=== PATIENT | female | born 1945 | race Caucasian/White ===

== ENCOUNTER → 2018-01-17 | Day surgery (SDC) | payer MEDICARE ==
[2018-01-13 16:20] LABS: BASOPHILS # (AUTO) 0.1 (0.0-0.1); EOSINOPHILS # (AUTO) 0.3 (0.0-0.4); EOSINOPHILS % 2.5 % (0.0-6.0); HEMATOCRIT 32.7 % (34.2-44.1); HEMOGLOBIN 10.7 g/dL (12.0-16.0); LYMPHOCYTES # (AUTO) 3.4 (1.0-3.2); LYMPHOCYTES % 29.4 % (18.0-39.1); MEAN CORPUSCULAR HEMOGLOBIN 31.5 pg (28-32); MEAN CORPUSCULAR HGB CONC 32.7 g/dL (31-35); MEAN CORPUSCULAR VOLUME 96.2 fL (81-99); MONOCYTES # (AUTO) 1.1 (0.2-0.8); MONOCYTES % 9.3 % (4.4-11.3); NEUTROPHILS # (AUTO) 6.6 (2.1-6.9); NEUTROPHILS % 57.5 % (38.7-80.0); PLATELET COUNT 327 x10e3/uL (140-360); RED CELL DISTRIBUTION WIDTH 16.7 % (11.7-14.4)
[~2018-01-17] MED LIST: ABATACEPT; AMITIZA24 MCG PO; AMLODIPINE BESYL5 MG PO; AZITHROMYCIN250 MG PO; COMBIVENT14.7 GM; CYANOCOBALAM1000 MCG IM; CYCLOBENZAPRINE10 MG PO; DALIRESP500 MCG; DILTIAZEM ER60 MG PO; FENTANYL CITRATE/PF 100MCG/2 ML INJ ONE; FLEXERIL10 MG PO; FOLIC ACID PO; FUROSEMIDE40 MG PO; GABAPENTIN300 MG PO; GLIPIZIDE ER2.5 M1 PO; GLUCOTROL XL2.5 MG PO; GLYCOPYRROLATE INJ 1MG/ 5 ML SYR ONE; HYOSCYAMINE SULFATE 0.5 MG/ML AMP ONE; LEVALBUTER0.63 MG/3 NEB; LIDOCAINE HCL 2% LOCAL INJ 5 ML SDV VIAL INJ ONE; LISINOPRIL10 MG PO; LORAZEPAM1 MG PO; MELOXICAM7.5 MG PO; METHOTREXATE; METHOTREXATE2.5 MG PO; MIDAZOLAM HCL 2 MG/2 ML VIAL ONE; NEURONTIN100 MG PO; NEXIUM40 MG PO; NORCO 10MG-325MG1 EA PO; ONDANSETRON HCL INJ 2 MG/ML VIAL ONE; PHENYLEPHRINE HCL 1% 10 MG/ML VIAL ONE; PREDNISONE20 MG PO; PROPOFOL IV EMULSION 10 MG/ML 20 ML VIAL ONE; RANITIDINE HCL300 MG PO; SERTRALINE HCL100 MG PO; SUCRALFATE PO; SUCRALFATE1 GM PO; VIT D2 PO; VITAMIN D PO; Z.0.AMITIZA8 MCG PO; Z.0.FOLIC ACID1 MG PO; Z.0.FOSAMAX70 MG; Z.0.NEXIUM40 MG PO; Z.0.PROBIOTIC1 EACH; Z.0.RAMIPRIL2.5 MG PO; Z.0.SERTRALINE HCL10 PO; Z.0.VITAMIN D50000 U PO; ZOLPIDEM PO; ZOLPIDEM TARTRA10 MG PO; ZYRTEC PO
--- NOTE | 2018-01-17 12:56 | Operative Report ---
DATE OF PROCEDURE: January 17, 2018 REFERRING PHYSICIAN: Dr. Nydia Harry. PROCEDURES PERFORMED: 1. Esophagogastroduodenoscopy with esophageal dilatation and biopsies. 2. Colonoscopy. INDICATIONS FOR ESOPHAGOGASTRODUODENOSCOPY: Dysphagia to solids, nausea. INDICATIONS FOR COLONOSCOPY: Colorectal cancer screening, personal history of colon polyps. MEDICATION: Patient was done under MAC. Please see anesthesiologist's note. PROCEDURE: With the patient in the left lateral decubitus position, the flexible fiberoptic Olympus gastroscope was introduced into the esophagus under direct visualization without any difficulty. There was some patchy erythema noted in the distal esophagus. There was a mild stricture noted at the GE junction, and that was dilated to size 52-[place] Olivas. The scope was then advanced with ease into the stomach, and a gastrojejunostomy anastomosis was noted that was patent and it was traversed with ease. Another anastomosis was entered, and the scope was then advanced into the bypassed stomach, and the mucosa overlying the body and the antrum revealed some patchy intense erythema and moderate edema and biopsies were obtained and sent to stain for H. pylori. Pylorus was intubated with ease, and the scope was advanced into the duodenal bulb as well as the proximal 2nd portion of the duodenum. It was then withdrawn slowly, and mucosa overlying the proximal 2nd portion and the duodenal bulb appeared to be within normal limits. The scope was then withdrawn back into the gastric stump and retroflexed, and mucosa overlying the fundus and the cardia appeared to be within normal limits. The scope was then straightened out. It was subsequently withdrawn. Patient tolerated the procedure well. IMPRESSION: 1. Distal esophagitis, mild. 2. Esophageal stricture at gastroesophageal junction dilated to size 52-[place] Oliavs. 3. Status post gastrojejunostomy. Anastomosis intact. 4. Gastritis biopsied. Biopsies sent to stain for H. pylori. PLAN: Follow up histology. Continue current therapy. Patient was then turned around and after adequate lubrication of the anal canal, a flexible fiberoptic Olympus colonoscope was inserted into the rectum with ease and advanced all the way to the cecum. The scope was then withdrawn slowly. Mucosa overlying the cecum, ascending colon, transverse, descending, sigmoid and rectum appeared to be within normal limits. The scope was then retroflexed into the distal rectum and small internal hemorrhoids were noted, none of which was actively bleeding. The scope was then straightened out. It was subsequently withdrawn. Patient tolerated the procedure well. IMPRESSION: Internal hemorrhoids, none actively bleeding. PLAN: Initiate high-fiber low-fat diet. Initiate high-fiber supplement. Patient might benefit from a followup colonoscopy in 5 years. Job#: [id number] EV cc:NYDIA HARRY MD
== END | disposition home or self-care (01) ==
LOC: OR 09:36
PROVIDERS: ATTEND Internal Medicine Gastroenterology
DX: Z12.11 Encounter for screening for malignant neoplasm of colon (principal); K29.50 Unspecified chronic gastritis without bleeding; K22.2 Esophageal obstruction; K20.9 Esophagitis, unspecified; Z98.0 Intestinal bypass and anastomosis status; K58.9 Irritable bowel syndrome, unspecified; K21.9 Gastro-esophageal reflux disease without esophagitis; K59.00 Constipation, unspecified; K64.8 Other hemorrhoids; E11.9 Type 2 diabetes mellitus without complications; I10 Essential (primary) hypertension; M06.9 Rheumatoid arthritis, unspecified; J44.9 Chronic obstructive pulmonary disease, unspecified; Z68.28 Body mass index [BMI] 28.0-28.9, adult; Z88.6 Allergy status to analgesic agent; Z88.0 Allergy status to penicillin; Z88.8 Allergy status to other drugs, medicaments and biological substances; Z79.84 Long term (current) use of oral hypoglycemic drugs
CPT/HCPCS: 43239; 43450; G0105; 36415; 45378; 82948; 85025; 88305; 88312; 93005; J1980; J2001; J2250; J2370; J2405

== ENCOUNTER 2018-06-13 18:56 | Inpatient (IN) | payer MEDICARE ==
[~2018-06-13] VITALS: Ht 162.6 cm; Wt 72.6 kg
[~2018-06-13 18:56] MED LIST changes: -FENTANYL CITRATE/PF 100MCG/2 ML INJ ONE; -GLYCOPYRROLATE INJ 1MG/ 5 ML SYR ONE; -HYOSCYAMINE SULFATE 0.5 MG/ML AMP ONE; -LIDOCAINE HCL 2% LOCAL INJ 5 ML SDV VIAL INJ ONE; -MIDAZOLAM HCL 2 MG/2 ML VIAL ONE; -ONDANSETRON HCL INJ 2 MG/ML VIAL ONE; -PHENYLEPHRINE HCL 1% 10 MG/ML VIAL ONE; -PROPOFOL IV EMULSION 10 MG/ML 20 ML VIAL ONE
--- OUTSIDE RECORDS SUMMARY | 2018-06-13 19:00 | XMS REPORT | Clinical Summary ---
Author Author [facility] [employer] Address Unknown Phone Unavailable Care Team Providers Care Social Services Coordinator Name Role Phone Jessi Nicholas MD PCP Allergies Comments Active Allergy Reactions Severity Noted Date Makes her heart beat too fast Albuterol Other (See 03/15/2018 Comments) Penicillins 03/14/2018 Medications End Date Status Medication Sig Dispensed Refills Start Date Active VITAMIN D2 50,000 unit TAKE 1 0 capsule CAPSULE BY 8 MOUTH EVERY 6 DAYS Active esomeprazole (NexIUM) 40 Take 40 mg by 2 MG capsule mouth 2 (two) 8 times a day. Active fluticasone (FLONASE) 50 SPRAY 2 PUFFS 4 mcg/actuation nasal spray IN EACH 8 NOSTRIL EVERY MORNING AND SPRAY 1 PUFF IN EACH NOSTRIL EVERY EVENING PRN Active folic acid (FOLVITE) 1 MG Take 2 mg by 2 tablet mouth 8 nightly. Active furosemide (LASIX) 40 mg Take 40 mg by 5 tablet mouth every 8 morning. Active HYDROcodone-acetaminophen TK ONE TABLET 0 (NORCO) 10-325 mg per PO QID PRN 8 tablet Active levalbuterol (XOPENEX INHALE TWO 6 HFA) 45 mcg/actuation PUFFS BY 8 inhaler MOUTH EVERY 4 TO 6 HOURS NEEDED Active CARAFATE 1 gram tablet Take 1 g by 0 mouth 4 8 (four) times a day before meals and nightly. Active glipiZIDE (GLUCOTROL) 2.5 Take 2.5 mg 0 MG 24 hr tablet by mouth 8 every morning. Active aspirin (ECOTRIN) 81 MG Take 81 mg by 0 enteric coated tablet mouth every morning. Active sertraline (ZOLOFT) 100 Take 100 mg 0 MG tablet by mouth nightly. Active lubiprostone (AMITIZA) 24 Take 24 mcg 0 MCG capsule by mouth 2 8 (two) times a day. Active lisinopril Take 10 mg by 0 (PRINIVIL,ZESTRIL) 10 mg mouth 2 (two) 3 tablet times a day. Active methotrexate 2.5 MG Take 12.5 mg 0 tablet by mouth 8 every 7 days. Active folic acid (FOLVITE) 1 MG Take 1 mg by 0 tablet mouth every 2 morning. Active cyanocobalamin 1,000 Inject 1,000 0 mcg/mL injection mcg under the 8 skin every 14 (fourteen) days. Active gabapentin (NEURONTIN) Take 300 mg 0 300 mg capsule by mouth 8 every morning. Active meloxicam (MOBIC) 15 mg Take 15 mg by 0 tablet mouth every 8 morning. Active diltiazem CD (CardIZEM Take 120 mg 0 CD) 120 MG 24 hr capsule by mouth 8 nightly. Active ranitidine (ZANTAC) 300 Take 300 mg 5 MG tablet by mouth 8 nightly. Active gabapentin (NEURONTIN) Take 600 mg 0 300 mg capsule by mouth nightly. Active levalbuterol (XOPENEX) Take 3 mL by 0 0.63 mg/3 mL nebulizer nebulization 7 solution every 6 (six) hours as needed. 03/20/2018 Discontinued amLODIPine (NORVASC) 5 mg Take 5 mg by 5 tablet mouth daily. 8 03/20/2018 Discontinued azithromycin (ZITHROMAX) TAKE 2 0 250 MG tablet TABLETS BY 8 MOUTH ON DAY 1, THEN 1 TABLET DAILY ON DAYS 2 TO 5. 03/20/2018 Discontinued gabapentin (NEURONTIN) TAKE 1 5 300 mg capsule CAPSULE BY 8 MOUTH in the morning FOR NERVE PAIN 03/20/2018 Discontinued glipiZIDE (GLUCOTROL) 2.5 Take 2.5 mg 2 MG 24 hr tablet by mouth 8 daily. 03/20/2018 Discontinued ergocalciferol (VITAMIN Take 50,000 0 D2) 50,000 unit capsule Units by 2 mouth take as directed. Pt takes the medication every 6 days 03/20/2018 Discontinued folic acid (FOLVITE) 1 MG Take 2 mg by 0 tablet mouth 7 nightly. Active Problems Problem Noted Date Fall from standing 03/14/2018 Encounters Care Team Description Date Type Specialty Vance Araujo MD Closed intertrochanteric fracture of left hip, with routine healing, subsequent encounter (Primary Dx) 05/03/2018 Office Visit Orthopedic Surgery Cheyenne Fofana MA Pain in femur (Primary Dx) 05/02/2018 Orders Only Orthopedic Surgery Vance Araujo MD Pain of left hip joint (Primary Dx); Closed intertrochanteric fracture of left hip, with routine healing, subsequent encounter 04/05/2018 Office Visit Orthopedic Surgery Cheyenne Fofana MA 04/04/2018 Telephone Orthopedic Surgery Cheyenne Fofana MA 04/04/2018 Telephone Orthopedic Surgery Jonh Boggs 03/16/2018 Anesthesia General Surgery Event Vance Araujo MD ORIF, HIP 03/16/2018 Surgery General Surgery Derick Montez MD Kohlnhofer, Matthew, MD Fall from standing, initial encounter (Primary Dx); Acute hip pain, left; Dehydration; Closed fracture of left hip, initial encounter; Closed displaced intertrochanteric fracture of left femur, initial encounter 03/14/2018 Hospital General Surgery - Encounter 03/21/2018 Vance Araujo MD Knox, Marcus, CIARA Pain of right hip joint 11/15/2017 Office Visit Physical Therapy Vance Araujo MD Pain of right hip joint (Primary Dx); Trochanteric bursitis, right hip 11/11/2017 Office Visit Orthopedic Surgery Cheyenne Fofana MA Pain of right hip joint (Primary Dx) 11/10/2017 Orders Only Orthopedic Surgery after 06/12/2017 Immunizations Name Dates Previously Given Next Due FLUCELVAX QUAD PF (0.5mL 03/18/2018 syringe) Social History Date Tobacco Use Types Packs/Day Years Used Never Smoker Smokeless Tobacco: Never Used Alcohol Use Drinks/Week oz/Week Comments No Sex Assigned at Date Recorded Not on file Industry Job Start Date Occupation Not on file Not on file Not on file Travel End Travel History Travel Start No recent travel history available. Last Filed Vital Signs Time Taken Vital Sign Reading 03/21/2018 4:02 PM CDT Blood Pressure 109/66 03/21/2018 4:02 PM CDT Pulse 87 03/21/2018 4:02 PM CDT Temperature 37.2 C (99 F) 03/21/2018 4:02 PM CDT Respiratory Rate 17 03/21/2018 4:02 PM CDT Oxygen Saturation 97% - Inhaled Oxygen - Concentration 03/15/2018 1:35 AM CDT Weight 77.1 kg (170 lb) 03/15/2018 1:35 AM CDT Height 163.8 cm (5' 4.5") 03/15/2018 1:35 AM CDT Body Mass Index 28.73 Plan of Treatment Care Team Description Date Type Specialty Vance Araujo MD [address] [facility] [address] [place] [address] [phone] 07/07/2018 Office Visit Orthopedic Surgery Health Maintenance Due Date Last Done Comments BREAST CANCER SCREENING 1997 COLON CANCER SCREENING 1997 SHINGRIX VACCINE (1 of 2) 1997 ZOSTER VACCINE 2007 PNEUMOCOCCAL-13 2012 PNEUMOCOCCAL Completed 05/09/2012 POLYSACCHARIDE VACCINE AGE 65 AND OVER INFLUENZA VACCINE Completed 03/18/2018, 04/07/2017 Implants Device Identifier Shelf Expiration Date Model / Serial / Lot Implanted Type Area Manufactur er [id number] / / Kit Scr Intrlkng 100mm Lag 95mm Hip Joint Left: Hip LARA AND Comp Intertan - [id number] Implants NEPHEW Implanted: Qty: 1 on 03/16/2018 by Vance Knight MD TRAUMA 08/31/2027 [id number] / / [id number] Intertan 1.5 [id number] 125d Lt - IPM Left: Hip LARA & [id number] IMPLANT NEPHEW Implanted: Qty: 1 on 03/16/2018 by DEVICES Vance Saini MD [id number] / / Trigen Low Profile Screw 5.0mm X IPM Left: Hip LARA & 50mm - [id number] IMPLANT NEPHEW Implanted: Qty: 1 on 03/16/2018 by DEVICES ORTHOPAEDI Van, Vance Han MD CS Lens Lens Procedures Comments Procedure Name Priority Date/Time Associated Diagnosis XR FEMUR 2 VW LEFT Routine 05/03/2018 Pain in femur 1:33 PM CDT XR FEMUR 2 VW LEFT Routine 04/05/2018 Pain of left hip joint 1:58 PM CDT XR PELVIS 1 OR 2 VW Routine 04/05/2018 Pain of left hip joint 1:57 PM CDT HEMOGLOBIN & HEMATOCRIT Routine 03/20/2018 12:21 PM CDT ESTIMATED GFR Routine 03/19/2018 4:35 PM CDT COMPREHENSIVE METABOLIC Routine 03/19/2018 PANEL 4:35 PM CDT PREPARE RBC Timed 03/19/2018 12:10 PM CDT TYPE AND SCREEN Timed 03/19/2018 12:10 PM CDT HC COMPLETE BLD COUNT STAT 03/19/2018 W/AUTO DIFF 12:10 PM CDT ESTIMATED GFR Routine 03/18/2018 5:55 AM CDT BASIC METABOLIC PANEL Routine 03/18/2018 5:55 AM CDT HC COMPLETE BLD COUNT Routine 03/18/2018 W/AUTO DIFF 5:55 AM CDT POC GLUCOSE Routine 03/17/2018 4:53 PM CDT POC GLUCOSE Routine 03/17/2018 11:18 AM CDT POC GLUCOSE Routine 03/17/2018 5:52 AM CDT ESTIMATED GFR Routine 03/17/2018 5:03 AM CDT BASIC METABOLIC PANEL Routine 03/17/2018 5:03 AM CDT HC COMPLETE BLD COUNT Routine 03/17/2018 W/AUTO DIFF 5:03 AM CDT POC GLUCOSE Routine 03/16/2018 8:13 PM CDT POC GLUCOSE Routine 03/16/2018 5:29 PM CDT XR FEMUR 2 VW LEFT Routine 03/16/2018 4:19 PM CDT POC GLUCOSE Routine 03/16/2018 3:55 PM CDT OR FL > 1 HOUR Routine 03/16/2018 3:00 PM CDT ANESTHESIA INTUBATION Routine 03/16/2018 1:27 PM CDT Procedure Note - Júnior Enriquez MD - 03/16/2018 1:27 PM CDT Airway Performed by: JÚNIOR ENRIQUEZ Authorized by: JÚNIOR ENRIQUEZ Location: OR Difficult Airway: No Anesthesio logist: JÚNIOR ENRIQUEZ Performed by: anesthesio logist Preoxygena leyda with 100% O2: Yes C-spine Precaution s Maintained Throughout : Yes Mask Ventilatio n: Easy mask Final Airway Type: Endotrache al airway Final Endotrache al Airway: ETT Technique Used: Video laryngosco py Devices/Me thods Used in Placement: Intubatin g stylet Insertion Site: Oral Blade Type: Melton Laryngosco pe Blade/Vide olaryngosc ope Blade Size: 2 ETT Size (mm): 7.0 Measured from: Gums ETT to Gums (cm): 21 Placement Verified by: CO2 detection, direct visualizat ion and equal breath sounds Laryngosco pic view: Grade I - full view of glottis Rapid Sequence Induction (RSI): No Modified RSI: No Number of Attempts at Approach: 1 ORIF, HIP 03/16/2018 Left hip 11:30 AM CDT intertrochanteric fracture Special Needs Lara and Nephedy Intratan Nail.Jeremiah ) with Marco and Nephedy notified of case start at 1500.....H J03/15/18 Jeremiah notified of time change to 1130...hj POC GLUCOSE Routine 03/16/2018 5:42 AM CDT POC GLUCOSE Routine 03/15/2018 8:55 PM CDT XR KNEE 1 OR 2 VW LEFT Routine 03/15/2018 5:48 PM CDT POC GLUCOSE Routine 03/15/2018 4:50 PM CDT POC GLUCOSE Routine 03/15/2018 12:30 PM CDT ECHOCARDIOGRAM 2D Routine 03/15/2018 COMPLETE W MMODE SPECTRAL 12:00 PM CDT COLOR DOPPLER (20795) ECG PRE/POST OP Routine 03/15/2018 10:08 AM CDT POC GLUCOSE Routine 03/15/2018 6:04 AM CDT ESTIMATED GFR Routine 03/15/2018 5:11 AM CDT COMPREHENSIVE METABOLIC Routine 03/15/2018 PANEL 5:11 AM CDT HC COMPLETE BLD COUNT Routine 03/15/2018 W/AUTO DIFF 5:11 AM CDT URINALYSIS SCREEN AND Routine 03/15/2018 MICROSCOPY, WITH REFLEX 1:08 AM CDT TO CULTURE URINE CULTURE Routine 03/15/2018 1:08 AM CDT TYPE AND SCREEN Routine 03/15/2018 1:07 AM CDT XR HIP 2-3 VIEWS LEFT STAT 03/15/2018 12:55 AM CDT XR CHEST 1 VW PORTABLE STAT 03/15/2018 12:[address] HEAD WO CONTRAST STAT 03/14/2018 11:[address] CERVICAL SPINE WO STAT 03/14/2018 CONTRAST 11:[address] PELVIS WO CONTRAST STAT 03/14/2018 11:[address] LOWER EXTREMITY WO STAT 03/14/2018 CONTRAST LEFT 11:07 PM CDT ESTIMATED GFR STAT 03/14/2018 9:36 PM CDT B NATRIURETIC PEPTIDE STAT 03/14/2018 9:36 PM CDT CREATINE KINASE, TOTAL STAT 03/14/2018 (CPK) 9:36 PM CDT TROPONIN STAT 03/14/2018 9:36 PM CDT COMPREHENSIVE METABOLIC STAT 03/14/2018 PANEL 9:36 PM CDT PARTIAL THROMBOPLASTIN STAT 03/14/2018 TIME (PTT) 9:36 PM CDT PROTHROMBIN TIME WITH INR STAT 03/14/2018 9:36 PM CDT HC COMPLETE BLD COUNT STAT 03/14/2018 W/AUTO DIFF 9:36 PM CDT ECG 12-LEAD STAT 03/14/2018 9:34 PM CDT ECG ED PRELIMINARY Routine 03/14/2018 INTERPRETATION 9:27 PM CDT XR HIP 2-3 VIEWS RIGHT Routine 11/11/2017 Pain of right hip joint 2:40 PM CDT after 06/12/2017 Results * XR Femur 2 Vw Left (05/03/2018 1:33 PM CDT) Only the most recent of 3 results within the time period is included. Narrative Performed At [facility] X-rays left femur AP and lateral to include the hip and knee 05/03/2018: X-ray shows intramedullary marcos fixation of an intertrochanteric fracture left hip there is an avulsion of the greater trochanter but otherwise the fracture is well reduced with signs of early healing.Of note the right extends to to the distal femur where there is a left total knee arthroplasty in place which appears satisfactory. Performing Organization Address City/State/Zipcode Phone Number [facility] [address] [place] [address] * XR Pelvis 1 Or 2 Vw (04/05/2018 1:57 PM CDT) Narrative Performed At [facility] X-rays AP pelvis 04/05/2018: X-ray shows bilateral internal fixation from previous trochanteric fracture most recent of the left side. Performing Organization Address City/[facility] Phone Number [facility] [address] [place] [address] * Hemoglobin & hematocrit (03/20/2018 12:21 PM CDT) HGB 8.2 (L) 12.0 - 16.0 g/dL [facility]OMIC MEDIC[facility] HCT 26.1 (L) 37.0 - 47.0 % [facility]IC[facility] Specimen Blood Performing Organization Address [facility] Cent[facility]ode Phone Number [facility] [address] [place] [address] [place] [address] PATHOLOGY AND [facility] * Estimated GFR (03/19/2018 4:35 PM CDT) Only the most recent of 5 results within the time period is included. Estimated GFR 87 mL/min/1.73 m2 [facility] Comment: PATHOLOGY AND [employer] GENOMIC MEDICINE rpretation G1 >=90 Normal or high G2 60-89Mildly decreased [id number] Mildly to moderately decreased [id number] Moderately to severely decreased G4 15-29Severely decreased G5 <15Kidney failure The eGFR was calculated using the Chronic Kidney Disease Epidemiology Collaboration (CKD-EPI) equation. Interpretation is based on recommendations of the National Kidney Foundation-Kidney Disease Outcomes Quality Initiative (NKF-KDOQI) published in 2014. Specimen Plasma specimen Performing Organization Address [facility] Phone Number [facility] [id number] [place] [address] [place] [address] PATHOLOGY AND [facility] MEDICINE * Comprehensive metabolic panel (03/19/2018 4:35 PM CDT) Only the most recent of 3 results within the time period is included. Sodium 144 135 - 148 mEq/L [facility]IC[facility] Potassium 3.2 (L) 3.5 - 5.0 mEq/L [facility] MEDIC[facility] Chloride 97 (L) 98 - 112 mEq/L [facility]IC[facility] CO2 38 (H) 24 - 31 mEq/L [facility] MEDIC[facility] Anion gap 9@ANIO 7 - 15 mEq/L [facility] MEDIC[facility] BUN 15 8 - 23 mg/dL [facility]IC[facility] Creatinine 0.70 0.50 - 0.90 mg/dL [facility]IC[facility] Glucose 144 (H) 65 - 99 mg/dL [facility]IC[facility] Calcium 8.6 (L) 8.8 - 10.2 mg/dL [facility] MEDIC[facility] Protein 5.5 (L) 6.3 - 8.3 g/dL [facility] Comment: PATHOLOGY AND [employer] GENOMIC MEDICINE 4.6-7.0 g/dL 1 week 4.4-7.6 g/dL 7 months-1year 5.1-7.3 g/dL 1-2 years5.6-7 .5 g/dL >3 years6.0-8 .0 g/dL 18-150 6.3-8.3 g/dL Albumin 2.6 (L) 3.5 - 5.0 g/dL [facility]IC[facility] A/G ratio 0.9 0.7 - 3.8 [facility]IC[facility] Alkaline phosphatase 55 35 - 104 U/L [facility] MEDIC[facility] AST 10 10 - 35 U/L [facility] MEDIC[facility] ALT 11 5 - 50 U/L [facility]IC MEDIC[facility] Total bilirubin 0.4 0.0 - 1.2 mg/dL [facility]OMIC MEDICINE Specimen Plasma specimen Performing Organization Address City/State/Zipcode [place] [address] [address] [place] [phone] PATHOLOGY AND GENOMIC MEDICINE * CBC with platelet and differential (03/19/2018 12:10 PM CDT) Only the most recent of 5 results within the time period is included. WBC 12.67 (H) 4.50 - 11.00 k/uL [facility] GENOMIC MEDIC[facility] RBC 2.62 (L) 4.20 - 5.50 m/uL [facility]OMIC MEDIC[facility] HGB 7.9 (L) 12.0 - 16.0 g/dL [facility] GENOMIC MEDIC[facility] HCT 25.5 (L) 37.0 - 47.0 % [facility] MEDIC[facility] MCV 97.3 82.0 - 100.0 fL [facility]IC[facility] MCH 30.2 27.0 - 34.0 pg [facility] GEN[facility]IC MEDIC[facility] MCHC 31.0 31.0 - 37.0 g/dL [facility]Y [facility] GENOMIC MEDICINE RDW - SD 56.9 (H) 37.0 - 55.0 fL [facility] OF PATHOLOGY AND GENOMIC MEDICINE MPV 9.9 8.8 - 13.2 fL [facility] OF PATHOLOGY AND GENOMIC MEDICINE Platelet count 279 150 - 400 k/uL [facility]IC MEDIC[facility] Nucleated RBC 0.00 /100 WBC [facility]Y AND GENOMIC MEDICINE Neutrophils 50.8 39.0 - 69.0 % [facility] GENOMIC MEDICINE Lymphocytes 31.6 25.0 - 45.0 % [facility]Y [facility] GENOMIC MEDICINE Monocytes 11.1 (H) 0.0 - 10.0 % [facility]Y [facility] GENOMIC MEDICINE Eosinophils 5.3 (H) 0.0 - 5.0 % [facility] OF PATHOLOGY AND GENOMIC MEDICINE Basophils 0.6 0.0 - 1.0 % [facility] PATHOLOGY AND GENOMIC MEDICINE Specimen Blood Performing Organization Address City/[facility]ode Phone Number [address] [place] [phone] PATHOLOGY AND GENOMIC MEDICINE * Type and screen (03/19/2018 12:10 PM CDT) Only the most recent of 2 results within the time period is included. ABO grouping A [facility] OF PATHOLOGY AND GENOMIC MEDICINE Rh type POS [facility] PATHOLOGY AND GENOMIC MEDICINE Antibody screen NEG [facility] OF PATHOLOGY AND GENOMIC MEDICINE Specimen Blood Performing Organization Address City/[facility]ercode Phone Number [address] [place] [address] PATHOLOGY [facility] * Basic metabolic panel (03/18/2018 5:55 AM CDT) Only the most recent of 2 results within the time period is included. Sodium 144 135 - 148 mEq/L [facility] GENOMIC MEDICINE Potassium 3.3 (L) 3.5 - 5.0 mEq/L [facility] OF PATHOLOGY AND GENOMIC MEDICINE Chloride 103 98 - 112 mEq/L [facility]Y [facility] GENOMIC MEDICINE CO2 34 (H) 24 - 31 mEq/L [facility] MEDIC[facility] Anion gap 7@ANIO 7 - 15 mEq/L [facility]OMIC MEDIC[facility] BUN 15 8 - 23 mg/dL [facility] GENOMIC MEDICINE Creatinine 0.70 0.50 - 0.90 mg/dL [facility] GENOMIC MEDICINE Glucose 125 (H) 65 - 99 mg/dL [facility] GENOMIC MEDICINE Calcium 8.4 (L) 8.8 - 10.2 mg/dL [facility]Y [facility] GENOMIC MEDICINE Specimen Plasma specimen Performing Organization Address [facility]ode Phone Number [address] [place] [phone] PATHOLOGY AND GENOMIC MEDICINE * POC glucose (03/17/2018 4:53 PM CDT) Only the most recent of 11 results within the time period is included. POC glucose 118 (H) 65 - 99 mg/dL [facility] Comment: PATHOLOGY AND Meter ID: [id number] GENOMIC MEDICINE [employer] Repairer: Nasir Bertrand Performing Organization Address City/[facility]ode Phone Number [address] [place] [phone] PATHOLOGY AND [employer] MEDICINE * OR [place] > I Hour (03/16/2018 3:00 PM CDT) Narrative Performed At EXAMINATION:[place] 1 HOUR [facility] C-arm fluoroscopy was requested in OR. Fluoro time 5:54 4 images IMPRESSION: Separate operative report will be issued by the physician performing the procedure. [id number] Procedure Note Interface, Radiology Results Incoming - 03/16/2018 3:42 PM CDT EXAMINATION: OR [place] 1 HOUR C-arm fluoroscopy was requested in OR. Fluoro time 5:54 4 images IMPRESSION: Separate operative report will be issued by the physician performing the procedure. [id number] Performing Organization Address City/[facility]/Zipcode Phone Number [facility] [address] [place] [address] * XR Knee 1 Or 2 Vw Left (03/15/2018 5:48 PM CDT) Narrative Performed At EXAMINATION:XR KNEE 1 OR 2 VW LEFT [facility] CLINICAL HISTORY:Knee replacedpainquadriceps or patellar tendinopathy suspected COMPARISON:None. IMPRESSION: There is a left total knee prosthesis in place.There is no evidence of fracture or malalignment.There is soft tissue swelling strongly suggesting a distention of the bursal or joint effusion. [facility]-[id number] Procedure Note Hm Interface, Radiology Results Incoming - 03/15/2018 6:05 PM CDT EXAMINATION: XR KNEE 1 OR 2 VW LEFT CLINICAL HISTORY: Knee replaced pain quadriceps or patellar tendinopathy suspected COMPARISON: None. IMPRESSION: There is a left total knee prosthesis in place. There is no evidence of fracture or malalignment. There is soft tissue swelling strongly suggesting a distention of the bursal or joint effusion. [facility]-[id number] Performing Organization Address City/State/Zipcode Phone Number [facility] [address] [place] [address] * Echocardiogram complete w contrast and 3D if needed (03/15/2018 12:00 PM CDT) Velocity Ratio (V1/V2) 1.07 m/s [facility] IVS,d 1.06 cm [facility] EF 60.15 % [facility] LVPWD,d 1.03 cm [facility] AoV Mean PG 2.57 mmHg [facility] AV LVOT peak gradient 5.02 mmHg [facility] E/A ratio 0.65 [facility] E wave decelartion time 254.35 msec [facility] LVOT Diam,S 2.26 cm [facility] LVOT area 4.01 cm2 [facility] LVOT Vmax 1.12 m/s [facility] LVOT VTI 0.26 m [facility] AoV Peak PG 4.39 mmHg [facility] MV Peak E Elmer 0.73 m/s [facility] MV Peak A Elmer 1.12 m/s [facility] LV Vol,s A2C 15.23 mL [facility] LV Vol,d A2C 54.00 mL [facility] AoV Area, Vmax 4.30 cm2 [facility] AoV Area, VTI 5.41 cm2 [facility] AoV Vmax 1.05 m/s [facility] LV,d 4.08 cm [facility] LV,s 2.79 cm [facility] LV Vol,d A4C 46.81 ml [facility] LV Vol,s A4C 18.32 ml [facility] RVSP (TR) 53.51 mmHg [facility] TR Vpeak 3.48 mm/s [facility] MV E A ratio 0.65 mmHg [facility] RA pressure 5.00 mmHg [facility] TR pk grad 48.51 mmHg [facility] RVSP 53.51 mmHg [facility] LV SYS VOL 29.21 ml [facility] LV RAND VOL 73.30 ml [facility] LA diam s 3.40 cm [facility] LA area s A4C 16.92 cm2 [facility] LA Vol MOD A4C 41.84 ml [facility] LV SV Teich 2D 44.09 ml [facility] LVOT SI 56.21 ml/m2 [facility] AoV Cusp sep 1.74 [facility] Aortic Root 3.10 cm [facility] AoV Vmn 0.77 [facility] IVS s 2D 1.48 [facility] LA Ao Ratio Mmode 1.08 [facility] D E excurs 0.60 [facility] E f slope 0.03 [facility] E prime lat 0.12 [facility] E sanjuanita sept 0.10 [facility] PV acc T slope 13.90 [facility] IVC diam 22.14 cm [facility] PV AT 68.51 msec [facility] AoV VTI 0.19 m [facility] LV EF,A2C 71.80 % [facility] LV EF,A4C 60.86 % [facility] LV EF,BP 66.97 % [facility] Ryan Langley,d A2C 6.98 cm [facility] Ryan Langley,d A4C 6.38 cm [facility] Ryan Langley,s A2C 5.68 cm [facility] Ryan Langley,s A4C 5.26 cm [facility] LV SV,A2C 38.77 % [facility] LV SV,A4C 28.49 % [facility] LV Vol,d BP 52.30 ml [facility] LV Vol,s BP 17.27 nl [facility] LVOT Vmn 0.83 [facility] Pt Size 162.56 [facility] Pt Wt 77.11 [facility] LVOT mean grad 2.92 mmHg [facility] LVPW s PLAX 1.41 cm [facility] MV Decel slope 2.86 m/s2 [facility] Narrative Performed At [facility] The left ventricle chamber size is normal. Left Ventricular ejection fraction is 60 - 65%. No pericardial effusion The mitral valve appears thickened. There is mild sclerosis of the aortic valve leaflets. Spectral Doppler shows impaired relaxation pattern of left ventricular diastolic filling. Moderate pulmonary hypertension present. Moderately elevated pulmonary artery systolic pressure. RA pressure is normal. Moderate pulmonary hypertension present. RVSP is 53 mmHg. Performing Organization Address [facility] Phone Number [facility] [address] [place] [address] * ECG Pre/Post Op (03/15/2018 10:08 AM CDT) Ventricular rate 70 [facility]USE Atrial rate 70 [facility] FL interval 168 [facility] QRSD interval 136 [facility] QT interval 472 [facility] QTC interval 509 [facility] P axis 1 77 [facility] QRS axis 1 43 [facility] T wave axis 31 [facility] EKG impression Normal sinus [facility] MUSE rhythm-Nonspecific intraventricular block-Abnormal ECG-No previous ECGs available- Performing Organization Address [facility] Phone Number [facility] MUSE [address] [place] [address] * Urinalysis screen and microscopy, with reflex to culture (03/15/2018 1:08 AM CDT) Specimen site Clean catch [facility] PATHOLOGY [facility] GENOMIC MEDICINE Color, UA Yellow [facility]IC[facility] Appearance, UA Clear [facility]Y [facility] GENOMIC MEDICINE Specific gravity, UA 1.024 1.001 - 1.035 [facility] PATHOLOGY AND GENOMIC MEDICINE pH, UA 5.0 5.0 - 8.5 [facility]OLOGY AND GENOMIC MEDICINE Protein, UA 1+ (A) Negative [facility]OLOGY AND GENOMIC MEDICINE Glucose, UA Negative Negative [facility] PATHOLOGY AND GENOMIC MEDICINE Ketones, UA Trace (A) Negative [facility] PATHOLOGY AND GENOMIC MEDICINE Bilirubin, UA Negative Negative [facility] PATHOLOGY AND GENOMIC MEDICINE Blood, UA Negative Negative [facility] PATHOLOGY AND GENOMIC MEDICINE Nitrite, UA Negative Negative [facility]OLOGY AND GENOMIC MEDICINE Urobilinogen, UA 2.0 (A) <2.0 [facility]OLOGY AND GENOMIC MEDICINE Leukocyte esterase, UA Negative Negative [facility] PATHOLOGY AND GENOMIC MEDICINE WBC, UA 0-5 0 - 4 /HPF [facility] GENOMIC MEDIC[facility] RBC, UA 0-5 0 - 5 /HPF [facility]OLOGY AND GENOMIC MEDICINE Bacteria, UA None seen None seen [facility]OLOGY AND GENOMIC MEDICINE Yeast, UA None seen [facility] PATHOLOGY AND GENOMIC MEDICINE Yeast with pseudohyphae, None seen [facility] UA PATHOLOGY AND GENOMIC MEDICINE Calcium oxalate crystals, Few [facility] UA PATHOLOGY AND GENOMIC MEDICINE Specimen Urine Performing Organization Address City/[facility]ode Phone Number [address] [place] [phone] PATHOLOGY AND GENOMIC MEDICINE * Urine culture (03/15/2018 1:08 AM CDT) Urine culture SEE COMMENTComment: [facility] DE[facility] OF Bacteriuria screen negative. PATHOLOGY AND GENOMIC MEDICINE Specimen Urine Performing Organization Address [facility] Phone Number [address] [place] [address] PATHOLOGY AND GENOMIC MEDICINE * XR Hip 2-3 View Left (03/15/2018 12:55 AM CDT) Narrative Performed At EXAMINATION:XR HIP 2-3 VIEWS LEFT [facility] CLINICAL HISTORY:fall from standing COMPARISON:Pelvic CT 03/14/2018. IMPRESSION: Acute left intertrochanteric fracture with coxa vera deformity. Surrounding soft tissue edema. Chronic right pubic fracture deformity. Fixation hardware in the visible portion of the right femur. [facility]-[id number] Procedure Note Interface, Radiology Results Incoming - 03/15/2018 1:01 AM CDT EXAMINATION: XR HIP 2-3 VIEWS LEFT CLINICAL HISTORY: fall from standing COMPARISON: Pelvic CT 03/14/2018. IMPRESSION: Acute left intertrochanteric fracture with coxa vera deformity. Surrounding soft tissue edema. Chronic right pubic fracture deformity. Fixation hardware in the visible portion of the right femur. [facility]-[id number] Performing Organization Address City/[facility]/Zipcode Phone Number [facility] [address] [place] [address] * XR Chest 1 Vw Portable (03/15/2018 12:02 AM CDT) Narrative Performed At EXAMINATION: XR CHEST 1 VW PORTABLE [facility] CLINICAL HISTORY: fall from standing COMPARISON:None. IMPRESSION: The lungs are clear. No pleural effusion or pneumothorax. Cardiac silhouette is enlarged. Aortic arch atherosclerosis. No acute osseous abnormalities. Surgical clips in the left upper quadrant. [facility]-[id number] Procedure Note Interface, Radiology Results Incoming - 03/15/2018 12:27 AM CDT EXAMINATION: XR CHEST 1 VW PORTABLE CLINICAL HISTORY: fall from standing COMPARISON: None. IMPRESSION: The lungs are clear. No pleural effusion or pneumothorax. Cardiac silhouette is enlarged. Aortic arch atherosclerosis. No acute osseous abnormalities. Surgical clips in the left upper quadrant. [facility]-[id number] Performing Organization Address City/State/Zipcode Phone Number [facility] [address] [place] [address] * CT Head Wo Contrast (03/14/2018 11:08 PM CDT) Narrative Performed At EXAMINATION:CT HEAD WO CONTRAST [facility] CLINICAL HISTORY:fall from standing COMPARISON:None. TECHNIQUE: Noncontrast head CT performed using radiation dose reduction techniques.Technical factors are evaluated and adjusted to ensure appropriate moderation of exposure.Automated dose management technology is applied to adjust radiation exposure while achieving a diagnostic quality image. FINDINGS: No evidence of acute intracranial hemorrhage, mass, mass effect, midline shift, or acute infarct. Scattered subcortical and periventricular white matter hypoattenuation likely reflecting mild to moderate chronic microvascular ischemic changes. Ventricles and sulci are normal in appearance for age.Arteriosclerosis of the cavernous and paraclinoid internal carotid arteries and V4 segment of the right vertebral artery. Basal cisterns are clear. Calvarium is intact. Status post bilateral lens extractions. No significant sinus inflammatory changes.Mastoid air cells are clear. IMPRESSION: 1. No CT evidence of acute intracranial abnormality. [id number] Procedure Note Interface, Radiology Results Incoming - 03/14/2018 11:13 PM CDT EXAMINATION: CT HEAD WO CONTRAST CLINICAL HISTORY: fall from standing COMPARISON: None. TECHNIQUE: Noncontrast head CT performed using radiation dose reduction techniques. Technical factors are evaluated and adjusted to ensure appropriate moderation of exposure. Automated dose management technology is applied to adjust radiation exposure while achieving a diagnostic quality image. FINDINGS: No evidence of acute intracranial hemorrhage, mass, mass effect, midline shift, or acute infarct. Scattered subcortical and periventricular white matter hypoattenuation likely reflecting mild to moderate chronic microvascular ischemic changes. Ventricles and sulci are normal in appearance for age. Arteriosclerosis of the cavernous and paraclinoid internal carotid arteries and V4 segment of the right vertebral artery. Basal cisterns are clear. Calvarium is intact. Status post bilateral lens extractions. No significant sinus inflammatory changes. Mastoid air cells are clear. IMPRESSION: 1. No CT evidence of acute intracranial abnormality. [id number] Performing Organization Address City/State/Zipcode Phone Number [facility] [address] [place] [address] * CT Cervical Spine Wo Contrast (03/14/2018 11:07 PM CDT) Narrative Performed At EXAMINATION: CT CERVICAL SPINE WO CONTRAST [facility] CLINICAL HISTORY: fall from standing COMPARISON:None TECHNIQUE: Axial noncontrast enhanced images of the cervical spine were obtained with coronal and sagittal reconstructed algorithms. CT imaging was performed with iterative reconstruction technique and/or automated exposure control to reduce radiation dose. FINDINGS: No fracture identified. Vertebral body heights appear maintained. Straightening of the normal cervical lordosis. Minimal anterolisthesis of C3 on C4. Minimal retrolisthesis of C4 on C5 and C5 on C6. Marked intervertebral disc space narrowing at C4-C5 and C5-C6 with mild anterior and posterior endplate spurring. No suspicious osseous lesion identified. Degenerative changes of the atlantodental joint. No prevertebral collection identified. Axial images through the disc spaces demonstrate the following: C1-C2: No significant spinal canal stenosis. C2-C3: Minimal posterior disc bulge without significant spinal canal stenosis. Patent bilateral neural foramina. C3-C4: Small central disc extrusion with minimal superior migration likely contributing to mild to moderate spinal canal stenosis measuring 7 mm in AP dimension. Mild bilateral facet hypertrophy with possible mild bilateral neural foraminal narrowing. C4-C5: Minimal posterior disc bulge and osteophytes likely result in mild spinal canal stenosis measuring 8 mm in AP dimension. Bilateral uncovertebral hypertrophy resulting in moderate to marked bilateral neural foraminal stenosis. C5-C6: Posterior osteophytes and minimal disc bulge, eccentric to the right resulting in mild spinal canal narrowing measuring 8 mm in mild to moderate lateral recess narrowing. Bilateral uncovertebral hypertrophy results in moderate to marked bilateral neural foraminal stenosis. C6-C7: No significant posterior disc disease, spinal canal or neural foraminal stenosis. C7-T1: No significant posterior disc disease, spinal canal or neural foraminal stenosis. IMPRESSION: 1. No CT evidence of acute traumatic injury to the cervical spine. 2. Multilevel degenerative changes with suspected small central disc extrusion at C3-C4 resulting in mild to moderate spinal canal stenosis. 3. Multilevel facet and uncovertebral hypertrophy resulting in moderate to marked bilateral neural foraminal stenosis at C4-C5 and C5-C6. Additional degenerative changes are detailed above. [id number] Procedure Note Hm Interface, Radiology Results Incoming - 03/14/2018 11:40 PM CDT EXAMINATION: CT CERVICAL SPINE WO CONTRAST CLINICAL HISTORY: fall from standing COMPARISON: None TECHNIQUE: Axial noncontrast enhanced images of the cervical spine were obtained with coronal and sagittal reconstructed algorithms. CT imaging was performed with iterative reconstruction technique and/or automated exposure control to reduce radiation dose. FINDINGS: No fracture identified. Vertebral body heights appear maintained. Straightening of the normal cervical lordosis. Minimal anterolisthesis of C3 on C4. Minimal retrolisthesis of C4 on C5 and C5 on C6. Marked intervertebral disc space narrowing at C4-C5 and C5-C6 with mild anterior and posterior endplate spurring. No suspicious osseous lesion identified. Degenerative changes of the atlantodental joint. No prevertebral collection identified. Axial images through the disc spaces demonstrate the following: C1-C2: No significant spinal canal stenosis. C2-C3: Minimal posterior disc bulge without significant spinal canal stenosis. Patent bilateral neural foramina. C3-C4: Small central disc extrusion with minimal superior migration likely contributing to mild to moderate spinal canal stenosis measuring 7 mm in AP dimension. Mild bilateral facet hypertrophy with possible mild bilateral neural foraminal narrowing. C4-C5: Minimal posterior disc bulge and osteophytes likely result in mild spinal canal stenosis measuring 8 mm in AP dimension. Bilateral uncovertebral hypertrophy resulting in moderate to marked bilateral neural foraminal stenosis. C5-C6: Posterior osteophytes and minimal disc bulge, eccentric to the right resulting in mild spinal canal narrowing measuring 8 mm in mild to moderate lateral recess narrowing. Bilateral uncovertebral hypertrophy results in moderate to marked bilateral neural foraminal stenosis. C6-C7: No significant posterior disc disease, spinal canal or neural foraminal stenosis. C7-T1: No significant posterior disc disease, spinal canal or neural foraminal stenosis. IMPRESSION: 1. No CT evidence of acute traumatic injury to the cervical spine. 2. Multilevel degenerative changes with suspected small central disc extrusion at C3-C4 resulting in mild to moderate spinal canal stenosis. 3. Multilevel facet and uncovertebral hypertrophy resulting in moderate to marked bilateral neural foraminal stenosis at C4-C5 and C5-C6. Additional degenerative changes are detailed above. [id number] Performing Organization Address City/State/Zipcode Phone Number [facility] [address] [place] [address] * CT Pelvis Wo Contrast (03/14/2018 11:07 PM CDT) Narrative Performed At CT PELVIS WO CONTRAST, CT LOWER EXTREMITY WO CONTRAST LEFT [facility] CLINICAL HISTORY:fall from standingL hip pain TECHNIQUE: Multidetector CT examination of the pelvis was performed following without contrast with multiplanar reconstructions. CT imaging was performed with iterative reconstruction technique and/or automated exposure control to reduce radiation dose. COMPARISON:Radiographs performed on 11/11/2017. FINDINGS: There is an acute, comminuted, and displaced intertrochanteric fracture of the proximal left femur with resultant coxa vera deformity. No other acute fracture is identified and there is no hip dislocation. There are old, healed right superior and inferior pubic ramus fractures. There are chronic, healed sacral insufficiency fractures. There is hardware within the proximal right femur without periarticular lucency or hardware fracture. The bones are demineralized. There are degenerative changes of the lower lumbar spine, both sacroiliac joints, and both hips. There is a soft tissue hematoma located adjacent to the greater trochanter of the left femur, measuring 5.2 x 3.8 cm in size. No other soft tissue fluid collection or soft tissue hematoma is identified. The partially visualized intra-abdominal and intrapelvic contents are without acute abnormality. IMPRESSION: 1. Acute, comminuted, and displaced intertrochanteric fracture of the proximal left femur with coxa vera deformity. 2. Soft tissue hematoma adjacent to the left greater trochanter. [id number] Procedure Note Interface, Radiology Results Incoming - 03/14/2018 11:[address] PELVIS WO CONTRAST, CT LOWER EXTREMITY WO CONTRAST LEFT CLINICAL HISTORY: fall from standing L hip pain TECHNIQUE: Multidetector CT examination of the pelvis was performed following without contrast with multiplanar reconstructions. CT imaging was performed with iterative reconstruction technique and/or automated exposure control to reduce radiation dose. COMPARISON: Radiographs performed on 11/11/2017. FINDINGS: There is an acute, comminuted, and displaced intertrochanteric fracture of the proximal left femur with resultant coxa vera deformity. No other acute fracture is identified and there is no hip dislocation. There are old, healed right superior and inferior pubic ramus fractures. There are chronic, healed sacral insufficiency fractures. There is hardware within the proximal right femur without periarticular lucency or hardware fracture. The bones are demineralized. There are degenerative changes of the lower lumbar spine, both sacroiliac joints, and both hips. There is a soft tissue hematoma located adjacent to the greater trochanter of the left femur, measuring 5.2 x 3.8 cm in size. No other soft tissue fluid collection or soft tissue hematoma is identified. The partially visualized intra-abdominal and intrapelvic contents are without acute abnormality. IMPRESSION: 1. Acute, comminuted, and displaced intertrochanteric fracture of the proximal left femur with coxa vera deformity. 2. Soft tissue hematoma adjacent to the left greater trochanter. [id number] Performing Organization Address City/State/Zipcode Phone Number [facility] [address] [place] [address] * CT Lower Extremity Wo Contrast Left (03/14/2018 11:07 PM CDT) Narrative Performed At CT PELVIS WO CONTRAST, CT LOWER EXTREMITY WO CONTRAST LEFT [facility] CLINICAL HISTORY:fall from standingL hip pain TECHNIQUE: Multidetector CT examination of the pelvis was performed following without contrast with multiplanar reconstructions. CT imaging was performed with iterative reconstruction technique and/or automated exposure control to reduce radiation dose. COMPARISON:Radiographs performed on 11/11/2017. FINDINGS: There is an acute, comminuted, and displaced intertrochanteric fracture of the proximal left femur with resultant coxa vera deformity. No other acute fracture is identified and there is no hip dislocation. There are old, healed right superior and inferior pubic ramus fractures. There are chronic, healed sacral insufficiency fractures. There is hardware within the proximal right femur without periarticular lucency or hardware fracture. The bones are demineralized. There are degenerative changes of the lower lumbar spine, both sacroiliac joints, and both hips. There is a soft tissue hematoma located adjacent to the greater trochanter of the left femur, measuring 5.2 x 3.8 cm in size. No other soft tissue fluid collection or soft tissue hematoma is identified. The partially visualized intra-abdominal and intrapelvic contents are without acute abnormality. IMPRESSION: 1. Acute, comminuted, and displaced intertrochanteric fracture of the proximal left femur with coxa vera deformity. 2. Soft tissue hematoma adjacent to the left greater trochanter. [facility]-[id number] Procedure Note Interface, Radiology Results - 03/14/2018 11:[address] PELVIS WO CONTRAST, CT LOWER EXTREMITY WO CONTRAST LEFT CLINICAL HISTORY: fall from standing L hip pain TECHNIQUE: Multidetector CT examination of the pelvis was performed following without contrast with multiplanar reconstructions. CT imaging was performed with iterative reconstruction technique and/or automated exposure control to reduce radiation dose. COMPARISON: Radiographs performed on 11/11/2017. FINDINGS: There is an acute, comminuted, and displaced intertrochanteric fracture of the proximal left femur with resultant coxa vera deformity. No other acute fracture is identified and there is no hip dislocation. There are old, healed right superior and inferior pubic ramus fractures. There are chronic, healed sacral insufficiency fractures. There is hardware within the proximal right femur without periarticular lucency or hardware fracture. The bones are demineralized. There are degenerative changes of the lower lumbar spine, both sacroiliac joints, and both hips. There is a soft tissue hematoma located adjacent to the greater trochanter of the left femur, measuring 5.2 x 3.8 cm in size. No other soft tissue fluid collection or soft tissue hematoma is identified. The partially visualized intra-abdominal and intrapelvic contents are without acute abnormality. IMPRESSION: 1. Acute, comminuted, and displaced intertrochanteric fracture of the proximal left femur with coxa vera deformity. 2. Soft tissue hematoma adjacent to the left greater trochanter. [facility]-[id number] Performing Organization Address City/[facility]ode Phone Number [facility] [address] [place] [address] * Troponin (03/14/2018 9:36 PM CDT) Troponin <0.300 0.000 - 0.300 ng/mL [facility] DEPARTMENT OF Comment: PATHOLOGY AND 0.30 - 1.49 [facility] ng/mlMay indicate increased risk of acute coronary syndrome. >=1.5 ng/ml Consistent with acute myocardial infarction. The diagnostic value of a single normal or non-diagnostic result is questionable.Serial samples at 2-6 hour intervals are required to rule out acute myocardial injury. Specimen Plasma specimen Performing Organization Address City/[facility] Number [address] [place] [address] PATHOLOGY AND GENOMIC MEDICINE * Partial thromboplastin time, activated (03/14/2018 9:36 PM CDT) PTT 30.3 23.0 - 36.0 sec [facility] Comment: PATHOLOGY AND PTT therapeutic range for [facility] unfractionated heparin is 61.0-112.0 seconds which corresponds to Anti-Xa 0.3-0.7 U/ml. Specimen Blood Performing Organization Address [facility] Number [address] [place] [address] PATHOLOGY AND GENOMIC MEDICINE * Prothrombin time with INR (03/14/2018 9:36 PM CDT) Prothrombin time 13.3 12.0 - 15.0 sec [facility] DEPARTMENT OF PATHOLOGY AND GENOMIC MEDICINE INR 1.0 [facility]PART[facility] OF Comment: PATHOLOGY AND The International Normalized [facility] Ratio (INR) is a therapeutic monitoring tool for patients who are stable on oral anticoagulant therapy. An INR of 2.0-3.0 is suggested for deep vein thrombosis/pulmonary embolism. Specimen Blood Performing Organization Address [facility] Number [address] [place] [address] PATHOLOGY AND [facility] * B natriuretic peptide (03/14/2018 9:36 PM CDT) BNP 95 0 - 100 pg/mL [facility] DEPARTMENT OF PATHOLOGY AND GENOMIC MEDICINE Specimen Blood Performing Organization [facility] Number [address] [place] [address] PATHOLOGY AND GENOMIC MEDICINE * Creatine kinase, total (CPK) (03/14/2018 9:36 PM CDT) Creatine kinase 61 26 - 192 U/L [facility] DEPARTMENT OF PATHOLOGY AND GENOMIC MEDICINE Specimen Plasma specimen Performing Organization [facility] Number [address] [place] [address] PATHOLOGY AND GENOMIC MEDICINE * ECG 12 lead (03/14/2018 9:34 PM CDT) Ventricular rate 77 [facility] Atrial rate 77 [facility] FL interval 170 [facility] QRSD interval 106 [facility] QT interval 420 [facility] QTC interval 475 [facility] M[facility] P axis 1 77 [facility]USE QRS axis 1 53 [facility] MUSE T wave axis 36 [facility] MUSE EKG impression Normal sinus rhythm with sinus [facility] MUSE arrhythmia-Marked ST abnormality, possible anterior subendocardial injury-Abnormal ECG-No previous ECGs available- Performing Organization Address City/[facility]ode Phone Number [facility] [address] [place] [address] * ECG ED Preliminary Interpretation - NOT AN ORDER (03/14/2018 9:27 PM CDT) Narrative Performed At Derick Montez MD 03/15/2018 12:02 AM ECG ED Preliminary Interpretation - Not an Order Performed by: DERICK MONTEZ Authorized by: DERICK MONTEZ ECG reviewed by ED Physician in the absence of a medical imaging director: yes Interpretation: Interpretation: normal Quality: Tracing quality:Limited by artifact Rate: ECG rate:77 ECG rate assessment: normal Rhythm: Rhythm: sinus rhythm Ectopy: Ectopy: none QRS: QRS axis:Normal QRS intervals:Wide Conduction: Conduction: normal ST segments: ST segments:Non-specific T waves: T waves: flattening Flattening:III * XR Hip 2-3 View Right (11/11/2017 2:40 PM CDT) Narrative Performed At [facility] X-rays right hip femur 2 views AP pelvis AP right femur lateral right and right hip 11/11/2017: X-ray shows an intramedullary marcos and compression screw is a long intramedullary marcos down the femur without interlocking screws distally above a right total knee arthroplasty.There is some deformity of the greater trochanter proximal femur but only mild degenerative changes in the hip joint. Performing Organization Address City/[facility] Cent[facility]ode Phone Number [facility] [address] [place] [address] after 06/12/2017 Insurance Payer Benefit Subscriber ID Type Phone Address Plan / Group HU[employer]NA MEDICARE HUMANA xxxxxxxxx PPO MEDICARE PPO/PFFS/E [facility] Advance Directives Patient has advance care planning documents, and code status on file. For more i nformation, please contact: Donavon Schafer [address] [place] [address] Date Inactivated Comments Code Status Date Activated 03/21/2018 10:10 PM Full Code 03/16/2018 5:14 PM Code Status decision reached by: Patient
--- OUTSIDE RECORDS SUMMARY | 2018-06-13 19:02 | XMS REPORT ---
Author Author Ever VICK, NORY Organization Unknown Address [address] [place] [address] [facility] Un[facility] Care Team Providers Care Supervisor [employer] Name Role Phone Dr. AVINASH SHOOK Unavailable Unavailable Allergies Type Substance Reaction Status drug allergy Cymbalta Active drug allergy Lyrica Active drug allergy Penicillin Active Problems Problem Effective Dates Problem Status J44.1 CHRONIC OBSTRUCTIVE PULMONARY DISEASE WITH (ACUTE) EXACERBATION 04/20/2016 Active E11.9 TYPE 2 DIABETES MELLITUS WITHOUT COMPLICATIONS 04/20/2016 Active I10 ESSENTIAL (PRIMARY) HYPERTENSION 04/20/2016 Active K21.9 GASTRO-ESOPHAGEAL REFLUX DISEASE WITHOUT ESOPHAGITIS 04/20/2016 Active F33.9 MAJOR DEPRESSIVE DISORDER, RECURRENT, UNSPECIFIED 04/20/2016 Active Medications Medication Dose Form Route Sig Text Dates Status GlipiZIDE Tablet 2.5 mg Tablet Oral Give 2.5 mg by mouth two times a day related to DIAB W/O COMP TYPE II/UNS NOT STATED UNCNTRL (250.00) 01/01/2017 9:00:00 Folic Acid Tablet 1 MG 1 tablet Tablet Oral Give 1 tablet by mouth three times a day related to UNSPECIFIED ANEMIA (285.9) 01/01/2017 9:00:00 Lisinopril Tablet 10 MG 1 tablet Tablet Oral Give 1 tablet by mouth one time a day related to UNSPECIFIED ESSENTIAL HYPERTENSION (401.9) Hold for SBP <110 DBP <55 HR <60 01/01/2017 21:00:00 LORazepam Tablet 1 MG 1 tablet Tablet Oral Give 1 tablet by mouth every 6 hours as needed for Anxiety 01/01/2017 3:43:00 [place] Tablet 7.5-325 MG 1 tablet Tablet Oral Give 1 tablet by mouth every 6 hours as needed for Pain Do not exceed 4000mg of APAP in 24 hours 01/01/2017 3:43:00 01/03/2017 18:57:00 Aborted AmLODIPine Besylate Tablet 5 MG 1 tablet Tablet Oral Give 1 tablet by mouth one time a day related to UNSPECIFIED ESSENTIAL HYPERTENSION (401.9) Hold for SBP <110 DBP <55 HR <60 01/01/2017 9:00:00 Sertraline HCl Tablet 100 MG 100 mg Tablet Oral Give 100 mg by mouth one time a day related to DEPRESSIVE DISORDER NOT ELSEWHERE CLASSIFIED (311) 01/01/2017 9:30:00 Gabapentin Capsule 100 MG Capsule Oral Give 100 mg by mouth one time a day for Neuropathy AND Give 200 mg by mouth at bedtime for Neuropathy 01/01/2017 7:00:00 01/01/2017 4:23:00 Aborted Carafate Suspension 1 GM/10ML 1 gram Suspension Oral Give 1 gram by mouth before meals and at bedtime related to ESOPHAGEAL REFLUX (530.81) 01/01/2017 8:00:00 01/01/2017 11:01:00 Aborted Acetaminophen Tablet 325 MG 650 mg Tablet Oral Give 650 mg by mouth every 4 hours as needed for Fever/Pain (Mild) 01/01/2017 3:47:00 Combivent Aerosol 18-103 MCG/ACT 2 puff Aerosol Inhalation 2 puff inhale orally every 6 hours as needed for SOB 01/01/2017 3:48:00 01/01/2017 11:07:00 Aborted Cyanocobalamin Tablet 1000 MCG 1 tablet Tablet Oral Give 1 tablet by mouth one time a day for Supplement 01/01/2017 9:30:00 NexIUM Capsule Delayed Release 40 MG 1 capsule Capsule Delayed Release Oral Give 1 capsule by mouth one time a day for Acid Reflux 01/01/2017 9:30:00 01/01/2017 11:04:00 Aborted Fluticasone Propionate Suspension 50 MCG/ACT 2 spray Suspension Nasal 2 spray in each nostril one time a day for Allergy 01/01/2017 9:30:00 Ergocalciferol Capsule 26550 UNIT 1 capsule Capsule Oral Give 1 capsule by mouth one time a day every 7 day(s) for Supplement Give 1 cap PO Q 7 days 01/01/2017 9:30:00 Acetaminophen Tablet 500 MG 1 tablet Tablet Oral Give 1 tablet by mouth every 6 hours as needed for Pain and Fever 01/01/2017 4:15:00 01/02/2017 20:54:00 Aborted Diphenhist Tablet 25 MG 1 tablet Tablet Oral Give 1 tablet by mouth every 8 hours as needed for Allergy 01/01/2017 4:15:00 LevoFLOXacin Tablet 500 MG 1 tablet Tablet Oral Give 1 tablet by mouth one time a day for Infection 01/01/2017 9:30:00 Gabapentin Capsule 300 MG 1 capsule Capsule Oral Give 1 capsule by mouth three times a day for Neuropathy 01/01/2017 9:30:00 Ipratropium-Albuterol Aerosol 18-103 MCG/ACT 1 puff Aerosol Inhalation 1 puff inhale orally every 6 hours as needed for SOB 01/01/2017 4:30:00 01/01/2017 20:20:00 Aborted Ipratropium-Albuterol Solution 0.5-2.5 (3) MG/3ML 3 ml Solution Inhalation 3 ml inhale orally every 6 hours as needed for SOB or Wheezing via nebulizer 01/01/2017 20:21:00 01/03/2017 20:29:00 Aborted Carafate Tablet 1 GM 1 tablet Tablet Oral Give 1 tablet by mouth before meals and at bedtime related to ESOPHAGEAL REFLUX (530.81) 01/02/2017 5:00:00 Protonix Tablet Delayed Release 40 MG 1 tablet Tablet Delayed Release Oral Give 1 tablet by mouth one time a day related to GASTRO-ESOPHAGEAL REFLUX DISEASE WITHOUT ESOPHAGITIS (K21.9) 01/02/2017 9:30:00 Acetaminophen-Codeine Tablet 300-30 MG 1 tablet Tablet Oral Give 1 tablet by mouth every 6 hours as needed for Mild / Moderate Pain 01/01/2017 23:20:00 01/03/2017 18:56:00 Aborted Ambien Tablet 10 MG 1 tablet Tablet Oral Give 1 tablet by mouth at bedtime related to INSOMNIA UNSPECIFIED (780.52) 01/01/2017 21:00:00 Multivitamin Adult Tablet 1 tablet Tablet Oral Give 1 tablet by mouth one time a day related to TYPE 2 DIABETES MELLITUS WITHOUT COMPLICATIONS (E11.9);ESSENTIAL (PRIMARY) HYPERTENSION (I10);GASTRO-ESOPHAGEAL REFLUX DISEASE WITHOUT ESOPHAGITIS (K21.9) 01/04/2017 9:30:00 Oscal 500/200 D-3 Tablet 500-200 MG-UNIT 1 tablet Tablet Oral Give 1 tablet by mouth two times a day related to TYPE 2 DIABETES MELLITUS WITHOUT COMPLICATIONS (E11.9);ESSENTIAL (PRIMARY) HYPERTENSION (I10);GASTRO-ESOPHAGEAL REFLUX DISEASE WITHOUT ESOPHAGITIS (K21.9) 01/04/2017 9:30:00 Heparin Sodium (Porcine) Solution 5000 UNIT/ML 5000 unit Solution Injection Inject 5000 unit subcutaneously every 12 hours for for DVT prophylaxis related to CHRONIC OBSTRUCTIVE PULMONARY DISEASE WITH (ACUTE) EXACERBATION (J44.1);TYPE 2 DIABETES MELLITUS WITHOUT COMPLICATIONS (E11.9);ESSENTIAL (PRIMARY) HYPERTENSION (I10) 01/04/2017 9:30:00 Ipratropium-Albuterol Solution 0.5-2.5 (3) MG/3ML Solution Inhalation 3 ml inhale orally every 6 hours as needed for SOB or Wheezing via nebulizer AND 3 ml inhale orally every 6 hours for Sob wheezing 01/04/2017 1:00:00 Percocet Tablet 5-325 MG 1 tablet Tablet Oral Give 1 tablet by mouth every 6 hours as needed for pain 01/03/2017 18:15:00 Results Date Test Result Interpretation Reference Range Status Notes 10/07/2016 13:13:38 Blood sugar 01/01/2017 7:24:00 RESULTS 71.0 mmol/L 01/02/2017 7:05:00 RESULTS 79.0 mmol/L 01/03/2017 8:10:15 RESULTS 224.0 mmol/L 01/04/2017 7:43:00 RESULTS 123.0 mmol/L Vital signs Description Observation Date BODY TEMPERATURE 98.1 [degF] 01/01/2017 INTRAVASCULAR SYSTOLIC 132.0 mm[Hg] 01/01/2017 4:00:00 INTRAVASCULAR DIASTOLIC 68.0 mm[Hg] 01/01/2017 4:00:00 HEART BEAT 68.0 {beats}/min 01/01/2017 4:03:00 RESPIRATION RATE 20.0 /min 01/01/2017 4:03:00 INTRAVASCULAR SYSTOLIC 126.0 mm[Hg] 01/01/2017 12:53:04 INTRAVASCULAR DIASTOLIC 74.0 mm[Hg] 01/01/2017 12:53:04 HEART BEAT 84.0 {beats}/min 01/01/2017 12:53:04 PAIN LEVEL 5.0 {score} 01/01/2017 12:55:00 OXYGEN SATURATION 97.0 % 01/01/2017 16:26:20 HEART BEAT 80.0 {beats}/min 01/01/2017 17:10:00 RESPIRATION RATE 18.0 /min 01/01/2017 17:10:00 BODY TEMPERATURE 97.6 [degF] 01/01/2017 17:10:00 INTRAVASCULAR SYSTOLIC 126.0 mm[Hg] 01/01/2017 17:10:00 INTRAVASCULAR DIASTOLIC 76.0 mm[Hg] 01/01/2017 17:10:00 INTRAVASCULAR SYSTOLIC 106.0 mm[Hg] 01/01/2017 21:06:25 INTRAVASCULAR DIASTOLIC 62.0 mm[Hg] 01/01/2017 21:06:25 HEART BEAT 84.0 {beats}/min 01/01/2017 21:06:25 OXYGEN SATURATION 96.0 % 01/02/2017 0:05:09 HEART BEAT 93.0 {beats}/min 01/02/2017 2:01:00 RESPIRATION RATE 20.0 /min 01/02/2017 2:01:00 INTRAVASCULAR SYSTOLIC 111.0 mm[Hg] 01/02/2017 2:01:00 INTRAVASCULAR DIASTOLIC 67.0 mm[Hg] 01/02/2017 2:01:00 INTRAVASCULAR SYSTOLIC 123.0 mm[Hg] 01/02/2017 8:05:11 INTRAVASCULAR DIASTOLIC 78.0 mm[Hg] 01/02/2017 8:05:11 HEART BEAT 78.0 {beats}/min 01/02/2017 8:05:11 HEART BEAT 92.0 {beats}/min 01/02/2017 11:02:00 RESPIRATION RATE 20.0 /min 01/02/2017 11:02:00 INTRAVASCULAR SYSTOLIC 118.0 mm[Hg] 01/02/2017 11:02:00 INTRAVASCULAR DIASTOLIC 71.0 mm[Hg] 01/02/2017 11:02:00 OXYGEN SATURATION 94.0 % 01/02/2017 14:48:00 HEART BEAT 95.0 {beats}/min 01/02/2017 15:02:00 RESPIRATION RATE 18.0 /min 01/02/2017 15:02:00 BODY TEMPERATURE 99.9 [degF] 01/02/2017 15:02:00 INTRAVASCULAR SYSTOLIC 111.0 mm[Hg] 01/02/2017 15:02:00 INTRAVASCULAR DIASTOLIC 56.0 mm[Hg] 01/02/2017 15:02:00 OXYGEN SATURATION 95.0 % 01/02/2017 19:47:27 INTRAVASCULAR SYSTOLIC 133.0 mm[Hg] 01/02/2017 20:32:09 INTRAVASCULAR DIASTOLIC 78.0 mm[Hg] 01/02/2017 20:32:09 HEART BEAT 70.0 {beats}/min 01/02/2017 20:32:09 HEART BEAT 105.0 {beats}/min 01/03/2017 1:10:00 RESPIRATION RATE 18.0 /min 01/03/2017 1:10:00 INTRAVASCULAR SYSTOLIC 132.0 mm[Hg] 01/03/2017 1:10:00 INTRAVASCULAR DIASTOLIC 80.0 mm[Hg] 01/03/2017 1:10:00 OXYGEN SATURATION 96.0 % 01/03/2017 6:47:01 OXYGEN SATURATION 96.0 % 01/03/2017 8:10:44 INTRAVASCULAR SYSTOLIC 140.0 mm[Hg] 01/03/2017 8:29:23 INTRAVASCULAR DIASTOLIC 72.0 mm[Hg] 01/03/2017 8:29:23 HEART BEAT 94.0 {beats}/min 01/03/2017 8:29:23 OXYGEN SATURATION 96.0 % 01/03/2017 13:45:50 HEART BEAT 97.0 {beats}/min 01/03/2017 16:34:00 RESPIRATION RATE 18.0 /min 01/03/2017 16:34:00 BODY TEMPERATURE 98.0 [degF] 01/03/2017 16:34:00 INTRAVASCULAR SYSTOLIC 111.0 mm[Hg] 01/03/2017 16:34:00 INTRAVASCULAR DIASTOLIC 64.0 mm[Hg] 01/03/2017 16:34:00 INTRAVASCULAR SYSTOLIC 118.0 mm[Hg] 01/03/2017 21:01:47 INTRAVASCULAR DIASTOLIC 64.0 mm[Hg] 01/03/2017 21:01:47 HEART BEAT 98.0 {beats}/min 01/03/2017 21:01:47 OXYGEN SATURATION 96.0 % 01/03/2017 22:07:28 INTRAVASCULAR SYSTOLIC 126.0 mm[Hg] 01/04/2017 10:22:22 INTRAVASCULAR DIASTOLIC 72.0 mm[Hg] 01/04/2017 10:22:22 HEART BEAT 84.0 {beats}/min 01/04/2017 10:22:22 OXYGEN SATURATION 96.0 % 01/04/2017 13:44:11 OXYGEN SATURATION 96.0 % 01/04/2017 13:44:55 HEART BEAT 57.0 {beats}/min 01/04/2017 15:07:00 RESPIRATION RATE 1.0 /min 01/04/2017 15:07:00 BODY TEMPERATURE 98.7 [degF] 01/04/2017 15:07:00 INTRAVASCULAR SYSTOLIC 110.0 mm[Hg] 01/04/2017 15:07:00 INTRAVASCULAR DIASTOLIC 64.0 mm[Hg] 01/04/2017 15:07:00 INTRAVASCULAR SYSTOLIC 139.0 mm[Hg] 01/04/2017 20:56:49 INTRAVASCULAR DIASTOLIC 69.0 mm[Hg] 01/04/2017 20:56:49 HEART BEAT 84.0 {beats}/min 01/04/2017 20:56:49 OXYGEN SATURATION 96.0 % 01/04/2017 23:44:58 PAIN LEVEL 6.0 {score} 01/05/2017 0:31:33 Immunizations Vaccine Date Status Reason Influenza 08/14/2014 Refused Resident Refused Pneumovax Dose 1 08/14/2014 Refused Resident Refused Social History Smoking Status Start Date End Date Unknown if ever smoked 01/05/2017 13:13:38
--- OUTSIDE RECORDS SUMMARY | 2018-06-13 19:02 | XMS REPORT | Continuity of Care Document ---
Author Author [facility] Interface Address Unknown Phone Unavailable Problems Problem Status Onset Date Classification Date Reported Comments Source E86.0 DEHYDRATION 03/21/2018 Diagnosis 04/26/2018 SNF: [facility] B19.9 UNSPECIFIED VIRAL HEPATITIS WITHOUT HEPATIC COMA 03/21/2018 Diagnosis 04/26/2018 SNF: [facility] I50.9 HEART FAILURE, UNSPECIFIED 03/21/2018 Diagnosis 04/26/2018 SNF: [facility] M62.50 MUSCLE WASTING AND ATROPHY, NOT ELSEWHERE CLASSIFIED, UNSPECIFIED SITE 03/21/2018 Diagnosis 04/26/2018 SNF: [facility] W19.XXXD UNSPECIFIED FALL, SUBSEQUENT ENCOUNTER 03/21/2018 Diagnosis 04/26/2018 SNF: [facility] Z47.89 ENCOUNTER FOR OTHER ORTHOPEDIC AFTERCARE 03/21/2018 Diagnosis 04/26/2018 SNF: [facility] S72.142D DISPLACED INTERTROCHANTERIC FRACTURE OF LEFT FEMUR, SUBSEQUENT ENCOUNTER FOR CLOSED FRACTURE WITH ROUTINE HEALING 03/21/2018 Diagnosis 04/26/2018 SNF: [facility] F41.9 ANXIETY DISORDER, UNSPECIFIED 03/21/2018 Diagnosis 04/26/2018 SNF: [facility] J44.9 CHRONIC OBSTRUCTIVE PULMONARY DISEASE, UNSPECIFIED 03/21/2018 Diagnosis 04/26/2018 SNF: [facility] 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 01/12/2017 Diagnosis 04/26/2018 SNF: [facility] E66.9 OBESITY, UNSPECIFIED 01/12/2017 Diagnosis 04/26/2018 SNF: [facility] R26.81 UNSTEADINESS ON FEET 01/01/2017 Diagnosis 04/26/2018 SNF: [facility] M62.59 MUSCLE WASTING AND ATROPHY, NOT ELSEWHERE CLASSIFIED, MULTIPLE SITES 01/01/2017 Diagnosis 04/26/2018 SNF: [facility] Z91.81 HISTORY OF FALLING 01/01/2017 Diagnosis 04/26/2018 SNF: [facility] R27.8 OTHER LACK OF COORDINATION 01/01/2017 Diagnosis 04/26/2018 SNF: [facility] M25.551 PAIN IN RIGHT HIP 01/01/2017 Diagnosis 04/26/2018 SNF: [facility] Walking disability 01/01/2017 Diagnosis 04/26/2018 SNF: [facility] J44.1 CHRONIC OBSTRUCTIVE PULMONARY DISEASE WITH EXACERBATION 04/20/2016 Diagnosis 04/26/2018 SNF: [facility] E11.9 TYPE 2 DIABETES MELLITUS WITHOUT COMPLICATIONS 04/20/2016 Diagnosis 04/26/2018 SNF: [facility] I10 ESSENTIAL HYPERTENSION 04/20/2016 Diagnosis 04/26/2018 SNF: [facility] K21.9 GASTRO-ESOPHAGEAL REFLUX DISEASE WITHOUT ESOPHAGITIS 04/20/2016 Diagnosis 04/26/2018 SNF: [facility] F33.9 MAJOR DEPRESSIVE DISORDER, RECURRENT, UNSPECIFIED 04/20/2016 Diagnosis 04/26/2018 SNF: [facility] M06.9 RHEUMATOID ARTHRITIS, UNSPECIFIED 11/23/2013 Diagnosis 04/26/2018 SNF: [facility] Compression fracture of L1 lumbar vertebra, with delayed healing, subsequent encounter Active Problem 09/29/2017 Paul Childers Lumbar compression fracture, with routine healing, subsequent encounter Active Problem 09/29/2017 Paul Childers Thoracic radiculopathy Active Diagnosis 11/02/2016 Paul Childers Lumbar radiculopathy Active Diagnosis 05/12/2017 Paul Childers Rheumatoid arthritis, involving unspecified site, unspecified rheumatoid factor presence Active Problem 09/29/2017 Paul Childers Lumbar spinal stenosis Active Diagnosis 12/28/2016 Paul Childers Medications Medication Details Route Status Patient Instructions Ordering Provider Order Date Source Heparin Sodium (Porcine) Solution 5000 UNIT/ML Inject 1 ml subcutaneously every 12 hours for DVT prophylaxis Injection Active 04/19/2018 SNF: [facility] Ativan Tablet 0.5 MG Give 0.5 tablet by mouth every 12 hours as needed for anxiety Oral Active 04/17/2018 SNF: [facility] Vancomycin HCl Solution 50 MG/ML Give 250 mg by mouth every 6 hours for diarrhea for 10 Days Oral Active 04/13/2018 SNF: [facility] Vancomycin HCl Capsule 250 MG Give 1 capsule by mouth every 6 hours for diarrhea Oral Inactive 04/13/2018 SNF: [facility] Imodium A-D Tablet 2 MG Give 2 mg by mouth every 06 hours as needed for diarrhea Oral Active 04/13/2018 SNF: [facility] Zofran Tablet 4 MG Give 1 tablet by mouth every 6 hours as needed for nausea Oral Active 04/09/2018 SNF: [facility] Questran Packet 4 GM Give 1 packet by mouth every 12 hours as needed for diarrhea Oral Active 04/09/2018 SNF: [facility] Imodium A-D Tablet 2 MG Give 2 mg by mouth every 06 hours as needed for diarrhea Oral Active 04/08/2018 SNF: [facility] Methotrexate Tablet Give 12.5 mg by mouth one time a day every 7 day(s) for cancer Oral Active 03/31/2018 SNF: [facility] Claritin Tablet 10 MG Give 1 tablet by mouth one time a day for Congestion for 3 Days Oral Active 03/30/2018 SNF: [facility] Cholestyramine Light Packet 4 GM Give 1 packet by mouth one time a day for diarrhea Mix in 8oz Liquid Oral Active 03/29/2018 SNF: [facility] Aspirin EC Tablet Delayed Release 81 MG Give 1 tablet by mouth one time a day for supplement Oral Active 03/25/2018 SNF: [facility] Ativan Tablet 0.5 MG Give 1 tablet by mouth every 8 hours as needed for anxiety Oral Active 03/25/2018 SNF: [facility] DilTIAZem HCl Tablet 120 MG Give 1 tablet by mouth at bedtime for HTN *Hold if SBP <110 or HR <60* Oral Active 03/25/2018 SNF: [facility] Lisinopril Tablet 10 MG Give 1 tablet by mouth two times a day for htn *Hold if SBP <110 or DBP <60* Oral Active 03/24/2018 SNF: [facility] Gabapentin Capsule 300 MG Give 1 capsule by mouth in the afternoon for muscle spasm Oral Active 03/23/2018 SNF: [facility] Colace Capsule 100 MG Give 1 capsule by mouth one time a day for IBS Oral Active 03/23/2018 SNF: [facility] MiraLax Powder Give 17 gram by mouth one time a day for IBS MIX IN 8 OUNCES OF WATER OR JUICE Oral Active 03/23/2018 SNF: [facility] FerrouSul Tablet 325 (65 Fe) MG Give 1 tablet by mouth two times a day for supplement Oral Active 03/23/2018 SNF: [facility] Senno Tablet Give 1 tablet by mouth one time a day for IBS Oral Active 03/23/2018 SNF: [facility] Vitamin C Tablet Give 500 mg by mouth one time a day for supplement Oral Active 03/23/2018 SNF: [facility] Levalbuterol HCl Nebulization Solution 0.63 MG/3ML 3 ml inhale orally via nebulizer every 12 hours related to CHRONIC OBSTRUCTIVE PULMONARY DISEASE WITH (ACUTE) EXACERBATION (J44.1) Inhalation Active 03/23/2018 SNF: [facility] Oscal 500/200 D-3 Tablet 500-200 MG-UNIT Give 1 tablet by mouth two times a day for supplement Oral Active 03/23/2018 SNF: [facility] Lasix Tablet 40 MG Give 1 tablet by mouth one time a day for edema Oral Inactive 03/23/2018 SNF: [facility] Ativan Tablet 0.5 MG Give 1 tablet by mouth every 8 hours as needed for anxiety Oral Active 03/23/2018 SNF: [facility] Folic Acid Tablet 1 MG Give 2 tablet by mouth at bedtime for anemia *total dose=2mg* Oral Active 03/23/2018 SNF: [facility] Gabapentin Tablet 600 MG Give 1 tablet by mouth at bedtime for neuropathy Oral Active 03/23/2018 SNF: [facility] DilTIAZem HCl Tablet 120 MG Give 1 tablet by mouth at bedtime for HTN *Hold if SBP <110 or HR <60* Oral Active 03/23/2018 SNF: [facility] Zoloft Tablet 100 MG Give 1 tablet by mouth at bedtime for depression Oral Active 03/23/2018 SNF: [facility] Zantac Tablet 300 MG Give 1 tablet by mouth at bedtime for GERD Oral Active 03/23/2018 SNF: [facility] Lactulose Solution 20 GM/30ML Give 30 ml by mouth every 24 hours as needed for IBS Oral Active 03/22/2018 SNF: [facility] Ventolin HFA Aerosol Solution 108 (90 Base) MCG/ACT 2 puff inhale orally every 6 hours as needed for shortness of breath Inhalation Active 03/22/2018 SNF: [facility] Tuberculin PPD Solution 5 UNIT/0.1ML Inject 0.1 ml intradermally one time only for TB Screen for 1 Day Document in immunization tab after administration Intradermal Active 03/22/2018 SNF: [facility] [place] Tablet 10-325 MG Give 1 tablet by mouth every 4 hours as needed for pain Oral Active 03/22/2018 SNF: [facility] Meloxicam Tablet 15 MG Give 1 tablet by mouth one time a day for inflammation Oral Active 03/22/2018 SNF: [facility] Heparin Sodium (Porcine) Solution 5000 UNIT/ML Inject 1 ml subcutaneously every 12 hours for DVT prophylaxis Injection Active 03/22/2018 SNF: [facility] NexIUM Capsule Delayed Release 40 MG Give 1 capsule by mouth two times a day for GERD Oral Active 03/22/2018 SNF: [facility] Lasix Tablet 40 MG Give 1 tablet by mouth one time a day for EDEMA Oral Active 03/22/2018 SNF: [facility] Folic Acid Tablet 1 MG Give 1 tablet by mouth one time a day for anemia Oral Active 03/22/2018 SNF: [facility] GlipiZIDE Tablet Give 2.5 mg by mouth one time a day for Type 2 DM Oral Active 03/22/2018 SNF: [facility] Carafate Tablet 1 GM Give 1 tablet by mouth four times a day for Ulcers Oral Active 03/22/2018 SNF: [facility] Lisinopril Tablet 10 MG Give 1 tablet by mouth two times a day for htn *Hold if SBP <110 or DBP <60* Oral Active 03/22/2018 SNF: [facility] Cyanocobalamin Kit 1000 MCG/ML Inject 1 ml subcutaneously one time a day every 14 day(s) for vitamin b-12 deficiency Injection Active 03/22/2018 SNF: [facility] Gabapentin Capsule 300 MG Give 1 capsule by mouth one time a day for neuropathy Oral Active 03/22/2018 SNF: [facility] Methotrexate Tablet Give 12.5 mg by mouth one time a day every 7 day(s) for cancer Oral Active 03/22/2018 SNF: [facility] Aspirin Tablet 81 MG Give 1 tablet by mouth one time a day for DVT prophylaxis Oral Active 03/22/2018 SNF: [facility] Vitamin D3 Tablet 24103 UNIT Give 1 tablet by mouth one time a day every 7 day(s) for bone health Oral Active 03/22/2018 SNF: [facility] Lubiprostone Capsule 24 MCG Give 1 capsule by mouth two times a day for IBS Oral Inactive 03/22/2018 SNF: [facility] Xopenex Nebulization Solution 0.63 MG/3ML 1 application inhale orally via nebulizer every 6 hours as needed for SOB Inhalation Active 03/22/2018 SNF: [facility] Flonase Suspension 50 MCG/ACT 2 puff in both nostrils every 24 hours as needed for allergies Nasal Active 03/22/2018 SNF: [facility] [place] Tablet 10-325 MG Give 1 tablet by mouth every 6 hours as needed for pain Oral Active 03/22/2018 SNF: [facility] Xopenex HFA Aerosol 45 MCG/ACT 2 puff inhale orally every 6 hours as needed for SOB Inhalation Active 03/22/2018 SNF: [facility] Tuberculin PPD Solution 5 UNIT/0.1ML Inject 0.1 ml intradermally one time only for TB Screen until 03/21/2018 21:00 Document in immunization tab after administration Intradermal Inactive 03/21/2018 SNF: [facility] Doxycycline Hyclate Tablet 100 MG Give 1 tablet by mouth two times a day for URI for 10 Days Oral Active 02/02/2017 SNF: [facility] Nystatin Cream 545213 UNIT/GM Apply to lower abd folds topically two times a day for rash for 2 Weeks External Active 02/02/2017 SNF: [facility] Ipratropium [place] Solution 0.02 % 1 application inhale orally via nebulizer every 6 hours for sob Inhalation Active 02/02/2017 SNF: [facility] Xopenex Nebulization Solution 0.63 MG/3ML 3 ml inhale orally via nebulizer every 6 hours for sob while awake Inhalation Active 02/02/2017 SNF: [facility] MiraLax Packet Give 17 gram by mouth one time a day for Constipation Oral Active 01/25/2017 SNF: [facility] Colace Capsule 100 MG Give 1 capsule by mouth every 12 hours for Constipation Oral Active 01/25/2017 SNF: [facility] Lactulose Solution 20 GM/30ML Give 30 ml by mouth as needed for Constipation BID PRN Oral Active 01/20/2017 SNF: [facility] PredniSONE Tablet Give 10 mg by mouth one time a day for copd for 11 Days Oral Active 01/17/2017 SNF: [facility] Ipratropium [place] Solution 0.02 % 1 vial inhale orally every 8 hours for COPD for 1 Week Inhalation Active 01/17/2017 SNF: [facility] Xopenex Nebulization Solution 0.63 MG/3ML 1 vial inhale orally every 8 hours for COPD for 1 Week Inhalation Active 01/17/2017 SNF: [facility] Anoro Ellipta Aerosol Powder Breath Activated 62.5-25 MCG/INH 1 puff inhale orally at bedtime related to CHRONIC OBSTRUCTIVE PULMONARY DISEASE WITH (ACUTE) EXACERBATION (J44.1) Inhalation Active 01/17/2017 SNF: [facility] PredniSONE Tablet 20 MG Give 1 tablet by mouth one time only for SOB/Wheezing for 1 Day Oral Active 01/16/2017 SNF: [facility] Fluticasone Propionate Suspension 2 spray in both nostrils as needed for Allergies TID PRN Nasal Active 01/16/2017 SNF: [facility] Omeprazole Capsule Delayed Release 40 MG Give 1 capsule by mouth two times a day for GERD Oral Inactive 01/16/2017 SNF: [facility] Protonix Tablet Delayed Release 40 MG Give 1 tablet by mouth two times a day for GERD Oral Active 01/16/2017 SNF: [facility] Tylenol Tablet Give 500 mg by mouth every 6 hours as needed for Pain Oral Active 01/16/2017 SNF: [facility] Ferrous Sulfate Tablet 325 (65 Fe) MG Give 1 tablet by mouth one time a day for supplement Oral Active 01/14/2017 SNF: [facility] Vitamin B12 Tablet Extended Release 1000 MCG Give 1 tablet by mouth one time a day for supplement Oral Active 01/14/2017 SNF: [facility] Multivital-M Tablet Give 1 tablet by mouth one time a day for supplement Oral Active 01/14/2017 SNF: [facility] Ergocalciferol Capsule 64481 UNIT Give 1 capsule by mouth one time a day every Fri related to MUSCLE WASTING AND ATROPHY, NOT ELSEWHERE CLASSIFIED, MULTIPLE SITES (M62.59) Oral Active 01/14/2017 SNF: [facility] Vitamin C Tablet Give 500 mg by mouth two times a day for supplement Oral Active 01/14/2017 SNF: [facility] DilTIAZem HCl Tablet 30 MG Give 1 tablet by mouth every 8 hours related to ESSENTIAL (PRIMARY) HYPERTENSION (I10) Oral Active 01/14/2017 SNF: [facility] Bactrim DS Tablet 800-160 MG Give 1 tablet by mouth every 12 hours for Resp infection for 16 Days Oral Active 01/14/2017 SNF: [facility] Tylenol with Codeine #4 Tablet 300-60 MG Give 1 tablet by mouth every 4 hours as needed for pain Oral Active 01/13/2017 SNF: [facility] Sertraline HCl Tablet 100 MG Give 1 tablet by mouth one time a day for depression Oral Active 01/13/2017 SNF: [facility] Esomeprazole Magnesium Packet 40 MG Give 40 mg by mouth two times a day for reflux Oral Active 01/13/2017 SNF: [facility] Gabapentin Capsule Give 300 mg by mouth three times a day for nerve pain Oral Active 01/13/2017 SNF: [facility] Lasix Tablet 40 MG Give 40 mg by mouth one time a day for diuretic Oral Active 01/13/2017 SNF: [facility] Folic Acid Tablet Give 1 tablet by mouth three times a day for supplement Oral Active 01/13/2017 SNF: [facility] Nystatin Suspension 240156 UNIT/ML Give 5 ml by mouth four times a day for mouth pain for 3 Days swish and swallow Oral Active 01/13/2017 SNF: [facility] PrednisoLONE Tablet Give 40 mg by mouth one time a day for copd for 3 Days Take with BF Oral Active 01/13/2017 SNF: [facility] Carafate Tablet 1 GM Give 1 tablet by mouth before meals and at bedtime for stomach pain Oral Active 01/13/2017 SNF: [facility] Tylenol Tablet Give 500 mg by mouth every 6 hours for PRN Oral Active 01/13/2017 SNF: [facility] Ambien Tablet 5 MG Give 1 tablet by mouth every 24 hours as needed for insomnia Oral Active 01/13/2017 SNF: [facility] Benadryl Tablet Give 25 mg by mouth every 6 hours as needed for allergy Oral Active 01/13/2017 SNF: [facility] Ipratropium [place] Solution 0.02 % 1 application inhale orally via nebulizer every 6 hours as needed for SOB Inhalation Active 01/13/2017 SNF: [facility] HYDROmorphone HCl Tablet 2 MG Give 1 tablet by mouth every 4 hours as needed for Pain Oral Active 01/13/2017 SNF: [facility] Hydrocodone-Acetaminophen Tablet 10-325 MG Give 1 tablet by mouth every 4 hours as needed for Pain Oral Active 01/13/2017 SNF: [facility] Xopenex Nebulization Solution 0.63 MG/3ML 1 application inhale orally via nebulizer every 6 hours as needed for brochospasm Inhalation Active 01/13/2017 SNF: [facility] Acetaminophen Tablet Give 500 mg by mouth every 6 hours as needed for pain Oral Active 01/13/2017 SNF: [facility] Tylenol Tablet Give 500 mg by mouth every 6 hours as needed for pain Oral Active 01/13/2017 SNF: [facility] LORazepam Tablet 0.5 MG Give 1 tablet by mouth every 8 hours as needed for Anxiety Oral Active 01/13/2017 SNF: [facility] Multivitamin Adult Tablet Give 1 tablet by mouth one time a day related to TYPE 2 DIABETES MELLITUS WITHOUT COMPLICATIONS (E11.9);ESSENTIAL (PRIMARY) HYPERTENSION (I10);GASTRO-ESOPHAGEAL REFLUX DISEASE WITHOUT ESOPHAGITIS (K21.9) Oral Active 01/04/2017 SNF: [facility] Oscal 500/200 D-3 Tablet 500-200 MG-UNIT Give 1 tablet by mouth two times a day related to TYPE 2 DIABETES MELLITUS WITHOUT COMPLICATIONS (E11.9);ESSENTIAL (PRIMARY) HYPERTENSION (I10);GASTRO-ESOPHAGEAL REFLUX DISEASE WITHOUT ESOPHAGITIS (K21.9) Oral Active 01/04/2017 SNF: [facility] Heparin Sodium (Porcine) Solution 5000 UNIT/ML Inject 5000 unit subcutaneously every 12 hours for for DVT prophylaxis related to CHRONIC OBSTRUCTIVE PULMONARY DISEASE WITH (ACUTE) EXACERBATION (J44.1);TYPE 2 DIABETES MELLITUS WITHOUT COMPLICATIONS (E11.9);ESSENTIAL (PRIMARY) HYPERTENSION (I10) Injection Active 01/04/2017 SNF: [facility] Ipratropium-Albuterol Solution 0.5-2.5 (3) MG/3ML 3 ml inhale orally every 6 hours as needed for SOB or Wheezing via nebulizer AND 3 ml inhale orally every 6 hours for Sob wheezing Inhalation Active 01/04/2017 SNF: [facility] Percocet Tablet 5-325 MG Give 1 tablet by mouth every 6 hours as needed for pain Oral Active 01/03/2017 SNF: [facility] Protonix Tablet Delayed Release 40 MG Give 1 tablet by mouth one time a day related to GASTRO-ESOPHAGEAL REFLUX DISEASE WITHOUT ESOPHAGITIS (K21.9) Oral Active 01/02/2017 SNF: [facility] Carafate Tablet 1 GM Give 1 tablet by mouth before meals and at bedtime related to ESOPHAGEAL REFLUX (530.81) Oral Active 01/02/2017 SNF: [facility] Acetaminophen-Codeine Tablet 300-30 MG Give 1 tablet by mouth every 6 hours as needed for Mild / Moderate Pain Oral Active 01/02/2017 SNF: [facility] Lisinopril Tablet 10 MG Give 1 tablet by mouth one time a day related to UNSPECIFIED ESSENTIAL HYPERTENSION (401.9) Hold for SBP <110 DBP <55 HR <60 Oral Active 01/02/2017 SNF: [facility] Ambien Tablet 10 MG Give 1 tablet by mouth at bedtime related to INSOMNIA UNSPECIFIED (780.52) Oral Active 01/02/2017 SNF: [facility] Ipratropium-Albuterol Solution 0.5-2.5 (3) MG/3ML 3 ml inhale orally every 6 hours as needed for SOB or Wheezing via nebulizer Inhalation Active 01/02/2017 SNF: [facility] Sertraline HCl Tablet 100 MG Give 100 mg by mouth one time a day related to DEPRESSIVE DISORDER NOT ELSEWHERE CLASSIFIED (311) Oral Active 01/01/2017 SNF: [facility] Cyanocobalamin Tablet 1000 MCG Give 1 tablet by mouth one time a day for Supplement Oral Active 01/01/2017 SNF: [facility] NexIUM Capsule Delayed Release 40 MG Give 1 capsule by mouth one time a day for Acid Reflux Oral Inactive 01/01/2017 SNF: [facility] Fluticasone Propionate Suspension 50 MCG/ACT 2 spray in each nostril one time a day for Allergy Nasal Active 01/01/2017 SNF: [facility] Ergocalciferol Capsule 07679 UNIT Give 1 capsule by mouth one time a day every 7 day(s) for Supplement Give 1 cap PO Q 7 days Oral Active 01/01/2017 SNF: [facility] LevoFLOXacin Tablet 500 MG Give 1 tablet by mouth one time a day for Infection Oral Active 01/01/2017 SNF: [facility] Gabapentin Capsule 300 MG Give 1 capsule by mouth three times a day for Neuropathy Oral Active 01/01/2017 SNF: [facility] GlipiZIDE Tablet Give 2.5 mg by mouth two times a day related to DIAB W/O COMP TYPE II/UNS NOT STATED UNCNTRL (250.00) Oral Active 01/01/2017 SNF: [facility] Folic Acid Tablet 1 MG Give 1 tablet by mouth three times a day related to UNSPECIFIED ANEMIA (285.9) Oral Active 01/01/2017 SNF: [facility] AmLODIPine Besylate Tablet 5 MG Give 1 tablet by mouth one time a day related to UNSPECIFIED ESSENTIAL HYPERTENSION (401.9) Hold for SBP <110 DBP <55 HR <60 Oral Active 01/01/2017 SNF: [facility] Carafate Suspension 1 GM/10ML Give 1 gram by mouth before meals and at bedtime related to ESOPHAGEAL REFLUX (530.81) Oral Inactive 01/01/2017 SNF: [facility] Gabapentin Capsule 100 MG Give 100 mg by mouth one time a day for Neuropathy AND Give 200 mg by mouth at bedtime for Neuropathy Oral Inactive 01/01/2017 SNF: [facility] Ipratropium-Albuterol Aerosol 18-103 MCG/ACT 1 puff inhale orally every 6 hours as needed for SOB Inhalation Inactive 01/01/2017 SNF: [facility] Acetaminophen Tablet 500 MG Give 1 tablet by mouth every 6 hours as needed for Pain and Fever Oral Active 01/01/2017 SNF: [facility] Diphenhist Tablet 25 MG Give 1 tablet by mouth every 8 hours as needed for Allergy Oral Active 01/01/2017 SNF: [facility] Combivent Aerosol 18-103 MCG/ACT 2 puff inhale orally every 6 hours as needed for SOB Inhalation Inactive 01/01/2017 SNF: [facility] Acetaminophen Tablet 325 MG Give 650 mg by mouth every 4 hours as needed for Fever/Pain (Mild) Oral Active 01/01/2017 SNF: [facility] LORazepam Tablet 1 MG Give 1 tablet by mouth every 6 hours as needed for Anxiety Oral Active 01/01/2017 SNF: [facility] [place] Tablet 7.5-325 MG Give 1 tablet by mouth every 6 hours as needed for Pain Do not exceed 4000mg of APAP in 24 hours Oral Active 01/01/2017 SNF: [facility] Dilaudid 1 tablet as needed Orally Active 4 MG Orally every 4 hrs [facility] 12/27/2016 [facility] Percocet 1 tablet as needed Orally Active 10-325 MG Orally every 6 hrs [facility] 12/27/2016 [facility] Gabapentin 1 tablet Orally Active 600 MG Orally Two times a day [facility] 12/15/2016 Paul Childers Meloxicam 1 tablet Orally Active 15 MG Orally Once a day [facility] 12/15/2016 Paul Childers Zolpidem Tartrate 1 tablet at bedtime as needed Orally Active 10 MG Orally Once a day [facility] Paul Childers PredniSONE 1 tablet Orally Active 10 MG Orally TID [facility] Paul Childers Gabapentin as directed Orally Active 100 MG Orally [facility] Paul Childers Robaxin-750 1 tablet Orally Active 750 MG Orally PRN [facility] Paul Childers Dilaudid 1 tablet as needed Orally Active 4 MG Orally every 4 hrs [facility] Paul Childers Esomeprazole Magnesium 1 capsule Orally Active 40 MG Orally Once a day [facility] Paul Childers Sertraline HCl 1 tablet Orally Active 100 MG Orally Once a day [facility] Paul Childers Amlodipine Besylate 1 tablet Orally Active 5 MG Orally Once a day [facility] Paul Childers [place] 1 tablet as needed Orally Active 10-325 MG Orally every 6 hrs [facility] Paul Childers Lorazepam 1 tablet at bedtime as needed Orally Active 1 MG Orally Once a day [facility] Paul Childers Lisinopril 1 tablet Orally Active 10 MG Orally Once a day [facility] Paul Childers Methotrexate 5 tablet Orally Active 2.5mg Orally Once a week Blaine Child[facility] Macrobid 1 capsule with food Orally Active 100 MG Orally every 12 hrs Blaine Childers Folic Acid 1 tablet Orally Active 1 MG Orally Once a day Blaine Childers Ranitidine HCl 1 tablet at bedtime Orally Active 300 MG Orally Once a day Blaine Childers movantik one tab oral Active 25mg oral daily Blaine Childers Combivent not defined NA Active Blaine Childers Allergies, Adverse Reactions, Alerts Substance Category Reaction Severity Reaction type Status Date Reported Comments Source Cymbalta 11/23/2013 SNF: [facility] Penicillin 11/23/2013 SNF: [facility] Lyrica Adverse Reaction edema Adverse Reaction Active 12/15/2016 [facility] penicillin Adverse Reaction hypotension Adverse Reaction Active 12/15/2016 Paul Child[facility] Immunizations Immunization Date Given Site Status Last Updated Comments Source tuberculin skin test; purified protein derivative solution, intradermal 03/23/2018 completed SNF: [facility] Influenza 08/14/2014 Not Given SNF: [facility] Pneumovax Dose 1 08/14/2014 Not Given SNF: [facility] Results Order Name Results Value Reference Range Date Interpretation Comments Source Blood sugar Blood sugar 103 mmol/L 04/25/2018 SNF: [facility] Blood sugar Blood sugar 112 mmol/L 04/25/2018 SNF: [facility] Blood sugar Blood sugar 134 mmol/L 04/24/2018 SNF: [facility] Blood sugar Blood sugar 124 mmol/L 04/23/2018 SNF: [facility] Blood sugar Blood sugar 90 mmol/L 04/23/2018 SNF: [facility] Blood sugar Blood sugar 101 mmol/L 04/23/2018 SNF: [facility] Blood sugar Blood sugar 94 mmol/L 04/22/2018 SNF: [facility] Blood sugar Blood sugar 108 mmol/L 04/21/2018 SNF: [facility] Blood sugar Blood sugar 98 mmol/L 04/21/2018 SNF: [facility] Blood sugar Blood sugar 93 mmol/L 04/20/2018 SNF: [facility] Blood sugar Blood sugar 100 mmol/L 04/20/2018 SNF: [facility] Blood sugar Blood sugar 91 mmol/L 04/19/2018 SNF: [facility] Blood sugar Blood sugar 108 mmol/L 04/19/2018 SNF: [facility] Blood sugar Blood sugar 89 mmol/L 04/19/2018 SNF: [facility] Blood sugar Blood sugar 118 mmol/L 04/18/2018 SNF: [facility] Blood sugar Blood sugar 109 mmol/L 04/17/2018 SNF: [facility] Blood sugar Blood sugar 122 mmol/L 04/17/2018 SNF: [facility] Blood sugar Blood sugar 122 mmol/L 04/16/2018 SNF: [facility] Blood sugar Blood sugar 101 mmol/L 04/16/2018 SNF: [facility] RESULTS RESULTS 94 mmol/L 02/11/2017 SNF: [facility] RESULTS RESULTS 114 mmol/L 02/11/2017 SNF: [facility] RESULTS RESULTS 89 mmol/L 02/10/2017 SNF: [facility] RESULTS RESULTS 134 mmol/L 02/10/2017 SNF: [facility] RESULTS RESULTS 92 mmol/L 02/09/2017 SNF: [facility] RESULTS RESULTS 157 mmol/L 02/09/2017 SNF: [facility] RESULTS RESULTS 128 mmol/L 02/08/2017 SNF: [facility] RESULTS RESULTS 125 mmol/L 02/08/2017 SNF: [facility] RESULTS RESULTS 97 mmol/L 02/07/2017 SNF: [facility] RESULTS RESULTS 129 mmol/L 02/07/2017 SNF: [facility] RESULTS RESULTS 104 mmol/L 02/06/2017 SNF: [facility] RESULTS RESULTS 145 mmol/L 02/06/2017 SNF: [facility] RESULTS RESULTS 92 mmol/L 02/05/2017 SNF: [facility] RESULTS RESULTS 124 mmol/L 02/05/2017 SNF: [facility] RESULTS RESULTS 99 mmol/L 02/04/2017 SNF: [facility] RESULTS RESULTS 121 mmol/L 02/04/2017 SNF: [facility] RESULTS RESULTS 90 mmol/L 02/03/2017 SNF: [facility] RESULTS RESULTS 131 mmol/L 02/03/2017 SNF: [facility] RESULTS RESULTS 89 mmol/L 02/02/2017 SNF: [facility] RESULTS RESULTS 114 mmol/L 02/02/2017 SNF: [facility] RESULTS RESULTS 100 mmol/L 02/01/2017 SNF: [facility] RESULTS RESULTS 152 mmol/L 02/01/2017 SNF: [facility] RESULTS RESULTS 92 mmol/L 01/31/2017 SNF: [facility] RESULTS RESULTS 134 mmol/L 01/31/2017 SNF: [facility] RESULTS RESULTS 84 mmol/L 01/30/2017 SNF: [facility] RESULTS RESULTS 101 mmol/L 01/30/2017 SNF: [facility] RESULTS RESULTS 87 mmol/L 01/29/2017 SNF: [facility] RESULTS RESULTS 96 mmol/L 01/29/2017 SNF: [facility] RESULTS RESULTS 94 mmol/L 01/28/2017 SNF: [facility] RESULTS RESULTS 124 mmol/L 01/28/2017 SNF: [facility] RESULTS RESULTS 90 mmol/L 01/27/2017 SNF: [facility] RESULTS RESULTS 158 mmol/L 01/27/2017 SNF: [facility] RESULTS RESULTS 80 mmol/L 01/26/2017 SNF: [facility] RESULTS RESULTS 111 mmol/L 01/26/2017 SNF: [facility] RESULTS RESULTS 107 mmol/L 01/25/2017 SNF: [facility] RESULTS RESULTS 103 mmol/L 01/25/2017 SNF: [facility] RESULTS RESULTS 93 mmol/L 01/24/2017 SNF: [facility] RESULTS RESULTS 99 mmol/L 01/24/2017 SNF: [facility] RESULTS RESULTS 82 mmol/L 01/23/2017 SNF: [facility] RESULTS RESULTS 140 mmol/L 01/23/2017 SNF: [facility] RESULTS RESULTS 123 mmol/L 01/22/2017 SNF: [facility] RESULTS RESULTS 131 mmol/L 01/22/2017 SNF: [facility] RESULTS RESULTS 92 mmol/L 01/21/2017 [facility]: [facility] [place] [facility] RESULTS RESULTS 108 mmol/L 01/21/2017 SNF: [facility] RESULTS RESULTS 92 mmol/L 01/20/2017 SNF: [facility] RESULTS RESULTS 96 mmol/L 01/20/2017 SNF: [facility] RESULTS RESULTS 120 mmol/L 01/19/2017 SNF: [facility] RESULTS RESULTS 123 mmol/L 01/19/2017 SNF: [facility] RESULTS RESULTS 99 mmol/L 01/18/2017 SNF: [facility] RESULTS RESULTS 137 mmol/L 01/18/2017 SNF: [facility] RESULTS RESULTS 150 mmol/L 01/17/2017 SNF: [facility] RESULTS RESULTS 144 mmol/L 01/17/2017 SNF: [facility] RESULTS RESULTS 80 mmol/L 01/16/2017 SNF: [facility] RESULTS RESULTS 103 mmol/L 01/16/2017 SNF: [facility] RESULTS RESULTS 109 mmol/L 01/15/2017 SNF: [facility] RESULTS RESULTS 127 mmol/L 01/15/2017 SNF: [facility] RESULTS RESULTS 109 mmol/L 01/14/2017 SNF: [facility] RESULTS RESULTS 123 mmol/L 01/04/2017 SNF: [facility] RESULTS RESULTS 224 mmol/L 01/03/2017 SNF: [facility] RESULTS RESULTS 79 mmol/L 01/02/2017 SNF: [facility] RESULTS RESULTS 71 mmol/L 01/01/2017 SNF: [facility] Vital Signs Vital Sign Value Date Comments Source Temperature Oral (F) 97.9 F 04/25/2018 SNF: [facility] Respitory Rate 18 04/25/2018 SNF: [facility] Systolic (mm Hg) 139 04/25/2018 SNF: [facility] Diastolic (mm Hg) 81 04/25/2018 SNF: [facility] Heart Rate 84 {beats}/min 04/25/2018 SNF: [facility] Heart Rate 80 {beats}/min 04/25/2018 SNF: [facility] Respitory Rate 18 04/25/2018 SNF: [facility] Temperature Oral (F) 97.9 F 04/25/2018 [facility]: [facility] [place] [facility] Systolic (mm Hg) 150 04/25/2018 SNF: [facility] [place] [facility] Diastolic (mm Hg) 86 04/25/2018 SNF: [facility] [place] [facility] Systolic (mm Hg) 150 04/24/2018 SNF: [facility] [place] [facility] Diastolic (mm Hg) 86 04/24/2018 SNF: [facility] [place] [facility] Heart Rate 80 {beats}/min 04/24/2018 SNF: [facility] [place] [facility] Systolic (mm Hg) 155 04/24/2018 SNF: [facility] [place] [facility] Diastolic (mm Hg) 89 04/24/2018 SNF: [facility] [place] [facility] Heart Rate 82 {beats}/min 04/24/2018 SNF: [facility] [place] [facility] Respitory Rate 18 04/24/2018 SNF: [facility] [place] [facility] Systolic (mm Hg) 148 04/24/2018 [facility]F: [facility] [place] [facility] Diastolic (mm Hg) 81 04/24/2018 [facility]F: [facility] [place] [facility] Temperature Oral (F) 97.9 F 04/24/2018 SNF: [facility] [place] [facility] Heart Rate 79 {beats}/min 04/24/2018 SNF: [facility] [place] [facility] Systolic (mm Hg) 136 04/23/2018 SNF: [facility] [place] [facility] Diastolic (mm Hg) 76 04/23/2018 [facility]F: [facility] [place] [facility] Heart Rate 86 {beats}/min 04/23/2018 SNF: [facility] [place] [facility] Systolic (mm Hg) 143 04/23/2018 [facility]F: [facility] [place] [facility] Diastolic (mm Hg) 82 04/23/2018 [facility]: [facility] [place] [facility] Temperature Oral (F) 97.6 F 04/23/2018 SNF: [facility] [place] [facility] Heart Rate 69 {beats}/min 04/23/2018 [facility]: [facility] [place] [facility] Temperature Oral (F) 97.7 F 04/23/2018 SNF: [facility] [place] [facility] Systolic (mm Hg) 124 04/23/2018 [facility]: [facility] [place] [facility] Diastolic (mm Hg) 74 04/23/2018 SNF: [facility] [place] [facility] Heart Rate 80 {beats}/min 04/23/2018 SNF: [facility] [place] [facility] Systolic (mm Hg) 150 04/22/2018 SN[facility]: [facility] [place] [facility] Diastolic (mm Hg) 91 04/22/2018 [facility]F: [facility] [place] [facility] Heart Rate 88 {beats}/min 04/22/2018 SNF: [facility] [place] [facility] Systolic (mm Hg) 140 04/22/2018 SNF: [facility] [place] [facility] Diastolic (mm Hg) 89 04/22/2018 [facility]: [facility] [place] [facility] Temperature Oral (F) 97.6 F 04/22/2018 SNF: [facility] [place] [facility] Heart Rate 85 {beats}/min 04/22/2018 SNF: [facility] [place] [facility] Respitory Rate 18 04/22/2018 SNF: [facility] [place] [facility] Systolic (mm Hg) 151 04/22/2018 [facility]: [facility] [place] [facility] Diastolic (mm Hg) 85 04/22/2018 [facility]: [facility] [place] [facility] Temperature Oral (F) 100.3 F 04/22/2018 SNF: [facility] [place] [facility] Heart Rate 85 {beats}/min 04/22/2018 [facility]: [facility] [place] [facility] Systolic (mm Hg) 140 04/22/2018 [facility]: [facility] [place] [facility] Diastolic (mm Hg) 70 04/22/2018 [facility]: [facility] [place] [facility] Heart Rate 81 {beats}/min 04/22/2018 [facility]F: [facility] [place] [facility] Heart Rate 65 {beats}/min 04/21/2018 [facility]: [facility] [place] [facility] Respitory Rate 16 04/21/2018 [facility]: [facility] [place] [facility] Temperature Oral (F) 97.9 F 04/21/2018 [facility]: [facility] [place] [facility] Systolic (mm Hg) 130 04/21/2018 [facility]: [facility] [place] [facility] Diastolic (mm Hg) 71 04/21/2018 [facility]: [facility] [place] [facility] Systolic (mm Hg) 118 04/21/2018 [facility]: [facility] [place] [facility] Diastolic (mm Hg) 76 04/21/2018 [facility]: [facility] [place] [facility] Heart Rate 67 {beats}/min 04/21/2018 SNF: [facility] [place] [facility] Heart Rate 70 {beats}/min 04/21/2018 [facility]F: [facility] [place] [facility] Respitory Rate 16 04/21/2018 [facility]: [facility] [place] [facility] Systolic (mm Hg) 159 04/21/2018 [facility]: [facility] [place] [facility] Diastolic (mm Hg) 86 04/21/2018 [facility]: [facility] [place] [facility] Respitory Rate 18 04/21/2018 [facility]F: [facility] [place] [facility] Systolic (mm Hg) 148 04/21/2018 [facility]: [facility] [place] [facility] Diastolic (mm Hg) 86 04/21/2018 [facility]: [facility] [place] [facility] Temperature Oral (F) 97.8 F 04/21/2018 [facility]F: [facility] [place] [facility] Heart Rate 70 {beats}/min 04/21/2018 SNF: [facility] [place] [facility] Systolic (mm Hg) 139 04/21/2018 [facility]: [facility] [place] [facility] Diastolic (mm Hg) 81 04/21/2018 [facility]F: [facility] [place] [facility] Heart Rate 74 {beats}/min 04/21/2018 SNF: [facility] [place] [facility] Respitory Rate 19 04/20/2018 SNF: [facility] [place] [facility] Systolic (mm Hg) 138 04/20/2018 [facility]: [facility] [place] [facility] Diastolic (mm Hg) 56 04/20/2018 [facility]: [facility] [place] [facility] Temperature Oral (F) 97.6 F 04/20/2018 SNF: [facility] [place] [facility] Heart Rate 79 {beats}/min 04/20/2018 [facility]: [facility] [place] [facility] Systolic (mm Hg) 138 04/20/2018 [facility]: [facility] [place] [facility] Diastolic (mm Hg) 73 04/20/2018 [facility]F: [facility] [place] [facility] Heart Rate 74 {beats}/min 04/20/2018 SNF: [facility] [place] [facility] Heart Rate 74 {beats}/min 04/20/2018 [facility]: [facility] [place] [facility] Temperature Oral (F) 99 F 04/20/2018 SNF: [facility] [place] [facility] Systolic (mm Hg) 192 04/20/2018 [facility]: [facility] [place] [facility] Diastolic (mm Hg) 95 04/20/2018 [facility]: [facility] [place] [facility] Systolic (mm Hg) 152 04/20/2018 SN[facility]: [facility] [place] [facility] Diastolic (mm Hg) 85 04/20/2018 [facility]F: [facility] [place] [facility] Heart Rate 85 {beats}/min 04/20/2018 SNF: [facility] [place] [facility] Respitory Rate 17 04/19/2018 SNF: [facility] [place] [facility] Systolic (mm Hg) 124 04/19/2018 [facility]: [facility] [place] [facility] Diastolic (mm Hg) 79 04/19/2018 [facility]: [facility] [place] [facility] Temperature Oral (F) 97.8 F 04/19/2018 SNF: [facility] [place] [facility] Heart Rate 71 {beats}/min 04/19/2018 SNF: [facility] [place] [facility] Systolic (mm Hg) 132 04/19/2018 [facility]: [facility] [place] [facility] Diastolic (mm Hg) 79 04/19/2018 [facility]: [facility] [place] [facility] Heart Rate 82 {beats}/min 04/19/2018 [facility]: [facility] [place] [facility] Weight 177.8 04/19/2018 SNF: [facility] [place] [facility] Systolic (mm Hg) 157 04/19/2018 [facility]: [facility] [place] [facility] Diastolic (mm Hg) 83 04/19/2018 [facility]F: [facility] [place] [facility] Heart Rate 74 {beats}/min 04/19/2018 SNF: [facility] [place] [facility] Respitory Rate 18 04/19/2018 SNF: [facility] [place] [facility] Systolic (mm Hg) 135 04/19/2018 [facility]: [facility] [place] [facility] Diastolic (mm Hg) 80 04/19/2018 [facility]: [facility] [place] [facility] Temperature Oral (F) 98.6 F 04/19/2018 [facility]F: [facility] [place] [facility] Heart Rate 73 {beats}/min 04/19/2018 SNF: [facility] [place] [facility] Systolic (mm Hg) 140 04/19/2018 [facility]: [facility] [place] [facility] Diastolic (mm Hg) 80 04/19/2018 SNF: [facility] [place] [facility] Heart Rate 77 {beats}/min 04/19/2018 SNF: [facility] [place] [facility] Systolic (mm Hg) 152 04/18/2018 [facility]: [facility] [place] [facility] Diastolic (mm Hg) 85 04/18/2018 [facility]: [facility] [place] [facility] Heart Rate 76 {beats}/min 04/18/2018 SNF: [facility] [place] [facility] Heart Rate 78 {beats}/min 04/18/2018 SNF: [facility] [place] [facility] Respitory Rate 18 04/18/2018 [facility]: [facility] [place] [facility] Temperature Oral (F) 99.1 F 04/18/2018 SNF: [facility] [place] [facility] Systolic (mm Hg) 148 04/18/2018 SN[facility]: [facility] [place] [facility] Diastolic (mm Hg) 88 04/18/2018 [facility]: [facility] [place] [facility] Temperature Oral (F) 97.9 F 04/18/2018 SNF: [facility] [place] [facility] Systolic (mm Hg) 148 04/18/2018 [facility]: [facility] [place] [facility] Diastolic (mm Hg) 80 04/18/2018 SNF: [facility] [place] [facility] Heart Rate 79 {beats}/min 04/18/2018 SNF: [facility] [place] [facility] Respitory Rate 18 04/18/2018 SNF: [facility] [place] [facility] Systolic (mm Hg) 151 04/18/2018 [facility]: [facility] [place] [facility] Diastolic (mm Hg) 76 04/18/2018 [facility]: [facility] [place] [facility] Temperature Oral (F) 98.1 F 04/18/2018 SNF: [facility] [place] [facility] Heart Rate 73 {beats}/min 04/18/2018 SNF: [facility] [place] [facility] Systolic (mm Hg) 145 04/18/2018 SNF: [facility] [place] [facility] Diastolic (mm Hg) 83 04/18/2018 [facility]F: [facility] [place] [facility] Heart Rate 71 {beats}/min 04/18/2018 SNF: [facility] [place] [facility] Heart Rate 71 {beats}/min 04/17/2018 SN[facility]: [facility] [place] [facility] Respitory Rate 18 04/17/2018 [facility]: [facility] [place] [facility] Temperature Oral (F) 98.3 F 04/17/2018 SNF: [facility] [place] [facility] Systolic (mm Hg) 135 04/17/2018 [facility]: [facility] [place] [facility] Diastolic (mm Hg) 67 04/17/2018 [facility]: [facility] [place] [facility] Systolic (mm Hg) 129 04/17/2018 [facility]: [facility] [place] [facility] Diastolic (mm Hg) 78 04/17/2018 [facility]: [facility] [place] [facility] Heart Rate 66 {beats}/min 04/17/2018 SNF: [facility] [place] [facility] Respitory Rate 18 04/17/2018 SNF: [facility] [place] [facility] Systolic (mm Hg) 117 04/17/2018 [facility]: [facility] [place] [facility] Diastolic (mm Hg) 72 04/17/2018 [facility]: [facility] [place] [facility] Temperature Oral (F) 97.6 F 04/17/2018 SNF: [facility] [place] [facility] Heart Rate 73 {beats}/min 04/17/2018 SNF: [facility] [place] [facility] Systolic (mm Hg) 138 04/17/2018 SN[facility]: [facility] [place] [facility] Diastolic (mm Hg) 80 04/17/2018 SNF: [facility] [place] [facility] Heart Rate 81 {beats}/min 04/17/2018 SNF: [facility] [place] [facility] Systolic (mm Hg) 154 04/16/2018 SNF: [facility] [place] [facility] Diastolic (mm Hg) 81 04/16/2018 SN[facility]: [facility] [place] [facility] Heart Rate 79 {beats}/min 04/16/2018 SNF: [facility] [place] [facility] Heart Rate 62 {beats}/min 04/16/2018 SN[facility]: [facility] [place] [facility] Respitory Rate 20 04/16/2018 [facility]: [facility] [place] [facility] Temperature Oral (F) 98.1 F 04/16/2018 SNF: [facility] [place] [facility] Systolic (mm Hg) 111 04/16/2018 [facility]: [facility] [place] [facility] Diastolic (mm Hg) 60 04/16/2018 SN[facility]: [facility] [place] [facility] Respitory Rate 18 04/16/2018 SN[facility]: [facility] [place] [facility] Systolic (mm Hg) 111 04/16/2018 [facility]: [facility] [place] [facility] Diastolic (mm Hg) 60 04/16/2018 [facility]: [facility] [place] [facility] Temperature Oral (F) 98 F 04/16/2018 SNF: [facility] [place] [facility] Heart Rate 62 {beats}/min 04/16/2018 SN[facility]: [facility] [place] [facility] Systolic (mm Hg) 134 04/16/2018 [facility]: [facility] [place] [facility] Diastolic (mm Hg) 84 04/16/2018 [facility]: [facility] [place] [facility] Heart Rate 83 {beats}/min 04/16/2018 [facility]: [facility] [place] [facility] Respitory Rate 18 04/15/2018 SNF: [facility] Systolic (mm Hg) 148 04/15/2018 SNF: [facility] Diastolic (mm Hg) 77 04/15/2018 SNF: [facility] Temperature Oral (F) 98.8 F 04/15/2018 SNF: [facility] Heart Rate 77 {beats}/min 04/15/2018 SNF: [facility] Systolic (mm Hg) 145 04/15/2018 SNF: [facility] Diastolic (mm Hg) 83 04/15/2018 SNF: [facility] Heart Rate 99 {beats}/min 04/15/2018 SNF: [facility] Systolic (mm Hg) 148 04/15/2018 SNF: [facility] Diastolic (mm Hg) 77 04/15/2018 SNF: [facility] Heart Rate 77 {beats}/min 04/15/2018 SNF: [facility] Systolic (mm Hg) 156 04/15/2018 SNF: [facility] Diastolic (mm Hg) 79 04/15/2018 SNF: [facility] Heart Rate 79 {beats}/min 04/15/2018 SNF: [facility] Systolic (mm Hg) 132 04/14/2018 SNF: [facility] Diastolic (mm Hg) 73 04/14/2018 SNF: [facility] Heart Rate 75 {beats}/min 04/14/2018 SNF: [facility] Respitory Rate 18 04/14/2018 SNF: [facility] Systolic (mm Hg) 127 04/14/2018 SNF: [facility] Diastolic (mm Hg) 67 04/14/2018 SNF: [facility] Temperature Oral (F) 101 F 04/14/2018 SNF: [facility] Heart Rate 91 {beats}/min 04/14/2018 SNF: [facility] Systolic (mm Hg) 136 04/14/2018 SNF: [facility] Diastolic (mm Hg) 76 04/14/2018 SNF: [facility] Heart Rate 80 {beats}/min 04/14/2018 SNF: [facility] Heart Rate 79 {beats}/min 04/14/2018 SNF: [facility] Respitory Rate 22 04/14/2018 SNF: [facility] Temperature Oral (F) 95 F 04/14/2018 SNF: [facility] Systolic (mm Hg) 124 04/14/2018 SNF: [facility] Diastolic (mm Hg) 62 04/14/2018 SNF: [facility] Systolic (mm Hg) 128 04/13/2018 SNF: [facility] Diastolic (mm Hg) 79 04/13/2018 SNF: [facility] Heart Rate 63 {beats}/min 04/13/2018 SNF: [facility] Systolic (mm Hg) 125 04/13/2018 SNF: [facility] Diastolic (mm Hg) 71 04/13/2018 SNF: [facility] Heart Rate 71 {beats}/min 04/13/2018 SNF: [facility] Heart Rate 69 {beats}/min 04/13/2018 SNF: [facility] Respitory Rate 17 04/13/2018 SNF: [facility] Systolic (mm Hg) 140 04/13/2018 SNF: [facility] Diastolic (mm Hg) 75 04/13/2018 SNF: [facility] Respitory Rate 18 04/13/2018 SNF: [facility] Systolic (mm Hg) 140 04/13/2018 SNF: [facility] Diastolic (mm Hg) 75 04/13/2018 SN[facility]: [facility] Temperature Oral (F) 97.9 F 04/13/2018 SNF: [facility] Heart Rate 69 {beats}/min 04/13/2018 SNF: [facility] Respitory Rate 17 04/13/2018 SNF: [facility] Systolic (mm Hg) 115 04/13/2018 SNF: [facility] Diastolic (mm Hg) 72 04/13/2018 SNF: [facility] Temperature Oral (F) 98.6 F 04/13/2018 SNF: [facility] Heart Rate 69 {beats}/min 04/13/2018 SNF: [facility] Systolic (mm Hg) 133 04/13/2018 SNF: [facility] Diastolic (mm Hg) 65 04/13/2018 SNF: [facility] Heart Rate 79 {beats}/min 04/13/2018 SNF: [facility] Heart Rate 75 {beats}/min 04/12/2018 SNF: [facility] Respitory Rate 13 04/12/2018 SNF: [facility] Temperature Oral (F) 98.2 F 04/12/2018 SNF: [facility] Systolic (mm Hg) 148 04/12/2018 SNF: [facility] Diastolic (mm Hg) 81 04/12/2018 SNF: [facility] Systolic (mm Hg) 129 04/12/2018 SNF: [facility] Diastolic (mm Hg) 77 04/12/2018 SNF: [facility] Heart Rate 73 {beats}/min 04/12/2018 SNF: [facility] Systolic (mm Hg) 145 04/12/2018 SNF: [facility] Diastolic (mm Hg) 74 04/12/2018 SNF: [facility] Heart Rate 71 {beats}/min 04/12/2018 SNF: [facility] Respitory Rate 18 04/12/2018 SNF: [facility] Systolic (mm Hg) 123 04/12/2018 SNF: [facility] Diastolic (mm Hg) 78 04/12/2018 SNF: [facility] Temperature Oral (F) 97.8 F 04/12/2018 SNF: [facility] Heart Rate 71 {beats}/min 04/12/2018 SNF: [facility] Systolic (mm Hg) 144 04/12/2018 SNF: [facility] Diastolic (mm Hg) 69 04/12/2018 SNF: [facility] Heart Rate 74 {beats}/min 04/12/2018 SNF: [facility] Systolic (mm Hg) 149 04/11/2018 SNF: [facility] Diastolic (mm Hg) 85 04/11/2018 SNF: [facility] Heart Rate 75 {beats}/min 04/11/2018 SNF: [facility] Systolic (mm Hg) 136 04/11/2018 SNF: [facility] Diastolic (mm Hg) 77 04/11/2018 SNF: [facility] Heart Rate 80 {beats}/min 04/11/2018 SNF: [facility] Systolic (mm Hg) 138 04/11/2018 SNF: [facility] Diastolic (mm Hg) 75 04/11/2018 SNF: [facility] Heart Rate 77 {beats}/min 04/11/2018 SNF: [facility] Respitory Rate 19 04/10/2018 SNF: [facility] Systolic (mm Hg) 129 04/10/2018 SNF: [facility] Diastolic (mm Hg) 80 04/10/2018 SNF: [facility] Temperature Oral (F) 97.4 F 04/10/2018 SNF: [facility] Heart Rate 72 {beats}/min 04/10/2018 SNF: [facility] Systolic (mm Hg) 131 04/10/2018 SNF: [facility] Diastolic (mm Hg) 73 04/10/2018 SNF: [facility] Heart Rate 79 {beats}/min 04/10/2018 SNF: [facility] Weight 177.4 04/10/2018 SNF: [facility] Systolic (mm Hg) 150 04/10/2018 SNF: [facility] Diastolic (mm Hg) 85 04/10/2018 SNF: [facility] Heart Rate 80 {beats}/min 04/10/2018 SNF: [facility] Respitory Rate 18 04/10/2018 SNF: [facility] Systolic (mm Hg) 161 04/10/2018 SNF: [facility] Diastolic (mm Hg) 73 04/10/2018 SNF: [facility] Temperature Oral (F) 97.7 F 04/10/2018 SNF: [facility] Heart Rate 76 {beats}/min 04/10/2018 SNF: [facility] Systolic (mm Hg) 150 04/09/2018 SNF: [facility] Diastolic (mm Hg) 72 04/09/2018 SNF: [facility] Heart Rate 73 {beats}/min 04/09/2018 SNF: [facility] Systolic (mm Hg) 132 04/09/2018 SNF: [facility] Diastolic (mm Hg) 77 04/09/2018 SNF: [facility] Heart Rate 81 {beats}/min 04/09/2018 SNF: [facility] Temperature Oral (F) 97.8 F 04/09/2018 SNF: [facility] Respitory Rate 18 04/09/2018 SNF: [facility] Systolic (mm Hg) 106 04/09/2018 SNF: [facility] Diastolic (mm Hg) 68 04/09/2018 SNF: [facility] Temperature Oral (F) 97.7 F 04/09/2018 SNF: [facility] Heart Rate 64 {beats}/min 04/09/2018 SNF: [facility] Systolic (mm Hg) 145 04/09/2018 SNF: [facility] Diastolic (mm Hg) 69 04/09/2018 SNF: [facility] Heart Rate 82 {beats}/min 04/09/2018 SNF: [facility] Systolic (mm Hg) 146 04/08/2018 SNF: [facility] Diastolic (mm Hg) 72 04/08/2018 SNF: [facility] Heart Rate 80 {beats}/min 04/08/2018 SNF: [facility] Heart Rate 75 {beats}/min 04/08/2018 SNF: [facility] Respitory Rate 16 04/08/2018 SNF: [facility] Systolic (mm Hg) 118 04/08/2018 SNF: [facility] Diastolic (mm Hg) 70 04/08/2018 SNF: [facility] Respitory Rate 17 04/08/2018 SNF: [facility] Systolic (mm Hg) 118 04/08/2018 SNF: [facility] Diastolic (mm Hg) 70 04/08/2018 SN[facility]: [facility] Temperature Oral (F) 97.8 F 04/08/2018 SNF: [facility] Heart Rate 75 {beats}/min 04/08/2018 SNF: [facility] Respitory Rate 17 04/08/2018 SNF: [facility] Systolic (mm Hg) 120 04/07/2018 SNF: [facility] Diastolic (mm Hg) 74 04/07/2018 SNF: [facility] Heart Rate 70 {beats}/min 04/07/2018 SNF: [facility] Temperature Oral (F) 97.9 F 04/07/2018 SNF: [facility] Systolic (mm Hg) 115 04/07/2018 SNF: [facility] Diastolic (mm Hg) 62 04/07/2018 SNF: [facility] Heart Rate 73 {beats}/min 04/07/2018 SNF: [facility] Heart Rate 83 {beats}/min 04/07/2018 SNF: [facility] Respitory Rate 18 04/07/2018 SNF: [facility] Systolic (mm Hg) 136 04/07/2018 SNF: [facility] Diastolic (mm Hg) 74 04/07/2018 SNF: [facility] Systolic (mm Hg) 122 04/07/2018 SNF: [facility] Diastolic (mm Hg) 66 04/07/2018 SNF: [facility] Heart Rate 80 {beats}/min 04/07/2018 SNF: [facility] Systolic (mm Hg) 129 04/06/2018 SNF: [facility] Diastolic (mm Hg) 76 04/06/2018 SNF: [facility] Heart Rate 78 {beats}/min 04/06/2018 SNF: [facility] Respitory Rate 17 04/06/2018 SNF: [facility] Systolic (mm Hg) 143 04/06/2018 SNF: [facility] Diastolic (mm Hg) 68 04/06/2018 SNF: [facility] Temperature Oral (F) 98 F 04/06/2018 SNF: [facility] Heart Rate 70 {beats}/min 04/06/2018 SNF: [facility] Heart Rate 70 {beats}/min 04/06/2018 SNF: [facility] Systolic (mm Hg) 143 04/06/2018 SNF: [facility] Diastolic (mm Hg) 68 04/06/2018 SNF: [facility] Systolic (mm Hg) 135 04/06/2018 SNF: [facility] Diastolic (mm Hg) 81 04/06/2018 SNF: [facility] Heart Rate 76 {beats}/min 04/06/2018 SNF: [facility] Heart Rate 76 {beats}/min 04/06/2018 SNF: [facility] Respitory Rate 16 04/06/2018 SNF: [facility] Temperature Oral (F) 98.1 F 04/06/2018 SNF: [facility] Systolic (mm Hg) 119 04/06/2018 SNF: [facility] Diastolic (mm Hg) 76 04/06/2018 SNF: [facility] Respitory Rate 18 04/06/2018 SNF: [facility] Temperature Oral (F) 97.2 F 04/06/2018 SNF: [facility] Systolic (mm Hg) 118 04/06/2018 SN[facility]: [facility] Diastolic (mm Hg) 65 04/06/2018 SNF: [facility] Heart Rate 74 {beats}/min 04/06/2018 SNF: [facility] Systolic (mm Hg) 119 04/05/2018 SNF: [facility] Diastolic (mm Hg) 76 04/05/2018 SN[facility]: [facility] Heart Rate 76 {beats}/min 04/05/2018 SNF: [facility] Systolic (mm Hg) 128 04/05/2018 SNF: [facility] Diastolic (mm Hg) 74 04/05/2018 SN[facility]: [facility] Heart Rate 72 {beats}/min 04/05/2018 SNF: [facility] Respitory Rate 18 04/05/2018 SNF: [facility] Systolic (mm Hg) 128 04/05/2018 SN[facility]: [facility] Diastolic (mm Hg) 65 04/05/2018 SN[facility]: [facility] Temperature Oral (F) 97.8 F 04/05/2018 SNF: [facility] Heart Rate 62 {beats}/min 04/05/2018 SN[facility]: [facility] Respitory Rate 18 04/05/2018 SN[facility]: [facility] Temperature Oral (F) 98.2 F 04/05/2018 SNF: [facility] Systolic (mm Hg) 119 04/05/2018 SN[facility]: [facility] Diastolic (mm Hg) 63 04/05/2018 SN[facility]: [facility] Heart Rate 75 {beats}/min 04/05/2018 SNF: [facility] Systolic (mm Hg) 119 04/04/2018 SNF: [facility] Diastolic (mm Hg) 64 04/04/2018 SN[facility]: [facility] Heart Rate 72 {beats}/min 04/04/2018 SNF: [facility] Respitory Rate 19 04/04/2018 SNF: [facility] Systolic (mm Hg) 122 04/04/2018 SN[facility]: [facility] Diastolic (mm Hg) 61 04/04/2018 SN[facility]: [facility] Temperature Oral (F) 98 F 04/04/2018 SN[facility]: [facility] Heart Rate 66 {beats}/min 04/04/2018 SNF: [facility] Systolic (mm Hg) 122 04/04/2018 SNF: [facility] Diastolic (mm Hg) 70 04/04/2018 SN[facility]: [facility] Heart Rate 72 {beats}/min 04/04/2018 SN[facility]: [facility] Systolic (mm Hg) 147 04/04/2018 SNF: [facility] Diastolic (mm Hg) 81 04/04/2018 SN[facility]: [facility] Heart Rate 82 {beats}/min 04/04/2018 SNF: [facility] Systolic (mm Hg) 120 04/03/2018 SNF: [facility] Diastolic (mm Hg) 70 04/03/2018 SN[facility]: [facility] Heart Rate 75 {beats}/min 04/03/2018 SN[facility]: [facility] Weight 176 04/03/2018 SNF: [facility] Respitory Rate 18 04/03/2018 SN[facility]: [facility] Temperature Oral (F) 98.4 F 04/03/2018 SNF: [facility] Systolic (mm Hg) 154 04/03/2018 SN[facility]: [facility] Diastolic (mm Hg) 85 04/03/2018 SN[facility]: [facility] Heart Rate 77 {beats}/min 04/03/2018 SN[facility]: [facility] Heart Rate 77 {beats}/min 04/03/2018 SN[facility]: [facility] Respitory Rate 20 04/03/2018 SN[facility]: [facility] Temperature Oral (F) 97.5 F 04/03/2018 SNF: [facility] Systolic (mm Hg) 151 04/03/2018 SN[facility]: [facility] Diastolic (mm Hg) 72 04/03/2018 SN[facility]: [facility] Systolic (mm Hg) 133 04/02/2018 SNF: [facility] Diastolic (mm Hg) 88 04/02/2018 SN[facility]: [facility] Heart Rate 77 {beats}/min 04/02/2018 SN[facility]: [facility] Respitory Rate 18 04/02/2018 SNF: [facility] Systolic (mm Hg) 138 04/02/2018 SN[facility]: [facility] Diastolic (mm Hg) 83 04/02/2018 SN[facility]: [facility] Temperature Oral (F) 97.6 F 04/02/2018 SN[facility]: [facility] Heart Rate 79 {beats}/min 04/02/2018 SNF: [facility] Systolic (mm Hg) 138 04/02/2018 SN[facility]: [facility] Diastolic (mm Hg) 83 04/02/2018 SN[facility]: [facility] Heart Rate 79 {beats}/min 04/02/2018 SN[facility]: [facility] Respitory Rate 18 04/02/2018 SN[facility]: [facility] Temperature Oral (F) 97.8 F 04/02/2018 SNF: [facility] Systolic (mm Hg) 135 04/02/2018 SNF: [facility] Diastolic (mm Hg) 57 04/02/2018 SNF: [facility] Heart Rate 70 {beats}/min 04/02/2018 SNF: [facility] Systolic (mm Hg) 141 04/01/2018 SNF: [facility] Diastolic (mm Hg) 90 04/01/2018 SNF: [facility] Heart Rate 81 {beats}/min 04/01/2018 SNF: [facility] Heart Rate 76 {beats}/min 04/01/2018 SN[facility]: [facility] Respitory Rate 20 04/01/2018 SN[facility]: [facility] Temperature Oral (F) 97.5 F 04/01/2018 SNF: [facility] Systolic (mm Hg) 123 04/01/2018 SN[facility]: [facility] Diastolic (mm Hg) 70 04/01/2018 SNF: [facility] Respitory Rate 18 04/01/2018 SN[facility]: [facility] Systolic (mm Hg) 123 04/01/2018 SN[facility]: [facility] Diastolic (mm Hg) 70 04/01/2018 SN[facility]: [facility] Temperature Oral (F) 97.5 F 04/01/2018 SNF: [facility] Heart Rate 76 {beats}/min 04/01/2018 SNF: [facility] Systolic (mm Hg) 144 04/01/2018 SNF: [facility] Diastolic (mm Hg) 75 04/01/2018 SN[facility]: [facility] Heart Rate 73 {beats}/min 04/01/2018 SNF: [facility] Systolic (mm Hg) 126 04/01/2018 SNF: [facility] Diastolic (mm Hg) 72 04/01/2018 SN[facility]: [facility] Temperature Oral (F) 97.8 F 04/01/2018 SNF: [facility] Respitory Rate 18 04/01/2018 SNF: [facility] Heart Rate 82 {beats}/min 04/01/2018 SN[facility]: [facility] Temperature Oral (F) 97.3 F 04/01/2018 SNF: [facility] Systolic (mm Hg) 130 04/01/2018 SNF: [facility] Diastolic (mm Hg) 76 04/01/2018 SNF: [facility] Heart Rate 86 {beats}/min 04/01/2018 SN[facility]: [facility] Respitory Rate 18 03/31/2018 SNF: [facility] Temperature Oral (F) 96.9 F 03/31/2018 SNF: [facility] Heart Rate 81 {beats}/min 03/31/2018 SNF: [facility] Systolic (mm Hg) 123 03/31/2018 SN[facility]: [facility] Diastolic (mm Hg) 69 03/31/2018 SN[facility]: [facility] Heart Rate 83 {beats}/min 03/31/2018 SN[facility]: [facility] Systolic (mm Hg) 120 03/31/2018 SN[facility]: [facility] Diastolic (mm Hg) 66 03/31/2018 SN[facility]: [facility] Heart Rate 83 {beats}/min 03/31/2018 SNF: [facility] Respitory Rate 20 03/31/2018 SNF: [facility] Systolic (mm Hg) 140 03/31/2018 SN[facility]: [facility] Diastolic (mm Hg) 61 03/31/2018 SN[facility]: [facility] Temperature Oral (F) 99.3 F 03/31/2018 SN[facility]: [facility] Heart Rate 86 {beats}/min 03/31/2018 SNF: [facility] Respitory Rate 18 03/30/2018 SNF: [facility] Systolic (mm Hg) 137 03/30/2018 SN[facility]: [facility] Diastolic (mm Hg) 65 03/30/2018 SN[facility]: [facility] Temperature Oral (F) 98 F 03/30/2018 SN[facility]: [facility] Heart Rate 90 {beats}/min 03/30/2018 SN[facility]: [facility] Systolic (mm Hg) 123 03/30/2018 SNF: [facility] Diastolic (mm Hg) 76 03/30/2018 SN[facility]: [facility] Heart Rate 78 {beats}/min 03/30/2018 SN[facility]: [facility] Systolic (mm Hg) 126 03/30/2018 SN[facility]: [facility] Diastolic (mm Hg) 70 03/30/2018 SN[facility]: [facility] Heart Rate 80 {beats}/min 03/30/2018 SNF: [facility] Systolic (mm Hg) 122 03/29/2018 SNF: [facility] Diastolic (mm Hg) 72 03/29/2018 SNF: [facility] Heart Rate 75 {beats}/min 03/29/2018 SN[facility]: [facility] Heart Rate 76 {beats}/min 03/29/2018 SNF: [facility] Respitory Rate 18 03/29/2018 SN[facility]: [facility] Temperature Oral (F) 97.9 F 03/29/2018 SNF: [facility] Systolic (mm Hg) 125 03/29/2018 SNF: [facility] Diastolic (mm Hg) 70 03/29/2018 SN[facility]: [facility] Weight 177 03/29/2018 SN[facility]: [facility] Systolic (mm Hg) 117 03/29/2018 SN[facility]: [facility] Diastolic (mm Hg) 55 03/29/2018 SN[facility]: [facility] Heart Rate 70 {beats}/min 03/29/2018 SN[facility]: [facility] Respitory Rate 18 03/29/2018 SNF: [facility] Systolic (mm Hg) 162 03/29/2018 SNF: [facility] Diastolic (mm Hg) 54 03/29/2018 SN[facility]: [facility] Temperature Oral (F) 98.2 F 03/29/2018 SNF: [facility] Heart Rate 76 {beats}/min 03/29/2018 SNF: [facility] Respitory Rate 18 03/29/2018 SNF: [facility] Systolic (mm Hg) 130 03/29/2018 SNF: [facility] Diastolic (mm Hg) 71 03/29/2018 SN[facility]: [facility] Temperature Oral (F) 98.1 F 03/29/2018 SNF: [facility] Heart Rate 82 {beats}/min 03/29/2018 SNF: [facility] Systolic (mm Hg) 136 03/28/2018 SNF: [facility] Diastolic (mm Hg) 83 03/28/2018 SNF: [facility] Heart Rate 78 {beats}/min 03/28/2018 SN[facility]: [facility] Height 65 03/28/2018 SNF: [facility] Systolic (mm Hg) 123 03/28/2018 SNF: [facility] Diastolic (mm Hg) 57 03/28/2018 SNF: [facility] Heart Rate 69 {beats}/min 03/28/2018 SNF: [facility] Systolic (mm Hg) 131 03/28/2018 SNF: [facility] Diastolic (mm Hg) 70 03/28/2018 SN[facility]: [facility] Heart Rate 67 {beats}/min 03/28/2018 SNF: [facility] Respitory Rate 18 03/27/2018 SNF: [facility] Temperature Oral (F) 97.9 F 03/27/2018 SNF: [facility] Systolic (mm Hg) 115 03/27/2018 SNF: [facility] Diastolic (mm Hg) 77 03/27/2018 SN[facility]: [facility] Heart Rate 68 {beats}/min 03/27/2018 SNF: [facility] Systolic (mm Hg) 113 03/27/2018 SNF: [facility] Diastolic (mm Hg) 52 03/27/2018 SNF: [facility] Heart Rate 69 {beats}/min 03/27/2018 SNF: [facility] Systolic (mm Hg) 128 03/27/2018 SNF: [facility] Diastolic (mm Hg) 65 03/27/2018 SN[facility]: [facility] Heart Rate 89 {beats}/min 03/27/2018 SNF: [facility] Respitory Rate 17 03/27/2018 SNF: [facility] Systolic (mm Hg) 127 03/27/2018 SNF: [facility] Diastolic (mm Hg) 70 03/27/2018 SNF: [facility] Temperature Oral (F) 97.5 F 03/27/2018 SNF: [facility] Heart Rate 91 {beats}/min 03/27/2018 SN[facility]: [facility] Heart Rate 76 {beats}/min 03/26/2018 SNF: [facility] Respitory Rate 18 03/26/2018 SNF: [facility] Temperature Oral (F) 97.7 F 03/26/2018 SNF: [facility] Systolic (mm Hg) 114 03/26/2018 SNF: [facility] Diastolic (mm Hg) 54 03/26/2018 SNF: [facility] Respitory Rate 18 03/26/2018 SNF: [facility] Temperature Oral (F) 99.1 F 03/26/2018 SNF: [facility] Systolic (mm Hg) 116 03/26/2018 SNF: [facility] Diastolic (mm Hg) 64 03/26/2018 SNF: [facility] Heart Rate 76 {beats}/min 03/26/2018 SNF: [facility] Respitory Rate 18 03/26/2018 SNF: [facility] Systolic (mm Hg) 140 03/26/2018 SNF: [facility] Diastolic (mm Hg) 75 03/26/2018 SNF: [facility] Temperature Oral (F) 97.8 F 03/26/2018 SNF: [facility] Heart Rate 89 {beats}/min 03/26/2018 SNF: [facility] Systolic (mm Hg) 131 03/26/2018 SNF: [facility] Diastolic (mm Hg) 78 03/26/2018 SNF: [facility] Heart Rate 86 {beats}/min 03/26/2018 SNF: [facility] Respitory Rate 18 03/25/2018 SN[facility]: [facility] Temperature Oral (F) 97.9 F 03/25/2018 SNF: [facility] Systolic (mm Hg) 134 03/25/2018 SNF: [facility] Diastolic (mm Hg) 73 03/25/2018 SNF: [facility] Heart Rate 78 {beats}/min 03/25/2018 SNF: [facility] Respitory Rate 18 03/25/2018 SNF: [facility] Systolic (mm Hg) 110 03/25/2018 SNF: [facility] Diastolic (mm Hg) 60 03/25/2018 SNF: [facility] Temperature Oral (F) 98.7 F 03/25/2018 SNF: [facility] Heart Rate 89 {beats}/min 03/25/2018 SNF: [facility] Systolic (mm Hg) 110 03/25/2018 SNF: [facility] Diastolic (mm Hg) 60 03/25/2018 SNF: [facility] Heart Rate 89 {beats}/min 03/25/2018 SNF: [facility] Systolic (mm Hg) 130 03/24/2018 SNF: [facility] Diastolic (mm Hg) 75 03/24/2018 SNF: [facility] Heart Rate 72 {beats}/min 03/24/2018 SNF: [facility] Respitory Rate 18 03/24/2018 SNF: [facility] Systolic (mm Hg) 93 03/24/2018 SNF: [facility] Diastolic (mm Hg) 62 03/24/2018 SNF: [facility] Temperature Oral (F) 98.5 F 03/24/2018 SNF: [facility] Heart Rate 73 {beats}/min 03/24/2018 SNF: [facility] Systolic (mm Hg) 99 03/24/2018 SNF: [facility] Diastolic (mm Hg) 57 03/24/2018 SNF: [facility] Temperature Oral (F) 98.2 F 03/24/2018 SNF: [facility] Heart Rate 71 {beats}/min 03/24/2018 SNF: [facility] Respitory Rate 98.6 03/24/2018 SNF: [facility] Temperature Oral (F) 18 F 03/24/2018 SNF: [facility] Systolic (mm Hg) 139 03/24/2018 SNF: [facility] Diastolic (mm Hg) 66 03/24/2018 SNF: [facility] Systolic (mm Hg) 139 03/23/2018 SNF: [facility] Diastolic (mm Hg) 66 03/23/2018 SNF: [facility] Respitory Rate 18 03/23/2018 SNF: [facility] Systolic (mm Hg) 139 03/23/2018 SNF: [facility] Diastolic (mm Hg) 93 03/23/2018 SN[facility]: [facility] Temperature Oral (F) 98.6 F 03/23/2018 SNF: [facility] Heart Rate 71 {beats}/min 03/23/2018 SNF: [facility] Systolic (mm Hg) 139 03/23/2018 SNF: [facility] Diastolic (mm Hg) 93 03/23/2018 SNF: [facility] Respitory Rate 18 03/23/2018 SNF: [facility] Systolic (mm Hg) 117 03/23/2018 SNF: [facility] Diastolic (mm Hg) 68 03/23/2018 SN[facility]: [facility] Temperature Oral (F) 98.2 F 03/23/2018 SNF: [facility] Heart Rate 82 {beats}/min 03/23/2018 SNF: [facility] Heart Rate 68 {beats}/min 03/23/2018 SNF: [facility] Respitory Rate 17 03/23/2018 SNF: [facility] Temperature Oral (F) 97.9 F 03/23/2018 SNF: [facility] Systolic (mm Hg) 146 03/23/2018 SNF: [facility] Diastolic (mm Hg) 77 03/23/2018 SNF: [facility] Heart Rate 91 {beats}/min 03/22/2018 SNF: [facility] Respitory Rate 20 03/22/2018 SN[facility]: [facility] Temperature Oral (F) 99.2 F 03/22/2018 SNF: [facility] Systolic (mm Hg) 131 03/22/2018 SNF: [facility] Diastolic (mm Hg) 104 03/22/2018 SNF: [facility] Systolic (mm Hg) 129 03/22/2018 SNF: [facility] Diastolic (mm Hg) 78 03/22/2018 SNF: [facility] Respitory Rate 22 03/22/2018 SNF: [facility] Systolic (mm Hg) 132 03/22/2018 SNF: [facility] Diastolic (mm Hg) 70 03/22/2018 SN[facility]: [facility] Temperature Oral (F) 99.2 F 03/22/2018 SNF: [facility] Heart Rate 84 {beats}/min 03/22/2018 SNF: [facility] Heart Rate 72 {beats}/min 02/11/2017 SNF: [facility] Respitory Rate 13 02/11/2017 SNF: [facility] Systolic (mm Hg) 144 02/11/2017 SNF: [facility] Diastolic (mm Hg) 78 02/11/2017 SNF: [facility] Systolic (mm Hg) 144 02/11/2017 SNF: [facility] Diastolic (mm Hg) 78 02/11/2017 SNF: [facility] Heart Rate 72 {beats}/min 02/11/2017 SNF: [facility] Heart Rate 73 {beats}/min 02/11/2017 SNF: [facility] Systolic (mm Hg) 108 02/11/2017 SNF: [facility] Diastolic (mm Hg) 69 02/11/2017 SNF: [facility] Systolic (mm Hg) 177 02/10/2017 SNF: [facility] Diastolic (mm Hg) 104 02/10/2017 SNF: [facility] Heart Rate 76 {beats}/min 02/10/2017 SNF: [facility] Heart Rate 70 {beats}/min 02/10/2017 SNF: [facility] Respitory Rate 12 02/10/2017 SNF: [facility] Systolic (mm Hg) 158 02/10/2017 SNF: [facility] Diastolic (mm Hg) 81 02/10/2017 SNF: [facility] Heart Rate 69 {beats}/min 02/10/2017 SNF: [facility] Systolic (mm Hg) 138 02/10/2017 SNF: [facility] Diastolic (mm Hg) 72 02/10/2017 SNF: [facility] Heart Rate 79 {beats}/min 02/10/2017 SNF: [facility] Systolic (mm Hg) 138 02/10/2017 SNF: [facility] Diastolic (mm Hg) 72 02/10/2017 SNF: [facility] Heart Rate 79 {beats}/min 02/10/2017 SNF: [facility] Heart Rate 80 {beats}/min 02/10/2017 SNF: [facility] Respitory Rate 17 02/10/2017 SNF: [facility] Temperature Oral (F) 99.1 F 02/10/2017 SNF: [facility] Systolic (mm Hg) 128 02/10/2017 SNF: [facility] Diastolic (mm Hg) 66 02/10/2017 SNF: [facility] Systolic (mm Hg) 151 02/09/2017 SNF: [facility] Diastolic (mm Hg) 96 02/09/2017 SNF: [facility] Heart Rate 80 {beats}/min 02/09/2017 SNF: [facility] Systolic (mm Hg) 171 02/09/2017 SNF: [facility] Diastolic (mm Hg) 93 02/09/2017 SNF: [facility] Heart Rate 80 {beats}/min 02/09/2017 SNF: [facility] Systolic (mm Hg) 116 02/09/2017 SNF: [facility] Diastolic (mm Hg) 68 02/09/2017 SNF: [facility] Heart Rate 84 {beats}/min 02/09/2017 SNF: [facility] Heart Rate 79 {beats}/min 02/09/2017 SNF: [facility] Respitory Rate 24 02/09/2017 SNF: [facility] Temperature Oral (F) 98.6 F 02/09/2017 SNF: [facility] Systolic (mm Hg) 143 02/09/2017 SNF: [facility] Diastolic (mm Hg) 80 02/09/2017 SNF: [facility] Systolic (mm Hg) 110 02/08/2017 SNF: [facility] Diastolic (mm Hg) 60 02/08/2017 SNF: [facility] Heart Rate 92 {beats}/min 02/08/2017 SNF: [facility] Weight 212 02/08/2017 SNF: [facility] Systolic (mm Hg) 131 02/08/2017 SNF: [facility] Diastolic (mm Hg) 75 02/08/2017 SNF: [facility] Heart Rate 75 {beats}/min 02/08/2017 SNF: [facility] Heart Rate 75 {beats}/min 02/08/2017 SNF: [facility] Respitory Rate 20 02/08/2017 SNF: [facility] Temperature Oral (F) 98.7 F 02/08/2017 SNF: [facility] Systolic (mm Hg) 131 02/08/2017 SNF: [facility] Diastolic (mm Hg) 75 02/08/2017 SNF: [facility] Systolic (mm Hg) 128 02/08/2017 SNF: [facility] Diastolic (mm Hg) 78 02/08/2017 SNF: [facility] Heart Rate 79 {beats}/min 02/08/2017 SNF: [facility] Systolic (mm Hg) 128 02/08/2017 SNF: [facility] Diastolic (mm Hg) 78 02/08/2017 SNF: [facility] Heart Rate 79 {beats}/min 02/08/2017 SNF: [facility] Heart Rate 73 {beats}/min 02/07/2017 SNF: [facility] Respitory Rate 18 02/07/2017 SNF: [facility] Temperature Oral (F) 98.4 F 02/07/2017 SNF: [facility] Systolic (mm Hg) 145 02/07/2017 SNF: [facility] Diastolic (mm Hg) 87 02/07/2017 SNF: [facility] Systolic (mm Hg) 118 02/07/2017 SNF: [facility] Diastolic (mm Hg) 66 02/07/2017 SNF: [facility] Heart Rate 75 {beats}/min 02/07/2017 SNF: [facility] Systolic (mm Hg) 133 02/07/2017 SNF: [facility] Diastolic (mm Hg) 81 02/07/2017 SNF: [facility] Heart Rate 74 {beats}/min 02/07/2017 SNF: [facility] Systolic (mm Hg) 124 02/07/2017 SNF: [facility] Diastolic (mm Hg) 76 02/07/2017 SNF: [facility] Heart Rate 80 {beats}/min 02/07/2017 SNF: [facility] Heart Rate 80 {beats}/min 02/07/2017 SNF: [facility] Respitory Rate 17 02/07/2017 SNF: [facility] Temperature Oral (F) 98.8 F 02/07/2017 SNF: [facility] Systolic (mm Hg) 128 02/07/2017 SNF: [facility] Diastolic (mm Hg) 66 02/07/2017 SNF: [facility] Systolic (mm Hg) 128 02/06/2017 SNF: [facility] Diastolic (mm Hg) 66 02/06/2017 SNF: [facility] Heart Rate 80 {beats}/min 02/06/2017 SNF: [facility] Systolic (mm Hg) 120 02/06/2017 SNF: [facility] Diastolic (mm Hg) 73 02/06/2017 SNF: [facility] Heart Rate 84 {beats}/min 02/06/2017 SNF: [facility] Heart Rate 89 {beats}/min 02/06/2017 SNF: [facility] Respitory Rate 26 02/06/2017 SNF: [facility] Temperature Oral (F) 98.4 F 02/06/2017 SNF: [facility] Systolic (mm Hg) 149 02/06/2017 SNF: [facility] Diastolic (mm Hg) 83 02/06/2017 SNF: [facility] Heart Rate 70 {beats}/min 02/06/2017 SNF: [facility] Respitory Rate 18 02/06/2017 SNF: [facility] Temperature Oral (F) 98.2 F 02/06/2017 SNF: [facility] Systolic (mm Hg) 149 02/06/2017 SNF: [facility] Diastolic (mm Hg) 74 02/06/2017 SNF: [facility] Systolic (mm Hg) 138 02/05/2017 SNF: [facility] Diastolic (mm Hg) 77 02/05/2017 SNF: [facility] Heart Rate 78 {beats}/min 02/05/2017 SNF: [facility] Systolic (mm Hg) 120 02/05/2017 SNF: [facility] Diastolic (mm Hg) 72 02/05/2017 SNF: [facility] Heart Rate 72 {beats}/min 02/05/2017 SNF: [facility] Heart Rate 70 {beats}/min 02/05/2017 SNF: [facility] Respitory Rate 19 02/05/2017 SNF: [facility] Temperature Oral (F) 98.6 F 02/05/2017 SNF: [facility] Systolic (mm Hg) 137 02/05/2017 SNF: [facility] Diastolic (mm Hg) 60 02/05/2017 SNF: [facility] Systolic (mm Hg) 140 02/04/2017 SNF: [facility] Diastolic (mm Hg) 65 02/04/2017 SNF: [facility] Heart Rate 99 {beats}/min 02/04/2017 SNF: [facility] Systolic (mm Hg) 144 02/04/2017 SNF: [facility] Diastolic (mm Hg) 77 02/04/2017 SNF: [facility] Heart Rate 80 {beats}/min 02/04/2017 SNF: [facility] Systolic (mm Hg) 126 02/04/2017 SNF: [facility] Diastolic (mm Hg) 66 02/04/2017 SNF: [facility] Heart Rate 85 {beats}/min 02/04/2017 SNF: [facility] Systolic (mm Hg) 126 02/04/2017 SNF: [facility] Diastolic (mm Hg) 66 02/04/2017 SNF: [facility] Heart Rate 85 {beats}/min 02/04/2017 SNF: [facility] Systolic (mm Hg) 104 02/03/2017 SNF: [facility] Diastolic (mm Hg) 73 02/03/2017 SNF: [facility] Heart Rate 82 {beats}/min 02/03/2017 SNF: [facility] Systolic (mm Hg) 119 02/03/2017 SNF: [facility] Diastolic (mm Hg) 66 02/03/2017 SNF: [facility] Heart Rate 80 {beats}/min 02/03/2017 SNF: [facility] Systolic (mm Hg) 112 02/03/2017 SNF: [facility] Diastolic (mm Hg) 70 02/03/2017 SN[facility]: [facility] Temperature Oral (F) 96.8 F 02/03/2017 SNF: [facility] Respitory Rate 22 02/03/2017 SNF: [facility] Heart Rate 82 {beats}/min 02/03/2017 SNF: [facility] Systolic (mm Hg) 105 02/02/2017 SNF: [facility] Diastolic (mm Hg) 64 02/02/2017 SNF: [facility] Heart Rate 87 {beats}/min 02/02/2017 SNF: [facility] Heart Rate 81 {beats}/min 02/02/2017 SNF: [facility] Respitory Rate 16 02/02/2017 [facility]: [facility] Temperature Oral (F) 98 F 02/02/2017 SNF: [facility] Systolic (mm Hg) 105 02/02/2017 SNF: [facility] Diastolic (mm Hg) 56 02/02/2017 SNF: [facility] Heart Rate 77 {beats}/min 02/02/2017 SNF: [facility] Respitory Rate 20 02/02/2017 SNF: [facility] Systolic (mm Hg) 147 02/02/2017 SNF: [facility] Diastolic (mm Hg) 84 02/02/2017 SNF: [facility] Systolic (mm Hg) 147 02/02/2017 SNF: [facility] Diastolic (mm Hg) 84 02/02/2017 SNF: [facility] Heart Rate 77 {beats}/min 02/02/2017 SNF: [facility] Systolic (mm Hg) 134 02/02/2017 SNF: [facility] Diastolic (mm Hg) 84 02/02/2017 SNF: [facility] Heart Rate 95 {beats}/min 02/02/2017 SNF: [facility] Systolic (mm Hg) 134 02/02/2017 SNF: [facility] Diastolic (mm Hg) 84 02/02/2017 SNF: [facility] Heart Rate 75 {beats}/min 02/02/2017 SNF: [facility] Heart Rate 77 {beats}/min 02/02/2017 SNF: [facility] Respitory Rate 18 02/02/2017 SN[facility]: [facility] Temperature Oral (F) 98.7 F 02/02/2017 SNF: [facility] Systolic (mm Hg) 121 02/02/2017 SNF: [facility] Diastolic (mm Hg) 57 02/02/2017 SNF: [facility] Systolic (mm Hg) 121 02/01/2017 SNF: [facility] Diastolic (mm Hg) 57 02/01/2017 SNF: [facility] Heart Rate 77 {beats}/min 02/01/2017 SNF: [facility] Heart Rate 77 {beats}/min 02/01/2017 SNF: [facility] Respitory Rate 20 02/01/2017 SNF: [facility] Systolic (mm Hg) 149 02/01/2017 SNF: [facility] Diastolic (mm Hg) 85 02/01/2017 SNF: [facility] Systolic (mm Hg) 149 02/01/2017 SNF: [facility] Diastolic (mm Hg) 85 02/01/2017 SNF: [facility] Heart Rate 77 {beats}/min 02/01/2017 SNF: [facility] Weight 212 02/01/2017 SNF: [facility] Systolic (mm Hg) 112 02/01/2017 SNF: [facility] Diastolic (mm Hg) 66 02/01/2017 SNF: [facility] Heart Rate 81 {beats}/min 02/01/2017 SNF: [facility] Heart Rate 77 {beats}/min 02/01/2017 SNF: [facility] Respitory Rate 18 02/01/2017 SNF: [facility] Temperature Oral (F) 98.2 F 02/01/2017 SNF: [facility] Systolic (mm Hg) 142 02/01/2017 SNF: [facility] Diastolic (mm Hg) 54 02/01/2017 SNF: [facility] Systolic (mm Hg) 142 01/31/2017 SNF: [facility] Diastolic (mm Hg) 54 01/31/2017 SNF: [facility] Heart Rate 77 {beats}/min 01/31/2017 SNF: [facility] Systolic (mm Hg) 146 01/31/2017 SNF: [facility] Diastolic (mm Hg) 79 01/31/2017 SNF: [facility] Heart Rate 70 {beats}/min 01/31/2017 SNF: [facility] Systolic (mm Hg) 114 01/31/2017 SNF: [facility] Diastolic (mm Hg) 72 01/31/2017 SN[facility]: [facility] Temperature Oral (F) 97.9 F 01/31/2017 SNF: [facility] Respitory Rate 20 01/31/2017 SNF: [facility] Heart Rate 79 {beats}/min 01/31/2017 SN[facility]: [facility] Heart Rate 82 {beats}/min 01/31/2017 SN[facility]: [facility] Respitory Rate 19 01/31/2017 SN[facility]: [facility] Temperature Oral (F) 98 F 01/31/2017 SNF: [facility] Systolic (mm Hg) 156 01/31/2017 SNF: [facility] Diastolic (mm Hg) 79 01/31/2017 SN[facility]: [facility] Systolic (mm Hg) 113 01/30/2017 SNF: [facility] Diastolic (mm Hg) 57 01/30/2017 SNF: [facility] Heart Rate 79 {beats}/min 01/30/2017 SNF: [facility] Systolic (mm Hg) 134 01/30/2017 SNF: [facility] Diastolic (mm Hg) 86 01/30/2017 SNF: [facility] Heart Rate 85 {beats}/min 01/30/2017 SNF: [facility] Heart Rate 73 {beats}/min 01/30/2017 SN[facility]: [facility] Respitory Rate 22 01/30/2017 SNF: [facility] Temperature Oral (F) 98.3 F 01/30/2017 SNF: [facility] Systolic (mm Hg) 131 01/30/2017 SNF: [facility] Diastolic (mm Hg) 74 01/30/2017 SNF: [facility] Systolic (mm Hg) 118 01/30/2017 SNF: [facility] Diastolic (mm Hg) 76 01/30/2017 SNF: [facility] Systolic (mm Hg) 118 01/29/2017 SNF: [facility] Diastolic (mm Hg) 76 01/29/2017 SNF: [facility] Heart Rate 78 {beats}/min 01/29/2017 SN[facility]: [facility] Systolic (mm Hg) 141 01/29/2017 SNF: [facility] Diastolic (mm Hg) 77 01/29/2017 SNF: [facility] Heart Rate 72 {beats}/min 01/29/2017 SNF: [facility] Heart Rate 81 {beats}/min 01/29/2017 SNF: [facility] Respitory Rate 17 01/29/2017 SNF: [facility] Temperature Oral (F) 97.5 F 01/29/2017 SNF: [facility] Systolic (mm Hg) 117 01/29/2017 SNF: [facility] Diastolic (mm Hg) 71 01/29/2017 SNF: [facility] Systolic (mm Hg) 105 01/28/2017 SNF: [facility] Diastolic (mm Hg) 59 01/28/2017 SNF: [facility] Heart Rate 84 {beats}/min 01/28/2017 SNF: [facility] Systolic (mm Hg) 129 01/28/2017 SNF: [facility] Diastolic (mm Hg) 64 01/28/2017 SNF: [facility] Heart Rate 73 {beats}/min 01/28/2017 SNF: [facility] Systolic (mm Hg) 130 01/28/2017 SNF: [facility] Diastolic (mm Hg) 76 01/28/2017 SNF: [facility] Heart Rate 84 {beats}/min 01/28/2017 SNF: [facility] Systolic (mm Hg) 130 01/28/2017 SNF: [facility] Diastolic (mm Hg) 76 01/28/2017 SNF: [facility] Heart Rate 84 {beats}/min 01/28/2017 SNF: [facility] Systolic (mm Hg) 105 01/27/2017 SNF: [facility] Diastolic (mm Hg) 66 01/27/2017 SNF: [facility] Heart Rate 76 {beats}/min 01/27/2017 SNF: [facility] Heart Rate 76 {beats}/min 01/27/2017 SNF: [facility] Respitory Rate 18 01/27/2017 SNF: [facility] Temperature Oral (F) 99.7 F 01/27/2017 SNF: [facility] Systolic (mm Hg) 150 01/27/2017 SNF: [facility] Diastolic (mm Hg) 87 01/27/2017 SNF: [facility] Systolic (mm Hg) 150 01/27/2017 SNF: [facility] Diastolic (mm Hg) 87 01/27/2017 SNF: [facility] Heart Rate 76 {beats}/min 01/27/2017 SNF: [facility] Systolic (mm Hg) 138 01/27/2017 SNF: [facility] Diastolic (mm Hg) 82 01/27/2017 SNF: [facility] Heart Rate 75 {beats}/min 01/27/2017 SNF: [facility] Heart Rate 85 {beats}/min 01/27/2017 SNF: [facility] Respitory Rate 16 01/27/2017 SNF: [facility] Temperature Oral (F) 100.6 F 01/27/2017 SNF: [facility] Systolic (mm Hg) 138 01/27/2017 SNF: [facility] Diastolic (mm Hg) 70 01/27/2017 SNF: [facility] Systolic (mm Hg) 138 01/26/2017 SNF: [facility] Diastolic (mm Hg) 70 01/26/2017 SNF: [facility] Heart Rate 85 {beats}/min 01/26/2017 SNF: [facility] Systolic (mm Hg) 131 01/26/2017 SNF: [facility] Diastolic (mm Hg) 77 01/26/2017 SNF: [facility] Heart Rate 70 {beats}/min 01/26/2017 SNF: [facility] Systolic (mm Hg) 130 01/26/2017 SNF: [facility] Diastolic (mm Hg) 72 01/26/2017 SNF: [facility] Heart Rate 75 {beats}/min 01/26/2017 SNF: [facility] Systolic (mm Hg) 139 01/25/2017 SNF: [facility] Diastolic (mm Hg) 65 01/25/2017 SNF: [facility] Heart Rate 73 {beats}/min 01/25/2017 SNF: [facility] Systolic (mm Hg) 142 01/25/2017 SNF: [facility] Diastolic (mm Hg) 72 01/25/2017 SNF: [facility] Heart Rate 61 {beats}/min 01/25/2017 SNF: [facility] Systolic (mm Hg) 142 01/25/2017 SNF: [facility] Diastolic (mm Hg) 82 01/25/2017 SNF: [facility] Heart Rate 82 {beats}/min 01/25/2017 SNF: [facility] Systolic (mm Hg) 142 01/24/2017 SNF: [facility] Diastolic (mm Hg) 96 01/24/2017 SNF: [facility] Heart Rate 91 {beats}/min 01/24/2017 SNF: [facility] Weight 212 01/24/2017 SNF: [facility] Systolic (mm Hg) 92 01/24/2017 SNF: [facility] Diastolic (mm Hg) 51 01/24/2017 SNF: [facility] Heart Rate 87 {beats}/min 01/24/2017 SNF: [facility] Systolic (mm Hg) 122 01/24/2017 SNF: [facility] Diastolic (mm Hg) 72 01/24/2017 SNF: [facility] Heart Rate 70 {beats}/min 01/24/2017 SNF: [facility] Respitory Rate 17 01/24/2017 SNF: [facility] Temperature Oral (F) 98.2 F 01/24/2017 SNF: [facility] Systolic (mm Hg) 118 01/24/2017 SNF: [facility] Diastolic (mm Hg) 76 01/24/2017 SNF: [facility] Systolic (mm Hg) 122 01/23/2017 SNF: [facility] Diastolic (mm Hg) 64 01/23/2017 SNF: [facility] Heart Rate 90 {beats}/min 01/23/2017 SNF: [facility] Heart Rate 77 {beats}/min 01/23/2017 SNF: [facility] Respitory Rate 18 01/23/2017 SNF: [facility] Systolic (mm Hg) 117 01/23/2017 SNF: [facility] Diastolic (mm Hg) 60 01/23/2017 SNF: [facility] Systolic (mm Hg) 117 01/23/2017 SNF: [facility] Diastolic (mm Hg) 60 01/23/2017 SNF: [facility] Heart Rate 77 {beats}/min 01/23/2017 SNF: [facility] Systolic (mm Hg) 128 01/23/2017 SNF: [facility] Diastolic (mm Hg) 72 01/23/2017 SNF: [facility] Heart Rate 72 {beats}/min 01/23/2017 SNF: [facility] Respitory Rate 18 01/23/2017 SNF: [facility] Temperature Oral (F) 98.5 F 01/23/2017 SNF: [facility] Systolic (mm Hg) 116 01/23/2017 SNF: [facility] Diastolic (mm Hg) 72 01/23/2017 SNF: [facility] Heart Rate 97 {beats}/min 01/23/2017 SNF: [facility] Respitory Rate 20 01/23/2017 SNF: [facility] Systolic (mm Hg) 144 01/23/2017 SNF: [facility] Diastolic (mm Hg) 95 01/23/2017 SNF: [facility] Systolic (mm Hg) 138 01/22/2017 SNF: [facility] Diastolic (mm Hg) 78 01/22/2017 SNF: [facility] Heart Rate 77 {beats}/min 01/22/2017 SNF: [facility] Systolic (mm Hg) 128 01/22/2017 SNF: [facility] Diastolic (mm Hg) 74 01/22/2017 SNF: [facility] Heart Rate 74 {beats}/min 01/22/2017 SNF: [facility] Systolic (mm Hg) 132 01/22/2017 SNF: [facility] Diastolic (mm Hg) 71 01/22/2017 SN[facility]: [facility] Heart Rate 86 {beats}/min 01/22/2017 SNF: [facility] Systolic (mm Hg) 131 01/21/2017 SNF: [facility] Diastolic (mm Hg) 72 01/21/2017 SN[facility]: [facility] Heart Rate 97 {beats}/min 01/21/2017 SNF: [facility] Systolic (mm Hg) 134 01/21/2017 SN[facility]: [facility] Diastolic (mm Hg) 76 01/21/2017 SNF: [facility] Heart Rate 87 {beats}/min 01/21/2017 SNF: [facility] Systolic (mm Hg) 126 01/21/2017 SNF: [facility] Diastolic (mm Hg) 74 01/21/2017 SN[facility]: [facility] Heart Rate 82 {beats}/min 01/21/2017 SNF: [facility] Heart Rate 90 {beats}/min 01/21/2017 SNF: [facility] Systolic (mm Hg) 128 01/21/2017 SN[facility]: [facility] Diastolic (mm Hg) 68 01/21/2017 SN[facility]: [facility] Heart Rate 77 {beats}/min 01/20/2017 SNF: [facility] Respitory Rate 18 01/20/2017 SN[facility]: [facility] Temperature Oral (F) 99.4 F 01/20/2017 SNF: [facility] Systolic (mm Hg) 124 01/20/2017 SNF: [facility] Diastolic (mm Hg) 66 01/20/2017 SN[facility]: [facility] Weight 209 01/20/2017 SNF: [facility] Systolic (mm Hg) 134 01/20/2017 SN[facility]: [facility] Diastolic (mm Hg) 75 01/20/2017 SNF: [facility] Heart Rate 75 {beats}/min 01/20/2017 SNF: [facility] Systolic (mm Hg) 118 01/20/2017 SNF: [facility] Diastolic (mm Hg) 90 01/20/2017 SNF: [facility] Heart Rate 83 {beats}/min 01/20/2017 SNF: [facility] Heart Rate 76 {beats}/min 01/19/2017 SNF: [facility] Respitory Rate 18 01/19/2017 SN[facility]: [facility] Temperature Oral (F) 97.6 F 01/19/2017 SNF: [facility] Systolic (mm Hg) 118 01/19/2017 SNF: [facility] Diastolic (mm Hg) 68 01/19/2017 SNF: [facility] Systolic (mm Hg) 118 01/19/2017 SNF: [facility] Diastolic (mm Hg) 68 01/19/2017 SNF: [facility] Heart Rate 76 {beats}/min 01/19/2017 SNF: [facility] Heart Rate 79 {beats}/min 01/19/2017 SNF: [facility] Respitory Rate 18 01/19/2017 SNF: [facility] Temperature Oral (F) 99.2 F 01/19/2017 SNF: [facility] Systolic (mm Hg) 119 01/19/2017 SNF: [facility] Diastolic (mm Hg) 57 01/19/2017 SNF: [facility] Heart Rate 78 {beats}/min 01/18/2017 SNF: [facility] Respitory Rate 18 01/18/2017 SN[facility]: [facility] Temperature Oral (F) 97.8 F 01/18/2017 SNF: [facility] Systolic (mm Hg) 118 01/18/2017 SNF: [facility] Diastolic (mm Hg) 69 01/18/2017 SNF: [facility] Systolic (mm Hg) 118 01/18/2017 SNF: [facility] Diastolic (mm Hg) 69 01/18/2017 SNF: [facility] Heart Rate 78 {beats}/min 01/18/2017 SNF: [facility] Heart Rate 80 {beats}/min 01/18/2017 SNF: [facility] Respitory Rate 18 01/18/2017 SNF: [facility] Systolic (mm Hg) 123 01/18/2017 SNF: [facility] Diastolic (mm Hg) 71 01/18/2017 SNF: [facility] Systolic (mm Hg) 122 01/17/2017 SNF: [facility] Diastolic (mm Hg) 84 01/17/2017 SNF: [facility] Heart Rate 71 {beats}/min 01/17/2017 SNF: [facility] Heart Rate 86 {beats}/min 01/16/2017 SNF: [facility] Respitory Rate 18 01/16/2017 SNF: [facility] Systolic (mm Hg) 103 01/16/2017 SNF: [facility] Diastolic (mm Hg) 58 01/16/2017 SNF: [facility] Respitory Rate 18 01/16/2017 SNF: [facility] Heart Rate 69 {beats}/min 01/16/2017 SNF: [facility] Systolic (mm Hg) 116 01/16/2017 SN[facility]: [facility] Diastolic (mm Hg) 68 01/16/2017 SNF: [facility] Heart Rate 72 {beats}/min 01/16/2017 SNF: [facility] Heart Rate 76 {beats}/min 01/15/2017 SNF: [facility] Respitory Rate 20 01/15/2017 SNF: [facility] Temperature Oral (F) 98.5 F 01/15/2017 SNF: [facility] Systolic (mm Hg) 127 01/15/2017 SN[facility]: [facility] Diastolic (mm Hg) 64 01/15/2017 SN[facility]: [facility] Heart Rate 78 {beats}/min 01/15/2017 SNF: [facility] Respitory Rate 18 01/15/2017 SN[facility]: [facility] Temperature Oral (F) 98 F 01/15/2017 SNF: [facility] Systolic (mm Hg) 116 01/15/2017 SNF: [facility] Diastolic (mm Hg) 72 01/15/2017 SN[facility]: [facility] Respitory Rate 18 01/15/2017 SNF: [facility] Heart Rate 76 {beats}/min 01/15/2017 SNF: [facility] Heart Rate 79 {beats}/min 01/15/2017 SN[facility]: [facility] Respitory Rate 18 01/15/2017 SN[facility]: [facility] Temperature Oral (F) 98.6 F 01/15/2017 SNF: [facility] Systolic (mm Hg) 118 01/15/2017 SNF: [facility] Diastolic (mm Hg) 70 01/15/2017 SN[facility]: [facility] Heart Rate 76 {beats}/min 01/14/2017 SNF: [facility] Respitory Rate 18 01/14/2017 SN[facility]: [facility] Temperature Oral (F) 98.4 F 01/14/2017 SNF: [facility] Systolic (mm Hg) 116 01/14/2017 SN[facility]: [facility] Diastolic (mm Hg) 70 01/14/2017 SN[facility]: [facility] Respitory Rate 19 01/14/2017 SNF: [facility] Heart Rate 88 {beats}/min 01/14/2017 SNF: [facility] Systolic (mm Hg) 102 01/14/2017 SN[facility]: [facility] Diastolic (mm Hg) 60 01/14/2017 SN[facility]: [facility] Heart Rate 82 {beats}/min 01/14/2017 SNF: [facility] Systolic (mm Hg) 116 01/14/2017 SN[facility]: [facility] Diastolic (mm Hg) 66 01/14/2017 SNF: [facility] Temperature Oral (F) 98 F 01/14/2017 SNF: [facility] Respitory Rate 22 01/14/2017 SNF: [facility] Heart Rate 76 {beats}/min 01/14/2017 SN[facility]: [facility] Heart Rate 87 {beats}/min 01/14/2017 SN[facility]: [facility] Respitory Rate 18 01/14/2017 SNF: [facility] Temperature Oral (F) 98.3 F 01/14/2017 SNF: [facility] Systolic (mm Hg) 120 01/14/2017 SNF: [facility] Diastolic (mm Hg) 70 01/14/2017 SNF: [facility] Weight 206.2 01/13/2017 SNF: [facility] Systolic (mm Hg) 128 01/13/2017 SNF: [facility] Diastolic (mm Hg) 76 01/13/2017 SNF: [facility] Temperature Oral (F) 97.8 F 01/13/2017 SNF: [facility] Respitory Rate 20 01/13/2017 SNF: [facility] Heart Rate 81 {beats}/min 01/13/2017 SN[facility]: [facility] Systolic (mm Hg) 132 01/13/2017 SN[facility]: [facility] Diastolic (mm Hg) 68 01/13/2017 SN[facility]: [facility] Heart Rate 78 {beats}/min 01/13/2017 SNF: [facility] Systolic (mm Hg) 139 01/05/2017 SNF: [facility] Diastolic (mm Hg) 69 01/05/2017 SN[facility]: [facility] Heart Rate 84 {beats}/min 01/05/2017 SNF: [facility] Heart Rate 57 {beats}/min 01/04/2017 SNF: [facility] Respitory Rate 1 01/04/2017 SNF: [facility] Temperature Oral (F) 98.7 F 01/04/2017 SNF: [facility] Systolic (mm Hg) 110 01/04/2017 SNF: [facility] Diastolic (mm Hg) 64 01/04/2017 SNF: [facility] Systolic (mm Hg) 126 01/04/2017 SN[facility]: [facility] Diastolic (mm Hg) 72 01/04/2017 SN[facility]: [facility] Heart Rate 84 {beats}/min 01/04/2017 SN[facility]: [facility] Systolic (mm Hg) 118 01/04/2017 SN[facility]: [facility] Diastolic (mm Hg) 64 01/04/2017 SN[facility]: [facility] Heart Rate 98 {beats}/min 01/04/2017 SNF: [facility] Heart Rate 97 {beats}/min 01/03/2017 SNF: [facility] Respitory Rate 18 01/03/2017 [facility] Temperature Oral (F) 98 F 01/03/2017 SNF: [facility] Systolic (mm Hg) 111 01/03/2017 SNF: [facility] Diastolic (mm Hg) 64 01/03/2017 SN[facility]: [facility] Systolic (mm Hg) 140 01/03/2017 SNF: [facility] Diastolic (mm Hg) 72 01/03/2017 SN[facility]: [facility] Heart Rate 94 {beats}/min 01/03/2017 SN[facility]: [facility] Heart Rate 105 {beats}/min 01/03/2017 SNF: [facility] Respitory Rate 18 01/03/2017 SN[facility]: [facility] Systolic (mm Hg) 132 01/03/2017 SNF: [facility] Diastolic (mm Hg) 80 01/03/2017 SNF: [facility] Systolic (mm Hg) 133 01/03/2017 SNF: [facility] Diastolic (mm Hg) 78 01/03/2017 SN[facility]: [facility] Heart Rate 70 {beats}/min 01/03/2017 SNF: [facility] Heart Rate 95 {beats}/min 01/02/2017 SNF: [facility] Respitory Rate 18 01/02/2017 SNF: [facility] Temperature Oral (F) 99.9 F 01/02/2017 SNF: [facility] Systolic (mm Hg) 111 01/02/2017 SNF: [facility] Diastolic (mm Hg) 56 01/02/2017 SN[facility]: [facility] Heart Rate 92 {beats}/min 01/02/2017 SNF: [facility] Respitory Rate 20 01/02/2017 SNF: [facility] Systolic (mm Hg) 118 01/02/2017 SN[facility]: [facility] Diastolic (mm Hg) 71 01/02/2017 SNF: [facility] Systolic (mm Hg) 123 01/02/2017 SNF: [facility] Diastolic (mm Hg) 78 01/02/2017 SNF: [facility] Heart Rate 78 {beats}/min 01/02/2017 SNF: [facility] Heart Rate 93 {beats}/min 01/02/2017 SNF: [facility] Respitory Rate 20 01/02/2017 SNF: [facility] Systolic (mm Hg) 111 01/02/2017 SNF: [facility] Diastolic (mm Hg) 67 01/02/2017 SN[facility]: [facility] Systolic (mm Hg) 106 01/02/2017 SN[facility]: [facility] Diastolic (mm Hg) 62 01/02/2017 SN[facility]: [facility] Heart Rate 84 {beats}/min 01/02/2017 SN[facility]: [facility] Heart Rate 80 {beats}/min 01/01/2017 SNF: [facility] Respitory Rate 18 01/01/2017 SNF: [facility] Temperature Oral (F) 97.6 F 01/01/2017 SNF: [facility] Systolic (mm Hg) 126 01/01/2017 SN[facility]: [facility] Diastolic (mm Hg) 76 01/01/2017 SN[facility]: [facility] Systolic (mm Hg) 126 01/01/2017 SN[facility]: [facility] Diastolic (mm Hg) 74 01/01/2017 SN[facility]: [facility] Heart Rate 84 {beats}/min 01/01/2017 SN[facility]: [facility] Heart Rate 68 {beats}/min 01/01/2017 SN[facility]: [facility] Respitory Rate 20 01/01/2017 SNF: [facility] Systolic (mm Hg) 132 01/01/2017 SNF: [facility] Diastolic (mm Hg) 68 01/01/2017 SNF: [facility] Temperature Oral (F) 98.1 F 01/01/2017 SNF: [facility] Weight 207.0 12/15/2016 Paul Childers Height 65 12/15/2016 Paul Childers Temperature Oral (F) 97.8 F 12/15/2016 Paul [facility] Heart Rate 80 12/15/2016 Paul Childers Diastolic (mm Hg) 74 12/15/2016 Paul Childers Systolic (mm Hg) 132 12/15/2016 Paul Childers Weight 204.1 11/12/2016 Paul Childers Height 65 11/12/2016 Paul Childers Temperature Oral (F) 97.9 F 11/12/2016 Paul Childers Heart Rate 80 11/12/2016 Paul Childers Diastolic (mm Hg) 74 11/12/2016 Paul Childers Systolic (mm Hg) 108 11/12/2016 Paul Childers Systolic (mm Hg) 100 10/21/2016 Paul Childers Temperature Oral (F) 98.2 F 10/21/2016 Paul Childers Heart Rate 80 10/21/2016 Paul Childers Diastolic (mm Hg) 62 10/21/2016 Paul Childers Encounters Location Location Details Encounter Type Encounter Number Reason For Visit Attending Provider ADM Date DC Date Status Source Procedures Procedure Code Date Perfomer Comments Source
--- OUTSIDE RECORDS SUMMARY | 2018-06-13 19:03 | XMS REPORT | Summary of Care ---
Author Author Mikayla Pittman R.N. Organization Unknown Address Unknown Phone Unavailable Care Team Providers Care Biller Name Role Phone GREGORY DIEHL M.D. Unavailable Unavailable Mikayla Pittman R.N. Unavailable Unavailable ENEDINA HARRY MD Unavailable Unavailable Unavailable Unavailable Functional Status Name Dates Details Functional status health issues are not documented Status: Name Dates Details Cognitive status health issues are not documented Status: Problems Name Dates Details Osteoporosis (733.00, M81.0) Status: Active Chronic obstructive pulmonary disease (496, J44.9) Status: Active Depressive disorder (311, F32.9) Status: Active Esophageal reflux (530.81, K21.9) Status: Active Rheumatoid arthritis (714.0, M06.9) Status: Active Need for influenza vaccination (V04.81, Z23) Status: Active Hypokalemia (276.8, E87.6) Status: Active Vitamin B12 deficiency (266.2, E53.8) Status: Active Vitamin D deficiency (268.9, E55.9) Status: Active 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 * Start : 06-May-2012 Active Vitamin D (Ergocalciferol) 74938 UNIT Oral Capsule TAKE 1 CAPSULE BY MOUTH EVERY 6 DAYS * Quantity: 15 Refills: 3 GREGORY DIEHL M.D. * Start : 06-May-2012 Active Cyanocobalamin 1000 MCG/ML Injection Solution INJECT 1 ML INTRAMUSCULARLY EVERY 2 WEEKS * Quantity: 10 Refills: 3 GREGORY DIEHL M.D. * Start : 06-May-2012 Active Syringe 21G X 1" 3 ML For IM injection 2x a month * Quantity: 6 Refills: 4 FAZAL Ever.D., GREGORY * Start : 06-May-2012 Active Sucralfate 1 GM Oral Tablet * Refills: 0 FAZAL Curtis.GREGORY Milton * Start : 06-May-2012 Active LORazepam 1 MG Oral Tablet * Refills: 0 FAZAL M.Karine, GREGORY * Start : 06-May-2012 Active Sertraline HCl - 100 MG Oral Tablet * Refills: 0 FAZALLucius Kent, GREGORY * Start : 06-May-2012 Active NexIUM 40 MG Oral Capsule Delayed Release * Refills: 0 FAZAL M.Cathleen., GREGORY * Start : 06-May-2012 Active Lisinopril 10 MG Oral Tablet 1 tablet twice a dayPer PCP * Refills: 0 FAZAL Curtis.Karine, GREGORY * Start : 15-Aug-2012 Active AmLODIPine Besylate 5 MG Oral Tablet Per PCP * Refills: 0 FAZAL Curtis.Karine, GREGORY * Start : 15-Aug-2012 Active GlipiZIDE XL 2.5 MG Oral Tablet Extended Release 24 Hour TAKE 1 TABLET BY MOUTH DAILY * Quantity: 30 Refills: 4 FAZAL M.Cathleen., GREGORY * Start : 06-Aug-2013 Active HumuLIN N KwikPen 100 UNIT/ML Subcutaneous Suspension Pen-injector Use as directed with steroid medicine * Refills: 0 FAZAL M.Karine, GREGORY * Start : 05-Dec-2014 Active NovoLOG FlexPen 100 UNIT/ML Subcutaneous Solution Pen-injector CF 50; for use while on steroids * Refills: 0 FAZALGREGORY Kan M.D. * Start : 05-Dec-2014 Active Gabapentin 300 MG Oral Capsule * Refills: 0 FAZAL M.Karine, GREGORY * Start : 05-Dec-2014 Active [place] 10-325 MG Oral Tablet * Refills: 0 FAZAL M.GREGORY Milton * Start : 04-Sep-2015 Active Prolia 60 MG/ML Subcutaneous Solution per Dr Childers * Refills: 0 FAZAL M.Karine, GREGORY * Start : 05-May-2016 Active Furosemide 40 MG Oral Tablet * Refills: 0 FAZAL M.GREGORY Milton * Start : 07-Apr-2017 Active Meloxicam 15 MG Oral Tablet * Refills: 0 FAZAL M.D., GREGORY * Start : 20-Oct-2017 Active Methotrexate 2.5 MG Oral Tablet per Dr Childers * Refills: 0 GREGORY DIEHL M.D. * Start : 20-Oct-2017 Active Amitiza 24 MCG Oral Capsule * Refills: 0 FAZAL Kent, GREGORY * Start : 24-Jan-2018 Active DilTIAZem HCl ER 120 MG Oral Capsule Extended Release 24 Hour Per PCP * Refills: 0 GREGORY DIEHL M.D. * Start : 24-Jan-2018 Active Allergies and Adverse Reactions Name Dates Details albuterol (Allergy) Status: Active Lyrica CAPS (Allergy) Status: Active Penicillins (Allergy) Status: Active Past Medical History Name Dates Details History of Abnormal blood level of mineral (790.6, R79.0) Status: Resolved History of pulmonary hypertension (V12.59, Z86.79) Status: Resolved Procedures Procedure Dates Details History of Knee Replacement Completed History of Hip Replacement Completed History of Cataract Surgery Completed History of Cholecystectomy Completed History of Back Surgery Completed Immunization Name Dates Details Pneumo on: 09-May-2012 Influenza Comments: Approx [id number] Fluzone High-Dose 0.5 ML Intramuscular Suspension Prefilled Syringe Lot #: [id number] on: 07-Apr-2017 Family History Name Dates Details Family history of Coronary Artery Disease (V17.49) Comments: Family History Status: Active Family history of Hypertension (V17.49) Comments: Family History Status: Active Family history of Hyperlipidemia Comments: Family History Status: Active Family history of Peripheral Vascular Disease Comments: Family History Status: Active Family history of Osteoporosis (V17.81) Comments: Family History Status: Active Family history of Rheumatoid Arthritis Comments: Family History Status: Active Family history of Chronic Kidney Disease (NKF Classification) Comments: Family History Status: Active Family history of Prostate Cancer (V16.42) Comments: Family History Status: Active Family history of Pancreatitis Comments: Family History Status: Active Family history of Cerebral Artery Occlusion Comments: Family History Status: Active Family history of Diabetes Mellitus (V18.0) Comments: Family History Status: Active Name Dates Details Family history of Cerebral Artery Occlusion Status: Active Family history of Diabetes Mellitus (V18.0) Status: Active Name Dates Details Family history of Cerebral Artery Occlusion Status: Active Social History Name Dates Details - Status: Name Dates Details Former smoker Vital Signs Date Test Result Details No Known Vitals to report Results Date Description Value Details Results not documented Plan of Care Name Dates Details Planned Observations Planned Goals not documented Planned Encounters Appointment; GREGORY DIEHL M.D. On: 27-Apr-2018 11:00 Interventions Provided Discussion/Summary* Guideline Used: * [facility] [place] * PT requesting to speak with clinic staff. PT refused to elaborate. She states she has been in hospital and "they are trying to get in touch with me". * Attempted clinic staff, no answer * Intended Caller Action: * Other: speak with clinic staff * Additional Information: * Task sent to [facility] Instructions Name Dates Details Instructions not documented Encounters Appointment; GREGORY DIEHL M.D. Encounter Diagnosis: Problem not documented On: 05-May-2016 11:00 Appointment; GREGORY DIEHL M.D. Encounter Diagnosis: Problem not documented On: 13-Aug-2016 12:00 Appointment; GREGORY DIEHL M.D. Encounter Diagnosis: Problem not documented On: 22-Nov-2016 14:45 Appointment; GREGORY DIEHL M.D. Encounter Diagnosis: Problem not documented On: 07-Apr-2017 11:00 Appointment; GREGORY DIEHL M.D. Encounter Diagnosis: Problem not documented On: 22-Jul-2017 11:00 Appointment; GREGORY DIEHL M.D. Encounter Diagnosis: Problem not documented On: 20-Oct-2017 11:00 Appointment; [facility] Encounter Diagnosis: Problem not documented On: 16-Nov-2017 14:00 Appointment; GREGORY DIEHL M.D. Encounter Diagnosis: Problem not documented On: 24-Jan-2018 11:00
[2018-06-13] MEDS ORDERED: METHYLPREDNISOLONE SOD SUCC 125 MG/2ML VIAL IV NR (19:30)
[2018-06-13 19:33] LABS: BASOPHILS # (AUTO) 0.1 (0.0-0.1); BASOPHILS % 0.7 % (0.0-1.0); EOSINOPHILS # (AUTO) 0.2 (0.0-0.4); EOSINOPHILS % 1.2 % (0.0-6.0); HEMATOCRIT 39.7 % (34.2-44.1); HEMOGLOBIN 12.4 g/dL (12.0-16.0); LYMPHOCYTES # (AUTO) 2.4 (1.0-3.2); LYMPHOCYTES % 17.9 % (18.0-39.1); MEAN CORPUSCULAR HEMOGLOBIN 30.5 pg (28-32); MEAN CORPUSCULAR HGB CONC 31.2 g/dL (31-35); MEAN CORPUSCULAR VOLUME 97.8 fL (81-99); MONOCYTES # (AUTO) 0.8 (0.2-0.8); MONOCYTES % 6.2 % (4.4-11.3); NEUTROPHILS # (AUTO) 9.7 (2.1-6.9); NEUTROPHILS % 73.5 % (38.7-80.0); PLATELET COUNT 263 x10e3/uL (140-360); RED BLOOD COUNT 4.06 x10e6/uL (3.6-5.1); RED CELL DISTRIBUTION WIDTH 17.4 % (11.7-14.4)
[2018-06-13 19:38] LABS: INR 0.91; PROTHROMBIN TIME 13.1 seconds (11.9-14.5)
--- NOTE | 2018-06-13 19:38 | NUR ---
RT AT BEDSIDE, PT PLACED ON BIPAP 10/ 40%, PTS SATS 100%
[2018-06-13 19:39] LABS: PARTIAL THROMBOPLASTIN TIME 30.5 seconds (23.8-35.5)
[2018-06-13 19:47] LABS: ALANINE AMINOTRANSFERASE 20 IU/L (0-55); ALBUMIN/GLOBULIN RATIO 0.7 (0.8-2.0); ALKALINE PHOSPHATASE 88 IU/L (40-150); ANION GAP 14.8 mmol/L (8-16); BLOOD UREA NITROGEN 12 mg/dL (7-26); BUN/CREATININE RATIO 19 (6-25); CALCIUM 8.6 mg/dL (8.4-10.2); CARBON DIOXIDE 26 mmol/L (22-29); CHLORIDE 103 mmol/L (98-107); CREATINE KINASE 71 IU/L (29-168); CREATININE, SERUM 0.64 mg/dL (0.57-1.11); EST GLOMERULAR FILTRATION RATE > 60 ML/MIN (60-); GLUCOSE 105 mg/dL (74-118); MAGNESIUM 2.2 MG/DL (1.3-2.1); POTASSIUM 3.8 mmol/L (3.5-5.1); SODIUM 140 mmol/L (136-145)
[2018-06-13 19:49] LABS: CLARITY,URINE CLEAR (CLEAR); COLOR,URINE YELLOW (YELLOW); LEUKOCYTE ESTERASE ,URINE NEGATIVE (NEGATIVE); NITRITE,URINE NEGATIVE (NEGATIVE)
[2018-06-13 19:50] LABS: BILIRUBIN,URINE NEGATIVE (NEGATIVE); KETONES,URINE 1+ (NEGATIVE); PROTEIN,URINE DIPSTICK 1+ (NEGATIVE); URINE UROBILINOGEN 0.2 mg/dL (0.2 - 1)
[2018-06-13 20:01] LABS: RBC,URINE 0-5 /HPF (0-5); WBC,URINE (MAN) 0-5 /HPF (0-5)
[2018-06-13 20:02] LABS: BACTERIA,URINE FEW /HPF; EPITHELIAL CELLS,URINE FEW /LPF
[2018-06-13 20:11] LABS: B-TYPE NATRIURETIC PEPTIDE2 149.5 pg/mL (0-100)
--- NOTE | 2018-06-13 20:54 | Diagnostic Imaging Report ---
EXAMINATION: CHEST SINGLE (PORTABLE) INDICATION: ^SOB ^[id number] ^2024 COMPARISON: None FINDINGS: AP view TUBES and LINES: None. LUNGS: Lungs are well inflated. Mild bilateral hilar and lower lobes. Bronchial wall thickening. No lobar consolidation. PLEURA: No pleural effusion or pneumothorax. HEART AND MEDIASTINUM: The cardiomediastinal silhouette is unremarkable.. BONES AND SOFT TISSUES: No acute osseous lesion. Soft tissues are unremarkable. UPPER ABDOMEN: No free air under the diaphragm. Multiple surgical clips in the left upper abdomen. IMPRESSION: Bilateral peribronchial wall thickening may relate to edema or viral infection. Signed by: Dr. Elizabeth Moore M.D. on 06/13/2018 8:51 PM
[2018-06-13] MEDS: LEVOFLOXACIN 500MG/D5W 100ML 100 ML IV SCH (20:56)
[2018-06-13] MEDS ORDERED: CALCIUM 500+D1 EACH PO (21:21)
[2018-06-13] MEDS ORDERED: FERROUS SULFAT325 MG PO (21:22)
[2018-06-13] MEDS ORDERED: METHOTREXATE2.5 MG PO (21:23)
[2018-06-13] MEDS ORDERED: MELOXICAM7.5 MG PO (21:24)
[2018-06-13] MEDS ORDERED: LISINOPRIL10 MG PO (21:26)
[2018-06-13] MEDS ORDERED: ASPIR 8181 MG PO (21:27)
--- NOTE | 2018-06-13 21:55 | NUR ---
PT TAKEN OFF BIPAP, PLACED ONTO 4L NC, SATS 98%, WILL CONTINUE TO MONITOR
[2018-06-13] MEDS ORDERED: HYDROCODONE/APAP 10MG-325MG TAB ONE (23:00)
[2018-06-13] MEDS ORDERED: ACETAMINOPHEN 325 MG TAB ONE (23:00)
[2018-06-13] MEDS ORDERED: ONDANSETRON HCL INJ 2 MG/ML VIAL IV PRN (23:00)
[2018-06-13] MEDS ORDERED: HYDROCODONE/APAP 10MG-325MG TAB PO PRN (23:00)
--- OUTSIDE RECORDS SUMMARY | 2018-06-13 23:04 | XMS REPORT | Clinical Summary ---
Author Author Raphael Jew Organization Raphael Jew Address Unknown Phone Unavailable Care Team Providers Care Processing Technician Name Role Phone Jessi Nicholas MD PCP [...] Date Type Specialty Vance Araujo MD 2019 [facility] [address] [place] [address] [phone] 07/07/2018 Office Visit Orthopedic Surgery Health Maintenance Due Date Last Done Comments BREAST CANCER SCREENING 1997 COLON CANCER SCREENING 1997 SHINGRIX VACCINE (1 of 2) 1997 ZOSTER VACCINE 2007 PNEUMOCOCCAL-13 2012 PNEUMOCOCCAL Completed 05/09/2012 POLYSACCHARIDE VACCINE AGE 65 AND OVER INFLUENZA VACCINE Completed 03/18/2018, 04/07/2017 Implants Device Identifier Shelf Expiration Date Model / Serial / Lot Implanted Type Area Manufactur er [id number] / / Kit Scr Intrlkng 100mm Lag 95mm Hip Joint Left: Hip LARA AND Comp Intertan - [id number] Implants NEPHEW Implanted: Qty: 1 on 03/16/2018 by Vance Knight MD TRAUMA 08/31/2027 [id number] / / [id number] Intertan 1.5 [id number] 125d Lt - IPM Left: Hip LARA & [id number] IMPLANT NEPHEW Implanted: Qty: 1 on 03/16/2018 by DEVICES Vance Saini MD [id number] / / Trigen Low Profile Screw 5.0mm X IPM Left: Hip LARA & 50mm - [id number] IMPLANT NEPHEW Implanted: Qty: 1 on 03/16/2018 [...] MMODE SPECTRAL 12:00 PM CDT COLOR DOPPLER ([id number]) ECG PRE/POST OP Routine 03/15/2018 10:08 AM [...] Organization Address City/State/Zipcode Phone Number [facility] [address] [place] [address] * XR Pelvis 1 Or 2 Vw (04/05/2018 1:57 PM CDT) Narrative Performed At [facility] X-rays AP pelvis 04/05/2018: X-ray shows bilateral internal fixation from previous trochanteric fracture most recent of the left side. Performing Organization Address City/[facility] Phone Number [facility] [address] [place] [address] * Hemoglobin & hematocrit (03/20/2018 12:21 PM CDT) HGB 8.2 (L) 12.0 - 16.0 g/dL [facility] DEPARTMENT OF PATHOLOGY AND GENOMIC MEDICINE HCT 26.1 (L) 37.0 - 47.0 % [facility] DEPARTMENT OF PATHOLOGY AND GENOMIC MEDICINE Specimen Blood Performing Organization Address [facility] Phone Number [facility] [address] [place] [address] [place] [address] PATHOLOGY AND [facility] * Estimated GFR (03/19/2018 4:35 PM CDT) Only the most recent of 5 results within the time period is included. Estimated GFR 87 mL/min/1.73 m2 [facility] DEPARTMENT OF Comment: PATHOLOGY AND CatergoryUnitsInte GENOMIC MEDICINE rpretation G1 >=90 Normal or high G2 60-89Mildly decreased [id number] Mildly to moderately decreased U3g42-02 Moderately to severely decreased G4 15-29Severely decreased G5 <15Kidney failure The eGFR was calculated using the Chronic Kidney Disease Epidemiology Collaboration (CKD-EPI) equation. Interpretation is based on recommendations of the National Kidney Foundation-Kidney Disease Outcomes Quality Initiative (NKF-KDOQI) published in 2014. Specimen Plasma specimen Performing Organization Address [facility] Phone Number [facility] [id number] [place] [address] [place] [address] PATHOLOGY AND [facility] * Comprehensive metabolic panel (03/19/2018 4:35 PM CDT) Only the most recent of 3 results within the time period is included. Sodium 144 135 - 148 mEq/L [facility] DEPARTMENT OF PATHOLOGY AND GENOMIC MEDICINE Potassium 3.2 (L) 3.5 - 5.0 mEq/L [facility] DEPARTMENT OF PATHOLOGY AND GENOMIC MEDICINE Chloride 97 (L) 98 - 112 mEq/L [facility] DEPARTMENT OF PATHOLOGY AND GENOMIC MEDICINE CO2 38 (H) 24 - 31 mEq/L [facility] DEPARTMENT OF PATHOLOGY AND GENOMIC MEDICINE Anion gap 9@ANIO 7 - 15 mEq/L [facility] DEPARTMENT OF PATHOLOGY AND GENOMIC MEDICINE BUN 15 8 - 23 mg/dL [facility] DEPARTMENT OF PATHOLOGY AND GENOMIC MEDICINE Creatinine 0.70 0.50 - 0.90 mg/dL [facility] DEPARTMENT OF PATHOLOGY AND GENOMIC MEDICINE Glucose 144 (H) 65 - 99 mg/dL [facility] DEPARTMENT OF PATHOLOGY AND GENOMIC MEDICINE Calcium 8.6 (L) 8.8 - 10.2 mg/dL [facility] DEPARTMENT OF PATHOLOGY AND GENOMIC MEDICINE Protein 5.5 (L) 6.3 - 8.3 g/dL [facility] DEPARTMENT OF Comment: PATHOLOGY AND [place] GENOMIC MEDICINE 4.6-7.0 g/dL 1 week 4.4-7.6 g/dL 7 months-1year 5.1-7.3 g/dL 1-2 years5.6-7 .5 g/dL >3 years6.0-8 .0 g/dL 18-150 6.3-8.3 g/dL Albumin 2.6 (L) 3.5 - 5.0 g/dL [facility] DEPARTMENT OF PATHOLOGY AND GENOMIC MEDICINE A/G ratio 0.9 0.7 - 3.8 [facility] DEPARTMENT OF PATHOLOGY AND GENOMIC MEDICINE Alkaline phosphatase 55 35 - 104 U/L [facility] DEPARTMENT OF PATHOLOGY AND GENOMIC MEDICINE AST 10 10 - 35 U/L [facility] DEPARTMENT OF PATHOLOGY AND GENOMIC MEDICINE ALT 11 5 - 50 U/L [facility] DEPARTMENT OF PATHOLOGY AND GENOMIC MEDICINE Total bilirubin 0.4 0.0 - 1.2 mg/dL [facility] DEPARTMENT OF PATHOLOGY AND GENOMIC MEDICINE Specimen Plasma specimen Performing Organization Address City/State/Zipcode Phone Number [facility] [place] [address] [address] [place] [phone] PATHOLOGY AND GENOMIC MEDICINE * CBC with platelet and differential (03/19/2018 12:10 PM CDT) Only the most recent of 5 results within the time period is included. WBC 12.67 (H) 4.50 - 11.00 k/uL [facility] DEPARTMENT OF PATHOLOGY AND GENOMIC MEDICINE RBC 2.62 (L) 4.20 - 5.50 m/uL [facility] DEPARTMENT OF PATHOLOGY AND GENOMIC MEDICINE HGB 7.9 (L) 12.0 - 16.0 g/dL [facility] DEPARTMENT OF PATHOLOGY AND GENOMIC MEDICINE HCT 25.5 (L) 37.0 - 47.0 % [facility] DEPARTMENT OF PATHOLOGY AND GENOMIC MEDICINE MCV 97.3 82.0 - 100.0 fL [facility] DEPARTMENT OF PATHOLOGY AND GENOMIC MEDICINE MCH 30.2 27.0 - 34.0 pg [facility] DEPARTMENT OF PATHOLOGY AND GENOMIC MEDICINE MCHC 31.0 31.0 - 37.0 g/dL [facility] DEPARTMENT OF PATHOLOGY AND GENOMIC MEDICINE RDW - SD 56.9 (H) 37.0 - 55.0 fL [facility] OF PATHOLOGY AND GENOMIC MEDICINE MPV 9.9 8.8 - 13.2 fL [facility] OF PATHOLOGY AND GENOMIC MEDICINE Platelet count 279 150 - 400 k/uL [facility] DEPARTMENT OF PATHOLOGY AND GENOMIC MEDICINE Nucleated RBC 0.00 /100 WBC [facility] DEPARTMENT OF PATHOLOGY AND GENOMIC MEDICINE Neutrophils 50.8 39.0 - 69.0 % [facility] DEPARTMENT OF PATHOLOGY AND GENOMIC MEDICINE Lymphocytes 31.6 25.0 - 45.0 % [facility] DEPARTMENT OF PATHOLOGY AND GENOMIC MEDICINE Monocytes 11.1 (H) 0.0 - 10.0 % [facility] DEPARTMENT OF PATHOLOGY AND GENOMIC MEDICINE Eosinophils 5.3 (H) 0.0 - 5.0 % [facility] OF PATHOLOGY AND GENOMIC MEDICINE Basophils 0.6 0.0 - 1.0 % [facility] DEPARTMENT PATHOLOGY AND GENOMIC MEDICINE Specimen Blood Performing Organization Address City/[facility] Phone Number [address] [place] [phone] PATHOLOGY AND GENOMIC MEDICINE * Type and screen (03/19/2018 12:10 PM CDT) Only the most recent of 2 results within the time period is included. ABO grouping A [facility] PATHOLOGY AND GENOMIC MEDICINE Rh type POS [facility] PATHOLOGY AND GENOMIC MEDICINE Antibody screen NEG [facility] PATHOLOGY AND GENOMIC MEDICINE Specimen Blood Performing Organization Address City/[facility] Phone Number [address] [place] [address] PATHOLOGY [facility] * Basic metabolic panel (03/18/2018 5:55 AM CDT) Only the most recent of 2 results within the time period is included. Sodium 144 135 - 148 mEq/L [facility] DEPARTMENT OF PATHOLOGY AND GENOMIC MEDICINE Potassium 3.3 (L) 3.5 - 5.0 mEq/L [facility] PATHOLOGY AND GENOMIC MEDICINE Chloride 103 98 - 112 mEq/L [facility] DEPARTMENT OF PATHOLOGY AND GENOMIC MEDICINE CO2 34 (H) 24 - 31 mEq/L [facility] DEPARTMENT OF PATHOLOGY AND GENOMIC MEDICINE Anion gap 7@ANIO 7 - 15 mEq/L [facility] DEPARTMENT OF PATHOLOGY AND GENOMIC MEDICINE BUN 15 8 - 23 mg/dL [facility] DEPARTMENT OF PATHOLOGY AND GENOMIC MEDICINE Creatinine 0.70 0.50 - 0.90 mg/dL [facility] DEPARTMENT OF PATHOLOGY AND GENOMIC MEDICINE Glucose 125 (H) 65 - 99 mg/dL [facility] DEPARTMENT OF PATHOLOGY AND GENOMIC MEDICINE Calcium 8.4 (L) 8.8 - 10.2 mg/dL [facility] DEPARTMENT OF PATHOLOGY AND GENOMIC MEDICINE Specimen Plasma specimen Performing Organization Address [facility] Phone Number [address] [place] [phone] PATHOLOGY AND GENOMIC MEDICINE * POC glucose (03/17/2018 4:53 PM CDT) Only the most recent of 11 results within the time period is included. POC glucose 118 (H) 65 - 99 mg/dL [facility] DEPARTMENT OF Comment: PATHOLOGY AND Meter ID: [id number] GENOMIC MEDICINE Svp Of Digital: Nasir Bertrand Performing Organization Address City/[facility] Phone Number [address] [place] [phone] PATHOLOGY AND [facility] MEDICINE * OR [place] > I Hour [...] performing the procedure. [id number] Performing Organization Address City/[facility]/Zipcode Phone Number [facility] [address] [place] [address] * XR Knee 1 Or 2 Vw Left (03/15/2018 5:48 PM CDT) Narrative Performed At EXAMINATION:XR KNEE 1 OR 2 VW LEFT [facility] CLINICAL HISTORY:Knee replacedpainquadriceps or patellar tendinopathy suspected COMPARISON:None. IMPRESSION: There is a left total knee prosthesis in place.There is no evidence of fracture or malalignment.There is soft tissue swelling strongly suggesting a distention of the bursal or joint effusion. [facility]-[id number] Procedure Note Hm Interface, Radiology Results Incoming [...] distention of the bursal or joint effusion. [facility]-[id number] Performing Organization Address City/State/Zipcode Phone Number [facility] [address] [place] [address] * Echocardiogram complete w contrast and 3D [...] LV EF,BP 66.97 % [facility] [place],d A2C 6.98 cm [facility] [place],d A4C 6.38 cm [facility] [place],s A2C 5.68 cm [facility] [place],s A4C 5.26 cm [facility] LV SV,A2C [...] RVSP is 53 mmHg. Performing Organization Address [facility] Hospital[facility]o Phone Number [facility] [address] [place] [address] * ECG Pre/Post Op (03/15/2018 10:08 AM CDT) Ventricular rate 70 [facility] Atrial rate 70 [facility] AR interval 168 [facility] QRSD interval 136 [facility] QT interval 472 [facility] QTC interval 509 [facility] P axis 1 77 [facility] QRS axis 1 43 [facility] T wave axis 31 [facility] EKG impression Normal sinus [facility] rhythm-Nonspecific intraventricular block-Abnormal ECG-No previous ECGs available- Performing Organization Address [facility] Hospital[facility] Phone Number [facility] [address] [place] [address] * Urinalysis screen and microscopy, with reflex to culture (03/15/2018 1:08 AM CDT) Specimen site Clean catch [facility] DEPARTMENT OF PATHOLOGY AND GENOMIC MEDICINE Color, UA Yellow [facility] DEPARTMENT OF PATHOLOGY AND GENOMIC MEDICINE Appearance, UA Clear [facility] DEPARTMENT OF PATHOLOGY AND GENOMIC MEDICINE Specific gravity, UA 1.024 1.001 - 1.035 [facility] DEPARTMENT OF PATHOLOGY AND GENOMIC MEDICINE pH, UA 5.0 5.0 - 8.5 [facility] DEPARTMENT OF PATHOLOGY AND GENOMIC MEDICINE Protein, UA 1+ (A) Negative [facility] DEPARTMENT OF PATHOLOGY AND GENOMIC MEDICINE Glucose, UA Negative Negative [facility] DEPARTMENT OF PATHOLOGY AND GENOMIC MEDICINE Ketones, UA Trace (A) Negative [facility] DEPARTMENT OF PATHOLOGY AND GENOMIC MEDICINE Bilirubin, UA Negative Negative [facility] DEPARTMENT OF PATHOLOGY AND GENOMIC MEDICINE Blood, UA Negative Negative [facility] DEPARTMENT OF PATHOLOGY AND GENOMIC MEDICINE Nitrite, UA Negative Negative [facility] DEPARTMENT OF PATHOLOGY AND GENOMIC MEDICINE Urobilinogen, UA 2.0 (A) <2.0 [facility] DEPARTMENT OF PATHOLOGY AND GENOMIC MEDICINE Leukocyte esterase, UA Negative Negative [facility] DEPARTMENT OF PATHOLOGY AND GENOMIC MEDICINE WBC, UA 0-5 0 - 4 /HPF [facility] DEPARTMENT OF PATHOLOGY AND GENOMIC MEDICINE RBC, UA 0-5 0 - 5 /HPF [facility] DEPARTMENT OF PATHOLOGY AND GENOMIC MEDICINE Bacteria, UA None seen None seen [facility] DEPARTMENT OF PATHOLOGY AND GENOMIC MEDICINE Yeast, UA None seen [facility] DEPARTMENT OF PATHOLOGY AND GENOMIC MEDICINE Yeast with pseudohyphae, None seen [facility] DEPARTMENT OF UA PATHOLOGY AND GENOMIC MEDICINE Calcium oxalate crystals, Few [facility] DEPARTMENT OF UA PATHOLOGY AND GENOMIC MEDICINE Specimen Urine Performing Organization Address City/[facility] Phone Number [address] [place] [phone] PATHOLOGY AND GENOMIC MEDICINE * Urine culture (03/15/2018 1:08 AM CDT) Urine culture SEE COMMENTComment: [facility] DEPARTMENT OF Bacteriuria screen negative. PATHOLOGY AND GENOMIC MEDICINE Specimen Urine Performing Organization Address [facility] Phone Number [address] [place] [address] PATHOLOGY AND GENOMIC MEDICINE * XR Hip 2-3 View Left (03/15/2018 12:55 AM CDT) Narrative Performed At EXAMINATION:XR HIP 2-3 VIEWS LEFT [facility] CLINICAL HISTORY:fall from standing COMPARISON:Pelvic CT 03/14/2018. IMPRESSION: Acute left intertrochanteric fracture with coxa vera deformity. Surrounding soft tissue edema. Chronic right pubic fracture deformity. Fixation hardware in the visible portion of the right femur. [facility]-[id number] Procedure Note Interface, Radiology Results Incoming - 03/15/2018 1:01 AM CDT EXAMINATION: XR HIP 2-3 VIEWS LEFT CLINICAL HISTORY: fall from standing COMPARISON: Pelvic CT 03/14/2018. IMPRESSION: Acute left intertrochanteric fracture with coxa vera deformity. Surrounding soft tissue edema. Chronic right pubic fracture deformity. Fixation hardware in the visible portion of the right femur. [facility]-[id number] Performing Organization Address City/[facility]/Zipcode Phone Number [facility] [address] [place] [address] * XR Chest 1 Vw Portable (03/15/2018 12:02 AM CDT) Narrative Performed At EXAMINATION: XR CHEST 1 VW PORTABLE [facility] CLINICAL HISTORY: fall from standing COMPARISON:None. IMPRESSION: The lungs are clear. No pleural effusion or pneumothorax. Cardiac silhouette is enlarged. Aortic arch atherosclerosis. No acute osseous abnormalities. Surgical clips in the left upper quadrant. [facility]-[id number] Procedure Note Interface, Radiology Results Incoming - 03/15/2018 12:27 AM CDT EXAMINATION: XR CHEST 1 VW PORTABLE CLINICAL HISTORY: fall from standing COMPARISON: None. IMPRESSION: The lungs are clear. No pleural effusion or pneumothorax. Cardiac silhouette is enlarged. Aortic arch atherosclerosis. No acute osseous abnormalities. Surgical clips in the left upper quadrant. [facility]-[id number] Performing Organization Address City/State/Zipcode Phone Number [facility] [address] [place] [address] * CT Head Wo Contrast (03/14/2018 11:08 PM CDT) Narrative Performed At EXAMINATION:CT HEAD WO CONTRAST [facility] CLINICAL HISTORY:fall from standing COMPARISON:None. TECHNIQUE: Noncontrast [...] No CT evidence of acute intracranial abnormality. [id number] Procedure Note Interface, Radiology Results Incoming - [...] No CT evidence of acute intracranial abnormality. [id number] Performing Organization Address City/State/Zipcode Phone Number [facility] [address] [place] [address] * CT Cervical Spine Wo Contrast (03/14/2018 [...] C5-C6. Additional degenerative changes are detailed above. [id number] Procedure Note Hm Interface, Radiology Results Incoming [...] C5-C6. Additional degenerative changes are detailed above. [id number] Performing Organization Address City/State/Zipcode Phone Number [facility] [address] [place] [address] * CT Pelvis Wo Contrast (03/14/2018 11:07 [...] hematoma adjacent to the left greater trochanter. [facility]-[id number] Procedure Note Interface, Radiology Results Incoming - [...] hematoma adjacent to the left greater trochanter. [facility]-[id number] Performing Organization Address City/State/Zipcode Phone Number [facility] [address] [place] [address] * CT Lower Extremity Wo Contrast Left (03/14/2018 11:07 PM CDT) Narrative Performed At CT PELVIS WO CONTRAST, CT LOWER EXTREMITY WO CONTRAST LEFT [facility] CLINICAL HISTORY:fall from standingL hip pain TECHNIQUE: [...] hematoma adjacent to the left greater trochanter. [facility]-[id number] Procedure Note Interface, Radiology Results - 03/14/2018 [...] hematoma adjacent to the left greater trochanter. [facility]-[id number] Performing Organization Address City/[facility] Phone Number [facility] [address] [place] [address] * Troponin (03/14/2018 9:36 PM CDT) Troponin <0.300 0.000 - 0.300 ng/mL [facility] DEPARTMENT OF Comment: PATHOLOGY AND 0.30 - 1.49 [facility] MEDICINE ng/mlMay indicate increased risk of acute coronary syndrome. >=1.5 ng/ml Consistent with acute myocardial infarction. The diagnostic value of a single normal or non-diagnostic result is questionable.Serial samples at 2-6 hour intervals are required to rule out acute myocardial injury. Specimen Plasma specimen Performing Organization Address City/[facility] Number [address] [place] [address] PATHOLOGY AND GENOMIC MEDICINE * Partial thromboplastin time, activated (03/14/2018 9:36 PM CDT) PTT 30.3 23.0 - 36.0 sec [facility] DEPARTMENT OF Comment: PATHOLOGY AND PTT therapeutic range for [facility] unfractionated heparin is 61.0-112.0 seconds which corresponds to Anti-Xa 0.3-0.7 U/ml. Specimen Blood Performing Organization Address [facility] Number [address] [place] [address] PATHOLOGY AND GENOMIC MEDICINE * Prothrombin time with INR (03/14/2018 9:36 PM CDT) Prothrombin time 13.3 12.0 - 15.0 sec [facility] DEPARTMENT OF PATHOLOGY AND GENOMIC MEDICINE INR 1.0 [facility] DEPARTMENT OF Comment: PATHOLOGY AND The International Normalized [facility] Ratio (INR) is a therapeutic monitoring tool for patients who are stable on oral anticoagulant therapy. An INR of 2.0-3.0 is suggested for deep vein thrombosis/pulmonary embolism. Specimen Blood Performing Organization Address [facility] Number [address] [place] [address] PATHOLOGY AND [facility] * B natriuretic peptide (03/14/2018 9:36 PM CDT) BNP 95 0 - 100 pg/mL [facility] DEPARTMENT OF PATHOLOGY AND GENOMIC MEDICINE Specimen Blood Performing Organization [facility] Number [address] [place] [address] PATHOLOGY AND GENOMIC MEDICINE * Creatine kinase, total (CPK) (03/14/2018 9:36 PM CDT) Creatine kinase 61 26 - 192 U/L [facility] DEPARTMENT OF PATHOLOGY AND GENOMIC MEDICINE Specimen Plasma specimen Performing Organization [facility] Number [address] [place] [address] PATHOLOGY AND GENOMIC MEDICINE * ECG 12 lead (03/14/2018 9:34 PM CDT) Ventricular rate 77 [facility] Atrial rate 77 [facility] AR interval 170 [facility] QRSD interval 106 [facility] QT interval 420 [facility] QTC interval 475 [facility] P axis 1 77 [facility] QRS axis 1 53 [facility] T wave axis 36 [facility] EKG impression Normal sinus rhythm with sinus [facility] arrhythmia-Marked ST abnormality, possible anterior subendocardial injury-Abnormal ECG-No previous ECGs available- Performing Organization Address City/[facility] Phone Number [facility] [address] [place] [address] * ECG ED Preliminary Interpretation - NOT AN ORDER (03/14/2018 9:27 PM CDT) Narrative Performed At Derick Montez MD 03/15/2018 12:02 AM ECG ED Preliminary Interpretation - Not an Order Performed by: DERICK MONTEZ Authorized by: DERICK MONTEZ ECG reviewed by ED Physician in the absence of a platform man: yes Interpretation: Interpretation: normal Quality: Tracing quality:Limited [...] in the hip joint. Performing Organization Address City/[facility] Phone Number [facility] [address] [place] [address] after 06/12/2017 Insurance Payer Benefit Subscriber ID Type Phone Address Plan / Group HUMANA MEDICARE HUMANA xxxxxxxxx PPO MEDICARE PPO/PFFS/[facility] Advance Directives Patient has advance care planning documents, and code status on file. For more i nformation, please contact: Donavon Schafer [address] [place] [address] Date Inactivated Comments Code Status Date Activated 03/21/2018 10:10 PM Full Code 03/16/2018 5:14 PM Code Status decision reached by: Patient
--- OUTSIDE RECORDS SUMMARY | 2018-06-13 23:06 | XMS REPORT ---
[facility] Address Unknown Phone Unavailable Care Team Providers Care Tester Armature Or Fields Name Role Phone Rafael CURTIS Unavailable Unavailable Problems This patient has no known problems. Allergies, Adverse Reactions, Alerts This patient has no known allergies or adverse reactions. Medications This patient has no known medications. Results Test Description Test Time Test Comments Text Results Atomic Results Result Comments CHEST SINGLE (PORTABLE) 2018-06-13 20:50:00 [place] [id number] Patient Name: SHARONDA DEWITT MR #: [id number] : 1945 Age/Sex: 73/F Req #: [id number] Adm Physician: Ordered by: CHIARA CURTIS MD Report #: [id number] Location: ER Room/Bed: Procedure: [id number] DX/CHEST SINGLE (PORTABLE) Exam Date: 06/13/18 Exam Time: 2024 REPORT STATUS: Signed EXAMINATION: CHEST SINGLE (PORTABLE) INDICAT ION: SOB [id number] COMPARISON: None FINDINGS: AP view TUBES and LINES: None. LUNGS: Lungs are well inflated. Mild bilateral hilar and lower lobes. Bronchial wall thickening. No lobar consolidation. PLEURA: No pleural effusion or pneumothorax. HEART AND MEDIASTINUM: The cardiomediastinal silhouette is unremarkable.. BONES AND SOFT TISSUES: No acute osseous lesion. Soft tissues are unremarkable. UPPER ABDOMEN: No free air under the diaphragm. Multiple surgical clips in the left upper abdomen. IMPRESSION: Bilateral peribronchial wall thickening may relate to edema or viral infection. Signed by: Dr. Thomas Bond M.D. on 06/13/2018 8:51 PM Dictated By: THOMAS BOND MD 50 Transcribed By: ELIAS on 06/13/182050 COPY TO: CHIARA CURTIS MD
[2018-06-14 03:47] LABS: BASOPHILS % 0.3 % (0.0-1.0); HEMATOCRIT 37.7 % (34.2-44.1); HEMOGLOBIN 11.8 g/dL (12.0-16.0); LYMPHOCYTES # (AUTO) 1.2 (1.0-3.2); LYMPHOCYTES % 9.5 % (18.0-39.1); MEAN CORPUSCULAR HEMOGLOBIN 30.6 pg (28-32); MEAN CORPUSCULAR HGB CONC 31.3 g/dL (31-35); MEAN CORPUSCULAR VOLUME 97.9 fL (81-99); MONOCYTES # (AUTO) 0.1 (0.2-0.8); MONOCYTES % 0.7 % (4.4-11.3); NEUTROPHILS # (AUTO) 10.9 (2.1-6.9); NEUTROPHILS % 88.8 % (38.7-80.0); PLATELET COUNT 246 x10e3/uL (140-360); RED BLOOD COUNT 3.85 x10e6/uL (3.6-5.1); RED CELL DISTRIBUTION WIDTH 17.3 % (11.7-14.4)
[2018-06-14 03:59] LABS: ANION GAP 13.7 mmol/L (8-16); BLOOD UREA NITROGEN 16 mg/dL (7-26); BUN/CREATININE RATIO 24 (6-25); CALCIUM 8.3 mg/dL (8.4-10.2); CARBON DIOXIDE 26 mmol/L (22-29); CHLORIDE 102 mmol/L (98-107); CREATININE, SERUM 0.66 mg/dL (0.57-1.11); EST GLOMERULAR FILTRATION RATE > 60 ML/MIN (60-); GLUCOSE 146 mg/dL (74-118); SODIUM 137 mmol/L (136-145)
[2018-06-14 04:01] LABS: POTASSIUM 4.7 mmol/L (3.5-5.1)
[2018-06-14 04:13] LABS: CREATINE KINASE 52 IU/L (29-168)
[2018-06-14] MEDS: METHYLPREDNISOLONE SOD SUCC 125 MG/2ML VIAL IV SCH ×3 (06:31→21:05)
[2018-06-14] MEDS ORDERED: METHYLPREDNISOLONE SOD SUCC 40 MG/ML VIAL IV ONE (07:30)
[2018-06-14] MEDS ORDERED: MAGNESIUM SULFATE 2GM/50ML 50 ML IV ONE (07:30)
[2018-06-14] MEDS ORDERED: IPRATROPIUM BROMIDE 0.02% 2.5 ML NEB NEB ONE (07:30)
[2018-06-14] MEDS ORDERED: LEVALBUTEROL HCL SOLN NEBU 1.25 MG/3 ML NEB INH ONE (07:30)
[2018-06-14] MEDS ORDERED: HYDROCODONE/APAP 5MG-325MG TAB PO ONE (08:30)
--- NOTE | 2018-06-14 08:34 | NUR ---
Patient taken off of Bipap at this time and placed on 2L NC. Patient states she feels much better at this time. No respiratory distress noted.
[2018-06-14 08:39] LABS: ABG HCO3 30 mmol/L (23-28); ABG PCO2 60 mmHg (41-51); ABG PH 7.31 (7.31-7.41); ABG PO2 189 mmHg (80-105)
[2018-06-14] MEDS: PANTOPRAZOLE SOD 40 MG TABEC PO SCH ×2 (08:48→18:18)
[2018-06-14] MEDS: GABAPENTIN 300 MG CAP PO SCH ×2 (08:48→18:18)
[2018-06-14] MEDS: ASPIRIN 81 MG CHEW TAB PO SCH (08:48)
[2018-06-14] MEDS: FUROSEMIDE 40 MG TAB PO SCH (08:48)
--- NOTE | 2018-06-14 09:17 | NUR ---
Patient repositioned to avoid skin breakdown. No distress noted.
[2018-06-14] MEDS: LEVOFLOXACIN 500MG/D5W 100ML 100 ML IV SCH (09:41)
--- NOTE | 2018-06-14 11:12 | NUR ---
Patient placed on hospital bed at this time.
[2018-06-14] MEDS: LEVALBUTEROL HCL SOLN NEBU 0.63 MG/3 ML NEB INH PRN ×3 (12:40→19:30)
[2018-06-14] MEDS: IPRATROPIUM BROMIDE 0.02% 2.5 ML NEB NEB PRN ×3 (12:40→19:30)
[2018-06-14 12:44] LABS: CREATINE KINASE 48 IU/L (29-168)
[2018-06-14 16:28] VITALS: BP 153/67
[2018-06-14 16:30] VITALS: BP 135/66
--- NOTE | 2018-06-14 16:40 | NUR ---
Pt received from ER via bed. Alert and oriented x4 with saline lock #20 in right Ac. Oriented to staff and surroundings. Encouraged to press call tena if help needed. Emotional support given. Fall precautions maintained. Call tena within reach. Will monitor
--- NOTE | 2018-06-14 19:00 | NUR ---
patient recieved awake, alert, lying quietly in bed. vss. no c/o pain noted. 08/07l/nc in use. respirations even and unlabored. pm assessment complete. patient instructed to call for assistance when needed.
--- NOTE | 2018-06-14 19:33 | NUR ---
Handoff given to oncoming nurse. Walking rounds done
[2018-06-14 20:00] VITALS: BP 146/64
--- NOTE | 2018-06-14 21:00 | NUR ---
patient medicated with norco 10-325 mg po for c/o generalized joint pain due to arthritis 12/11.
[2018-06-15] VITALS (7 sets, daily range): BP systolic 119–177; BP diastolic 60–75
[2018-06-15] MEDS: HYDROCODONE/APAP 10MG-325MG TAB PO PRN ×4 (01:27→21:56)
--- NOTE | 2018-06-15 01:27 | NUR ---
patient medicated with norco 10-325 mg po for c/o generalized joint pain 01/10.
[2018-06-15] MEDS: LEVALBUTEROL HCL SOLN NEBU 0.63 MG/3 ML NEB INH PRN ×3 (03:00→22:00)
[2018-06-15] MEDS: IPRATROPIUM BROMIDE 0.02% 2.5 ML NEB NEB PRN ×2 (03:00→07:00)
[2018-06-15] MEDS: METHYLPREDNISOLONE SOD SUCC 125 MG/2ML VIAL IV SCH ×3 (05:17→21:00)
[2018-06-15] MEDS ORDERED: SODIUM CHLORIDE 0.9% 250ML 250 ML ONE (07:13)
[2018-06-15] MEDS: ASPIRIN 81 MG CHEW TAB PO SCH (08:25)
[2018-06-15] MEDS: LEVOFLOXACIN 500MG/D5W 100ML 100 ML IV SCH (08:25)
--- NOTE | 2018-06-15 08:25 | NUR ---
Pt received resting in bed. All meds given as ordered. No Dyspnea on exertion noted or voiced. Will monitor
[2018-06-15] MEDS: PANTOPRAZOLE SOD 40 MG TABEC PO SCH ×2 (08:26→17:25)
[2018-06-15] MEDS: FUROSEMIDE 40 MG TAB PO SCH (08:26)
[2018-06-15] MEDS: GABAPENTIN 300 MG CAP PO SCH ×2 (08:26→17:25)
--- NOTE | 2018-06-15 17:20 | NUR ---
CASE MANAGEMENT INITIAL ASSESSMENT Lead Web Application Developer to bedside to discuss plan of care with patient/family. CM/SW role and care transitions discussed. Anticipated discharge plan discussed along with duration of care. CM/SW discussed patients right to make decisions in care. CM/SW work hours given. Patient lives: W AND SON Admit/Transfer: ER POA/Emergency contact: Current/Previous Home Health: SN 1-2X/MONTH, PT JUST STOPPED. DOESN'T REMEMBER NAME. WILL CHECK. PCP/Follow-up Care: HARRY / PCP, PULM / JAMAL Current/Previous DME: ROLLATOR, WC, BC, SC, BR W RALES, ETS, CONCENTRATOR, ELEV SINKS, NEBULIZER Other Services: Employment Status: RETIRED [employer] Areas of Concerns: NEEDS WALKER FOR HOSPITAL ROOM. OBTAINED FROM PT. BEDSIDE NURSE, DALTON NOTIFIED. Referral Needs: NONE Education Needs: IMM/SCOTT given and signed (if applicable): DONE AT ADM Goal for discharge: STAY OUT OF THE HOSPITAL. CM/SW left business card at the bedside with contact information. Name and number was also written on the patients whiteboard. Patient verbalized understanding of discussion. CM will follow-up with ongoing discharge and transition of care needs.
--- NOTE | 2018-06-15 19:10 | NUR ---
patient recieved awake, alert, lying quietly in bed. vss. no c/o pain noted. pm assessment complete. rogers catheter draining clear yellow urine to bsd. patient instructed to call for assistance when needed.
--- NOTE | 2018-06-15 21:56 | NUR ---
patient medicated with norco 10-325 mg po for c/o generalized joint pain due to arthritis 12/11.
[2018-06-16] VITALS (7 sets, daily range): BP systolic 126–169; BP diastolic 60–81
--- NOTE | 2018-06-16 05:37 | Consultation ---
DATE OF CONSULTATION: June 16, 2018 PULMONARY MEDICINE CONSULT REASON FOR REFERRAL: Respiratory failure. HISTORY: Ms. Rico is a 73-year-old female with acute respiratory failure. Onset times 2 days. Gradual. Dyspnea became severe in intensity and was worsened by exertion. She was hardly able to walk across the room today. Therefore, she came to the emergency room due to the worsening status. In the emergency room, white count seen as 13,000. BNP 149. Patient with chest x-ray demonstrating peribronchial cuffing, multiple and suggestion of chronic bronchial thickening versus early pneumonia. She was admitted. Patient with chronic asthma, on Xopenex and Anoro inhaler. For allergies, she takes Zyrtec. For her GERD, she is on Nexium and Carafate. She is on methotrexate 7 tablets a week and she stopped prednisone about 2 years ago. She also takes Higden for her arthritis. She is on oxygen 2 L per minute at night. Baseline exercise tolerance is 1/2 a house distance without assist device she does have a cane and rollator walker. PAST MEDICAL HISTORY: COPD, asthma, hypertension, diabetes, anxiety, chronic constipation, rheumatoid arthritis, major depression disorder. PAST SURGERIES: Bilateral knee surgeries, bilateral knee replacement, left ankle surgery, laparoscopic cholecystectomy, history of right hip surgery with femoral marcos replacement, history of bariatric bypass surgery in 1975. Allergies chronic. MEDICATIONS: Listed from electronic record. Inpatient medications already include Levaquin as antibiotics, steroids, and inhalers. ALLERGIES: PENICILLIN AND ALBUTEROL. SOCIAL HISTORY: No alcohol, no drugs. Patient smokes from age 25 to 64 at 1 pack per day. She quit in 2009. She is a former administrative accountant. FAMILY HISTORY: Noncontributory. REVIEW OF SYSTEMS: Cannot get due to respiratory support device. EXAM VITALS: Noted per electronic record. GENERAL: No acute distress. On BiPAP, calm. HEENT: Normocephalic and atraumatic. NECK: Supple. Throat midline. LUNGS: Bilateral air entry is moderate with [id number] wheezes, mild rhonchi. CARDIOVASCULAR: S1 and S2. No murmurs, rubs or gallops. ABDOMEN: Soft and nontender. EXTREMITIES: No clubbing. No cyanosis. No edema. INTEGUMENT: No rash or purpura. LABS: Potassium 4.7, BUN 16, creatinine 0.7. White count 12, hematocrit 38, platelets 246,000. BNP 149, albumin 3.0. 7.31/60/189. IMPRESSIONS AND PLAN 1. Acute respiratory failure, on bilevel positive airway pressure . 2. Hypercapnic respiratory acidosis. 3. Treat for chronic obstructive pulmonary disease with exacerbation. 4. Asthma phenotype. 5. Chronic allergies. 6. Rheumatoid arthritis, chronic, recently on methotrexate. 7. Functionally immunosuppressed state. 8. Gastroesophageal reflux disease. 9. Chronic hypoxemia on nocturnal oxygen mainly. 10. Decreased functional endurance partly due to pain and partly due to shortness of breath. 11. Possible pneumonia. 12. Abnormal chest computed tomography, September 2014, 1.5-cm right lower lobe density. 13. Dilated main pulmonary artery with possible pulmonary hypertension. I believe she may have had a right heart catheterization in the past. 14. Hypertension, diabetes, anxiety, chronic constipation, depression. Continue weaning off BiPAP as she is better. Continue oxygen per protocol thereafter. Wean steroids slightly. Bronchodilators will be given although will try to avoid the strongest bronchodilators as she gets very sweaty on these medicine she says. Give Xopenex. CT of chest will be ordered, standard protocol could be reasonable. IV antibiotics to continue. Cough medicine and other supportive treatment will also be given. Thank you very much, Dr. Nicholas, for allowing me the chance to participate in the care of Mrs. Rico. Do not hesitate to contact me if I can help in any way. Job#: [id number]
[2018-06-16] MEDS: HYDROCODONE/APAP 10MG-325MG TAB PO PRN ×3 (05:42→22:07)
--- NOTE | 2018-06-16 05:42 | NUR ---
patient medicated with norco 10-325 mg po for c/o generalized (joint) pain 12/11 at this time.
[2018-06-16] MEDS: GUAIFENESIN 200 MG/10 ML UDC PO PRN ×3 (05:48→18:33)
--- NOTE | 2018-06-16 05:48 | NUR ---
patient medicated with robitussin 400 mg po for c/o cough at this time.
[2018-06-16 05:49] LABS: BASOPHILS % 0.1 % (0.0-1.0); HEMATOCRIT 37.4 % (34.2-44.1); HEMOGLOBIN 11.5 g/dL (12.0-16.0); LYMPHOCYTES # (AUTO) 1.9 (1.0-3.2); LYMPHOCYTES % 12.3 % (18.0-39.1); MEAN CORPUSCULAR HEMOGLOBIN 30.2 pg (28-32); MEAN CORPUSCULAR HGB CONC 30.7 g/dL (31-35); MEAN CORPUSCULAR VOLUME 98.2 fL (81-99); MONOCYTES # (AUTO) 0.7 (0.2-0.8); MONOCYTES % 4.3 % (4.4-11.3); NEUTROPHILS # (AUTO) 12.7 (2.1-6.9); NEUTROPHILS % 82.8 % (38.7-80.0); PLATELET COUNT 272 x10e3/uL (140-360); RED BLOOD COUNT 3.81 x10e6/uL (3.6-5.1); RED CELL DISTRIBUTION WIDTH 17.4 % (11.7-14.4)
[2018-06-16 06:05] LABS: BLOOD UREA NITROGEN 33 mg/dL (7-26); BUN/CREATININE RATIO 46 (6-25); CALCIUM 8.6 mg/dL (8.4-10.2); CARBON DIOXIDE 31 mmol/L (22-29); CHLORIDE 102 mmol/L (98-107); CREATININE, SERUM 0.71 mg/dL (0.57-1.11); EST GLOMERULAR FILTRATION RATE > 60 ML/MIN (60-); GLUCOSE 133 mg/dL (74-118); SODIUM 138 mmol/L (136-145)
[2018-06-16] MEDS: LEVALBUTEROL HCL SOLN NEBU 0.63 MG/3 ML NEB INH PRN ×4 (07:26→23:15)
--- NOTE | 2018-06-16 07:33 | NUR ---
RECEIVED PATIENT RESTING IN BED. NO ACUTE DISTRESS NOTED. CALL LIGHT WITHIN REACH. BED IN THE LOWEST POSITION.
[2018-06-16] MEDS: PANTOPRAZOLE SOD 40 MG TABEC PO SCH ×2 (09:57→17:15)
[2018-06-16] MEDS: METHYLPREDNISOLONE SOD SUCC 125 MG/2ML VIAL IV SCH ×2 (09:57→22:00)
[2018-06-16] MEDS: DOCUSATE SODIUM 100 MG CAP PO SCH ×2 (09:57→17:15)
[2018-06-16] MEDS: ASPIRIN 81 MG CHEW TAB PO SCH (09:57)
[2018-06-16] MEDS: FUROSEMIDE 40 MG TAB PO SCH (09:57)
[2018-06-16] MEDS: LEVOFLOXACIN 500MG/D5W 100ML 100 ML IV SCH (09:57)
[2018-06-16] MEDS: GABAPENTIN 300 MG CAP PO SCH ×2 (09:57→17:15)
[2018-06-16] MEDS: LORATADINE 10 MG TAB PO SCH (14:24)
[2018-06-16] MEDS: FLUTICASONE PROPIONATE NASAL SPRAY NS SCH (17:15)
[2018-06-16] MEDS: ENOXAPARIN SOD INJ 40 MG/0.4 ML SYR SC SCH (17:15)
--- NOTE | 2018-06-16 19:00 | NUR ---
Received change of shift report from AM nurse. Walking rounds completed.
--- NOTE | 2018-06-16 19:32 | NUR ---
REPORT GIVEN TO ONCOMING NURSE. PATIENT IS RESTING IN BED. NO ACUTE DISTRESS NOTED. AT BEDSIDE. CALL LIGHT WITHIN REACH. BED IN THE LOWEST POSITION.
--- NOTE | 2018-06-16 20:26 | Diagnostic Imaging Report ---
EXAM: CT of the chest, high resolution, without intravenous contrast. INDICATION: ^lung nodule, rheumatoid arthritis; standard + HRCT, thanks ^[id number] ^[id number] COMPARISON: Chest radiograph 06/13/2018 Technique: CT scan of the chest WITHOUT intravenous contrast, using standard protocol. Thin collimation scanning during the inspiratory and expiratory phases as well as in the prone position was performed. Sagittal and coronal multiplanar reformations were obtained. Coronal and sagittal reformats are provided. IV CONTRAST: None ORAL CONTRAST: None COMPLICATIONS: None RADIATION DOSE: Total DLP: 1463.6 mGy*cm Estimated effective dose: (DLP x 0.015 x size factor) mSv CTDIvol has been reviewed. It is below the limits set by the Radiation Protocol Committee (RPC). FINDINGS: LINES/ TUBES: None. LUNGS AND AIRWAYS: Mild diffuse central and peripheral bronchiectasis with peribronchial wall thickening. Ill-defined patchy areas of groundglass opacities in the right upper lobe, measuring up to 1.8 cm on series 2, image 33. Minimal subpleural reticulation of the lungs in both lower lobes, for example on series 2, image 84. 4 mm pleural based solitary pulmonary nodule in the left lower lobe on series 2, image 96. Additional few peripheral right upper lobe 2 to 3 mm pulmonary nodules. Few cystic changes in the right upper lobe. Mild bilateral centrilobular emphysema. No consolidations or honeycombing. Bilateral air trapping. PLEURA: The pleural spaces are clear. HEART AND MEDIASTINUM: The thyroid gland is normal. Right proximal hilar calcified lymph node. Few nonspecific subcentimeter mediastinal lymph nodes suggestive of prior granulomatous disease.. The heart is normal in size. Focal pericardial fluid adjacent to the right ventricle. Mild calcifications of the aortic valve. Punctate calcification in the LAD. Ectasia of the ascending thoracic aorta measuring 4.4 cm.. The main pulmonary artery is enlarged measuring 3.7 cm and suggestive of pulmonary hypertension. UPPER ABDOMEN: Multiple surgical clips in the left upper abdomen limits evaluation. Cholecystectomy. BONES: Multilevel degenerative changes of the thoracic spine. SOFT TISSUES: Unremarkable. IMPRESSION: 1. Mild bilateral centrilobular emphysema. 2. Few upper lobe predominant peripheral 1 to 2 mm pulmonary nodules are suggestive of respiratory bronchiolitis - interstitial lung disease (RB-ILD). 3. Mild bilateral bronchiectasis with peribronchial wall thickening may reflect acute on chronic bronchitis. 4. Mild subpleural reticulation of the lungs, mainly in both lower lobes, likely representing early manifestation of Connective tissue disease associated with interstitial lung disease. Signed by: Dr. Elizabeth Moore M.D. on 06/16/2018 8:23 PM
[2018-06-17] VITALS (9 sets, daily range): BP systolic 136–171; BP diastolic 61–90
[2018-06-17] MEDS: LEVALBUTEROL HCL SOLN NEBU 0.63 MG/3 ML NEB INH PRN ×6 (03:20→23:30)
--- NOTE | 2018-06-17 07:50 | NUR ---
RECEIVED PATIENT RESTING IN BED. RESPIRATIONS EVEN AND UNLABORED, NO S/S OF DISTRESS NOTED. CALL LIGHT WITHIN REACH. BED IN THE LOWEST POSITION.
[2018-06-17] MEDS ORDERED: METHYLPREDNISOLONE SOD SUCC 125 MG/2ML VIAL IV SCH (09:00)
[2018-06-17] MEDS: FLUTICASONE PROPIONATE NASAL SPRAY NS SCH ×2 (09:50→16:56)
[2018-06-17] MEDS: FUROSEMIDE 40 MG TAB PO SCH (09:50)
[2018-06-17] MEDS: ASPIRIN 81 MG CHEW TAB PO SCH (09:50)
[2018-06-17] MEDS: DOCUSATE SODIUM 100 MG CAP PO SCH ×2 (09:50→16:54)
[2018-06-17] MEDS: LEVOFLOXACIN 500MG/D5W 100ML 100 ML IV SCH (09:50)
[2018-06-17] MEDS: PANTOPRAZOLE SOD 40 MG TABEC PO SCH ×2 (09:50→16:54)
[2018-06-17] MEDS: LORATADINE 10 MG TAB PO SCH (09:50)
[2018-06-17] MEDS: GABAPENTIN 300 MG CAP PO SCH ×2 (09:50→16:54)
[2018-06-17] MEDS: METHYLPREDNISOLONE SOD SUCC 40 MG/ML VIAL IV SCH ×2 (10:42→21:57)
[2018-06-17] MEDS: HYDROCODONE/APAP 10MG-325MG TAB PO PRN (10:42)
[2018-06-17] MEDS: LISINOPRIL 10 MG TAB PO SCH (16:54)
[2018-06-17] MEDS: ENOXAPARIN SOD INJ 40 MG/0.4 ML SYR SC SCH (16:54)
--- NOTE | 2018-06-17 19:24 | NUR ---
REPORT GIVEN TO ONCOMING NURSE. PATIENT IS IN STABLE CONDITION. NO S/S OF DISTRESS NOTED. CALL LIGHT WITHIN REACH. BED IN THE LOWEST POSITION.
[2018-06-17] MEDS: GUAIFENESIN 200 MG/10 ML UDC PO PRN (22:05)
[2018-06-18] VITALS (7 sets, daily range): BP systolic 119–164; BP diastolic 58–83
[2018-06-18] MEDS: LORATADINE 10 MG TAB PO SCH (01:29)
--- NOTE | 2018-06-18 04:50 | Progress Note ---
DATE: June 17, 2018 PULMONARY MEDICINE PROGRESS NOTE SUBJECTIVE: Ms. Rico was seen and examined at bedside. She is on 2 liters/minute by nasal cannula, 93% oxygen saturation. She has Vásquez in place with urine output. She stands by assist reportedly at times, although some times she is having problems due to pain and she can hardly move. BiPAP continues at night due to shortness of breath. REVIEW OF SYSTEMS: No diarrhea, no GI bleed. OBJECTIVE VITAL SIGNS: Afebrile. Vital signs noted per electronic record. GENERAL: In no acute distress, calm, mildly increased work of breathing. HEENT: Normocephalic, atraumatic. NECK: Supple. Throat midline. LUNGS: Bilateral air entry, few rhonchi, [id number] wheezes. CARDIOVASCULAR: S1 and S2. No murmurs, rubs, or gallops. ABDOMEN: Soft and nontender. EXTREMITIES: No clubbing. No cyanosis. There is no edema. INTEGUMENT: No rash or purpura. IMPRESSION 1. Weakness. 2. Acute respiratory failure with BiPAP salvage. 3. Hypercapnic respiratory acidosis. 4. Chronic obstructive pulmonary disease with exacerbation. 5. Rheumatoid lung, evolving. 6. Asthma, chronic allergies. 7. Rheumatoid arthritis, on chronic methotrexate. 8. Gastroesophageal reflux disease. 9. Chronic hypoxemia. 10. Pneumonia. 11. Multiple lung nodules. PLAN: Repeat electrolytes at another day. Check chest x-ray in the morning to see if pneumonia is evolving. Patient will continue oxygen per protocol. Continue BiPAP as needed. Continue aggressive therapy since patient is lacking in her progress, but this is mostly due to pain causing shortness of breath. Job#: [id number] KIESHA
[2018-06-18] MEDS: LEVALBUTEROL HCL SOLN NEBU 0.63 MG/3 ML NEB INH PRN ×3 (07:05→19:30)
--- NOTE | 2018-06-18 07:20 | NUR ---
RECEIVED PATIENT RESTING IN BED. NO ACUTE DISTRESS NOTED. CALL LIGHT WITHIN REACH. BED IN THE LOWEST POSITION. BED ALARM ON.
[2018-06-18] MEDS: METHYLPREDNISOLONE SOD SUCC 40 MG/ML VIAL IV SCH (08:55)
[2018-06-18] MEDS: HYDROCODONE/APAP 10MG-325MG TAB PO PRN ×2 (08:55→20:36)
[2018-06-18] MEDS: FLUTICASONE PROPIONATE NASAL SPRAY NS SCH ×2 (08:55→16:47)
[2018-06-18] MEDS: LEVOFLOXACIN 500MG/D5W 100ML 100 ML IV SCH (08:55)
[2018-06-18] MEDS: DOCUSATE SODIUM 100 MG CAP PO SCH ×2 (08:56→16:47)
[2018-06-18] MEDS: ASPIRIN 81 MG CHEW TAB PO SCH (08:56)
[2018-06-18] MEDS: PANTOPRAZOLE SOD 40 MG TABEC PO SCH ×2 (08:56→16:47)
[2018-06-18] MEDS: GABAPENTIN 300 MG CAP PO SCH ×2 (08:56→16:47)
[2018-06-18] MEDS: FUROSEMIDE 40 MG TAB PO SCH (08:56)
[2018-06-18] MEDS: DILTIAZEM HCL ER 120 MG CAPCR PO SCH (08:56)
[2018-06-18] MEDS: LISINOPRIL 10 MG TAB PO SCH ×2 (08:56→16:47)
--- NOTE | 2018-06-18 13:00 | NUR ---
TORRES CATHETER DC'D WITH TIP INTACT, PER MD ORDER. 1300 YELLOW URINE ON TORRES BAG NOTED.
--- NOTE | 2018-06-18 14:44 | NUR ---
PATIENT VOIDED AT THIS TIME. SHE HAD ONE FULL DIAPER.
[2018-06-18] MEDS: ENOXAPARIN SOD INJ 40 MG/0.4 ML SYR SC SCH (16:47)
--- NOTE | 2018-06-18 17:10 | Progress Note ---
DATE: June 18, 2018 PULMONARY MEDICINE PROGRESS NOTE SUBJECTIVE: Ms. Rico was seen and examined at bedside. She continues with steady improvement. She did not use BiPAP last night as she was better. She is on 3 liters per minute by nasal cannula, 98% oxygen saturation. She is able to eat well. She is able to transport with difficulty to the rest room. REVIEW OF SYSTEMS: No diarrhea. No bleeding. OBJECTIVE VITAL SIGNS: Afebrile. Vital signs noted per electronic record. GENERAL: In no acute distress, alert and calm. HEENT: Normocephalic, atraumatic. NECK: Supple. Throat midline. LUNGS: Bilateral air entry. Mild wheezes. Mild rhonchi. CARDIOVASCULAR: S1, S2. No murmurs, rubs, or gallops. ABDOMEN: Soft, nontender. EXTREMITIES: No clubbing. No cyanosis. There is no edema. INTEGUMENT: No rash or purpura. LABS: No new updates. IMPRESSION 1. Acute respiratory failure, status post bilevel positive airway pressure salvage. 2. Hypercapnic respiratory acidosis. 3. Chronic obstructive pulmonary disease with exacerbation. 4. Asthma and allergy, phenotype. 5. Abnormal chest radiography, bibasilar bilateral infiltrates, mild ground glass with mosaicism, either rheumatoid lung versus methotrexate side effects versus acute pneumonia versus others. 6. Treat for pneumonia. 7. Gastroesophageal reflux disease. 8. Chronic hypoxemia. 9. Multiple lung nodules. PLAN: Continue staying off BiPAP if not needed. Oxygen per protocol. Patient will have to continue mobilization. Continue antibiotics for pneumonitis. Patient will need an outpatient, 2 to 3 months, CT chest, high-resolution protocol. Patient furthermore will need surveillance of these nodules. She will need assessment of the possibility of rheumatoid lung disease with pulmonary function testing. Continue Lasix and DVT prophylaxis. We will follow along closely. Steroids can be weaned down slowly. Job#: [id number] ALYSIA
--- NOTE | 2018-06-18 19:06 | NUR ---
REPORT GIVEN TO ONCOMING NURSE, WALKING ROUNDS DONE. PATIENT IS RESTING IN BED. NO S/S OF DISTRESS NOTED. CALL LIGHT WITHIN REACH. BED IN THE LOWEST POSITION.
[2018-06-18] MEDS: GUAIFENESIN 200 MG/10 ML UDC PO PRN (21:02)
[2018-06-19] VITALS: BP 104/55
[2018-06-19] MEDS: LEVALBUTEROL HCL SOLN NEBU 0.63 MG/3 ML NEB INH PRN ×3 (00:45→07:17)
[2018-06-19] MEDS: GUAIFENESIN 200 MG/10 ML UDC PO PRN (02:25)
[2018-06-19 04:00] VITALS: BP 122/69
[2018-06-19] MEDS: FLUTICASONE PROPIONATE NASAL SPRAY NS SCH (04:41)
[2018-06-19] MEDS: LORATADINE 10 MG TAB PO SCH (04:41)
[2018-06-19 07:05] LABS: BASOPHILS % 0.3 % (0.0-1.0); EOSINOPHILS # (AUTO) 0.4 (0.0-0.4); EOSINOPHILS % 2.5 % (0.0-6.0); HEMATOCRIT 37.8 % (34.2-44.1); HEMOGLOBIN 11.8 g/dL (12.0-16.0); LYMPHOCYTES # (AUTO) 7.7 (1.0-3.2); LYMPHOCYTES % 51.6 % (18.0-39.1); MEAN CORPUSCULAR HEMOGLOBIN 30.3 pg (28-32); MEAN CORPUSCULAR HGB CONC 31.2 g/dL (31-35); MEAN CORPUSCULAR VOLUME 97.2 fL (81-99); MONOCYTES # (AUTO) 1.6 (0.2-0.8); MONOCYTES % 10.5 % (4.4-11.3); NEUTROPHILS # (AUTO) 5.1 (2.1-6.9); NEUTROPHILS % 34.4 % (38.7-80.0); PLATELET COUNT 290 x10e3/uL (140-360); RED BLOOD COUNT 3.89 x10e6/uL (3.6-5.1); RED CELL DISTRIBUTION WIDTH 17.7 % (11.7-14.4)
[2018-06-19 07:22] LABS: ANION GAP 10.7 mmol/L (8-16); BLOOD UREA NITROGEN 24 mg/dL (7-26); BUN/CREATININE RATIO 33 (6-25); CALCIUM 8.4 mg/dL (8.4-10.2); CARBON DIOXIDE 39 mmol/L (22-29); CHLORIDE 97 mmol/L (98-107); CREATININE, SERUM 0.72 mg/dL (0.57-1.11); EST GLOMERULAR FILTRATION RATE > 60 ML/MIN (60-); GLUCOSE 97 mg/dL (74-118); POTASSIUM 4.7 mmol/L (3.5-5.1); SODIUM 142 mmol/L (136-145)
--- NOTE | 2018-06-19 07:30 | NUR ---
patient resting in bed, AAOx3, not in any distress, tolerated break fast
[2018-06-19] MEDS: HYDROCODONE/APAP 10MG-325MG TAB PO PRN (07:53)
[2018-06-19 08:00] VITALS: BP 131/60
[2018-06-19] MEDS: DOCUSATE SODIUM 100 MG CAP PO SCH (09:00)
[2018-06-19] MEDS ORDERED: PREDNISONE 20 MG TAB PO SCH (09:00)
--- NOTE | 2018-06-19 09:18 | Diagnostic Imaging Report ---
PROCEDURE: X-RAY CHEST, TWO VIEWS COMPARISON: Patients [facility], DX, CHEST SINGLE (PORTABLE), 06/13/2018, 20:26. INDICATIONS: SHORTNESS OF BREATH FINDINGS: LUNGS: No consolidations or edema. Peribronchial thickening has improved. PLEURA: No effusions or pneumothorax. HEART & MEDIASTINUM: The heart is within normal size-limits. Tortuous thoracic aorta. There are calcified mediastinal granulomas. BONES & SOFT TISSUES: No acute findings. Multiple clips in the epigastric region. CONCLUSION: No acute thoracic abnormality. Ken Pichardo D.O. Dictated by: Ken Pichardo D.O. on 06/19/2018 at 9:29 Electronically approved by: Ken Pichardo D.O. on 06/19/2018 at 9:29
[2018-06-19] MEDS: ASPIRIN 81 MG CHEW TAB PO SCH (09:30)
[2018-06-19] MEDS: DILTIAZEM HCL ER 120 MG CAPCR PO SCH (09:30)
[2018-06-19] MEDS: LEVOFLOXACIN 500MG/D5W 100ML 100 ML IV SCH (09:30)
--- NOTE | 2018-06-19 09:30 | NUR ---
Dr Nicholas had rounds, stated patient can be discharged home, prescriptions given
[2018-06-19] MEDS: PANTOPRAZOLE SOD 40 MG TABEC PO SCH (09:31)
[2018-06-19] MEDS: LISINOPRIL 10 MG TAB PO SCH (09:31)
[2018-06-19] MEDS: GABAPENTIN 300 MG CAP PO SCH (09:31)
[2018-06-19] MEDS: FUROSEMIDE 40 MG TAB PO SCH (09:31)
[2018-06-19] MEDS ORDERED: PREDNISONE10 MG PO ×3 (11:21→11:23)
--- NOTE | 2018-06-19 11:42 | NUR ---
patient discharged home, prescription given, IV canula removed with tip intact, no SS of any infiltration, tele box returned, at bed side taking her home, Not in any distress, no SOB, patient stated she don't want oxygen when she going home, O2 sat 96% on RA, Verbalized no concerns, aware about f/ups appointments, transported via wheelchair to [facility]
--- NOTE | 2018-06-19 17:28 | NUR ---
LATE ENTRY: IMM LETTER WAS EXPLAINED. PT SIGNED. COPY TO PT AND COPY TO CHART.
== END 2018-06-19 11:55 | disposition home or self-care (01) | DRG 190 ==
LOC: ER 18:56 → ERHOLD 23:00 → MED/SURG3 06-14 16:28
DX: J44.0 Chronic obstructive pulmonary disease with (acute) lower respiratory infection (principal); J96.02 Acute respiratory failure with hypercapnia; J18.9 Pneumonia, unspecified organism; J96.01 Acute respiratory failure with hypoxia; J45.901 Unspecified asthma with (acute) exacerbation; E87.2 Acidosis; J44.1 Chronic obstructive pulmonary disease with (acute) exacerbation; J20.9 Acute bronchitis, unspecified; M06.9 Rheumatoid arthritis, unspecified; E11.9 Type 2 diabetes mellitus without complications; Z79.4 Long term (current) use of insulin; T73.3XXA Exhaustion due to excessive exertion, initial encounter; D89.9 Disorder involving the immune mechanism, unspecified; K21.9 Gastro-esophageal reflux disease without esophagitis; M05.10 Rheumatoid lung disease with rheumatoid arthritis of unspecified site; R91.8 Other nonspecific abnormal finding of lung field; Z79.51 Long term (current) use of inhaled steroids; Z87.891 Personal history of nicotine dependence
CPT/HCPCS: 36415; 36600; 51700; 71045; 71046; 71250; 80048; 80053; 81001; 82550; 82553; 82805; 82948; 83605; 83735; 83880; 84484; 85025; 85610; 85730; 87040; 87086; 87400; 93005; 94640; 94660; 97139; 99284; J1650; J1956; J2920; J2930; J3475; J7050; J7512

== ENCOUNTER → 2018-11-02 | Outpatient (CLI) | payer MEDICARE ==
[~2018-11-02] MED LIST changes: +ASPIR 8181 MG PO; +CALCIUM 500+D1 EACH PO; +FERROUS SULFAT325 MG PO; +PREDNISONE10 MG PO
--- NOTE | 2018-11-03 07:43 | Diagnostic Imaging Report ---
EXAM: CT of the chest without intravenous contrast. INDICATION: Chronic bronchitis. COMPARISON: CT chest without contrast 06/16/2018. Technique: CT scan of the chest WITHOUT intravenous contrast, using standard protocol. Sagittal and coronal multiplanar reformations were obtained. Coronal and sagittal reformats are provided. COMPLICATIONS: None RADIATION DOSE: Total DLP: 487 mGy*cm Dose modulation, iterative reconstruction, and/or weight based adjustment of the mA/kV was utilized to reduce the radiation dose to as low as reasonably achievable. FINDINGS: LINES/ TUBES: None. LUNGS AND AIRWAYS: Mild diffuse bronchiectasis with bronchial wall thickening. Unchanged ill-defined patchy groundglass opacities in the right upper lobe and left lower lobe, for example measuring up to 1.9 cm in the right upper lobe on series 3, image 35. There are minimal subpleural reticular opacities in the lower lobes. Interval resolution of a 4 mm subpleural nodule in the left lower lobe. Unchanged scattered bilateral upper lobe predominately peripheral 2 to 3 mm pulmonary nodules. No evidence of enlarging nodule. Scattered cystic changes in the right upper lobe. Mild bilateral centrilobular emphysema. No evidence of pneumonia or pulmonary edema. PLEURA: The pleural spaces are clear. HEART AND MEDIASTINUM: The thyroid gland is normal. Right hilar calcified lymph node. The heart is normal in size. Small pericardial effusion. Mild calcifications of the aortic valve. Focal atherosclerotic calcification in the LAD. Ectasia of the ascending thoracic aorta measuring 4.3 cm. The main pulmonary artery is enlarged measuring 4 cm, suggestive of pulmonary arterial hypertension. UPPER ABDOMEN: Multiple surgical clips in the left upper abdomen limits evaluation. Status post cholecystectomy. Subcentimeter right hepatic lobe hypodensity is too small to characterize, but likely represents a cyst. BONES/SOFT TISSUES: No acute osseous abnormality. No suspicious lytic or blastic lesions. Degenerative changes of the visualized spine. Minimal anterior wedge compression deformity of the T8 vertebral body, unchanged. Diffuse osteopenia. IMPRESSION: Mild centrilobular emphysema with scattered 2 to 3 mm peripheral and upper lobe predominant nodules and scattered ground glass opacities, unchanged, and suggestive of respiratory bronchiolitis - interstitial lung disease (RB-ILD). Interval resolution of a 4 mm left lower lobe subpleural nodule. Mild bilateral bronchiectasis with bronchial wall thickening may reflect bronchitis. Mild lower lobe predominant subpleural reticulation, suggestive of early fibrosis. Diffuse osteopenia. Signed by: Dr. Jm Bowles MD on 11/03/2018 7:40 AM
== END ==
LOC: CT 14:13
PROVIDERS: ATTEND Internal Medicine Critical Care Medicine
DX: J18.9 Pneumonia, unspecified organism (principal); J30.9 Allergic rhinitis, unspecified; J42 Unspecified chronic bronchitis; I27.9 Pulmonary heart disease, unspecified; K21.9 Gastro-esophageal reflux disease without esophagitis; M06.9 Rheumatoid arthritis, unspecified; Z87.891 Personal history of nicotine dependence
CPT/HCPCS: 71250

== ENCOUNTER 2018-11-12 16:32 | Inpatient (IN) | payer MEDICARE ==
[~2018-11-12] VITALS: Ht 162.6 cm; Wt 83.9 kg
--- OUTSIDE RECORDS SUMMARY | 2018-11-12 16:36 | XMS REPORT | Clinical Summary ---
Author Author [facility] Organization [facility] Address Unknown Phone Unavailable Care Team Providers Care E Commerce Director Name Role Phone Jessi Nicholas MD PCP [...] Encounters Care Team Description Date Type Specialty Prerna Ortez MA Fracture (Primary Dx) 10/30/2018 Orders Only Orthopedic Surgery Prerna Ortez MA Fracture (Primary Dx) 10/09/2018 Orders Only Orthopedic Surgery Vance Araujo MD Intertrochanteric fracture of left hip, closed, with routine healing, subsequent encounter (Primary Dx) 07/07/2018 Office Visit Orthopedic Surgery Prerna Ortez MA Pain (Primary Dx) 07/06/2018 Orders Only Orthopedic Surgery Vance Araujo MD Closed intertrochanteric fracture of [...] right hip 11/11/2017 Office Visit Orthopedic Surgery after 11/11/2017 Immunizations Name Dates Previously Given Next Due [...] Vital Signs Time Taken Vital Sign Reading 07/07/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 Blood Pressure 133/79 07/07/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 Pulse 75 03/21/2018 4:02 PM CDT Temperature 37.2 C (99 F) 03/21/2018 4:02 PM CDT Respiratory Rate 17 03/21/2018 4:02 PM CDT Oxygen Saturation 97% - Inhaled Oxygen - Concentration 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/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 Weight 77.1 kg (170 lb) 07/07/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 Height 163.8 cm (5' 4.5") 07/07/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 Body Mass Index 28.73 Plan of Treatment Care Team Description Date Type Specialty Vance Araujo MD 2019 [facility] [address] [place], [place] [id number] 11/24/2018 Office Visit Orthopedic Surgery Health Maintenance Due Date Last Done Comments BREAST CANCER SCREENING 1997 COLON CANCER SCREENING 1997 SHINGLES VACCINES (#1) 1997 65+ PNEUMOCOCCAL VACCINE 2012 05/09/2012 (2 of 2 - PPSV23) INFLUENZA VACCINE 02/01/2019 03/18/2018, 04/07/2017 PNEUMOCOCCAL Completed 05/09/2012 POLYSACCHARIDE VACCINE AGE 65 AND OVER Implants Device Identifier Shelf Expiration Date Model / Serial / Lot Implanted Type Area Manufactur er [id number] / / Kit Scr Intrlkng 100mm Lag 95mm Hip Joint Left: Hip LARA AND Comp Intertan - [id number] Implants NEPHEW Implanted: Qty: 1 on 03/16/2018 by Vance Knight MD TRAUMA 08/31/2027 [id number] / / [id number] Intertan 1.5 [id number] 125d Lt - IPM Left: Hip LARA & [id number] IMPLANT NEPHEW Implanted: Qty: 1 on 03/16/2018 by DEVICES Vance Saini MD [id number] / / Trigen Low Profile Screw 5.0mm X IPM Left: Hip LARA & 50mm - [id number] IMPLANT NEPHEW Implanted: Qty: 1 on 03/16/2018 by DEVICES Vance Saini MD Lens Lens Procedures Comments Procedure Name Priority Date/Time Associated Diagnosis XR FEMUR 2 VW LEFT Routine 07/07/2018 Pain 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 Narrative Performed At [facility] X-rays left femur AP and lateral to include the hip and knee 07/07/2018: X-ray shows intramedullary marcos fixation of an intertrochanteric fracture left hip there is an avulsion of the greater trochanter but otherwise the fracture is well reduced with continued signs of healing.Of note the right extends to to the distal femur where there is a left total knee arthroplasty in place which appears satisfactory. Performing Organization Address [facility] Phone Number [email or web address] [address] [place] [address] * XR Pelvis 1 Or 2 Vw (04/05/2018 1:57 PM CDT) Narrative Performed At [facility] X-rays AP pelvis 04/05/2018: X-ray shows bilateral internal fixation from previous trochanteric fracture most recent of the left side. Performing Organization Address [facility] Phone Number [email or web address] [address] [place] [address] * Hemoglobin & hematocrit (03/20/2018 12:21 PM CDT) HGB 8.2 (L) 12.0 - 16.0 g/dL [facility] DEPARTMENT OF PATHOLOGY AND GENOMIC MEDICINE HCT 26.1 (L) 37.0 - 47.0 % [facility] DEPARTMENT OF PATHOLOGY AND GENOMIC MEDICINE Specimen Blood Performing Organization Address [facility] Phone Number [address] [place] [address] PATHOLOGY AND GENOMIC MEDICINE * Estimated GFR (03/19/2018 4:35 PM CDT) Only the most recent of 5 results within the time period is included. Estimated GFR 87 mL/min/1.73 m2 [facility] DEPARTMENT OF Comment: PATHOLOGY AND [employer] GENOMIC MEDICINE rpretation G1 >=90 Normal or high G2 60-89Mildly decreased W7h66-60 Mildly to moderately decreased V2l68-35 Moderately to severely decreased G4 15-29Severely decreased G5 <15Kidney failure The eGFR was calculated using the Chronic Kidney Disease Epidemiology Collaboration (CKD-EPI) equation. Interpretation is based on recommendations of the National Kidney Foundation-Kidney Disease Outcomes Quality Initiative (NKF-KDOQI) published in 2014. Specimen Plasma specimen Performing Organization Address [facility] Cent[facility] Phone Number [address] [place] [address] PATHOLOGY AND GENOMIC MEDICINE * Comprehensive metabolic panel (03/19/2018 4:35 PM CDT) Only the most recent of 3 results within the time period is included. Sodium 144 135 - 148 mEq/L [facility] DEPARTMENT OF PATHOLOGY AND GENOMIC MEDICINE Potassium 3.2 (L) 3.5 - 5.0 mEq/L [facility] DEPARTMENT OF PATHOLOGY AND GENOMIC MEDICINE Chloride 97 (L) 98 - 112 mEq/L [facility] DEPARTMENT OF PATHOLOGY AND GENOMIC MEDICINE CO2 38 (H) 24 - 31 mEq/L [facility] DEPARTMENT OF PATHOLOGY AND GENOMIC MEDICINE Anion gap 9@ANIO 7 - 15 mEq/L [facility] DEPARTMENT OF PATHOLOGY AND GENOMIC MEDICINE BUN 15 8 - 23 mg/dL [facility] DEPARTMENT OF PATHOLOGY AND GENOMIC MEDICINE Creatinine 0.70 0.50 - 0.90 mg/dL [facility] DEPARTMENT OF PATHOLOGY AND GENOMIC MEDICINE Glucose 144 (H) 65 - 99 mg/dL [facility] DEPARTMENT OF PATHOLOGY AND GENOMIC MEDICINE Calcium 8.6 (L) 8.8 - 10.2 mg/dL [facility] DEPARTMENT OF PATHOLOGY AND GENOMIC MEDICINE Protein 5.5 (L) 6.3 - 8.3 g/dL [facility] DEPARTMENT OF Comment: PATHOLOGY AND [place] GENOMIC MEDICINE 4.6-7.0 g/dL 1 week 4.4-7.6 g/dL 7 months-1year 5.1-7.3 g/dL 1-2 years5.6-7 .5 g/dL >3 years6.0-8 .0 g/dL 18-150 6.3-8.3 g/dL Albumin 2.6 (L) 3.5 - 5.0 g/dL [facility] DEPARTMENT OF PATHOLOGY AND GENOMIC MEDICINE A/G ratio 0.9 0.7 - 3.8 [facility] DEPARTMENT OF PATHOLOGY AND GENOMIC MEDICINE Alkaline phosphatase 55 35 - 104 U/L [facility] DEPARTMENT OF PATHOLOGY AND GENOMIC MEDICINE AST 10 10 - 35 U/L [facility] DEPARTMENT OF PATHOLOGY AND GENOMIC MEDICINE ALT 11 5 - 50 U/L [facility] DEPARTMENT OF PATHOLOGY AND GENOMIC MEDICINE Total bilirubin 0.4 0.0 - 1.2 mg/dL [facility] DEPARTMENT OF PATHOLOGY AND GENOMIC MEDICINE Specimen Plasma specimen Performing Organization Address City/State/Zipcode Phone Number [facility] [address] [place] [address] PATHOLOGY AND GENOMIC MEDICINE * CBC with platelet and differential (03/19/2018 12:10 PM CDT) Only the most recent of 5 results within the time period is included. WBC 12.67 (H) 4.50 - 11.00 k/uL [facility] DEPARTMENT OF PATHOLOGY AND GENOMIC MEDICINE RBC 2.62 (L) 4.20 - 5.50 m/uL [facility] PATHOLOGY AND GENOMIC MEDICINE HGB 7.9 (L) 12.0 - 16.0 g/dL [facility] DEPARTMENT OF PATHOLOGY AND GENOMIC MEDICINE HCT 25.5 (L) 37.0 - 47.0 % [facility] DEPARTMENT OF PATHOLOGY AND GENOMIC MEDICINE MCV 97.3 82.0 - 100.0 fL [facility] DEPARTMENT OF PATHOLOGY AND GENOMIC MEDICINE MCH 30.2 27.0 - 34.0 pg [facility] DEPARTMENT OF PATHOLOGY AND GENOMIC MEDICINE MCHC 31.0 31.0 - 37.0 g/dL [facility] DEPARTMENT OF PATHOLOGY AND GENOMIC MEDICINE RDW - SD 56.9 (H) 37.0 - 55.0 fL [facility] PATHOLOGY AND GENOMIC MEDICINE MPV 9.9 8.8 - 13.2 fL [facility] DEPARTMENT OF PATHOLOGY AND GENOMIC MEDICINE Platelet count 279 150 - 400 k/uL [facility] DEPARTMENT OF PATHOLOGY AND GENOMIC MEDICINE Nucleated RBC 0.00 /100 WBC [facility] DEPARTMENT OF PATHOLOGY AND GENOMIC MEDICINE Neutrophils 50.8 39.0 - 69.0 % [facility] DEPARTMENT OF PATHOLOGY AND GENOMIC MEDICINE Lymphocytes 31.6 25.0 - 45.0 % [facility] DEPARTMENT OF PATHOLOGY AND GENOMIC MEDICINE Monocytes 11.1 (H) 0.0 - 10.0 % [facility] DEPARTMENT OF PATHOLOGY AND GENOMIC MEDICINE Eosinophils 5.3 (H) 0.0 - 5.0 % [facility] DEPARTMENT OF PATHOLOGY AND GENOMIC MEDICINE Basophils 0.6 0.0 - 1.0 % [facility] DEPARTMENT PATHOLOGY AND GENOMIC MEDICINE Specimen Blood Performing Organization Address City/[facility]/Zipcode Phone Number [facility] [place] [address] [place] [address] PATHOLOGY AND GENOMIC MEDICINE * Type and screen (03/19/2018 12:10 PM CDT) Only the most recent of 2 results within the time period is included. ABO grouping A [facility] DEPARTMENT OF PATHOLOGY AND GENOMIC MEDICINE Rh type POS [facility] OF PATHOLOGY AND GENOMIC MEDICINE Antibody screen NEG [facility] DEPARTMENT OF PATHOLOGY AND GENOMIC MEDICINE Specimen Blood Performing Organization Address City/State/Zipcode Phone Number [address] [place] [address] PATHOLOGY AND GENOMIC MEDICINE * Basic metabolic panel (03/18/2018 5:55 AM CDT) Only the most recent of 2 results within the time period is included. Sodium 144 135 - 148 mEq/L [facility] DEPARTMENT OF PATHOLOGY AND GENOMIC MEDICINE Potassium 3.3 (L) 3.5 - 5.0 mEq/L [facility] DEPARTMENT OF PATHOLOGY AND GENOMIC MEDICINE Chloride 103 98 - 112 mEq/L [facility] OF PATHOLOGY AND GENOMIC MEDICINE CO2 34 (H) 24 - 31 mEq/L [facility] DEPARTMENT OF PATHOLOGY AND [employer] MEDICINE Anion gap 7@ANIO 7 - 15 mEq/L [facility] OF PATHOLOGY AND GENOMIC MEDICINE BUN 15 8 - 23 mg/dL [facility] DEPARTMENT OF PATHOLOGY AND [employer] MEDICINE Creatinine 0.70 0.50 - 0.90 mg/dL [facility] DEPARTMENT OF PATHOLOGY AND [employer] MEDICINE Glucose 125 (H) 65 - 99 mg/dL [facility] OF PATHOLOGY AND [employer] MEDICINE Calcium 8.4 (L) 8.8 - 10.2 mg/dL [facility] DEPARTMENT OF PATHOLOGY AND [employer] MEDICINE Specimen Plasma specimen Performing Organization Address [facility] Number [address] [place] [address] PATHOLOGY AND [employer] MEDICINE * POC glucose (03/17/2018 4:53 PM CDT) Only the most recent of 11 results within the time period is included. POC glucose 118 (H) 65 - 99 mg/dL [facility] DEPARTMENT OF Comment: PATHOLOGY AND Meter ID: [id number] GENOMIC MEDICINE Gas Station Cashier: Nasir Bertrand Performing Organization Address [facility] Phone Number [address] [place] [address] PATHOLOGY AND [employer] MEDICINE * OR [place] > I Hour (03/16/2018 3:00 PM CDT) Narrative Performed At EXAMINATION:OR [place] 1 HOUR [facility] C-arm fluoroscopy was requested in OR. Fluoro time 5:54 4 images IMPRESSION: Separate operative report will be issued by the physician performing the procedure. [id number] Procedure Note Hm Interface, Radiology Results Incoming - 03/16/2018 3:42 PM CDT EXAMINATION: OR [place] 1 HOUR C-arm fluoroscopy was requested in OR. Fluoro time 5:54 4 images IMPRESSION: Separate operative report will be issued by the physician performing the procedure. [id number] Performing Organization Address [facility] Phone Number [facility] [address] [place] [address] * XR Knee 1 Or 2 Vw Left (03/15/2018 5:48 PM CDT) Narrative Performed At EXAMINATION:XR KNEE 1 OR 2 VW LEFT [facility] CLINICAL HISTORY:Knee replacedpainquadriceps or patellar tendinopathy suspected COMPARISON:None. IMPRESSION: There is a left total knee prosthesis in place.There is no evidence of fracture or malalignment.There is soft tissue swelling strongly suggesting a distention of the bursal or joint effusion. [facility]-[id number] Procedure Note Interface, Radiology Results Incoming - 03/15/2018 6:05 PM CDT EXAMINATION: XR KNEE 1 OR 2 VW LEFT CLINICAL HISTORY: Knee replaced pain quadriceps or patellar tendinopathy suspected COMPARISON: None. IMPRESSION: There is a left total knee prosthesis in place. There is no evidence of fracture or malalignment. There is soft tissue swelling strongly suggesting a distention of the bursal or joint effusion. [facility]-[id number] Performing Organization Address [facility] Phone Number [facility] [address] [place] [address] * Echocardiogram complete w contrast and 3D [...] LV EF,BP 66.97 % [facility] [place],d A2C 6.98 cm [facility] [place],d A4C 6.38 cm [facility] [place],s A2C 5.68 cm [facility] [place],s A4C 5.26 cm [facility] LV SV,A2C [...] RVSP is 53 mmHg. Performing Organization Address [facility] Phone Number [facility] [address] [place] [address] * ECG Pre/Post Op (03/15/2018 10:08 AM CDT) Ventricular rate 70 [facility] Atrial rate 70 [facility] [place] interval 168 [facility] QRSD interval 136 [facility] QT interval 472 [facility] QTC interval 509 [facility] P axis 1 77 [facility] QRS axis 1 43 [facility] T wave axis 31 [facility] EKG impression Normal sinus [facility] MUSE rhythm-Nonspecific intraventricular block-Abnormal ECG-No previous ECGs available- Performing Organization Address [facility] Phone Number [facility] [address] [place] [address] * Urinalysis screen and microscopy, with reflex to culture (03/15/2018 1:08 AM CDT) Specimen site Clean catch [facility] DEPARTMENT OF PATHOLOGY AND GENOMIC MEDICINE Color, UA Yellow [facility] DEPARTMENT OF PATHOLOGY AND GENOMIC MEDICINE Appearance, UA Clear [facility] DEPARTMENT OF PATHOLOGY AND GENOMIC MEDICINE Specific gravity, UA 1.024 1.001 - 1.035 [facility] DEPARTMENT OF PATHOLOGY AND GENOMIC MEDICINE pH, UA 5.0 5.0 - 8.5 [facility] DEPARTMENT OF PATHOLOGY AND GENOMIC MEDICINE Protein, UA 1+ (A) Negative [facility] DEPARTMENT OF PATHOLOGY AND GENOMIC MEDICINE Glucose, UA Negative Negative [facility] DEPARTMENT OF PATHOLOGY AND GENOMIC MEDICINE Ketones, UA Trace (A) Negative [facility] DEPARTMENT OF PATHOLOGY AND GENOMIC MEDICINE Bilirubin, UA Negative Negative [facility] DEPARTMENT OF PATHOLOGY AND GENOMIC MEDICINE Blood, UA Negative Negative [facility] DEPARTMENT OF PATHOLOGY AND GENOMIC MEDICINE Nitrite, UA Negative Negative [facility] DEPARTMENT OF PATHOLOGY AND GENOMIC MEDICINE Urobilinogen, UA 2.0 (A) <2.0 [facility] DEPARTMENT OF PATHOLOGY AND GENOMIC MEDICINE Leukocyte esterase, UA Negative Negative [facility] DEPARTMENT OF PATHOLOGY AND GENOMIC MEDICINE WBC, UA 0-5 0 - 4 /HPF [facility] DEPARTMENT OF PATHOLOGY AND GENOMIC MEDICINE RBC, UA 0-5 0 - 5 /HPF [facility] DEPARTMENT OF PATHOLOGY AND GENOMIC MEDICINE Bacteria, UA None seen None seen [facility] DEPARTMENT OF PATHOLOGY AND GENOMIC MEDICINE Yeast, UA None seen [facility] DEPARTMENT OF PATHOLOGY AND GENOMIC MEDICINE Yeast with pseudohyphae, None seen [facility] DEPARTMENT OF UA PATHOLOGY AND GENOMIC MEDICINE Calcium oxalate crystals, Few [facility] DEPARTMENT OF UA PATHOLOGY AND GENOMIC MEDICINE Specimen Urine Performing Organization Address [facility] Phone Number [address] [place] [address] PATHOLOGY AND GENOMIC MEDICINE * Urine culture (03/15/2018 1:08 AM CDT) Urine culture SEE COMMENTComment: [facility] DEPARTMENT OF Bacteriuria screen negative. PATHOLOGY AND GENOMIC MEDICINE Specimen Urine Performing Organization Address [facility] Phone Number [address] [place] [address] PATHOLOGY AND GENOMIC MEDICINE * XR Hip 2-3 View Left (03/15/2018 12:55 AM CDT) Narrative Performed At EXAMINATION:XR HIP 2-3 VIEWS LEFT [facility] CLINICAL HISTORY:fall from standing COMPARISON:Pelvic CT 03/14/2018. IMPRESSION: Acute left intertrochanteric fracture with coxa vera deformity. Surrounding soft tissue edema. Chronic right pubic fracture deformity. Fixation hardware in the visible portion of the right femur. [facility]-[id number] Procedure Note Interface, Radiology Results Incoming - 03/15/2018 1:01 AM CDT EXAMINATION: XR HIP 2-3 VIEWS LEFT CLINICAL HISTORY: fall from standing COMPARISON: Pelvic CT 03/14/2018. IMPRESSION: Acute left intertrochanteric fracture with coxa vera deformity. Surrounding soft tissue edema. Chronic right pubic fracture deformity. Fixation hardware in the visible portion of the right femur. [facility]-[id number] Performing Organization Address [facility] Phone Number [facility] [address] [place] [address] * XR Chest 1 Vw Portable (03/15/2018 12:02 AM CDT) Narrative Performed At EXAMINATION: XR CHEST 1 VW PORTABLE [facility] CLINICAL HISTORY: fall from standing COMPARISON:None. IMPRESSION: The lungs are clear. No pleural effusion or pneumothorax. Cardiac silhouette is enlarged. Aortic arch atherosclerosis. No acute osseous abnormalities. Surgical clips in the left upper quadrant. [facility]-[id number] Procedure Note Interface, Radiology Results Incoming - 03/15/2018 12:27 AM CDT EXAMINATION: XR CHEST 1 VW PORTABLE CLINICAL HISTORY: fall from standing COMPARISON: None. IMPRESSION: The lungs are clear. No pleural effusion or pneumothorax. Cardiac silhouette is enlarged. Aortic arch atherosclerosis. No acute osseous abnormalities. Surgical clips in the left upper quadrant. [facility]-[id number] Performing Organization Address [facility] Phone Number [facility] [address] [place] [address] * CT Head Wo Contrast (03/14/2018 11:08 PM CDT) Narrative Performed At EXAMINATION:CT HEAD WO CONTRAST [facility] CLINICAL HISTORY:fall from standing COMPARISON:None. TECHNIQUE: Noncontrast [...] No CT evidence of acute intracranial abnormality. [id number] Procedure Note Interface, Radiology Results Incoming - [...] No CT evidence of acute intracranial abnormality. [id number] Performing Organization Address City/State/Zipcode Phone Number [facility] [address] [place] [address] * CT Cervical Spine Wo Contrast (03/14/2018 11:07 PM CDT) Narrative Performed At EXAMINATION: CT CERVICAL SPINE WO CONTRAST [facility] CLINICAL HISTORY: fall from standing COMPARISON:None TECHNIQUE: [...] C5-C6. Additional degenerative changes are detailed above. [facility]-[id number] Procedure Note Interface, Radiology Results Incoming - 03/14/2018 11:40 [...] C5-C6. Additional degenerative changes are detailed above. [facility]-[id number] Performing Organization Address City/State/Zipcode Phone Number [facility] [address] [place] [address] * CT Pelvis Wo Contrast (03/14/2018 11:07 [...] hematoma adjacent to the left greater trochanter. [facility]-[id number] Procedure Note Interface, Radiology Results Incoming - [...] hematoma adjacent to the left greater trochanter. [facility]-[id number] Performing Organization Address City/State/Zipcode Phone Number [facility] [address] [place] [address] * CT Lower Extremity Wo Contrast Left (03/14/2018 11:07 PM CDT) Narrative Performed At CT PELVIS WO CONTRAST, CT LOWER EXTREMITY WO CONTRAST LEFT [facility] CLINICAL HISTORY:fall from standingL hip pain TECHNIQUE: [...] hematoma adjacent to the left greater trochanter. [facility]-[id number] Procedure Note Hm Interface, Radiology Results Incoming - 03/14/2018 11:24 [...] hematoma adjacent to the left greater trochanter. [facility]-[id number] Performing Organization Address City/State/Zipcode Phone Number [facility] [address] [place] [address] * Troponin (03/14/2018 9:36 PM CDT) Troponin <0.300 0.000 - 0.300 ng/mL [facility] DEPARTMENT OF Comment: PATHOLOGY AND 0.30 - 1.49 GENOMIC MEDICINE ng/mlMay indicate increased risk of acute coronary syndrome. >=1.5 ng/ml Consistent with acute myocardial infarction. The diagnostic value of a single normal or non-diagnostic result is questionable.Serial samples at 2-6 hour intervals are required to rule out acute myocardial injury. Specimen Plasma specimen Performing Organization Address [facility] Phone Number [address] [place] [address] PATHOLOGY AND [facility] * Partial thromboplastin time, activated (03/14/2018 9:36 PM CDT) PTT 30.3 23.0 - 36.0 sec [facility] DEPARTMENT OF Comment: PATHOLOGY AND PTT therapeutic range for [facility] unfractionated heparin is 61.0-112.0 seconds which corresponds to Anti-Xa 0.3-0.7 U/ml. Specimen Blood Performing Organization Address [facility] Phone Number [address] [place] [address] PATHOLOGY AND [facility] * Prothrombin time with INR (03/14/2018 9:36 PM CDT) Prothrombin time 13.3 12.0 - 15.0 sec [facility] DEPARTMENT OF PATHOLOGY AND GENOMIC MEDICINE INR 1.0 [facility] DEPARTMENT OF Comment: PATHOLOGY AND The International Normalized [facility] MEDICINE Ratio (INR) is a therapeutic monitoring tool for patients who are stable on oral anticoagulant therapy. An INR of 2.0-3.0 is suggested for deep vein thrombosis/pulmonary embolism. Specimen Blood Performing Organization Address [facility] Phone Number [address] [place] [address] PATHOLOGY AND [facility] MEDICINE * B natriuretic peptide (03/14/2018 9:36 PM CDT) BNP 95 0 - 100 pg/mL [facility] DEPARTMENT OF PATHOLOGY AND [employer] MEDICINE Specimen Blood Performing Organization Address [facility] Phone Number [address] [place] [address] PATHOLOGY AND [facility] MEDICINE * Creatine kinase, total (CPK) (03/14/2018 9:36 PM CDT) Creatine kinase 61 26 - 192 U/L [facility] DEPARTMENT OF PATHOLOGY AND GENOMIC MEDICINE Specimen Plasma specimen Performing Organization Address [facility] Phone Number [facility] DEPARTMENT OF [address] [place] [address] [place] [address] PATHOLOGY AND GENOMIC MEDICINE * ECG 12 lead (03/14/2018 9:34 PM CDT) Ventricular rate 77 [facility] Atrial rate 77 [facility] [place] interval 170 [facility] QRSD interval 106 [facility] QT interval 420 [facility] QTC interval 475 [facility] P axis 1 77 [facility] QRS axis 1 53 [facility] T wave axis 36 [facility] EKG impression Normal sinus rhythm with sinus [facility] MUSE arrhythmia-Marked ST abnormality, possible anterior subendocardial injury-Abnormal ECG-No previous ECGs available- Performing Organization Address [facility] Phone Number [facility] [address] [place] [address] * ECG ED Preliminary Interpretation - NOT AN ORDER (03/14/2018 9:27 PM CDT) Narrative Performed At Derick Montez MD 03/15/2018 12:02 AM ECG ED Preliminary Interpretation - Not an Order Performed by: DERICK MONTEZ Authorized by: DERICK MONTEZ ECG reviewed by ED Physician in the absence of a equipment tester: yes Interpretation: Interpretation: normal Quality: Tracing quality:Limited [...] in the hip joint. Performing Organization Address City/State/Zipcode Phone Number [facility] [address] [place] [address] after 11/11/2017 Insurance Payer Benefit Subscriber ID Type Phone Address Plan / Group [employer] MEDICARE HUMANA xxxxxxxxx PPO MEDICARE PPO/PFFS/E [facility] Advance Directives Patient has advance care planning documents, and code status on file. For more i nformation, please contact: Donavon Schafer [address] [place] [address] Date Inactivated Comments Code Status Date Activated 03/21/2018 10:10 PM Full Code 03/16/2018 5:14 PM Code Status decision reached by: Patient
--- OUTSIDE RECORDS SUMMARY | 2018-11-12 16:39 | XMS REPORT | Continuity of Care Document ---
Author Author [facility] Interface Address Unknown Phone Unavailable Problems Problem Status Onset Date Classification Date Reported Comments Source E86.0 DEHYDRATION 03/21/2018 Diagnosis 04/26/2018 SNF: [facility] B19.9 UNSPECIFIED VIRAL HEPATITIS WITHOUT HEPATIC COMA 03/21/2018 Diagnosis 04/26/2018 SNF: [facility] I50.9 HEART FAILURE, UNSPECIFIED 03/21/2018 Diagnosis 04/26/2018 SNF: [facility] M62.50 MUSCLE WASTING AND ATROPHY, NOT ELSEWHERE CLASSIFIED, UNSPECIFIED SITE 03/21/2018 Diagnosis 04/26/2018 SNF: [facility] W19.XXXD UNSPECIFIED FALL, SUBSEQUENT ENCOUNTER 03/21/2018 Diagnosis 04/26/2018 SNF: [facility] Z47.89 ENCOUNTER FOR OTHER ORTHOPEDIC AFTERCARE 03/21/2018 Diagnosis 04/26/2018 SNF: [facility] S72.142D DISPLACED INTERTROCHANTERIC FRACTURE OF LEFT FEMUR, SUBSEQUENT ENCOUNTER FOR CLOSED FRACTURE WITH ROUTINE HEALING 03/21/2018 Diagnosis 04/26/2018 SNF: [facility] F41.9 ANXIETY DISORDER, UNSPECIFIED 03/21/2018 Diagnosis 04/26/2018 SNF: [facility] J44.9 CHRONIC OBSTRUCTIVE PULMONARY DISEASE, UNSPECIFIED 03/21/2018 Diagnosis 04/26/2018 SNF: [facility] 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 01/12/2017 Diagnosis 04/26/2018 SNF: [facility] E66.9 OBESITY, UNSPECIFIED 01/12/2017 Diagnosis 04/26/2018 SNF: [facility] R26.81 UNSTEADINESS ON FEET 01/01/2017 Diagnosis 04/26/2018 SNF: [facility] M62.59 MUSCLE WASTING AND ATROPHY, NOT ELSEWHERE CLASSIFIED, MULTIPLE SITES 01/01/2017 Diagnosis 04/26/2018 SNF: [facility] Z91.81 HISTORY OF FALLING 01/01/2017 Diagnosis 04/26/2018 SNF: [facility] R27.8 OTHER LACK OF COORDINATION 01/01/2017 Diagnosis 04/26/2018 SNF: [facility] M25.551 PAIN IN RIGHT HIP 01/01/2017 Diagnosis 04/26/2018 SNF: [facility] Walking disability 01/01/2017 Diagnosis 04/26/2018 SNF: [facility] J44.1 CHRONIC OBSTRUCTIVE PULMONARY DISEASE WITH EXACERBATION 04/20/2016 Diagnosis 04/26/2018 SNF: [facility] E11.9 TYPE 2 DIABETES MELLITUS WITHOUT COMPLICATIONS 04/20/2016 Diagnosis 04/26/2018 SNF: [facility] I10 ESSENTIAL HYPERTENSION 04/20/2016 Diagnosis 04/26/2018 SNF: [facility] K21.9 GASTRO-ESOPHAGEAL REFLUX DISEASE WITHOUT ESOPHAGITIS 04/20/2016 Diagnosis 04/26/2018 SNF: [facility] F33.9 MAJOR DEPRESSIVE DISORDER, RECURRENT, UNSPECIFIED 04/20/2016 Diagnosis 04/26/2018 SNF: [facility] COPD Active 11/13/2014 Problem 06/19/2018 [facility] Pneumonia Active 11/13/2014 Problem 06/19/2018 [facility] COPD with acute exacerbation Active 08/01/2014 Problem 06/19/2018 [facility] COPD with exacerbation Active 08/01/2014 Problem 06/19/2018 [facility] Dyspnea and respiratory abnormality Active 08/01/2014 Problem 06/19/2018 [facility] M06.9 RHEUMATOID ARTHRITIS, UNSPECIFIED 11/23/2013 Diagnosis 04/26/2018 SNF: [facility] Compression fracture of L1 lumbar vertebra, with delayed healing, subsequent encounter Active Problem 09/29/2017 [facility] Lumbar compression fracture, with routine healing, subsequent encounter Active Problem 09/29/2017 [facility] Lumbar radiculopathy Active Diagnosis 05/12/2017 [facility] Lumbar spinal stenosis Active Diagnosis 12/28/2016 [facility] Rheumatoid arthritis, involving unspecified site, unspecified rheumatoid factor presence Active Problem 09/29/2017 [facility] Thoracic radiculopathy Active Diagnosis 11/02/2016 [facility] Bronchitis Active Problem 06/19/2018 [facility] Dyspnea Active Problem 06/19/2018 [facility] Lower back pain Active Problem 06/19/2018 [facility] Lumbosacral strain Active Problem 06/19/2018 [facility] Urinary tract infection Active Problem 06/19/2018 [facility] Medications Medication Details Route Status Patient Instructions Ordering Provider Order Date Source Amlodipine Besylate 5 Mg Tablet, 5 Mg Oral Daily Active 06/13/2018 [facility] Lubiprostone (Amitiza) 24 Mcg Capsule, 24 Mcg Oral Twice A Day Active 06/13/2018 [facility] Meloxicam 7.5 Mg Tablet, 15 Mg Oral Daily Active 06/13/2018 [facility] Ranitidine Hcl 300 Mg Tablet, 300 Mg Oral Daily Active 06/13/2018 [facility] Sucralfate 1 Gm Tablet, 1 Gm Oral Four Times Daily Active 06/13/2018 [facility] Heparin Sodium (Porcine) Solution 5000 UNIT/ML Inject 1 ml subcutaneously every 12 hours for DVT prophylaxis Injection Active 04/19/2018 SNF: [facility] Ativan Tablet 0.5 MG Give 0.5 tablet by mouth every 12 hours as needed for anxiety Oral Active 04/17/2018 SNF: [facility] Vancomycin HCl Solution 50 MG/ML Give 250 mg by mouth every 6 hours for diarrhea for 10 Days Oral Active 04/13/2018 SNF: [facility] Vancomycin HCl Capsule 250 MG Give 1 capsule by mouth every 6 hours for diarrhea Oral Inactive 04/13/2018 SNF: [facility] Imodium A-D Tablet 2 MG Give 2 mg by mouth every 06 hours as needed for diarrhea Oral Active 04/13/2018 SNF: [facility] Zofran Tablet 4 MG Give 1 tablet by mouth every 6 hours as needed for nausea Oral Active 04/09/2018 SNF: [facility] Questran Packet 4 GM Give 1 packet by mouth every 12 hours as needed for diarrhea Oral Active 04/09/2018 SNF: [facility] Imodium A-D Tablet 2 MG Give 2 mg by mouth every 06 hours as needed for diarrhea Oral Active 04/08/2018 SNF: [facility] Methotrexate Tablet Give 12.5 mg by mouth one time a day every 7 day(s) for cancer Oral Active 03/31/2018 SNF: [facility] Claritin Tablet 10 MG Give 1 tablet by mouth one time a day for Congestion for 3 Days Oral Active 03/30/2018 SNF: [facility] Cholestyramine Light Packet 4 GM Give 1 packet by mouth one time a day for diarrhea Mix in 8oz Liquid Oral Active 03/29/2018 SNF: [facility] Aspirin EC Tablet Delayed Release 81 MG Give 1 tablet by mouth one time a day for supplement Oral Active 03/25/2018 SNF: [facility] Ativan Tablet 0.5 MG Give 1 tablet by mouth every 8 hours as needed for anxiety Oral Active 03/25/2018 SNF: [facility] DilTIAZem HCl Tablet 120 MG Give 1 tablet by mouth at bedtime for HTN *Hold if SBP <110 or HR <60* Oral Active 03/25/2018 SNF: [facility] Lisinopril Tablet 10 MG Give 1 tablet by mouth two times a day for htn *Hold if SBP <110 or DBP <60* Oral Active 03/24/2018 SNF: [facility] Gabapentin Capsule 300 MG Give 1 capsule by mouth in the afternoon for muscle spasm Oral Active 03/23/2018 SNF: [facility] Colace Capsule 100 MG Give 1 capsule by mouth one time a day for IBS Oral Active 03/23/2018 SNF: [facility] MiraLax Powder Give 17 gram by mouth one time a day for IBS MIX IN 8 OUNCES OF WATER OR JUICE Oral Active 03/23/2018 SNF: [facility] FerrouSul Tablet 325 (65 Fe) MG Give 1 tablet by mouth two times a day for supplement Oral Active 03/23/2018 SNF: [facility] Senno Tablet Give 1 tablet by mouth one time a day for IBS Oral Active 03/23/2018 SNF: [facility] Vitamin C Tablet Give 500 mg by mouth one time a day for supplement Oral Active 03/23/2018 SNF: [facility] Levalbuterol HCl Nebulization Solution 0.63 MG/3ML 3 ml inhale orally via nebulizer every 12 hours related to CHRONIC OBSTRUCTIVE PULMONARY DISEASE WITH (ACUTE) EXACERBATION (J44.1) Inhalation Active 03/23/2018 SNF: [facility] Oscal 500/200 D-3 Tablet 500-200 MG-UNIT Give 1 tablet by mouth two times a day for supplement Oral Active 03/23/2018 SNF: [facility] Lasix Tablet 40 MG Give 1 tablet by mouth one time a day for edema Oral Inactive 03/23/2018 SNF: [facility] Ativan Tablet 0.5 MG Give 1 tablet by mouth every 8 hours as needed for anxiety Oral Active 03/23/2018 SNF: [facility] Folic Acid Tablet 1 MG Give 2 tablet by mouth at bedtime for anemia *total dose=2mg* Oral Active 03/23/2018 SNF: [facility] Gabapentin Tablet 600 MG Give 1 tablet by mouth at bedtime for neuropathy Oral Active 03/23/2018 SNF: [facility] DilTIAZem HCl Tablet 120 MG Give 1 tablet by mouth at bedtime for HTN *Hold if SBP <110 or HR <60* Oral Active 03/23/2018 SNF: [facility] Zoloft Tablet 100 MG Give 1 tablet by mouth at bedtime for depression Oral Active 03/23/2018 SNF: [facility] Zantac Tablet 300 MG Give 1 tablet by mouth at bedtime for GERD Oral Active 03/23/2018 SNF: [facility] Lactulose Solution 20 GM/30ML Give 30 ml by mouth every 24 hours as needed for IBS Oral Active 03/22/2018 SNF: [facility] Ventolin HFA Aerosol Solution 108 (90 Base) MCG/ACT 2 puff inhale orally every 6 hours as needed for shortness of breath Inhalation Active 03/22/2018 SNF: [facility] Tuberculin PPD Solution 5 UNIT/0.1ML Inject 0.1 ml intradermally one time only for TB Screen for 1 Day Document in immunization tab after administration Intradermal Active 03/22/2018 SNF: [facility] [place] Tablet 10-325 MG Give 1 tablet by mouth every 4 hours as needed for pain Oral Active 03/22/2018 SNF: [facility] Meloxicam Tablet 15 MG Give 1 tablet by mouth one time a day for inflammation Oral Active 03/22/2018 SNF: [facility] Heparin Sodium (Porcine) Solution 5000 UNIT/ML Inject 1 ml subcutaneously every 12 hours for DVT prophylaxis Injection Active 03/22/2018 SNF: [facility] NexIUM Capsule Delayed Release 40 MG Give 1 capsule by mouth two times a day for GERD Oral Active 03/22/2018 SNF: [facility] Lasix Tablet 40 MG Give 1 tablet by mouth one time a day for EDEMA Oral Active 03/22/2018 SNF: [facility] Folic Acid Tablet 1 MG Give 1 tablet by mouth one time a day for anemia Oral Active 03/22/2018 SNF: [facility] GlipiZIDE Tablet Give 2.5 mg by mouth one time a day for Type 2 DM Oral Active 03/22/2018 SNF: [facility] Carafate Tablet 1 GM Give 1 tablet by mouth four times a day for Ulcers Oral Active 03/22/2018 SNF: [facility] Lisinopril Tablet 10 MG Give 1 tablet by mouth two times a day for htn *Hold if SBP <110 or DBP <60* Oral Active 03/22/2018 SNF: [facility] Cyanocobalamin Kit 1000 MCG/ML Inject 1 ml subcutaneously one time a day every 14 day(s) for vitamin b-12 deficiency Injection Active 03/22/2018 SNF: [facility] Gabapentin Capsule 300 MG Give 1 capsule by mouth one time a day for neuropathy Oral Active 03/22/2018 SNF: [facility] Methotrexate Tablet Give 12.5 mg by mouth one time a day every 7 day(s) for cancer Oral Active 03/22/2018 SNF: [facility] Aspirin Tablet 81 MG Give 1 tablet by mouth one time a day for DVT prophylaxis Oral Active 03/22/2018 SNF: [facility] Vitamin D3 Tablet 79020 UNIT Give 1 tablet by mouth one time a day every 7 day(s) for bone health Oral Active 03/22/2018 SNF: [facility] Lubiprostone Capsule 24 MCG Give 1 capsule by mouth two times a day for IBS Oral Inactive 03/22/2018 SNF: [facility] Xopenex Nebulization Solution 0.63 MG/3ML 1 application inhale orally via nebulizer every 6 hours as needed for SOB Inhalation Active 03/22/2018 SNF: [facility] Flonase Suspension 50 MCG/ACT 2 puff in both nostrils every 24 hours as needed for allergies Nasal Active 03/22/2018 SNF: [facility] [place] Tablet 10-325 MG Give 1 tablet by mouth every 6 hours as needed for pain Oral Active 03/22/2018 SNF: [facility] Xopenex HFA Aerosol 45 MCG/ACT 2 puff inhale orally every 6 hours as needed for SOB Inhalation Active 03/22/2018 SNF: [facility] Tuberculin PPD Solution 5 UNIT/0.1ML Inject 0.1 ml intradermally one time only for TB Screen until 03/21/2018 21:00 Document in immunization tab after administration Intradermal Inactive 03/21/2018 SNF: [facility] Lorazepam 1 Mg Tablet, 1 Mg Oral Every 6 Hours as needed for Anxiety Active 01/13/2018 [facility] Methotrexate Sodium (Methotrexate) 2.5 Mg Tablet, 2.5 Mg Oral Daily Active 01/13/2018 [facility] Doxycycline Hyclate Tablet 100 MG Give 1 tablet by mouth two times a day for URI for 10 Days Oral Active 02/02/2017 SNF: [facility] Nystatin Cream 244786 UNIT/GM Apply to lower abd folds topically two times a day for rash for 2 Weeks External Active 02/02/2017 SNF: [facility] Ipratropium [place] Solution 0.02 % 1 application inhale orally via nebulizer every 6 hours for sob Inhalation Active 02/02/2017 SNF: [facility] Xopenex Nebulization Solution 0.63 MG/3ML 3 ml inhale orally via nebulizer every 6 hours for sob while awake Inhalation Active 02/02/2017 SNF: [facility] MiraLax Packet Give 17 gram by mouth one time a day for Constipation Oral Active 01/25/2017 SNF: [facility] Colace Capsule 100 MG Give 1 capsule by mouth every 12 hours for Constipation Oral Active 01/25/2017 SNF: [facility] Lactulose Solution 20 GM/30ML Give 30 ml by mouth as needed for Constipation BID PRN Oral Active 01/20/2017 SNF: [facility] PredniSONE Tablet Give 10 mg by mouth one time a day for copd for 11 Days Oral Active 01/17/2017 SNF: [facility] Ipratropium [place] Solution 0.02 % 1 vial inhale orally every 8 hours for COPD for 1 Week Inhalation Active 01/17/2017 SNF: [facility] Xopenex Nebulization Solution 0.63 MG/3ML 1 vial inhale orally every 8 hours for COPD for 1 Week Inhalation Active 01/17/2017 SNF: [facility] Anoro Ellipta Aerosol Powder Breath Activated 62.5-25 MCG/INH 1 puff inhale orally at bedtime related to CHRONIC OBSTRUCTIVE PULMONARY DISEASE WITH (ACUTE) EXACERBATION (J44.1) Inhalation Active 01/17/2017 SNF: [facility] PredniSONE Tablet 20 MG Give 1 tablet by mouth one time only for SOB/Wheezing for 1 Day Oral Active 01/16/2017 SNF: [facility] Fluticasone Propionate Suspension 2 spray in both nostrils as needed for Allergies TID PRN Nasal Active 01/16/2017 SNF: [facility] Omeprazole Capsule Delayed Release 40 MG Give 1 capsule by mouth two times a day for GERD Oral Inactive 01/16/2017 SNF: [facility] Protonix Tablet Delayed Release 40 MG Give 1 tablet by mouth two times a day for GERD Oral Active 01/16/2017 SNF: [facility] Tylenol Tablet Give 500 mg by mouth every 6 hours as needed for Pain Oral Active 01/16/2017 SNF: [facility] Ferrous Sulfate Tablet 325 (65 Fe) MG Give 1 tablet by mouth one time a day for supplement Oral Active 01/14/2017 SNF: [facility] Vitamin B12 Tablet Extended Release 1000 MCG Give 1 tablet by mouth one time a day for supplement Oral Active 01/14/2017 SNF: [facility] Multivital-M Tablet Give 1 tablet by mouth one time a day for supplement Oral Active 01/14/2017 SNF: [facility] Ergocalciferol Capsule 46420 UNIT Give 1 capsule by mouth one time a day every Fri related to MUSCLE WASTING AND ATROPHY, NOT ELSEWHERE CLASSIFIED, MULTIPLE SITES (M62.59) Oral Active 01/14/2017 SNF: [facility] Vitamin C Tablet Give 500 mg by mouth two times a day for supplement Oral Active 01/14/2017 SNF: [facility] DilTIAZem HCl Tablet 30 MG Give 1 tablet by mouth every 8 hours related to ESSENTIAL (PRIMARY) HYPERTENSION (I10) Oral Active 01/14/2017 SNF: [facility] Bactrim DS Tablet 800-160 MG Give 1 tablet by mouth every 12 hours for Resp infection for 16 Days Oral Active 01/14/2017 SNF: [facility] Tylenol with Codeine #4 Tablet 300-60 MG Give 1 tablet by mouth every 4 hours as needed for pain Oral Active 01/13/2017 SNF: [facility] Sertraline HCl Tablet 100 MG Give 1 tablet by mouth one time a day for depression Oral Active 01/13/2017 SNF: [facility] Esomeprazole Magnesium Packet 40 MG Give 40 mg by mouth two times a day for reflux Oral Active 01/13/2017 SNF: [facility] Gabapentin Capsule Give 300 mg by mouth three times a day for nerve pain Oral Active 01/13/2017 SNF: [facility] Lasix Tablet 40 MG Give 40 mg by mouth one time a day for diuretic Oral Active 01/13/2017 SNF: [facility] Folic Acid Tablet Give 1 tablet by mouth three times a day for supplement Oral Active 01/13/2017 SNF: [facility] Nystatin Suspension 367228 UNIT/ML Give 5 ml by mouth four times a day for mouth pain for 3 Days swish and swallow Oral Active 01/13/2017 SNF: [facility] PrednisoLONE Tablet Give 40 mg by mouth one time a day for copd for 3 Days Take with BF Oral Active 01/13/2017 SNF: [facility] Carafate Tablet 1 GM Give 1 tablet by mouth before meals and at bedtime for stomach pain Oral Active 01/13/2017 SNF: [facility] Tylenol Tablet Give 500 mg by mouth every 6 hours for PRN Oral Active 01/13/2017 SNF: [facility] Ambien Tablet 5 MG Give 1 tablet by mouth every 24 hours as needed for insomnia Oral Active 01/13/2017 SNF: [facility] Benadryl Tablet Give 25 mg by mouth every 6 hours as needed for allergy Oral Active 01/13/2017 SNF: [facility] Ipratropium [place] Solution 0.02 % 1 application inhale orally via nebulizer every 6 hours as needed for SOB Inhalation Active 01/13/2017 SNF: [facility] HYDROmorphone HCl Tablet 2 MG Give 1 tablet by mouth every 4 hours as needed for Pain Oral Active 01/13/2017 SNF: [facility] Hydrocodone-Acetaminophen Tablet 10-325 MG Give 1 tablet by mouth every 4 hours as needed for Pain Oral Active 01/13/2017 SNF: [facility] Xopenex Nebulization Solution 0.63 MG/3ML 1 application inhale orally via nebulizer every 6 hours as needed for brochospasm Inhalation Active 01/13/2017 SNF: [facility] Acetaminophen Tablet Give 500 mg by mouth every 6 hours as needed for pain Oral Active 01/13/2017 SNF: [facility] Tylenol Tablet Give 500 mg by mouth every 6 hours as needed for pain Oral Active 01/13/2017 SNF: [facility] LORazepam Tablet 0.5 MG Give 1 tablet by mouth every 8 hours as needed for Anxiety Oral Active 01/13/2017 SNF: [facility] Multivitamin Adult Tablet Give 1 tablet by mouth one time a day related to TYPE 2 DIABETES MELLITUS WITHOUT COMPLICATIONS (E11.9);ESSENTIAL (PRIMARY) HYPERTENSION (I10);GASTRO-ESOPHAGEAL REFLUX DISEASE WITHOUT ESOPHAGITIS (K21.9) Oral Active 01/04/2017 SNF: [facility] Oscal 500/200 D-3 Tablet 500-200 MG-UNIT Give 1 tablet by mouth two times a day related to TYPE 2 DIABETES MELLITUS WITHOUT COMPLICATIONS (E11.9);ESSENTIAL (PRIMARY) HYPERTENSION (I10);GASTRO-ESOPHAGEAL REFLUX DISEASE WITHOUT ESOPHAGITIS (K21.9) Oral Active 01/04/2017 SNF: [facility] Heparin Sodium (Porcine) Solution 5000 UNIT/ML Inject 5000 unit subcutaneously every 12 hours for for DVT prophylaxis related to CHRONIC OBSTRUCTIVE PULMONARY DISEASE WITH (ACUTE) EXACERBATION (J44.1);TYPE 2 DIABETES MELLITUS WITHOUT COMPLICATIONS (E11.9);ESSENTIAL (PRIMARY) HYPERTENSION (I10) Injection Active 01/04/2017 SNF: [facility] Ipratropium-Albuterol Solution 0.5-2.5 (3) MG/3ML 3 ml inhale orally every 6 hours as needed for SOB or Wheezing via nebulizer AND 3 ml inhale orally every 6 hours for Sob wheezing Inhalation Active 01/04/2017 SNF: [facility] Percocet Tablet 5-325 MG Give 1 tablet by mouth every 6 hours as needed for pain Oral Active 01/03/2017 SNF: [facility] Protonix Tablet Delayed Release 40 MG Give 1 tablet by mouth one time a day related to GASTRO-ESOPHAGEAL REFLUX DISEASE WITHOUT ESOPHAGITIS (K21.9) Oral Active 01/02/2017 SNF: [facility] Carafate Tablet 1 GM Give 1 tablet by mouth before meals and at bedtime related to ESOPHAGEAL REFLUX (530.81) Oral Active 01/02/2017 SNF: [facility] Acetaminophen-Codeine Tablet 300-30 MG Give 1 tablet by mouth every 6 hours as needed for Mild / Moderate Pain Oral Active 01/02/2017 SNF: [facility] Lisinopril Tablet 10 MG Give 1 tablet by mouth one time a day related to UNSPECIFIED ESSENTIAL HYPERTENSION (401.9) Hold for SBP <110 DBP <55 HR <60 Oral Active 01/02/2017 SNF: [facility] Ambien Tablet 10 MG Give 1 tablet by mouth at bedtime related to INSOMNIA UNSPECIFIED (780.52) Oral Active 01/02/2017 SNF: [facility] Ipratropium-Albuterol Solution 0.5-2.5 (3) MG/3ML 3 ml inhale orally every 6 hours as needed for SOB or Wheezing via nebulizer Inhalation Active 01/02/2017 SNF: [facility] Sertraline HCl Tablet 100 MG Give 100 mg by mouth one time a day related to DEPRESSIVE DISORDER NOT ELSEWHERE CLASSIFIED (311) Oral Active 01/01/2017 SNF: [facility] Cyanocobalamin Tablet 1000 MCG Give 1 tablet by mouth one time a day for Supplement Oral Active 01/01/2017 SNF: [facility] NexIUM Capsule Delayed Release 40 MG Give 1 capsule by mouth one time a day for Acid Reflux Oral Inactive 01/01/2017 SNF: [facility] Fluticasone Propionate Suspension 50 MCG/ACT 2 spray in each nostril one time a day for Allergy Nasal Active 01/01/2017 SNF: [facility] Ergocalciferol Capsule 82275 UNIT Give 1 capsule by mouth one time a day every 7 day(s) for Supplement Give 1 cap PO Q 7 days Oral Active 01/01/2017 SNF: [facility] LevoFLOXacin Tablet 500 MG Give 1 tablet by mouth one time a day for Infection Oral Active 01/01/2017 SNF: [facility] Gabapentin Capsule 300 MG Give 1 capsule by mouth three times a day for Neuropathy Oral Active 01/01/2017 SNF: [facility] GlipiZIDE Tablet Give 2.5 mg by mouth two times a day related to DIAB W/O COMP TYPE II/UNS NOT STATED UNCNTRL (250.00) Oral Active 01/01/2017 SNF: [facility] Folic Acid Tablet 1 MG Give 1 tablet by mouth three times a day related to UNSPECIFIED ANEMIA (285.9) Oral Active 01/01/2017 SNF: [facility] AmLODIPine Besylate Tablet 5 MG Give 1 tablet by mouth one time a day related to UNSPECIFIED ESSENTIAL HYPERTENSION (401.9) Hold for SBP <110 DBP <55 HR <60 Oral Active 01/01/2017 SNF: [facility] Carafate Suspension 1 GM/10ML Give 1 gram by mouth before meals and at bedtime related to ESOPHAGEAL REFLUX (530.81) Oral Inactive 01/01/2017 SNF: [facility] Gabapentin Capsule 100 MG Give 100 mg by mouth one time a day for Neuropathy AND Give 200 mg by mouth at bedtime for Neuropathy Oral Inactive 01/01/2017 SNF: [facility] Ipratropium-Albuterol Aerosol 18-103 MCG/ACT 1 puff inhale orally every 6 hours as needed for SOB Inhalation Inactive 01/01/2017 SNF: [facility] Acetaminophen Tablet 500 MG Give 1 tablet by mouth every 6 hours as needed for Pain and Fever Oral Active 01/01/2017 SNF: [facility] Diphenhist Tablet 25 MG Give 1 tablet by mouth every 8 hours as needed for Allergy Oral Active 01/01/2017 SNF: [facility] Combivent Aerosol 18-103 MCG/ACT 2 puff inhale orally every 6 hours as needed for SOB Inhalation Inactive 01/01/2017 SNF: [facility] Acetaminophen Tablet 325 MG Give 650 mg by mouth every 4 hours as needed for Fever/Pain (Mild) Oral Active 01/01/2017 SNF: [facility] LORazepam Tablet 1 MG Give 1 tablet by mouth every 6 hours as needed for Anxiety Oral Active 01/01/2017 SNF: [facility] [place] Tablet 7.5-325 MG Give 1 tablet by mouth every 6 hours as needed for Pain Do not exceed 4000mg of APAP in 24 hours Oral Active 01/01/2017 SNF: [facility] Dilaudid 1 tablet as needed Orally Active 4 MG Orally every 4 hrs [facility] 12/27/2016 [facility] Percocet 1 tablet as needed Orally Active 10-325 MG Orally every 6 hrs [facility] 12/27/2016 [facility] Gabapentin 1 tablet Orally Active 600 MG Orally Two times a day [facility] 12/15/2016 [facility] Meloxicam 1 tablet Orally Active 15 MG Orally Once a day [facility] 12/15/2016 [facility] Cyclobenzaprine Hcl 10 Mg Tablet, 10 Mg Oral Daily Active 04/12/2016 [facility] Esomeprazole Magnesium (Nexium) 40 Mg Capsule.dr, 40 Mg Oral Twice A Day Active 04/12/2016 [facility] Gabapentin (Neurontin) 100 Mg Capsule, 100 Mg Oral Active 04/12/2016 [facility] Lubiprostone (Amitiza) 24 Mcg Capsule, 24 Mcg Oral Twice A Day Active 04/12/2016 [facility] Orencia Inf , Monthly Active 04/12/2016 [facility] Vitamin D 50,000 Units , 22661 U Oral Daily Active 04/12/2016 [facility] Zolpidem Tartrate 10 Mg Tablet, 10 Mg Oral Bedtime Active 04/12/2016 [facility] Azithromycin (Z-Gabriele) 250 Mg Tablet, 250 Mg Oral Daily Active 11/24/2014 [facility] Methotrexate Sodium (Methotrexate) 2.5 Mg Tablet, 2.5 Mg Oral 5/Wkly Active 11/24/2014 [facility] Prednisone 20 Mg Tab, 10 Mg Oral Daily Active [facility] 11/24/2014 [facility] Roflumilast (Daliresp) 500 Mcg Tablet, 500 Mcg Daily Active 11/24/2014 [facility] Alendronate Sodium (Fosamax) 70 Mg Tablet, 70 Mg Wkly Active 08/08/2013 [facility] Albuterol/Ipratropium (Combivent) 14.7 Gm Aero, Active 08/11/2012 [facility] Cyanocobalamin 1,000 Mcg Tablet, 1000 Mcg Intramusc Active 08/11/2012 [facility] Ergocalciferol (Vitamin D) 50,000 Unit Capsule, 86072 U Oral Daily Active 08/11/2012 [facility] Folic Acid 1 Mg Tablet, 1 Mg Oral Twice A Day Active 08/11/2012 [facility] Lactobacillus Rhamnosus Gg (Probiotic) 1 Each Capsule, Active 08/11/2012 [facility] Lubiprostone (Amitiza) 8 Mcg Capsule, 24 Mcg Oral Twice A Day Active 08/11/2012 [facility] Methotrexate , Active 08/11/2012 [facility] Ramipril 2.5 Mg Capsule, 2.5 Mg Oral Daily Active 08/11/2012 [facility] Sucralfate , 2 Gm Oral Twice A Day Active 08/11/2012 [facility] Zolpidem Tartrate (Ambien Cr) 6.25 Mg Tab.mphase, 6.25 Mg Oral Bedtime Active 08/11/2012 [facility] Zyrtec , 1 Tab Oral Daily Active 08/11/2012 [facility] Combivent not defined NA Active [facility] Amlodipine Besylate 1 tablet Orally Active 5 MG Orally Once a day [facility] Robaxin-750 1 tablet Orally Active 750 MG Orally PRN [facility] Methotrexate 5 tablet Orally Active 2.5mg Orally Once a week [facility] Gabapentin as directed Orally Active 100 MG Orally [facility] [place] 1 tablet as needed Orally Active 10-325 MG Orally every 6 hrs [facility] PredniSONE 1 tablet Orally Active 10 MG Orally TID [facility] Macrobid 1 capsule with food Orally Active 100 MG Orally every 12 hrs [facility] Zolpidem Tartrate 1 tablet at bedtime as needed Orally Active 10 MG Orally Once a day [facility] Lisinopril 1 tablet Orally Active 10 MG Orally Once a day [facility] Lorazepam 1 tablet at bedtime as needed Orally Active 1 MG Orally Once a day [facility] Ranitidine HCl 1 tablet at bedtime Orally Active 300 MG Orally Once a day [facility] Esomeprazole Magnesium 1 capsule Orally Active 40 MG Orally Once a day [facility] Sertraline HCl 1 tablet Orally Active 100 MG Orally Once a day [facility] Folic Acid 1 tablet Orally Active 1 MG Orally Once a day [facility] movantik one tab oral Active 25mg oral daily [facility] Dilaudid 1 tablet as needed Orally Active 4 MG Orally every 4 hrs [facility] Acetaminophen/Hydrocodone Bitart ([place] 10MG-325MG*) 1 Ea Tab Every 6 Hours as needed for Pain Active [facility] Aspirin (Aspir 81) 81 Mg Tablet. Daily Active [facility] Calcium Carbonate/Vitamin D3 (Calcium 500+D Tablet Chew) 1 Each Tab.chew Daily Active [facility] Diltiazem Hcl (Diltiazem Er) 60 Mg Cap.er.12h Daily Active [facility] Esomeprazole Magnesium (Nexium) 40 Mg Capsule. Twice A Day Active PROTONIX THERAPEUTIC SUBSTITUTE FOR NEXIUM PER [facility] Ferrous Sulfate 325 Mg Tablet Daily Active [facility] Folic Acid Three Times A Day Active [facility] Furosemide 40 Mg Tablet Daily Active [facility] Gabapentin 300 Mg Capsule Twice A Day Active [facility] Glipizide (Glucotrol Xl*) 2.5 Mg Tab.er.24 Daily Active [facility] Levalbuterol Hcl 0.63 Mg/3 Ml Vial.neb As Needed Active [facility] Lisinopril 10 Mg Tablet Twice A Day Active [facility] Meloxicam 7.5 Mg Tablet Daily Active [facility] Methotrexate Sodium (Methotrexate) 2.5 Mg Tablet .qweekly Active [facility] Prednisone 10 Mg Tab Daily Active [facility] Sertraline Hcl 100 Mg Tablet Daily Active [facility] Vit D2 Every 6 Days Active [facility] Allergies, Adverse Reactions, Alerts Substance Category Reaction Severity Reaction type Status Date Reported Comments Source Cymbalta 11/23/2013 SNF: [facility] Penicillin RASH Unknown Allergy to Substance Active 10/12/2016 [facility] Lyrica Adverse Reaction edema Adverse Reaction Active 12/15/2016 [facility] penicillin Adverse Reaction hypotension Adverse Reaction Active 12/15/2016 [facility] Albuterol RAPID HEART BEAT Intermediate Allergy to Substance Active 01/13/2018 [facility] Immunizations Immunization Date Given Site Status Last Updated Comments Source tuberculin skin test; purified protein derivative solution, intradermal 03/23/2018 completed SNF: [facility] Influenza 08/14/2014 Not Given SNF: [facility] Pneumovax Dose 1 08/14/2014 Not Given SNF: [facility] Results Order Name Results Value Reference Range Date Interpretation Comments Source Blood leukocytes automated count (number/volume) 14.87 4.8 - 10.8 06/19/2018 [facility] Blood erythrocytes automated count (number/volume) 3.89 3.6 - 5.1 06/19/2018 [facility] Blood hemoglobin measurement (moles/volume) 11.8 12.0 - 16.0 06/19/2018 [facility] Automated blood hematocrit (volume fraction) 37.8 34.2 - 44.1 06/19/2018 [facility] Automated erythrocyte mean corpuscular volume 97.2 81 - 99 06/19/2018 [facility] Automated erythrocyte mean corpuscular hemoglobin (mass per erythrocyte) 30.3 28 - 32 06/19/2018 [facility] Automated erythrocyte mean corpuscular hemoglobin concentration measurement (mass/volume) 31.2 31 - 35 06/19/2018 [facility] RDW BldCo-Rto 17.7 11.7 - 14.4 06/19/2018 [facility] Automated blood platelet count (count/volume) 290 140 - 360 06/19/2018 [facility] Automated blood segmented neutrophil count as percentage of total leukocytes 34.4 38.7 - 80.0 06/19/2018 [facility] Automated blood lymphocyte count as percentage ot total leukocytes 51.6 18.0 - 39.1 06/19/2018 [facility] Automated blood monocyte count as percentage of total leukocytes 10.5 4.4 - 11.3 06/19/2018 [facility] Automated blood eosinophil count as percentage of total leukocytes 2.5 0.0 - 6.0 06/19/2018 [facility] Automated blood basophil count as percentage of total leukocytes 0.3 0.0 - 1.0 06/19/2018 [facility] IM GRANULOCYTES % 0.7 0.0 - 1.0 06/19/2018 [facility] Automated blood neutrophil count 5.1 2.1 - 6.9 06/19/2018 [facility] Blood lymphocytes count (number/volume) 7.7 1.0 - 3.2 06/19/2018 [facility] Blood monocytes automated count (number/volume) 1.6 0.2 - 0.8 06/19/2018 [facility] Automated blood eosinophil count 0.4 0.0 - 0.4 06/19/2018 [facility] Automated blood basophil count (count/volume) 0.0 0.0 - 0.1 06/19/2018 [facility] Absolute Immature Granulocyte (auto 0.10 0 - 0.1 06/19/2018 [facility] Serum or plasma sodium measurement (moles/volume) 142 136 - 145 06/19/2018 [facility] Serum or plasma potassium measurement (moles/volume) 4.7 3.5 - 5.1 06/19/2018 [facility] Serum or plasma chloride measurement (moles/volume) 97 98 - 107 06/19/2018 [facility] Serum or plasma carbon dioxide, total measurement (moles/volume) 39 22 - 29 06/19/2018 [facility] Serum or plasma anion gap 10.7 8 - 16 06/19/2018 [facility] Serum or plasma urea nitrogen measurement (mass/volume) 24 7 - 26 06/19/2018 [facility] Serum or plasma creatinine measurement (mass/volume) 0.72 0.57 - 1.11 06/19/2018 [facility] Serum or plasma urea nitrogen/creatinine mass ratio 33 6 - 25 06/19/2018 [facility] Estimated glomerular filtration rate (GFR) determination > 60 60 06/19/2018 [facility] Glucose measurement 97 74 - 118 06/19/2018 [facility] Serum or plasma calcium measurement (mass/volume) 8.4 8.4 - 10.2 06/19/2018 [facility] Capillary blood glucose measurement by glucometer (mass/volume) 136 70 - 120 06/16/2018 [facility] Serum or plasma creatine kinase measurement (enzymatic activity/volume) 48 29 - 168 06/14/2018 [facility] Serum or plasma creatine kinase MB measurement (mass/volume) 2.70 0 - 5.0 06/14/2018 [facility] Troponin I measurement by highly sensitive enzyme immunoassay < 0.001 0 - 0.300 06/14/2018 [facility] Arterial blood pH measurement 7.31 7.31 - 7.41 06/14/2018 [facility] pCO2 BldA 60 41 - 51 06/14/2018 [facility] pCO2 BldA 189 80 - 105 06/14/2018 [facility] Arterial blood bicarbonate measurement (moles/volume) 30 23 - 28 06/14/2018 [facility] Arterial blood base excess by calculation 4.0 -2 - 3 - 2 06/14/2018 [facility] Arterial blood oxygen saturation measurement 100.0 95 - 98 06/14/2018 [facility] FiO2 40 06/14/2018 [facility] Urine color determination YELLOW YELLOW 06/13/2018 [facility] Urine clarity CLEAR CLEAR 06/13/2018 [facility] Specific gravity of Urine by Test strip 1.025 1.010 - 1.025 06/13/2018 [facility] Urine pH measurement by automated test strip 6 5 - 7 06/13/2018 [facility] Urine leukocyte esterase detection by dipstick NEGATIVE NEGATIVE 06/13/2018 [facility] Urine nitrite detection NEGATIVE NEGATIVE 06/13/2018 [facility] Urine protein measurement by test strip (mass/volume) 1+ NEGATIVE 06/13/2018 [facility] Urine glucose detection NEGATIVE NEGATIVE 06/13/2018 [facility] Urine ketones detection by automated test strip 1+ NEGATIVE 06/13/2018 [facility] Urine urobilinogen measurement by test strip (mass/volume) 0.2 0.2 - 1 06/13/2018 [facility] Urine total bilirubin measurement (mass/volume) NEGATIVE NEGATIVE 06/13/2018 [facility] Urine erythrocytes detection 2+ NEGATIVE 06/13/2018 [facility] Automated urine sediment leukocyte count by microscopy (number/high power field) 0-5 0 - 5 06/13/2018 [facility] Erythrocytes detection in urine sediment by light microscopy 0-5 0 - 5 06/13/2018 [facility] Bacteria detection in urine sediment by light microscopy FEW NONE 06/13/2018 [facility] Epithelial cells detection in urine sediment by light microscopy FEW NONE 06/13/2018 [facility] Prothrombin time (PT) in platelet poor plasma by coagulation assay 13.1 11.9 - 14.5 06/13/2018 [facility] INR in Platelet poor plasma by Coagulation assay 0.91 06/13/2018 [facility] Activated partial thromboplastin time (aPTT) in platelet poor plasma bycoagulation assay 30.5 23.8 - 35.5 06/13/2018 [facility] Lactic Acid Level 11.4 4.5 - 19.8 06/13/2018 [facility] Serum or plasma magnesium measurement (mass/volume) 2.2 1.3 - 2.1 06/13/2018 [facility] Serum or plasma total bilirubin measurement (mass/volume) 0.3 0.2 - 1.2 06/13/2018 [facility] Aspartate Amino Transf (AST/SGOT) 16 5 - 34 06/13/2018 [facility] Serum or plasma alanine aminotransferase measurement (enzymatic activity/volume) 20 0 - 55 06/13/2018 [facility] Serum or plasma protein measurement (mass/volume) 7.1 6.5 - 8.1 06/13/2018 [facility] Serum or plasma albumin measurement (mass/volume) 3.0 3.5 - 5.0 06/13/2018 [facility] Plasma globulin measurement (mass/volume) 4.1 2.3 - 3.5 06/13/2018 [facility] Serum or plasma albumin/globulin mass ratio 0.7 0.8 - 2.0 06/13/2018 [facility] Serum or plasma alkaline phosphatase measurement (enzymatic activity/volume) 88 40 - 150 06/13/2018 [facility] BNP Bld-mCnc 149.5 0 - 100 06/13/2018 [facility] Blood culture NO GROWTH AFTER 5 DAYS, FINAL REPORT 06/13/2018 [facility] Influenza virus A and B antigen identification by immunofluorescence NEGATIVE NEGATIVE 06/13/2018 [facility] Blood sugar Blood sugar 103 mmol/L 04/25/2018 SNF: [facility] Blood sugar Blood sugar 112 mmol/L 04/25/2018 SNF: [facility] Blood sugar Blood sugar 134 mmol/L 04/24/2018 SNF: [facility] Blood sugar Blood sugar 124 mmol/L 04/23/2018 SNF: [facility] Blood sugar Blood sugar 90 mmol/L 04/23/2018 SNF: [facility] Blood sugar Blood sugar 101 mmol/L 04/23/2018 SNF: [facility] Blood sugar Blood sugar 94 mmol/L 04/22/2018 SNF: [facility] Blood sugar Blood sugar 108 mmol/L 04/21/2018 SNF: [facility] Blood sugar Blood sugar 98 mmol/L 04/21/2018 SNF: [facility] Blood sugar Blood sugar 93 mmol/L 04/20/2018 SNF: [facility] Blood sugar Blood sugar 100 mmol/L 04/20/2018 SNF: [facility] Blood sugar Blood sugar 91 mmol/L 04/19/2018 SNF: [facility] Blood sugar Blood sugar 108 mmol/L 04/19/2018 SNF: [facility] Blood sugar Blood sugar 89 mmol/L 04/19/2018 SNF: [facility] Blood sugar Blood sugar 118 mmol/L 04/18/2018 SNF: [facility] Blood sugar Blood sugar 109 mmol/L 04/17/2018 SNF: [facility] Blood sugar Blood sugar 122 mmol/L 04/17/2018 SNF: [facility] Blood sugar Blood sugar 122 mmol/L 04/16/2018 SNF: [facility] Blood sugar Blood sugar 101 mmol/L 04/16/2018 SNF: [facility] RESULTS RESULTS 94 mmol/L 02/11/2017 SNF: [facility] RESULTS RESULTS 114 mmol/L 02/11/2017 SNF: [facility] RESULTS RESULTS 89 mmol/L 02/10/2017 SNF: [facility] RESULTS RESULTS 134 mmol/L 02/10/2017 SNF: [facility] RESULTS RESULTS 92 mmol/L 02/09/2017 SNF: [facility] RESULTS RESULTS 157 mmol/L 02/09/2017 SNF: [facility] RESULTS RESULTS 128 mmol/L 02/08/2017 [facility]: [facility] [place] [facility] RESULTS RESULTS 125 mmol/L 02/08/2017 SNF: [facility] RESULTS RESULTS 97 mmol/L 02/07/2017 SNF: [facility] RESULTS RESULTS 129 mmol/L 02/07/2017 SNF: [facility] RESULTS RESULTS 104 mmol/L 02/06/2017 SNF: [facility] RESULTS RESULTS 145 mmol/L 02/06/2017 SNF: [facility] RESULTS RESULTS 92 mmol/L 02/05/2017 SNF: [facility] RESULTS RESULTS 124 mmol/L 02/05/2017 SNF: [facility] RESULTS RESULTS 99 mmol/L 02/04/2017 SNF: [facility] RESULTS RESULTS 121 mmol/L 02/04/2017 SNF: [facility] RESULTS RESULTS 90 mmol/L 02/03/2017 SNF: [facility] RESULTS RESULTS 131 mmol/L 02/03/2017 SNF: [facility] RESULTS RESULTS 89 mmol/L 02/02/2017 SNF: [facility] RESULTS RESULTS 114 mmol/L 02/02/2017 SNF: [facility] RESULTS RESULTS 100 mmol/L 02/01/2017 SNF: [facility] RESULTS RESULTS 152 mmol/L 02/01/2017 SNF: [facility] RESULTS RESULTS 92 mmol/L 01/31/2017 SNF: [facility] RESULTS RESULTS 134 mmol/L 01/31/2017 SNF: [facility] RESULTS RESULTS 84 mmol/L 01/30/2017 SNF: [facility] RESULTS RESULTS 101 mmol/L 01/30/2017 SNF: [facility] RESULTS RESULTS 87 mmol/L 01/29/2017 SNF: [facility] RESULTS RESULTS 96 mmol/L 01/29/2017 SNF: [facility] RESULTS RESULTS 94 mmol/L 01/28/2017 SNF: [facility] RESULTS RESULTS 124 mmol/L 01/28/2017 SNF: [facility] RESULTS RESULTS 90 mmol/L 01/27/2017 SNF: [facility] RESULTS RESULTS 158 mmol/L 01/27/2017 SNF: [facility] RESULTS RESULTS 80 mmol/L 01/26/2017 SNF: [facility] RESULTS RESULTS 111 mmol/L 01/26/2017 SNF: [facility] RESULTS RESULTS 107 mmol/L 01/25/2017 SNF: [facility] RESULTS RESULTS 103 mmol/L 01/25/2017 SNF: [facility] RESULTS RESULTS 93 mmol/L 01/24/2017 SNF: [facility] RESULTS RESULTS 99 mmol/L 01/24/2017 SNF: [facility] RESULTS RESULTS 82 mmol/L 01/23/2017 SNF: [facility] RESULTS RESULTS 140 mmol/L 01/23/2017 SNF: [facility] RESULTS RESULTS 123 mmol/L 01/22/2017 SNF: [facility] RESULTS RESULTS 131 mmol/L 01/22/2017 SNF: [facility] RESULTS RESULTS 92 mmol/L 01/21/2017 SNF: [facility] RESULTS RESULTS 108 mmol/L 01/21/2017 SNF: [facility] RESULTS RESULTS 92 mmol/L 01/20/2017 SNF: [facility] RESULTS RESULTS 96 mmol/L 01/20/2017 SNF: [facility] RESULTS RESULTS 120 mmol/L 01/19/2017 [facility] [facility] RESULTS RESULTS 123 mmol/L 01/19/2017 SN[facility]: [facility] RESULTS RESULTS 99 mmol/L 01/18/2017 SNF: [facility] RESULTS RESULTS 137 mmol/L 01/18/2017 SNF: [facility] RESULTS RESULTS 150 mmol/L 01/17/2017 SNF: [facility] RESULTS RESULTS 144 mmol/L 01/17/2017 SNF: [facility] RESULTS RESULTS 80 mmol/L 01/16/2017 SNF: [facility] RESULTS RESULTS 103 mmol/L 01/16/2017 SNF: [facility] RESULTS RESULTS 109 mmol/L 01/15/2017 SNF: [facility] RESULTS RESULTS 127 mmol/L 01/15/2017 SNF: [facility] RESULTS RESULTS 109 mmol/L 01/14/2017 SNF: [facility] RESULTS RESULTS 123 mmol/L 01/04/2017 SNF: [facility] RESULTS RESULTS 224 mmol/L 01/03/2017 SNF: [facility] RESULTS RESULTS 79 mmol/L 01/02/2017 SNF: [facility] [place] [facility] RESULTS RESULTS 71 mmol/L 01/01/2017 SNF: [facility] Vital Signs Vital Sign Value Date Comments Source Temperature Oral (F) 97.9 F 04/25/2018 SNF: [facility] Respitory Rate 18 04/25/2018 SNF: [facility] Systolic (mm Hg) 139 04/25/2018 SNF: [facility] Diastolic (mm Hg) 81 04/25/2018 SNF: [facility] Heart Rate 84 {beats}/min 04/25/2018 SNF: [facility] Heart Rate 80 {beats}/min 04/25/2018 SNF: [facility] Respitory Rate 18 04/25/2018 SNF: [facility] Temperature Oral (F) 97.9 F 04/25/2018 SNF: [facility] Systolic (mm Hg) 150 04/25/2018 SNF: [facility] Diastolic (mm Hg) 86 04/25/2018 SNF: [facility] Systolic (mm Hg) 150 04/24/2018 SNF: [facility] Diastolic (mm Hg) 86 04/24/2018 SN[facility]: [facility] Heart Rate 80 {beats}/min 04/24/2018 SN[facility]: [facility] Systolic (mm Hg) 155 04/24/2018 SN[facility]: [facility] Diastolic (mm Hg) 89 04/24/2018 SN[facility]: [facility] Heart Rate 82 {beats}/min 04/24/2018 SNF: [facility] Respitory Rate 18 04/24/2018 SN[facility]: [facility] Systolic (mm Hg) 148 04/24/2018 SN[facility]: [facility] Diastolic (mm Hg) 81 04/24/2018 SN[facility]: [facility] Temperature Oral (F) 97.9 F 04/24/2018 SNF: [facility] Heart Rate 79 {beats}/min 04/24/2018 SN[facility]: [facility] Systolic (mm Hg) 136 04/23/2018 SN[facility]: [facility] Diastolic (mm Hg) 76 04/23/2018 SN[facility]: [facility] Heart Rate 86 {beats}/min 04/23/2018 SN[facility]: [facility] Systolic (mm Hg) 143 04/23/2018 SN[facility]: [facility] Diastolic (mm Hg) 82 04/23/2018 SN[facility]: [facility] Temperature Oral (F) 97.6 F 04/23/2018 SN[facility]: [facility] Heart Rate 69 {beats}/min 04/23/2018 SN[facility]: [facility] Temperature Oral (F) 97.7 F 04/23/2018 SN[facility]: [facility] Systolic (mm Hg) 124 04/23/2018 SN[facility]: [facility] Diastolic (mm Hg) 74 04/23/2018 SN[facility]: [facility] Heart Rate 80 {beats}/min 04/23/2018 SN[facility]: [facility] Systolic (mm Hg) 150 04/22/2018 SN[facility]: [facility] Diastolic (mm Hg) 91 04/22/2018 SN[facility]: [facility] Heart Rate 88 {beats}/min 04/22/2018 SN[facility]: [facility] Systolic (mm Hg) 140 04/22/2018 SN[facility]: [facility] Diastolic (mm Hg) 89 04/22/2018 SN[facility]: [facility] Temperature Oral (F) 97.6 F 04/22/2018 SN[facility]: [facility] Heart Rate 85 {beats}/min 04/22/2018 SN[facility]: [facility] Respitory Rate 18 04/22/2018 SN[facility]: [facility] Systolic (mm Hg) 151 04/22/2018 SN[facility]: [facility] Diastolic (mm Hg) 85 04/22/2018 [facility]: [facility] Temperature Oral (F) 100.3 F 04/22/2018 SN[facility]: [facility] Heart Rate 85 {beats}/min 04/22/2018 SN[facility]: [facility] Systolic (mm Hg) 140 04/22/2018 SN[facility]: [facility] Diastolic (mm Hg) 70 04/22/2018 SN[facility] Heart Rate 81 {beats}/min 04/22/2018 SN[facility]: [facility] Heart Rate 65 {beats}/min 04/21/2018 SN[facility]: [facility] Respitory Rate 16 04/21/2018 SN[facility]: [facility] Temperature Oral (F) 97.9 F 04/21/2018 SN[facility]: [facility] Systolic (mm Hg) 130 04/21/2018 SN[facility]: [facility] Diastolic (mm Hg) 71 04/21/2018 SN[facility]: [facility] Systolic (mm Hg) 118 04/21/2018 SN[facility]: [facility] Diastolic (mm Hg) 76 04/21/2018 SN[facility]: [facility] Heart Rate 67 {beats}/min 04/21/2018 SN[facility]: [facility] Heart Rate 70 {beats}/min 04/21/2018 SN[facility]: [facility] Respitory Rate 16 04/21/2018 SN[facility]: [facility] Systolic (mm Hg) 159 04/21/2018 SN[facility]: [facility] Diastolic (mm Hg) 86 04/21/2018 SN[facility]: [facility] Respitory Rate 18 04/21/2018 SN[facility]: [facility] Systolic (mm Hg) 148 04/21/2018 SN[facility]: [facility] Diastolic (mm Hg) 86 04/21/2018 [facility]: [facility] Temperature Oral (F) 97.8 F 04/21/2018 SN[facility]: [facility] Heart Rate 70 {beats}/min 04/21/2018 SN[facility]: [facility] Systolic (mm Hg) 139 04/21/2018 SN[facility]: [facility] Diastolic (mm Hg) 81 04/21/2018 SN[facility] Heart Rate 74 {beats}/min 04/21/2018 SN[facility]: [facility] Respitory Rate 19 04/20/2018 SN[facility]: [facility] Systolic (mm Hg) 138 04/20/2018 SN[facility]: [facility] Diastolic (mm Hg) 56 04/20/2018 SN[facility]: [facility] Temperature Oral (F) 97.6 F 04/20/2018 SN[facility]: [facility] Heart Rate 79 {beats}/min 04/20/2018 SN[facility]: [facility] Systolic (mm Hg) 138 04/20/2018 SN[facility]: [facility] Diastolic (mm Hg) 73 04/20/2018 SN[facility] Heart Rate 74 {beats}/min 04/20/2018 SN[facility] Heart Rate 74 {beats}/min 04/20/2018 [facility]: [facility] Temperature Oral (F) 99 F 04/20/2018 SN[facility]: [facility] Systolic (mm Hg) 192 04/20/2018 [facility] Diastolic (mm Hg) 95 04/20/2018 SN[facility] Systolic (mm Hg) 152 04/20/2018 SN[facility] Diastolic (mm Hg) 85 04/20/2018 SN[facility] Heart Rate 85 {beats}/min 04/20/2018 SN[facility] Respitory Rate 17 04/19/2018 SN[facility] Systolic (mm Hg) 124 04/19/2018 SN[facility]: [facility] Diastolic (mm Hg) 79 04/19/2018 [facility] Temperature Oral (F) 97.8 F 04/19/2018 SN[facility]: [facility] Heart Rate 71 {beats}/min 04/19/2018 SN[facility]: [facility] Systolic (mm Hg) 132 04/19/2018 SN[facility] Diastolic (mm Hg) 79 04/19/2018 SN[facility] Heart Rate 82 {beats}/min 04/19/2018 [facility]: [facility] Weight 177.8 04/19/2018 SNF: [facility] Systolic (mm Hg) 157 04/19/2018 SN[facility] Diastolic (mm Hg) 83 04/19/2018 SN[facility] Heart Rate 74 {beats}/min 04/19/2018 SN[facility]: [facility] Respitory Rate 18 04/19/2018 SN[facility]: [facility] Systolic (mm Hg) 135 04/19/2018 SN[facility]: [facility] Diastolic (mm Hg) 80 04/19/2018 SN[facility]: [facility] Temperature Oral (F) 98.6 F 04/19/2018 SN[facility]: [facility] Heart Rate 73 {beats}/min 04/19/2018 SN[facility]: [facility] Systolic (mm Hg) 140 04/19/2018 SN[facility]: [facility] Diastolic (mm Hg) 80 04/19/2018 SN[facility]: [facility] Heart Rate 77 {beats}/min 04/19/2018 SN[facility]: [facility] Systolic (mm Hg) 152 04/18/2018 SN[facility]: [facility] Diastolic (mm Hg) 85 04/18/2018 SN[facility]: [facility] Heart Rate 76 {beats}/min 04/18/2018 SN[facility]: [facility] Heart Rate 78 {beats}/min 04/18/2018 SN[facility]: [facility] Respitory Rate 18 04/18/2018 [facility]: [facility] Temperature Oral (F) 99.1 F 04/18/2018 SN[facility]: [facility] Systolic (mm Hg) 148 04/18/2018 SN[facility]: [facility] Diastolic (mm Hg) 88 04/18/2018 [facility]: [facility] Temperature Oral (F) 97.9 F 04/18/2018 SN[facility]: [facility] Systolic (mm Hg) 148 04/18/2018 [facility] Diastolic (mm Hg) 80 04/18/2018 [facility] Heart Rate 79 {beats}/min 04/18/2018 SN[facility]: [facility] Respitory Rate 18 04/18/2018 SN[facility] Systolic (mm Hg) 151 04/18/2018 [facility] Diastolic (mm Hg) 76 04/18/2018 [facility] Temperature Oral (F) 98.1 F 04/18/2018 [facility]: [facility] Heart Rate 73 {beats}/min 04/18/2018 [facility]: [facility] Systolic (mm Hg) 145 04/18/2018 SN[facility] Diastolic (mm Hg) 83 04/18/2018 [facility] Heart Rate 71 {beats}/min 04/18/2018 [facility] Heart Rate 71 {beats}/min 04/17/2018 [facility] Respitory Rate 18 04/17/2018 [facility] Temperature Oral (F) 98.3 F 04/17/2018 SN[facility] Systolic (mm Hg) 135 04/17/2018 SN[facility] Diastolic (mm Hg) 67 04/17/2018 [facility] Systolic (mm Hg) 129 04/17/2018 [facility] Diastolic (mm Hg) 78 04/17/2018 [facility] Heart Rate 66 {beats}/min 04/17/2018 [facility] Respitory Rate 18 04/17/2018 SN[facility] Systolic (mm Hg) 117 04/17/2018 [facility] Diastolic (mm Hg) 72 04/17/2018 [facility] Temperature Oral (F) 97.6 F 04/17/2018 [facility] Heart Rate 73 {beats}/min 04/17/2018 [facility] Systolic (mm Hg) 138 04/17/2018 [facility] Diastolic (mm Hg) 80 04/17/2018 [facility] Heart Rate 81 {beats}/min 04/17/2018 [facility]: [facility] Systolic (mm Hg) 154 04/16/2018 [facility] Diastolic (mm Hg) 81 04/16/2018 SN[facility] Heart Rate 79 {beats}/min 04/16/2018 [facility] Heart Rate 62 {beats}/min 04/16/2018 [facility] Respitory Rate 20 04/16/2018 [facility] Temperature Oral (F) 98.1 F 04/16/2018 SN[facility]: [facility] Systolic (mm Hg) 111 04/16/2018 SN[facility]: [facility] Diastolic (mm Hg) 60 04/16/2018 SN[facility]: [facility] Respitory Rate 18 04/16/2018 SN[facility] Systolic (mm Hg) 111 04/16/2018 SN[facility]: [facility] Diastolic (mm Hg) 60 04/16/2018 [facility] Temperature Oral (F) 98 F 04/16/2018 SN[facility]: [facility] Heart Rate 62 {beats}/min 04/16/2018 SN[facility]: [facility] Systolic (mm Hg) 134 04/16/2018 SN[facility] Diastolic (mm Hg) 84 04/16/2018 [facility] Heart Rate 83 {beats}/min 04/16/2018 SN[facility]: [facility] Respitory Rate 18 04/15/2018 SN[facility] Systolic (mm Hg) 148 04/15/2018 SN[facility] Diastolic (mm Hg) 77 04/15/2018 [facility] Temperature Oral (F) 98.8 F 04/15/2018 SN[facility] Heart Rate 77 {beats}/min 04/15/2018 SN[facility]: [facility] Systolic (mm Hg) 145 04/15/2018 [facility] Diastolic (mm Hg) 83 04/15/2018 [facility] Heart Rate 99 {beats}/min 04/15/2018 [facility] Systolic (mm Hg) 148 04/15/2018 [facility] Diastolic (mm Hg) 77 04/15/2018 [facility] Heart Rate 77 {beats}/min 04/15/2018 SN[facility] Systolic (mm Hg) 156 04/15/2018 [facility] Diastolic (mm Hg) 79 04/15/2018 [facility] Heart Rate 79 {beats}/min 04/15/2018 [facility] Systolic (mm Hg) 132 04/14/2018 [facility] Diastolic (mm Hg) 73 04/14/2018 [facility] Heart Rate 75 {beats}/min 04/14/2018 [facility] Respitory Rate 18 04/14/2018 [facility] Systolic (mm Hg) 127 04/14/2018 [facility] Diastolic (mm Hg) 67 04/14/2018 [facility] Temperature Oral (F) 101 F 04/14/2018 [facility] Heart Rate 91 {beats}/min 04/14/2018 [facility] Systolic (mm Hg) 136 04/14/2018 [facility] Diastolic (mm Hg) 76 04/14/2018 [facility] Heart Rate 80 {beats}/min 04/14/2018 [facility] Heart Rate 79 {beats}/min 04/14/2018 [facility] Respitory Rate 22 04/14/2018 [facility] Temperature Oral (F) 95 F 04/14/2018 [facility] Systolic (mm Hg) 124 04/14/2018 [facility] Diastolic (mm Hg) 62 04/14/2018 [facility] Systolic (mm Hg) 128 04/13/2018 [facility] Diastolic (mm Hg) 79 04/13/2018 [facility] Heart Rate 63 {beats}/min 04/13/2018 [facility] Systolic (mm Hg) 125 04/13/2018 [facility] Diastolic (mm Hg) 71 04/13/2018 [facility] Heart Rate 71 {beats}/min 04/13/2018 [facility] Heart Rate 69 {beats}/min 04/13/2018 [facility] Respitory Rate 17 04/13/2018 [facility] Systolic (mm Hg) 140 04/13/2018 [facility] Diastolic (mm Hg) 75 04/13/2018 [facility] Respitory Rate 18 04/13/2018 [facility] Systolic (mm Hg) 140 04/13/2018 [facility] Diastolic (mm Hg) 75 04/13/2018 [facility] Temperature Oral (F) 97.9 F 04/13/2018 [facility] Heart Rate 69 {beats}/min 04/13/2018 [facility] Respitory Rate 17 04/13/2018 [facility] Systolic (mm Hg) 115 04/13/2018 [facility] Diastolic (mm Hg) 72 04/13/2018 [facility] Temperature Oral (F) 98.6 F 04/13/2018 [facility] Heart Rate 69 {beats}/min 04/13/2018 [facility] Systolic (mm Hg) 133 04/13/2018 [facility] Diastolic (mm Hg) 65 04/13/2018 [facility] Heart Rate 79 {beats}/min 04/13/2018 [facility] Heart Rate 75 {beats}/min 04/12/2018 [facility] Respitory Rate 13 04/12/2018 [facility] Temperature Oral (F) 98.2 F 04/12/2018 [facility] Systolic (mm Hg) 148 04/12/2018 [facility] Diastolic (mm Hg) 81 04/12/2018 [facility] Systolic (mm Hg) 129 04/12/2018 [facility] Diastolic (mm Hg) 77 04/12/2018 [facility] Heart Rate 73 {beats}/min 04/12/2018 [facility] Systolic (mm Hg) 145 04/12/2018 [facility] Diastolic (mm Hg) 74 04/12/2018 [facility] Heart Rate 71 {beats}/min 04/12/2018 [facility]: [facility] Respitory Rate 18 04/12/2018 [facility] Systolic (mm Hg) 123 04/12/2018 [facility] Diastolic (mm Hg) 78 04/12/2018 [facility] Temperature Oral (F) 97.8 F 04/12/2018 [facility] Heart Rate 71 {beats}/min 04/12/2018 [facility]: [facility] Systolic (mm Hg) 144 04/12/2018 [facility] Diastolic (mm Hg) 69 04/12/2018 [facility] Heart Rate 74 {beats}/min 04/12/2018 [facility] Systolic (mm Hg) 149 04/11/2018 [facility] Diastolic (mm Hg) 85 04/11/2018 [facility] Heart Rate 75 {beats}/min 04/11/2018 [facility] Systolic (mm Hg) 136 04/11/2018 [facility] Diastolic (mm Hg) 77 04/11/2018 [facility] Heart Rate 80 {beats}/min 04/11/2018 [facility] Systolic (mm Hg) 138 04/11/2018 [facility] Diastolic (mm Hg) 75 04/11/2018 [facility] Heart Rate 77 {beats}/min 04/11/2018 [facility] Respitory Rate 19 04/10/2018 [facility] Systolic (mm Hg) 129 04/10/2018 [facility] Diastolic (mm Hg) 80 04/10/2018 [facility] Temperature Oral (F) 97.4 F 04/10/2018 [facility] Heart Rate 72 {beats}/min 04/10/2018 [facility] Systolic (mm Hg) 131 04/10/2018 [facility] Diastolic (mm Hg) 73 04/10/2018 [facility] Heart Rate 79 {beats}/min 04/10/2018 [facility] Weight 177.4 04/10/2018 [facility] Systolic (mm Hg) 150 04/10/2018 [facility] Diastolic (mm Hg) 85 04/10/2018 [facility] Heart Rate 80 {beats}/min 04/10/2018 [facility] Respitory Rate 18 04/10/2018 [facility] Systolic (mm Hg) 161 04/10/2018 [facility] Diastolic (mm Hg) 73 04/10/2018 [facility] Temperature Oral (F) 97.7 F 04/10/2018 [facility] Heart Rate 76 {beats}/min 04/10/2018 [facility] Systolic (mm Hg) 150 04/09/2018 [facility] Diastolic (mm Hg) 72 04/09/2018 [facility] Heart Rate 73 {beats}/min 04/09/2018 [facility] Systolic (mm Hg) 132 04/09/2018 [facility] Diastolic (mm Hg) 77 04/09/2018 [facility] Heart Rate 81 {beats}/min 04/09/2018 [facility] Temperature Oral (F) 97.8 F 04/09/2018 [facility] Respitory Rate 18 04/09/2018 [facility] Systolic (mm Hg) 106 04/09/2018 [facility] Diastolic (mm Hg) 68 04/09/2018 [facility] Temperature Oral (F) 97.7 F 04/09/2018 [facility] Heart Rate 64 {beats}/min 04/09/2018 [facility] Systolic (mm Hg) 145 04/09/2018 [facility] Diastolic (mm Hg) 69 04/09/2018 [facility] Heart Rate 82 {beats}/min 04/09/2018 [facility] Systolic (mm Hg) 146 04/08/2018 [facility] Diastolic (mm Hg) 72 04/08/2018 [facility] Heart Rate 80 {beats}/min 04/08/2018 [facility] Heart Rate 75 {beats}/min 04/08/2018 [facility] Respitory Rate 16 04/08/2018 [facility] Systolic (mm Hg) 118 04/08/2018 [facility] Diastolic (mm Hg) 70 04/08/2018 [facility] Respitory Rate 17 04/08/2018 [facility] Systolic (mm Hg) 118 04/08/2018 [facility] Diastolic (mm Hg) 70 04/08/2018 [facility] Temperature Oral (F) 97.8 F 04/08/2018 [facility] Heart Rate 75 {beats}/min 04/08/2018 [facility] Respitory Rate 17 04/08/2018 [facility] Systolic (mm Hg) 120 04/07/2018 [facility] Diastolic (mm Hg) 74 04/07/2018 [facility] Heart Rate 70 {beats}/min 04/07/2018 [facility] Temperature Oral (F) 97.9 F 04/07/2018 [facility] Systolic (mm Hg) 115 04/07/2018 [facility] Diastolic (mm Hg) 62 04/07/2018 [facility] Heart Rate 73 {beats}/min 04/07/2018 [facility] Heart Rate 83 {beats}/min 04/07/2018 [facility] Respitory Rate 18 04/07/2018 [facility] Systolic (mm Hg) 136 04/07/2018 [facility] Diastolic (mm Hg) 74 04/07/2018 [facility] Systolic (mm Hg) 122 04/07/2018 [facility] Diastolic (mm Hg) 66 04/07/2018 [facility] Heart Rate 80 {beats}/min 04/07/2018 [facility] Systolic (mm Hg) 129 04/06/2018 SN[facility] Diastolic (mm Hg) 76 04/06/2018 SN[facility] Heart Rate 78 {beats}/min 04/06/2018 SN[facility] Respitory Rate 17 04/06/2018 SN[facility] Systolic (mm Hg) 143 04/06/2018 [facility] Diastolic (mm Hg) 68 04/06/2018 [facility] Temperature Oral (F) 98 F 04/06/2018 [facility] Heart Rate 70 {beats}/min 04/06/2018 [facility] Heart Rate 70 {beats}/min 04/06/2018 [facility] [facility] Systolic (mm Hg) 143 04/06/2018 [facility]: [facility] Diastolic (mm Hg) 68 04/06/2018 SN[facility]: [facility] Systolic (mm Hg) 135 04/06/2018 SNF: [facility] Diastolic (mm Hg) 81 04/06/2018 SN[facility]: [facility] Heart Rate 76 {beats}/min 04/06/2018 SNF: [facility] Heart Rate 76 {beats}/min 04/06/2018 SNF: [facility] Respitory Rate 16 04/06/2018 SNF: [facility] Temperature Oral (F) 98.1 F 04/06/2018 SNF: [facility] Systolic (mm Hg) 119 04/06/2018 SN[facility]: [facility] Diastolic (mm Hg) 76 04/06/2018 SN[facility]: [facility] Respitory Rate 18 04/06/2018 SNF: [facility] Temperature Oral (F) 97.2 F 04/06/2018 SN[facility]: [facility] Systolic (mm Hg) 118 04/06/2018 SN[facility]: [facility] Diastolic (mm Hg) 65 04/06/2018 SN[facility]: [facility] Heart Rate 74 {beats}/min 04/06/2018 SNF: [facility] Systolic (mm Hg) 119 04/05/2018 SN[facility]: [facility] Diastolic (mm Hg) 76 04/05/2018 SN[facility]: [facility] Heart Rate 76 {beats}/min 04/05/2018 SN[facility]: [facility] Systolic (mm Hg) 128 04/05/2018 SN[facility]: [facility] Diastolic (mm Hg) 74 04/05/2018 SN[facility]: [facility] Heart Rate 72 {beats}/min 04/05/2018 SN[facility]: [facility] Respitory Rate 18 04/05/2018 SN[facility]: [facility] Systolic (mm Hg) 128 04/05/2018 SN[facility]: [facility] Diastolic (mm Hg) 65 04/05/2018 SN[facility]: [facility] Temperature Oral (F) 97.8 F 04/05/2018 SN[facility]: [facility] Heart Rate 62 {beats}/min 04/05/2018 SN[facility]: [facility] Respitory Rate 18 04/05/2018 SN[facility]: [facility] Temperature Oral (F) 98.2 F 04/05/2018 SN[facility]: [facility] Systolic (mm Hg) 119 04/05/2018 SN[facility]: [facility] Diastolic (mm Hg) 63 04/05/2018 SN[facility]: [facility] Heart Rate 75 {beats}/min 04/05/2018 SN[facility]: [facility] Systolic (mm Hg) 119 04/04/2018 SN[facility]: [facility] Diastolic (mm Hg) 64 04/04/2018 SN[facility]: [facility] Heart Rate 72 {beats}/min 04/04/2018 SN[facility]: [facility] Respitory Rate 19 04/04/2018 SN[facility]: [facility] Systolic (mm Hg) 122 04/04/2018 SN[facility]: [facility] Diastolic (mm Hg) 61 04/04/2018 SN[facility]: [facility] Temperature Oral (F) 98 F 04/04/2018 SN[facility]: [facility] Heart Rate 66 {beats}/min 04/04/2018 SN[facility]: [facility] Systolic (mm Hg) 122 04/04/2018 SN[facility]: [facility] Diastolic (mm Hg) 70 04/04/2018 SN[facility]: [facility] Heart Rate 72 {beats}/min 04/04/2018 SN[facility]: [facility] Systolic (mm Hg) 147 04/04/2018 SN[facility]: [facility] Diastolic (mm Hg) 81 04/04/2018 SN[facility]: [facility] Heart Rate 82 {beats}/min 04/04/2018 SN[facility]: [facility] Systolic (mm Hg) 120 04/03/2018 SN[facility]: [facility] Diastolic (mm Hg) 70 04/03/2018 SN[facility]: [facility] Heart Rate 75 {beats}/min 04/03/2018 SN[facility]: [facility] Weight 176 04/03/2018 SN[facility]: [facility] Respitory Rate 18 04/03/2018 SN[facility]: [facility] Temperature Oral (F) 98.4 F 04/03/2018 SN[facility]: [facility] Systolic (mm Hg) 154 04/03/2018 SN[facility]: [facility] Diastolic (mm Hg) 85 04/03/2018 SN[facility]: [facility] Heart Rate 77 {beats}/min 04/03/2018 SN[facility]: [facility] Heart Rate 77 {beats}/min 04/03/2018 SN[facility]: [facility] Respitory Rate 20 04/03/2018 SN[facility]: [facility] Temperature Oral (F) 97.5 F 04/03/2018 SN[facility]: [facility] Systolic (mm Hg) 151 04/03/2018 SN[facility]: [facility] Diastolic (mm Hg) 72 04/03/2018 SN[facility]: [facility] Systolic (mm Hg) 133 04/02/2018 SN[facility]: [facility] Diastolic (mm Hg) 88 04/02/2018 SN[facility]: [facility] Heart Rate 77 {beats}/min 04/02/2018 SN[facility]: [facility] Respitory Rate 18 04/02/2018 SN[facility]: [facility] Systolic (mm Hg) 138 04/02/2018 SN[facility]: [facility] Diastolic (mm Hg) 83 04/02/2018 SN[facility]: [facility] Temperature Oral (F) 97.6 F 04/02/2018 SN[facility]: [facility] Heart Rate 79 {beats}/min 04/02/2018 SN[facility]: [facility] Systolic (mm Hg) 138 04/02/2018 SN[facility]: [facility] Diastolic (mm Hg) 83 04/02/2018 SN[facility]: [facility] Heart Rate 79 {beats}/min 04/02/2018 SN[facility]: [facility] Respitory Rate 18 04/02/2018 SN[facility]: [facility] Temperature Oral (F) 97.8 F 04/02/2018 SN[facility]: [facility] Systolic (mm Hg) 135 04/02/2018 SNF: [facility] Diastolic (mm Hg) 57 04/02/2018 SN[facility]: [facility] Heart Rate 70 {beats}/min 04/02/2018 SN[facility]: [facility] Systolic (mm Hg) 141 04/01/2018 SN[facility]: [facility] Diastolic (mm Hg) 90 04/01/2018 SN[facility]: [facility] Heart Rate 81 {beats}/min 04/01/2018 SN[facility]: [facility] Heart Rate 76 {beats}/min 04/01/2018 SN[facility]: [facility] Respitory Rate 20 04/01/2018 SN[facility]: [facility] Temperature Oral (F) 97.5 F 04/01/2018 SN[facility]: [facility] Systolic (mm Hg) 123 04/01/2018 SN[facility]: [facility] Diastolic (mm Hg) 70 04/01/2018 SN[facility]: [facility] Respitory Rate 18 04/01/2018 SN[facility]: [facility] Systolic (mm Hg) 123 04/01/2018 SN[facility]: [facility] Diastolic (mm Hg) 70 04/01/2018 SN[facility]: [facility] Temperature Oral (F) 97.5 F 04/01/2018 SN[facility]: [facility] Heart Rate 76 {beats}/min 04/01/2018 SN[facility]: [facility] Systolic (mm Hg) 144 04/01/2018 SN[facility]: [facility] Diastolic (mm Hg) 75 04/01/2018 SN[facility]: [facility] Heart Rate 73 {beats}/min 04/01/2018 SN[facility]: [facility] Systolic (mm Hg) 126 04/01/2018 SN[facility]: [facility] Diastolic (mm Hg) 72 04/01/2018 SN[facility]: [facility] Temperature Oral (F) 97.8 F 04/01/2018 SN[facility]: [facility] Respitory Rate 18 04/01/2018 SN[facility]: [facility] Heart Rate 82 {beats}/min 04/01/2018 SN[facility]: [facility] Temperature Oral (F) 97.3 F 04/01/2018 SN[facility]: [facility] Systolic (mm Hg) 130 04/01/2018 SN[facility]: [facility] Diastolic (mm Hg) 76 04/01/2018 [facility]: [facility] Heart Rate 86 {beats}/min 04/01/2018 SN[facility]: [facility] Respitory Rate 18 03/31/2018 SN[facility]: [facility] Temperature Oral (F) 96.9 F 03/31/2018 SN[facility]: [facility] Heart Rate 81 {beats}/min 03/31/2018 SN[facility]: [facility] Systolic (mm Hg) 123 03/31/2018 SN[facility]: [facility] Diastolic (mm Hg) 69 03/31/2018 SN[facility]: [facility] Heart Rate 83 {beats}/min 03/31/2018 SN[facility]: [facility] Systolic (mm Hg) 120 03/31/2018 SN[facility]: [facility] Diastolic (mm Hg) 66 03/31/2018 [facility]: [facility] Heart Rate 83 {beats}/min 03/31/2018 SN[facility]: [facility] Respitory Rate 20 03/31/2018 SN[facility]: [facility] Systolic (mm Hg) 140 03/31/2018 SN[facility]: [facility] Diastolic (mm Hg) 61 03/31/2018 [facility]: [facility] Temperature Oral (F) 99.3 F 03/31/2018 SN[facility]: [facility] Heart Rate 86 {beats}/min 03/31/2018 SN[facility]: [facility] Respitory Rate 18 03/30/2018 SN[facility]: [facility] Systolic (mm Hg) 137 03/30/2018 SN[facility]: [facility] Diastolic (mm Hg) 65 03/30/2018 SN[facility]: [facility] Temperature Oral (F) 98 F 03/30/2018 SN[facility]: [facility] Heart Rate 90 {beats}/min 03/30/2018 SN[facility]: [facility] Systolic (mm Hg) 123 03/30/2018 [facility]: [facility] Diastolic (mm Hg) 76 03/30/2018 SN[facility]: [facility] Heart Rate 78 {beats}/min 03/30/2018 SN[facility]: [facility] Systolic (mm Hg) 126 03/30/2018 SN[facility]: [facility] Diastolic (mm Hg) 70 03/30/2018 SN[facility]: [facility] Heart Rate 80 {beats}/min 03/30/2018 SN[facility]: [facility] Systolic (mm Hg) 122 03/29/2018 SN[facility]: [facility] Diastolic (mm Hg) 72 03/29/2018 [facility]: [facility] Heart Rate 75 {beats}/min 03/29/2018 SN[facility]: [facility] Heart Rate 76 {beats}/min 03/29/2018 SN[facility]: [facility] Respitory Rate 18 03/29/2018 SN[facility]: [facility] Temperature Oral (F) 97.9 F 03/29/2018 SN[facility]: [facility] Systolic (mm Hg) 125 03/29/2018 SN[facility]: [facility] Diastolic (mm Hg) 70 03/29/2018 SN[facility]: [facility] Weight 177 03/29/2018 SN[facility]: [facility] Systolic (mm Hg) 117 03/29/2018 SN[facility]: [facility] Diastolic (mm Hg) 55 03/29/2018 SN[facility]: [facility] Heart Rate 70 {beats}/min 03/29/2018 SN[facility]: [facility] Respitory Rate 18 03/29/2018 SN[facility]: [facility] Systolic (mm Hg) 162 03/29/2018 SN[facility]: [facility] Diastolic (mm Hg) 54 03/29/2018 SN[facility]: [facility] Temperature Oral (F) 98.2 F 03/29/2018 SN[facility]: [facility] Heart Rate 76 {beats}/min 03/29/2018 SN[facility]: [facility] Respitory Rate 18 03/29/2018 SN[facility]: [facility] Systolic (mm Hg) 130 03/29/2018 SN[facility]: [facility] Diastolic (mm Hg) 71 03/29/2018 SN[facility]: [facility] Temperature Oral (F) 98.1 F 03/29/2018 SN[facility]: [facility] Heart Rate 82 {beats}/min 03/29/2018 SN[facility]: [facility] Systolic (mm Hg) 136 03/28/2018 SN[facility]: [facility] Diastolic (mm Hg) 83 03/28/2018 SN[facility]: [facility] Heart Rate 78 {beats}/min 03/28/2018 SN[facility]: [facility] Height 65 03/28/2018 SN[facility]: [facility] Systolic (mm Hg) 123 03/28/2018 SN[facility]: [facility] Diastolic (mm Hg) 57 03/28/2018 SN[facility]: [facility] Heart Rate 69 {beats}/min 03/28/2018 SN[facility]: [facility] Systolic (mm Hg) 131 03/28/2018 SN[facility]: [facility] Diastolic (mm Hg) 70 03/28/2018 SN[facility]: [facility] Heart Rate 67 {beats}/min 03/28/2018 SN[facility]: [facility] Respitory Rate 18 03/27/2018 SN[facility]: [facility] Temperature Oral (F) 97.9 F 03/27/2018 SN[facility]: [facility] Systolic (mm Hg) 115 03/27/2018 SN[facility]: [facility] Diastolic (mm Hg) 77 03/27/2018 [facility]: [facility] Heart Rate 68 {beats}/min 03/27/2018 SN[facility]: [facility] Systolic (mm Hg) 113 03/27/2018 SN[facility]: [facility] Diastolic (mm Hg) 52 03/27/2018 [facility]: [facility] Heart Rate 69 {beats}/min 03/27/2018 SN[facility]: [facility] Systolic (mm Hg) 128 03/27/2018 [facility]: [facility] Diastolic (mm Hg) 65 03/27/2018 SN[facility]: [facility] Heart Rate 89 {beats}/min 03/27/2018 SN[facility]: [facility] Respitory Rate 17 03/27/2018 SN[facility]: [facility] Systolic (mm Hg) 127 03/27/2018 SN[facility]: [facility] Diastolic (mm Hg) 70 03/27/2018 SN[facility]: [facility] Temperature Oral (F) 97.5 F 03/27/2018 SN[facility]: [facility] Heart Rate 91 {beats}/min 03/27/2018 SN[facility]: [facility] Heart Rate 76 {beats}/min 03/26/2018 SN[facility]: [facility] Respitory Rate 18 03/26/2018 SN[facility]: [facility] Temperature Oral (F) 97.7 F 03/26/2018 SN[facility]: [facility] Systolic (mm Hg) 114 03/26/2018 SN[facility]: [facility] Diastolic (mm Hg) 54 03/26/2018 [facility]: [facility] Respitory Rate 18 03/26/2018 SN[facility]: [facility] Temperature Oral (F) 99.1 F 03/26/2018 SN[facility]: [facility] Systolic (mm Hg) 116 03/26/2018 [facility]: [facility] Diastolic (mm Hg) 64 03/26/2018 [facility]: [facility] Heart Rate 76 {beats}/min 03/26/2018 SN[facility]: [facility] Respitory Rate 18 03/26/2018 SN[facility]: [facility] Systolic (mm Hg) 140 03/26/2018 SN[facility]: [facility] Diastolic (mm Hg) 75 03/26/2018 SN[facility]: [facility] Temperature Oral (F) 97.8 F 03/26/2018 SN[facility]: [facility] Heart Rate 89 {beats}/min 03/26/2018 SN[facility]: [facility] Systolic (mm Hg) 131 03/26/2018 [facility]: [facility] Diastolic (mm Hg) 78 03/26/2018 SN[facility]: [facility] Heart Rate 86 {beats}/min 03/26/2018 [facility]: [facility] Respitory Rate 18 03/25/2018 SN[facility]: [facility] Temperature Oral (F) 97.9 F 03/25/2018 SN[facility]: [facility] Systolic (mm Hg) 134 03/25/2018 SN[facility]: [facility] Diastolic (mm Hg) 73 03/25/2018 [facility]: [facility] Heart Rate 78 {beats}/min 03/25/2018 SN[facility]: [facility] Respitory Rate 18 03/25/2018 SN[facility]: [facility] Systolic (mm Hg) 110 03/25/2018 SN[facility]: [facility] Diastolic (mm Hg) 60 03/25/2018 SN[facility]: [facility] Temperature Oral (F) 98.7 F 03/25/2018 SN[facility]: [facility] Heart Rate 89 {beats}/min 03/25/2018 SN[facility]: [facility] Systolic (mm Hg) 110 03/25/2018 [facility]: [facility] Diastolic (mm Hg) 60 03/25/2018 SN[facility]: [facility] Heart Rate 89 {beats}/min 03/25/2018 SN[facility]: [facility] Systolic (mm Hg) 130 03/24/2018 SN[facility]: [facility] Diastolic (mm Hg) 75 03/24/2018 SN[facility]: [facility] Heart Rate 72 {beats}/min 03/24/2018 SN[facility]: [facility] Respitory Rate 18 03/24/2018 SN[facility]: [facility] Systolic (mm Hg) 93 03/24/2018 SN[facility]: [facility] Diastolic (mm Hg) 62 03/24/2018 SN[facility]: [facility] Temperature Oral (F) 98.5 F 03/24/2018 SN[facility]: [facility] Heart Rate 73 {beats}/min 03/24/2018 SN[facility]: [facility] Systolic (mm Hg) 99 03/24/2018 SN[facility]: [facility] Diastolic (mm Hg) 57 03/24/2018 SN[facility]: [facility] Temperature Oral (F) 98.2 F 03/24/2018 SN[facility]: [facility] Heart Rate 71 {beats}/min 03/24/2018 SN[facility]: [facility] Respitory Rate 98.6 03/24/2018 SN[facility]: [facility] Temperature Oral (F) 18 F 03/24/2018 SN[facility]: [facility] Systolic (mm Hg) 139 03/24/2018 SN[facility]: [facility] Diastolic (mm Hg) 66 03/24/2018 SN[facility]: [facility] Systolic (mm Hg) 139 03/23/2018 SN[facility]: [facility] Diastolic (mm Hg) 66 03/23/2018 SN[facility]: [facility] Respitory Rate 18 03/23/2018 SN[facility]: [facility] Systolic (mm Hg) 139 03/23/2018 [facility]: [facility] Diastolic (mm Hg) 93 03/23/2018 SN[facility]: [facility] Temperature Oral (F) 98.6 F 03/23/2018 SN[facility]: [facility] Heart Rate 71 {beats}/min 03/23/2018 SN[facility]: [facility] Systolic (mm Hg) 139 03/23/2018 SN[facility]: [facility] Diastolic (mm Hg) 93 03/23/2018 SN[facility]: [facility] Respitory Rate 18 03/23/2018 SN[facility]: [facility] Systolic (mm Hg) 117 03/23/2018 SN[facility]: [facility] Diastolic (mm Hg) 68 03/23/2018 SN[facility]: [facility] Temperature Oral (F) 98.2 F 03/23/2018 SN[facility]: [facility] Heart Rate 82 {beats}/min 03/23/2018 SN[facility]: [facility] Heart Rate 68 {beats}/min 03/23/2018 SN[facility]: [facility] Respitory Rate 17 03/23/2018 SN[facility]: [facility] Temperature Oral (F) 97.9 F 03/23/2018 SN[facility]: [facility] Systolic (mm Hg) 146 03/23/2018 SN[facility]: [facility] Diastolic (mm Hg) 77 03/23/2018 SN[facility]: [facility] Heart Rate 91 {beats}/min 03/22/2018 SN[facility]: [facility] Respitory Rate 20 03/22/2018 SN[facility]: [facility] Temperature Oral (F) 99.2 F 03/22/2018 SN[facility]: [facility] Systolic (mm Hg) 131 03/22/2018 SN[facility]: [facility] Diastolic (mm Hg) 104 03/22/2018 SN[facility]: [facility] Systolic (mm Hg) 129 03/22/2018 SN[facility]: [facility] Diastolic (mm Hg) 78 03/22/2018 SN[facility]: [facility] Respitory Rate 22 03/22/2018 SN[facility]: [facility] Systolic (mm Hg) 132 03/22/2018 SN[facility]: [facility] Diastolic (mm Hg) 70 03/22/2018 SN[facility]: [facility] Temperature Oral (F) 99.2 F 03/22/2018 SN[facility]: [facility] Heart Rate 84 {beats}/min 03/22/2018 SN[facility]: [facility] Heart Rate 72 {beats}/min 02/11/2017 SNF: [facility] Respitory Rate 13 02/11/2017 SNF: [facility] Systolic (mm Hg) 144 02/11/2017 SN[facility]: [facility] Diastolic (mm Hg) 78 02/11/2017 SN[facility]: [facility] Systolic (mm Hg) 144 02/11/2017 SN[facility]: [facility] Diastolic (mm Hg) 78 02/11/2017 SN[facility]: [facility] Heart Rate 72 {beats}/min 02/11/2017 SN[facility]: [facility] Heart Rate 73 {beats}/min 02/11/2017 SN[facility]: [facility] Systolic (mm Hg) 108 02/11/2017 SN[facility]: [facility] Diastolic (mm Hg) 69 02/11/2017 SN[facility]: [facility] Systolic (mm Hg) 177 02/10/2017 SN[facility]: [facility] Diastolic (mm Hg) 104 02/10/2017 SN[facility]: [facility] Heart Rate 76 {beats}/min 02/10/2017 SN[facility]: [facility] Heart Rate 70 {beats}/min 02/10/2017 SN[facility]: [facility] Respitory Rate 12 02/10/2017 SN[facility]: [facility] Systolic (mm Hg) 158 02/10/2017 SN[facility]: [facility] Diastolic (mm Hg) 81 02/10/2017 SN[facility]: [facility] Heart Rate 69 {beats}/min 02/10/2017 SN[facility]: [facility] Systolic (mm Hg) 138 02/10/2017 SN[facility]: [facility] Diastolic (mm Hg) 72 02/10/2017 SN[facility]: [facility] Heart Rate 79 {beats}/min 02/10/2017 SN[facility]: [facility] Systolic (mm Hg) 138 02/10/2017 SN[facility]: [facility] Diastolic (mm Hg) 72 02/10/2017 SN[facility]: [facility] Heart Rate 79 {beats}/min 02/10/2017 SN[facility]: [facility] Heart Rate 80 {beats}/min 02/10/2017 SN[facility]: [facility] Respitory Rate 17 02/10/2017 SN[facility]: [facility] Temperature Oral (F) 99.1 F 02/10/2017 SNF: [facility] Systolic (mm Hg) 128 02/10/2017 SN[facility]: [facility] Diastolic (mm Hg) 66 02/10/2017 SN[facility]: [facility] Systolic (mm Hg) 151 02/09/2017 SN[facility]: [facility] Diastolic (mm Hg) 96 02/09/2017 SN[facility]: [facility] Heart Rate 80 {beats}/min 02/09/2017 SN[facility]: [facility] Systolic (mm Hg) 171 02/09/2017 SN[facility]: [facility] Diastolic (mm Hg) 93 02/09/2017 SN[facility]: [facility] Heart Rate 80 {beats}/min 02/09/2017 SN[facility]: [facility] Systolic (mm Hg) 116 02/09/2017 SN[facility]: [facility] Diastolic (mm Hg) 68 02/09/2017 SN[facility]: [facility] Heart Rate 84 {beats}/min 02/09/2017 SN[facility]: [facility] Heart Rate 79 {beats}/min 02/09/2017 SN[facility]: [facility] Respitory Rate 24 02/09/2017 [facility] Temperature Oral (F) 98.6 F 02/09/2017 SNF: [facility] Systolic (mm Hg) 143 02/09/2017 SN[facility]: [facility] Diastolic (mm Hg) 80 02/09/2017 SN[facility]: [facility] Systolic (mm Hg) 110 02/08/2017 SNF: [facility] Diastolic (mm Hg) 60 02/08/2017 SN[facility]: [facility] Heart Rate 92 {beats}/min 02/08/2017 SNF: [facility] Weight 212 02/08/2017 SN[facility]: [facility] Systolic (mm Hg) 131 02/08/2017 SN[facility]: [facility] Diastolic (mm Hg) 75 02/08/2017 SN[facility]: [facility] Heart Rate 75 {beats}/min 02/08/2017 SN[facility]: [facility] Heart Rate 75 {beats}/min 02/08/2017 SN[facility]: [facility] Respitory Rate 20 02/08/2017 SN[facility]: [facility] Temperature Oral (F) 98.7 F 02/08/2017 SNF: [facility] Systolic (mm Hg) 131 02/08/2017 SNF: [facility] Diastolic (mm Hg) 75 02/08/2017 SNF: [facility] Systolic (mm Hg) 128 02/08/2017 SN[facility]: [facility] Diastolic (mm Hg) 78 02/08/2017 SN[facility]: [facility] Heart Rate 79 {beats}/min 02/08/2017 SNF: [facility] Systolic (mm Hg) 128 02/08/2017 SNF: [facility] Diastolic (mm Hg) 78 02/08/2017 SN[facility]: [facility] Heart Rate 79 {beats}/min 02/08/2017 SNF: [facility] Heart Rate 73 {beats}/min 02/07/2017 SNF: [facility] Respitory Rate 18 02/07/2017 SNF: [facility] Temperature Oral (F) 98.4 F 02/07/2017 SNF: [facility] Systolic (mm Hg) 145 02/07/2017 SNF: [facility] Diastolic (mm Hg) 87 02/07/2017 SN[facility]: [facility] Systolic (mm Hg) 118 02/07/2017 SNF: [facility] Diastolic (mm Hg) 66 02/07/2017 SN[facility]: [facility] Heart Rate 75 {beats}/min 02/07/2017 SNF: [facility] Systolic (mm Hg) 133 02/07/2017 SNF: [facility] Diastolic (mm Hg) 81 02/07/2017 SNF: [facility] Heart Rate 74 {beats}/min 02/07/2017 SNF: [facility] Systolic (mm Hg) 124 02/07/2017 SNF: [facility] Diastolic (mm Hg) 76 02/07/2017 SNF: [facility] Heart Rate 80 {beats}/min 02/07/2017 SNF: [facility] Heart Rate 80 {beats}/min 02/07/2017 SNF: [facility] Respitory Rate 17 02/07/2017 SNF: [facility] Temperature Oral (F) 98.8 F 02/07/2017 SNF: [facility] Systolic (mm Hg) 128 02/07/2017 SNF: [facility] Diastolic (mm Hg) 66 02/07/2017 SNF: [facility] Systolic (mm Hg) 128 02/06/2017 SNF: [facility] Diastolic (mm Hg) 66 02/06/2017 SNF: [facility] Heart Rate 80 {beats}/min 02/06/2017 SNF: [facility] Systolic (mm Hg) 120 02/06/2017 SNF: [facility] Diastolic (mm Hg) 73 02/06/2017 SNF: [facility] Heart Rate 84 {beats}/min 02/06/2017 SNF: [facility] Heart Rate 89 {beats}/min 02/06/2017 SNF: [facility] Respitory Rate 26 02/06/2017 SNF: [facility] Temperature Oral (F) 98.4 F 02/06/2017 SNF: [facility] Systolic (mm Hg) 149 02/06/2017 SNF: [facility] Diastolic (mm Hg) 83 02/06/2017 SNF: [facility] Heart Rate 70 {beats}/min 02/06/2017 SNF: [facility] Respitory Rate 18 02/06/2017 SNF: [facility] Temperature Oral (F) 98.2 F 02/06/2017 SNF: [facility] Systolic (mm Hg) 149 02/06/2017 SNF: [facility] Diastolic (mm Hg) 74 02/06/2017 SNF: [facility] Systolic (mm Hg) 138 02/05/2017 SNF: [facility] Diastolic (mm Hg) 77 02/05/2017 SNF: [facility] Heart Rate 78 {beats}/min 02/05/2017 SNF: [facility] Systolic (mm Hg) 120 02/05/2017 SNF: [facility] Diastolic (mm Hg) 72 02/05/2017 SNF: [facility] Heart Rate 72 {beats}/min 02/05/2017 SNF: [facility] Heart Rate 70 {beats}/min 02/05/2017 SNF: [facility] Respitory Rate 19 02/05/2017 SNF: [facility] Temperature Oral (F) 98.6 F 02/05/2017 SNF: [facility] Systolic (mm Hg) 137 02/05/2017 SNF: [facility] Diastolic (mm Hg) 60 02/05/2017 SNF: [facility] Systolic (mm Hg) 140 02/04/2017 SNF: [facility] Diastolic (mm Hg) 65 02/04/2017 SNF: [facility] Heart Rate 99 {beats}/min 02/04/2017 SNF: [facility] Systolic (mm Hg) 144 02/04/2017 SNF: [facility] Diastolic (mm Hg) 77 02/04/2017 SNF: [facility] Heart Rate 80 {beats}/min 02/04/2017 SNF: [facility] Systolic (mm Hg) 126 02/04/2017 SNF: [facility] Diastolic (mm Hg) 66 02/04/2017 SNF: [facility] Heart Rate 85 {beats}/min 02/04/2017 SNF: [facility] Systolic (mm Hg) 126 02/04/2017 SNF: [facility] Diastolic (mm Hg) 66 02/04/2017 SNF: [facility] Heart Rate 85 {beats}/min 02/04/2017 SNF: [facility] Systolic (mm Hg) 104 02/03/2017 SNF: [facility] Diastolic (mm Hg) 73 02/03/2017 SNF: [facility] Heart Rate 82 {beats}/min 02/03/2017 SNF: [facility] Systolic (mm Hg) 119 02/03/2017 SNF: [facility] Diastolic (mm Hg) 66 02/03/2017 SNF: [facility] Heart Rate 80 {beats}/min 02/03/2017 SNF: [facility] Systolic (mm Hg) 112 02/03/2017 SNF: [facility] Diastolic (mm Hg) 70 02/03/2017 SN[facility]: [facility] Temperature Oral (F) 96.8 F 02/03/2017 SNF: [facility] Respitory Rate 22 02/03/2017 SNF: [facility] Heart Rate 82 {beats}/min 02/03/2017 SNF: [facility] Systolic (mm Hg) 105 02/02/2017 SNF: [facility] Diastolic (mm Hg) 64 02/02/2017 SNF: [facility] Heart Rate 87 {beats}/min 02/02/2017 SNF: [facility] Heart Rate 81 {beats}/min 02/02/2017 SNF: [facility] Respitory Rate 16 02/02/2017 SN[facility]: [facility] Temperature Oral (F) 98 F 02/02/2017 SNF: [facility] Systolic (mm Hg) 105 02/02/2017 SNF: [facility] Diastolic (mm Hg) 56 02/02/2017 SNF: [facility] Heart Rate 77 {beats}/min 02/02/2017 SNF: [facility] Respitory Rate 20 02/02/2017 SNF: [facility] Systolic (mm Hg) 147 02/02/2017 SNF: [facility] Diastolic (mm Hg) 84 02/02/2017 SNF: [facility] Systolic (mm Hg) 147 02/02/2017 SNF: [facility] Diastolic (mm Hg) 84 02/02/2017 SNF: [facility] Heart Rate 77 {beats}/min 02/02/2017 SNF: [facility] Systolic (mm Hg) 134 02/02/2017 SNF: [facility] Diastolic (mm Hg) 84 02/02/2017 SNF: [facility] Heart Rate 95 {beats}/min 02/02/2017 SNF: [facility] Systolic (mm Hg) 134 02/02/2017 SNF: [facility] Diastolic (mm Hg) 84 02/02/2017 SNF: [facility] Heart Rate 75 {beats}/min 02/02/2017 SNF: [facility] Heart Rate 77 {beats}/min 02/02/2017 SNF: [facility] Respitory Rate 18 02/02/2017 SNF: [facility] Temperature Oral (F) 98.7 F 02/02/2017 SNF: [facility] Systolic (mm Hg) 121 02/02/2017 SNF: [facility] Diastolic (mm Hg) 57 02/02/2017 SNF: [facility] Systolic (mm Hg) 121 02/01/2017 SNF: [facility] Diastolic (mm Hg) 57 02/01/2017 SNF: [facility] Heart Rate 77 {beats}/min 02/01/2017 SNF: [facility] Heart Rate 77 {beats}/min 02/01/2017 SNF: [facility] Respitory Rate 20 02/01/2017 SNF: [facility] Systolic (mm Hg) 149 02/01/2017 SNF: [facility] Diastolic (mm Hg) 85 02/01/2017 SNF: [facility] Systolic (mm Hg) 149 02/01/2017 SNF: [facility] Diastolic (mm Hg) 85 02/01/2017 SNF: [facility] Heart Rate 77 {beats}/min 02/01/2017 SNF: [facility] Weight 212 02/01/2017 SNF: [facility] Systolic (mm Hg) 112 02/01/2017 SNF: [facility] Diastolic (mm Hg) 66 02/01/2017 SNF: [facility] Heart Rate 81 {beats}/min 02/01/2017 SNF: [facility] Heart Rate 77 {beats}/min 02/01/2017 SNF: [facility] Respitory Rate 18 02/01/2017 SNF: [facility] Temperature Oral (F) 98.2 F 02/01/2017 SNF: [facility] Systolic (mm Hg) 142 02/01/2017 SNF: [facility] Diastolic (mm Hg) 54 02/01/2017 SNF: [facility] Systolic (mm Hg) 142 01/31/2017 SNF: [facility] Diastolic (mm Hg) 54 01/31/2017 SNF: [facility] Heart Rate 77 {beats}/min 01/31/2017 SNF: [facility] Systolic (mm Hg) 146 01/31/2017 SNF: [facility] Diastolic (mm Hg) 79 01/31/2017 SNF: [facility] Heart Rate 70 {beats}/min 01/31/2017 SNF: [facility] Systolic (mm Hg) 114 01/31/2017 SNF: [facility] Diastolic (mm Hg) 72 01/31/2017 SNF: [facility] Temperature Oral (F) 97.9 F 01/31/2017 SNF: [facility] Respitory Rate 20 01/31/2017 SNF: [facility] Heart Rate 79 {beats}/min 01/31/2017 SNF: [facility] Heart Rate 82 {beats}/min 01/31/2017 SNF: [facility] Respitory Rate 19 01/31/2017 SNF: [facility] Temperature Oral (F) 98 F 01/31/2017 SNF: [facility] Systolic (mm Hg) 156 01/31/2017 SNF: [facility] Diastolic (mm Hg) 79 01/31/2017 SNF: [facility] Systolic (mm Hg) 113 01/30/2017 SNF: [facility] Diastolic (mm Hg) 57 01/30/2017 SNF: [facility] Heart Rate 79 {beats}/min 01/30/2017 SNF: [facility] Systolic (mm Hg) 134 01/30/2017 SNF: [facility] Diastolic (mm Hg) 86 01/30/2017 SNF: [facility] Heart Rate 85 {beats}/min 01/30/2017 SNF: [facility] Heart Rate 73 {beats}/min 01/30/2017 SNF: [facility] Respitory Rate 22 01/30/2017 SNF: [facility] Temperature Oral (F) 98.3 F 01/30/2017 SNF: [facility] Systolic (mm Hg) 131 01/30/2017 SNF: [facility] Diastolic (mm Hg) 74 01/30/2017 SNF: [facility] Systolic (mm Hg) 118 01/30/2017 SNF: [facility] Diastolic (mm Hg) 76 01/30/2017 SNF: [facility] Systolic (mm Hg) 118 01/29/2017 SNF: [facility] Diastolic (mm Hg) 76 01/29/2017 SNF: [facility] Heart Rate 78 {beats}/min 01/29/2017 SNF: [facility] Systolic (mm Hg) 141 01/29/2017 SNF: [facility] Diastolic (mm Hg) 77 01/29/2017 SNF: [facility] Heart Rate 72 {beats}/min 01/29/2017 SNF: [facility] Heart Rate 81 {beats}/min 01/29/2017 SNF: [facility] Respitory Rate 17 01/29/2017 SNF: [facility] Temperature Oral (F) 97.5 F 01/29/2017 SNF: [facility] Systolic (mm Hg) 117 01/29/2017 SNF: [facility] Diastolic (mm Hg) 71 01/29/2017 SNF: [facility] Systolic (mm Hg) 105 01/28/2017 SNF: [facility] Diastolic (mm Hg) 59 01/28/2017 SNF: [facility] Heart Rate 84 {beats}/min 01/28/2017 SNF: [facility] Systolic (mm Hg) 129 01/28/2017 SNF: [facility] Diastolic (mm Hg) 64 01/28/2017 SNF: [facility] Heart Rate 73 {beats}/min 01/28/2017 SNF: [facility] Systolic (mm Hg) 130 01/28/2017 SNF: [facility] Diastolic (mm Hg) 76 01/28/2017 SNF: [facility] Heart Rate 84 {beats}/min 01/28/2017 SNF: [facility] Systolic (mm Hg) 130 01/28/2017 SNF: [facility] Diastolic (mm Hg) 76 01/28/2017 SNF: [facility] Heart Rate 84 {beats}/min 01/28/2017 SNF: [facility] Systolic (mm Hg) 105 01/27/2017 SNF: [facility] Diastolic (mm Hg) 66 01/27/2017 SNF: [facility] Heart Rate 76 {beats}/min 01/27/2017 SNF: [facility] Heart Rate 76 {beats}/min 01/27/2017 SNF: [facility] Respitory Rate 18 01/27/2017 SNF: [facility] Temperature Oral (F) 99.7 F 01/27/2017 SNF: [facility] Systolic (mm Hg) 150 01/27/2017 SNF: [facility] Diastolic (mm Hg) 87 01/27/2017 SNF: [facility] Systolic (mm Hg) 150 01/27/2017 SNF: [facility] Diastolic (mm Hg) 87 01/27/2017 SNF: [facility] Heart Rate 76 {beats}/min 01/27/2017 SNF: [facility] Systolic (mm Hg) 138 01/27/2017 SNF: [facility] Diastolic (mm Hg) 82 01/27/2017 SNF: [facility] Heart Rate 75 {beats}/min 01/27/2017 SNF: [facility] Heart Rate 85 {beats}/min 01/27/2017 SNF: [facility] Respitory Rate 16 01/27/2017 SNF: [facility] Temperature Oral (F) 100.6 F 01/27/2017 SNF: [facility] Systolic (mm Hg) 138 01/27/2017 SNF: [facility] Diastolic (mm Hg) 70 01/27/2017 SNF: [facility] Systolic (mm Hg) 138 01/26/2017 SNF: [facility] Diastolic (mm Hg) 70 01/26/2017 SNF: [facility] Heart Rate 85 {beats}/min 01/26/2017 SNF: [facility] Systolic (mm Hg) 131 01/26/2017 SNF: [facility] Diastolic (mm Hg) 77 01/26/2017 SNF: [facility] Heart Rate 70 {beats}/min 01/26/2017 SNF: [facility] Systolic (mm Hg) 130 01/26/2017 SNF: [facility] Diastolic (mm Hg) 72 01/26/2017 SNF: [facility] Heart Rate 75 {beats}/min 01/26/2017 SNF: [facility] Systolic (mm Hg) 139 01/25/2017 SNF: [facility] Diastolic (mm Hg) 65 01/25/2017 SNF: [facility] Heart Rate 73 {beats}/min 01/25/2017 SNF: [facility] Systolic (mm Hg) 142 01/25/2017 SNF: [facility] Diastolic (mm Hg) 72 01/25/2017 SNF: [facility] Heart Rate 61 {beats}/min 01/25/2017 SNF: [facility] Systolic (mm Hg) 142 01/25/2017 SNF: [facility] Diastolic (mm Hg) 82 01/25/2017 SNF: [facility] Heart Rate 82 {beats}/min 01/25/2017 SNF: [facility] Systolic (mm Hg) 142 01/24/2017 SNF: [facility] Diastolic (mm Hg) 96 01/24/2017 SNF: [facility] Heart Rate 91 {beats}/min 01/24/2017 SNF: [facility] Weight 212 01/24/2017 SNF: [facility] Systolic (mm Hg) 92 01/24/2017 SNF: [facility] Diastolic (mm Hg) 51 01/24/2017 SNF: [facility] Heart Rate 87 {beats}/min 01/24/2017 SNF: [facility] Systolic (mm Hg) 122 01/24/2017 SNF: [facility] Diastolic (mm Hg) 72 01/24/2017 SNF: [facility] Heart Rate 70 {beats}/min 01/24/2017 SNF: [facility] Respitory Rate 17 01/24/2017 SN[facility]: [facility] Temperature Oral (F) 98.2 F 01/24/2017 SNF: [facility] Systolic (mm Hg) 118 01/24/2017 SNF: [facility] Diastolic (mm Hg) 76 01/24/2017 SNF: [facility] Systolic (mm Hg) 122 01/23/2017 SNF: [facility] Diastolic (mm Hg) 64 01/23/2017 SNF: [facility] Heart Rate 90 {beats}/min 01/23/2017 SNF: [facility] Heart Rate 77 {beats}/min 01/23/2017 SNF: [facility] Respitory Rate 18 01/23/2017 SNF: [facility] Systolic (mm Hg) 117 01/23/2017 SNF: [facility] Diastolic (mm Hg) 60 01/23/2017 SNF: [facility] Systolic (mm Hg) 117 01/23/2017 SNF: [facility] Diastolic (mm Hg) 60 01/23/2017 SNF: [facility] Heart Rate 77 {beats}/min 01/23/2017 SNF: [facility] Systolic (mm Hg) 128 01/23/2017 SNF: [facility] Diastolic (mm Hg) 72 01/23/2017 SNF: [facility] Heart Rate 72 {beats}/min 01/23/2017 SNF: [facility] Respitory Rate 18 01/23/2017 SNF: [facility] Temperature Oral (F) 98.5 F 01/23/2017 SNF: [facility] Systolic (mm Hg) 116 01/23/2017 SNF: [facility] Diastolic (mm Hg) 72 01/23/2017 SNF: [facility] Heart Rate 97 {beats}/min 01/23/2017 SNF: [facility] Respitory Rate 20 01/23/2017 SNF: [facility] Systolic (mm Hg) 144 01/23/2017 SNF: [facility] Diastolic (mm Hg) 95 01/23/2017 SNF: [facility] Systolic (mm Hg) 138 01/22/2017 SNF: [facility] Diastolic (mm Hg) 78 01/22/2017 SNF: [facility] Heart Rate 77 {beats}/min 01/22/2017 SNF: [facility] Systolic (mm Hg) 128 01/22/2017 SNF: [facility] Diastolic (mm Hg) 74 01/22/2017 SNF: [facility] Heart Rate 74 {beats}/min 01/22/2017 SNF: [facility] Systolic (mm Hg) 132 01/22/2017 SNF: [facility] Diastolic (mm Hg) 71 01/22/2017 SNF: [facility] Heart Rate 86 {beats}/min 01/22/2017 SNF: [facility] Systolic (mm Hg) 131 01/21/2017 SNF: [facility] Diastolic (mm Hg) 72 01/21/2017 SNF: [facility] Heart Rate 97 {beats}/min 01/21/2017 SNF: [facility] Systolic (mm Hg) 134 01/21/2017 SNF: [facility] Diastolic (mm Hg) 76 01/21/2017 SNF: [facility] Heart Rate 87 {beats}/min 01/21/2017 SNF: [facility] Systolic (mm Hg) 126 01/21/2017 SNF: [facility] Diastolic (mm Hg) 74 01/21/2017 SNF: [facility] Heart Rate 82 {beats}/min 01/21/2017 SNF: [facility] Heart Rate 90 {beats}/min 01/21/2017 SNF: [facility] Systolic (mm Hg) 128 01/21/2017 SNF: [facility] Diastolic (mm Hg) 68 01/21/2017 SNF: [facility] Heart Rate 77 {beats}/min 01/20/2017 SNF: [facility] Respitory Rate 18 01/20/2017 SNF: [facility] Temperature Oral (F) 99.4 F 01/20/2017 SNF: [facility] Systolic (mm Hg) 124 01/20/2017 SNF: [facility] Diastolic (mm Hg) 66 01/20/2017 SNF: [facility] Weight 209 01/20/2017 SNF: [facility] Systolic (mm Hg) 134 01/20/2017 SNF: [facility] Diastolic (mm Hg) 75 01/20/2017 SNF: [facility] Heart Rate 75 {beats}/min 01/20/2017 SNF: [facility] Systolic (mm Hg) 118 01/20/2017 SNF: [facility] Diastolic (mm Hg) 90 01/20/2017 SNF: [facility] Heart Rate 83 {beats}/min 01/20/2017 SNF: [facility] Heart Rate 76 {beats}/min 01/19/2017 SNF: [facility] Respitory Rate 18 01/19/2017 SNF: [facility] Temperature Oral (F) 97.6 F 01/19/2017 SNF: [facility] Systolic (mm Hg) 118 01/19/2017 SNF: [facility] Diastolic (mm Hg) 68 01/19/2017 SNF: [facility] Systolic (mm Hg) 118 01/19/2017 SNF: [facility] Diastolic (mm Hg) 68 01/19/2017 SNF: [facility] Heart Rate 76 {beats}/min 01/19/2017 SNF: [facility] Heart Rate 79 {beats}/min 01/19/2017 SNF: [facility] Respitory Rate 18 01/19/2017 SNF: [facility] Temperature Oral (F) 99.2 F 01/19/2017 SNF: [facility] Systolic (mm Hg) 119 01/19/2017 SNF: [facility] Diastolic (mm Hg) 57 01/19/2017 SNF: [facility] Heart Rate 78 {beats}/min 01/18/2017 SNF: [facility] Respitory Rate 18 01/18/2017 SNF: [facility] Temperature Oral (F) 97.8 F 01/18/2017 SNF: [facility] Systolic (mm Hg) 118 01/18/2017 SNF: [facility] Diastolic (mm Hg) 69 01/18/2017 SNF: [facility] Systolic (mm Hg) 118 01/18/2017 SNF: [facility] Diastolic (mm Hg) 69 01/18/2017 SNF: [facility] Heart Rate 78 {beats}/min 01/18/2017 SNF: [facility] Heart Rate 80 {beats}/min 01/18/2017 SNF: [facility] Respitory Rate 18 01/18/2017 SNF: [facility] Systolic (mm Hg) 123 01/18/2017 SNF: [facility] Diastolic (mm Hg) 71 01/18/2017 SNF: [facility] Systolic (mm Hg) 122 01/17/2017 SNF: [facility] Diastolic (mm Hg) 84 01/17/2017 SNF: [facility] Heart Rate 71 {beats}/min 01/17/2017 SNF: [facility] Heart Rate 86 {beats}/min 01/16/2017 SNF: [facility] Respitory Rate 18 01/16/2017 SNF: [facility] Systolic (mm Hg) 103 01/16/2017 SNF: [facility] Diastolic (mm Hg) 58 01/16/2017 SNF: [facility] Respitory Rate 18 01/16/2017 SNF: [facility] Heart Rate 69 {beats}/min 01/16/2017 SNF: [facility] Systolic (mm Hg) 116 01/16/2017 SNF: [facility] Diastolic (mm Hg) 68 01/16/2017 SNF: [facility] Heart Rate 72 {beats}/min 01/16/2017 SNF: [facility] Heart Rate 76 {beats}/min 01/15/2017 SNF: [facility] Respitory Rate 20 01/15/2017 SNF: [facility] Temperature Oral (F) 98.5 F 01/15/2017 SNF: [facility] Systolic (mm Hg) 127 01/15/2017 SNF: [facility] Diastolic (mm Hg) 64 01/15/2017 SNF: [facility] Heart Rate 78 {beats}/min 01/15/2017 SNF: [facility] Respitory Rate 18 01/15/2017 SNF: [facility] Temperature Oral (F) 98 F 01/15/2017 SNF: [facility] Systolic (mm Hg) 116 01/15/2017 SNF: [facility] Diastolic (mm Hg) 72 01/15/2017 SNF: [facility] Respitory Rate 18 01/15/2017 SNF: [facility] Heart Rate 76 {beats}/min 01/15/2017 SNF: [facility] Heart Rate 79 {beats}/min 01/15/2017 SNF: [facility] Respitory Rate 18 01/15/2017 SNF: [facility] Temperature Oral (F) 98.6 F 01/15/2017 SNF: [facility] Systolic (mm Hg) 118 01/15/2017 SNF: [facility] Diastolic (mm Hg) 70 01/15/2017 SNF: [facility] Heart Rate 76 {beats}/min 01/14/2017 SNF: [facility] Respitory Rate 18 01/14/2017 SNF: [facility] Temperature Oral (F) 98.4 F 01/14/2017 SNF: [facility] Systolic (mm Hg) 116 01/14/2017 SNF: [facility] Diastolic (mm Hg) 70 01/14/2017 SNF: [facility] Respitory Rate 19 01/14/2017 [facility] [facility] Heart Rate 88 {beats}/min 01/14/2017 SN[facility]: [facility] Systolic (mm Hg) 102 01/14/2017 SN[facility]: [facility] Diastolic (mm Hg) 60 01/14/2017 [facility]: [facility] Heart Rate 82 {beats}/min 01/14/2017 SN[facility]: [facility] Systolic (mm Hg) 116 01/14/2017 SN[facility]: [facility] Diastolic (mm Hg) 66 01/14/2017 SN[facility]: [facility] Temperature Oral (F) 98 F 01/14/2017 SNF: [facility] Respitory Rate 22 01/14/2017 SN[facility]: [facility] Heart Rate 76 {beats}/min 01/14/2017 SN[facility]: [facility] Heart Rate 87 {beats}/min 01/14/2017 SN[facility]: [facility] Respitory Rate 18 01/14/2017 SN[facility]: [facility] Temperature Oral (F) 98.3 F 01/14/2017 SNF: [facility] Systolic (mm Hg) 120 01/14/2017 [facility]: [facility] Diastolic (mm Hg) 70 01/14/2017 [facility]: [facility] Weight 206.2 01/13/2017 SNF: [facility] Systolic (mm Hg) 128 01/13/2017 SN[facility]: [facility] Diastolic (mm Hg) 76 01/13/2017 SN[facility]: [facility] Temperature Oral (F) 97.8 F 01/13/2017 SN[facility]: [facility] Respitory Rate 20 01/13/2017 SNF: [facility] Heart Rate 81 {beats}/min 01/13/2017 SN[facility]: [facility] Systolic (mm Hg) 132 01/13/2017 SN[facility]: [facility] Diastolic (mm Hg) 68 01/13/2017 [facility]: [facility] Heart Rate 78 {beats}/min 01/13/2017 SN[facility]: [facility] Systolic (mm Hg) 139 01/05/2017 SN[facility]: [facility] Diastolic (mm Hg) 69 01/05/2017 [facility]: [facility] Heart Rate 84 {beats}/min 01/05/2017 SN[facility]: [facility] Heart Rate 57 {beats}/min 01/04/2017 SNF: [facility] Respitory Rate 1 01/04/2017 SN[facility]: [facility] Temperature Oral (F) 98.7 F 01/04/2017 SN[facility]: [facility] Systolic (mm Hg) 110 01/04/2017 [facility]: [facility] Diastolic (mm Hg) 64 01/04/2017 SN[facility]: [facility] Systolic (mm Hg) 126 01/04/2017 [facility]: [facility] Diastolic (mm Hg) 72 01/04/2017 [facility]: [facility] Heart Rate 84 {beats}/min 01/04/2017 [facility]: [facility] Systolic (mm Hg) 118 01/04/2017 [facility]: [facility] Diastolic (mm Hg) 64 01/04/2017 SN[facility]: [facility] Heart Rate 98 {beats}/min 01/04/2017 SN[facility]: [facility] Heart Rate 97 {beats}/min 01/03/2017 SN[facility]: [facility] Respitory Rate 18 01/03/2017 SN[facility]: [facility] Temperature Oral (F) 98 F 01/03/2017 SN[facility]: [facility] Systolic (mm Hg) 111 01/03/2017 [facility]: [facility] Diastolic (mm Hg) 64 01/03/2017 SN[facility]: [facility] Systolic (mm Hg) 140 01/03/2017 [facility]: [facility] Diastolic (mm Hg) 72 01/03/2017 SN[facility]: [facility] Heart Rate 94 {beats}/min 01/03/2017 [facility]: [facility] Heart Rate 105 {beats}/min 01/03/2017 SN[facility]: [facility] Respitory Rate 18 01/03/2017 SN[facility]: [facility] Systolic (mm Hg) 132 01/03/2017 SN[facility]: [facility] Diastolic (mm Hg) 80 01/03/2017 SN[facility]: [facility] Systolic (mm Hg) 133 01/03/2017 SN[facility]: [facility] Diastolic (mm Hg) 78 01/03/2017 SN[facility]: [facility] Heart Rate 70 {beats}/min 01/03/2017 SN[facility]: [facility] Heart Rate 95 {beats}/min 01/02/2017 SN[facility]: [facility] Respitory Rate 18 01/02/2017 SN[facility]: [facility] Temperature Oral (F) 99.9 F 01/02/2017 SN[facility]: [facility] Systolic (mm Hg) 111 01/02/2017 SN[facility]: [facility] Diastolic (mm Hg) 56 01/02/2017 SN[facility]: [facility] Heart Rate 92 {beats}/min 01/02/2017 SN[facility]: [facility] Respitory Rate 20 01/02/2017 SN[facility]: [facility] Systolic (mm Hg) 118 01/02/2017 SN[facility]: [facility] Diastolic (mm Hg) 71 01/02/2017 SN[facility]: [facility] Systolic (mm Hg) 123 01/02/2017 SN[facility]: [facility] Diastolic (mm Hg) 78 01/02/2017 SN[facility]: [facility] Heart Rate 78 {beats}/min 01/02/2017 SN[facility]: [facility] Heart Rate 93 {beats}/min 01/02/2017 SN[facility]: [facility] Respitory Rate 20 01/02/2017 SN[facility]: [facility] Systolic (mm Hg) 111 01/02/2017 SN[facility]: [facility] Diastolic (mm Hg) 67 01/02/2017 SN[facility]: [facility] Systolic (mm Hg) 106 01/02/2017 SN[facility]: [facility] Diastolic (mm Hg) 62 01/02/2017 SN[facility]: [facility] Heart Rate 84 {beats}/min 01/02/2017 SN[facility]: [facility] Heart Rate 80 {beats}/min 01/01/2017 SNF: [facility] Respitory Rate 18 01/01/2017 SNF: [facility] Temperature Oral (F) 97.6 F 01/01/2017 SNF: [facility] Systolic (mm Hg) 126 01/01/2017 SNF: [facility] Diastolic (mm Hg) 76 01/01/2017 SNF: [facility] Systolic (mm Hg) 126 01/01/2017 SN[facility]: [facility] Diastolic (mm Hg) 74 01/01/2017 SNF: [facility] Heart Rate 84 {beats}/min 01/01/2017 SNF: [facility] Heart Rate 68 {beats}/min 01/01/2017 SNF: [facility] Respitory Rate 20 01/01/2017 SNF: [facility] Systolic (mm Hg) 132 01/01/2017 SNF: [facility] Diastolic (mm Hg) 68 01/01/2017 SNF: [facility] Temperature Oral (F) 98.1 F 01/01/2017 SNF: [facility] Weight 207.0 12/15/2016 Paul Childers Height 65 [...] Provider ADM Date DC Date Status Source Registered [facility] [id number] JOIE HARRY MD 01/17/2018 [facility] Discharged Inpatient [id number] ENEDINA HARRY MD 06/13/2018 06/19/2018 [facility] Procedures Procedure Code Date Perfomer Comments Source X-ray of chest, two views [id number] 06/19/2018 [facility] Computed tomography of chest without contrast [id number] 06/16/2018 [facility] EGD BIOPSY SINGLE/MULTIPLE [id number] 01/17/2018 [facility] DILATE ESOPHAGUS 1/MULT PASS [id number] 01/17/2018 [facility] Colorectal scrn; hi risk ind [id number] 01/17/2018 [facility]
--- OUTSIDE RECORDS SUMMARY | 2018-11-12 16:40 | XMS REPORT | Summary of Care ---
Author Author Sonya Carreno M.A. Organization Unknown Address [facility] Phone Unavailable Care Team Providers Care Surveillance Dual Rate Officer Name Role Phone Sonya Carreno M.A. Unavailable Unavailable GREGORY DIEHL M.D. 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 * Start : 06-May-2012 Active Vitamin D (Ergocalciferol) 90996 UNIT Oral Capsule TAKE 1 CAPSULE BY [...] month * Quantity: 6 Refills: 4 FAZAL Curtis.Karine, GREGORY * Start : 06-May-2012 Active Sucralfate 1 GM Oral Tablet * Refills: 0 GREGORY DIEHL M.D. * Start : 06-May-2012 Active LORazepam 1 MG Oral Tablet * Refills: 0 FAZAL Kent, GREGORY * Start : 06-May-2012 Active Sertraline HCl - 100 MG Oral Tablet * Refills: 0 GREGORY DIEHL M.D. * Start : 06-May-2012 Active NexIUM 40 MG Oral Capsule Delayed Release * Refills: 0 FAZAL Curtis.Karine, GREGORY * Start : 06-May-2012 Active Lisinopril 10 MG Oral Tablet 1 tablet twice a dayPer PCP * Refills: 0 GREGORY DIEHL M.D. * Start : 15-Aug-2012 Active amLODIPine Besylate 5 MG Oral Tablet Per PCP * Refills: 0 GREGORY DIEHL M.D. * Start : 15-Aug-2012 Active glipiZIDE XL 2.5 MG Oral Tablet Extended Release 24 Hour TAKE 1 TABLET BY MOUTH DAILY * Quantity: 30 Refills: 0 GREGORY DIEHL M.D. * Start : 21-Aug-2018 Active HumuLIN N KwikPen 100 UNIT/ML Subcutaneous Suspension Pen-injector Use as directed with steroid medicine * Refills: 0 GREGORY DIEHL M.D. * Start : 05-Dec-2014 Active NovoLOG FlexPen 100 UNIT/ML Subcutaneous Solution Pen-injector CF 50; for use while on steroids * Refills: 0 GREGORY DIEHL M.D. * Start : 05-Dec-2014 Active Gabapentin 300 MG Oral Capsule * Refills: 0 GREGORY DIEHL M.D. * Start : 05-Dec-2014 Active [place] 10-325 MG Oral Tablet * Refills: 0 GREGORY DIEHL M.D. * Start : 04-Sep-2015 Active Prolia 60 MG/ML Subcutaneous Solution per Dr Childers * Refills: 0 GREGORY DIEHL M.D. * Start : 05-May-2016 Active Furosemide 40 MG Oral Tablet * Refills: 0 GREGORY DIHEL M.D. * Start : 07-Apr-2017 Active Meloxicam 15 MG Oral Tablet * Refills: 0 FAZAL MDian., GREGORY * Start : 20-Oct-2017 Active Methotrexate 2.5 MG Oral Tablet per Dr Childers * Refills: 0 GREGORY DIEHL M.D. * Start : 20-Oct-2017 Active Amitiza 24 MCG Oral Capsule * Refills: 0 FAZAL Kent, GREGORY * Start : 24-Jan-2018 Active dilTIAZem HCl ER 120 MG Oral Capsule Extended [...] ML Intramuscular Suspension Prefilled Syringe Lot #: [id number] on: 07-Apr-2017 Family History Name Dates Details [...] Details Planned Observations Planned Goals not documented Instructions Name Dates Details Instructions not documented Encounters Appointment; GREGORY DIEHL M.D. Encounter Diagnosis: Problem not documented On: 22-Nov-2016 14:45 Appointment; GREGORY DIEHL M.D. Encounter Diagnosis: Problem not documented On: 07-Apr-2017 11:00 Appointment; GREGORY DIEHL M.D. Encounter Diagnosis: Problem not documented On: 22-Jul-2017 11:00 Appointment; GREGORY DIEHL M.D. Encounter Diagnosis: Problem not documented On: 20-Oct-2017 11:00 Appointment; [facility] [facility], [facility] Encounter Diagnosis: Problem not documented On: 16-Nov-2017 14:00 Appointment; GREGORY DIEHL M.D. Encounter Diagnosis: Problem not documented On: 24-Jan-2018 11:00 Appointment; GREGORY DIEHL M.D. Encounter Diagnosis: Problem not documented On: 25-Jul-2018 15:15
[2018-11-12] MEDS ORDERED: SODIUM CHLORIDE 0.9% 1000ML 1,000 ML IV STA (16:51)
[2018-11-12 17:22] LABS: BASOPHILS # (AUTO) 0.1 (0.0-0.1); BASOPHILS % 0.6 % (0.0-1.0); EOSINOPHILS # (AUTO) 0.3 (0.0-0.4); EOSINOPHILS % 2.1 % (0.0-6.0); HEMATOCRIT 32.6 % (34.2-44.1); HEMOGLOBIN 10.4 g/dL (12.0-16.0); LYMPHOCYTES # (AUTO) 3.7 (1.0-3.2); LYMPHOCYTES % 24.8 % (18.0-39.1); MEAN CORPUSCULAR HEMOGLOBIN 32.9 pg (28-32); MEAN CORPUSCULAR HGB CONC 31.9 g/dL (31-35); MEAN CORPUSCULAR VOLUME 103.2 fL (81-99); MONOCYTES # (AUTO) 0.6 (0.2-0.8); MONOCYTES % 4.2 % (4.4-11.3); NEUTROPHILS # (AUTO) 10.1 (2.1-6.9); NEUTROPHILS % 67.3 % (38.7-80.0); PLATELET COUNT 209 x10e3/uL (140-360); RED BLOOD COUNT 3.16 x10e6/uL (3.6-5.1); RED CELL DISTRIBUTION WIDTH 15.4 % (11.7-14.4)
[2018-11-12 17:33] LABS: BILIRUBIN,URINE 1+ (NEGATIVE); CLARITY,URINE CLOUDY (CLEAR); COLOR,URINE YELLOW (YELLOW); KETONES,URINE TRACE (NEGATIVE); LEUKOCYTE ESTERASE ,URINE NEGATIVE (NEGATIVE); NITRITE,URINE NEGATIVE (NEGATIVE); PROTEIN,URINE DIPSTICK NEGATIVE (NEGATIVE); URINE UROBILINOGEN 0.2 mg/dL (0.2 - 1)
[2018-11-12 17:34] LABS: INR 0.89; PROTHROMBIN TIME 12.5 seconds (11.9-14.5)
[2018-11-12 17:35] LABS: PARTIAL THROMBOPLASTIN TIME 28.1 seconds (23.8-35.5)
[2018-11-12 17:41] LABS: ALANINE AMINOTRANSFERASE 21 IU/L (0-55); ALBUMIN 2.9 g/dL (3.5-5.0); ALKALINE PHOSPHATASE 51 IU/L (40-150); ANION GAP 11.7 mmol/L (8-16); BLOOD UREA NITROGEN 50 mg/dL (7-26); BUN/CREATININE RATIO 30 (6-25); CARBON DIOXIDE 26 mmol/L (22-29); CHLORIDE 104 mmol/L (98-107); CREATINE KINASE 48 IU/L (29-168); CREATININE, SERUM 1.65 mg/dL (0.57-1.11); EST GLOMERULAR FILTRATION RATE 31 ML/MIN (60-); GLUCOSE 97 mg/dL (74-118); MAGNESIUM 2.5 MG/DL (1.3-2.1); POTASSIUM 4.7 mmol/L (3.5-5.1); SODIUM 137 mmol/L (136-145)
[2018-11-12 17:43] LABS: AMORPHOUS SEDIMENT,URINE MANY (FEW); BACTERIA,URINE MODERATE /HPF; EPITHELIAL CELLS,URINE FEW /LPF; RBC,URINE 0-5 /HPF (0-5); WBC,URINE (MAN) 0-5 /HPF (0-5)
[2018-11-12 17:58] LABS: B-TYPE NATRIURETIC PEPTIDE2 21.9 pg/mL (0-100)
--- NOTE | 2018-11-12 18:14 | Diagnostic Imaging Report ---
CT BRAIN WO HISTORY: Dizziness COMPARISON: None. Technique: Noncontrast axial scans were obtained from skull base to the vertex. Coronal and sagittal reconstructions obtained from the axial data. One or more of the following dose reduction techniques were used: Automated exposure control, adjustment of the mA and/or kV according to patient size, and/or utilization of iterative reconstruction technique. DISCUSSION: Scalp/Skull: Unremarkable. Brain sulci: Mildly prominent. Ventricles: Compensatory dilatation. Extra-axial spaces: No masses or fluid collections. Carotid siphon calcifications are present. Parenchyma: Mild bilateral deep white matter hypodensity is likely chronic microvascular ischemic change. Otherwise, no masses, hemorrhage, or large vascular territory acute infarct. Dural sinuses: No abnormal densities. Sellar/Suprasellar region: Intact. Skull base: Intact. Incidental findings: Both ocular lenses are thinned. IMPRESSION: 1. No acute intracranial abnormalities. 2. Mild supratentorial chronic microvascular ischemic change. Mild generalized cerebral volume loss. Signed by: Dr. Liban Boston M.D. on 11/12/2018 6:11 PM
--- NOTE | 2018-11-12 18:22 | Diagnostic Imaging Report ---
CT CERVICAL SPINE WO HISTORY: Fall COMPARISON: Concurrent head CT; chest CT 11/02/2018 TECHNIQUE: CT of the cervical spine without contrast. Sagittal and coronal reformations were created. One or more of the following dose reduction techniques were used: Automated exposure control, adjustment of the mA and/or kV according to patient size, and/or utilization of iterative reconstruction technique. FINDINGS: Mild bone demineralization limits evaluation. Cervical lordosis is straightened. There is no scoliosis or subluxation. No definite acute fracture or compression deformity is seen. The craniocervical junction is intact. No gross spinal canal masses are seen. The paravertebral and paraspinal soft tissues are unremarkable. There are moderate spondylotic changes at C4-C5 and C5-C6. There is at least mild canal stenosis from C3-C4 to C5-C6 due to posterior disc osteophyte complexes. Mild atlantoaxial arthrosis is present as well. IMPRESSION: 1. No acute osseous abnormalities. 2. Moderate spondylosis at C4-C5 and C5-C6. Signed by: Dr. Liban Boston M.D. on 11/12/2018 6:18 PM
--- NOTE | 2018-11-12 18:31 | Diagnostic Imaging Report ---
EXAMINATION: CHEST SINGLE (PORTABLE) COMPARISON: CT chest 11/02/2018 INDICATION: Fall ^SYNCOPE/FALL ^[id number] ^1800 DISCUSSION: Frontal view of the chest obtained at 1756 hours. HEART AND MEDIASTINUM: Stable mild cardiomegaly and aortic tortuosity. Calcified mediastinal lymph nodes are stable LINES: None. LUNGS: Diffuse hyperinflation consistent with COPD. No pneumonia or pulmonary edema. PLEURA: No pleural effusion or pneumothorax. BONES AND SOFT TISSUES: There is a healed right lateral rib fracture. No acute fractures or dislocations. There are degenerative changes of the shoulders and spine. Surgical clips at the GE junction are stable. IMPRESSION: No acute traumatic pathology by x-ray. Stable cardiopulmonary findings. Signed by: Dr. Haseeb Sanchez MD on 11/12/2018 6:27 PM
--- NOTE | 2018-11-12 18:34 | Diagnostic Imaging Report ---
Pelvis CPT code: 32737 Indication: Syncope, fall ^SYNCOPE/FALL ^[id number] ^1800 Technique: Portable AP images of the pelvis obtained Comparison: No relevant priors are available for comparison. Findings: The bones are diffusely demineralized. There are intramedullary rods in each femur with locking screws in the femoral necks. The left femoral marcos is incompletely imaged. The visualized hardware appears intact without fracture or lucency suggestive of loosening. There is a right knee prosthesis, incompletely imaged. There is a healed fracture deformity of the right pubic ramus. No acute fractures. No diastases the pubic symphysis or sacroiliac joints. There are moderate degenerative changes of the lower lumbar spine with levoscoliosis. No vascular calcifications. IMPRESSION: 1. No acute traumatic pathology by x-ray. Healed fracture deformity of the right pubic symphysis. 2. Orthopedic hardware as described above. Signed by: Dr. Haseeb Sanchez MD on 11/12/2018 6:30 PM
[2018-11-12] MEDS ORDERED: VANCOMYCIN 1GM/NS 250 ML 250 ML IV ONE (18:45)
[2018-11-12] MEDS ORDERED: ONDANSETRON HCL INJ 2MG/ML 2ML 2 MG/ML VIAL IV PRN (19:00)
[2018-11-12] MEDS ORDERED: SODIUM CHLORIDE 0.9% 1000ML 1,000 ML IV ONE (19:00)
[2018-11-12] MEDS ORDERED: DEXTROSE 50% SYRINGE 50 ML IV PRN (19:00)
--- OUTSIDE RECORDS SUMMARY | 2018-11-12 19:05 | XMS REPORT | Clinical Summary ---
Author Author [facility]hael [facility] Organization [facility]hael [facility] Address Unknown Phone Unavailable Care Team Providers Care Rag Inspector Name Role Phone Jessi Nicholas MD PCP [...] Taken Vital Sign Reading 07/07/2018 11:42 AM [facility] Blood Pressure 133/79 07/07/2018 11:42 AM [facility] Pulse 75 03/21/2018 4:02 PM CDT Temperature 37.2 C (99 F) 03/21/2018 4:02 PM CDT Respiratory Rate 17 03/21/2018 4:02 PM CDT Oxygen Saturation 97% - Inhaled Oxygen - Concentration 07/07/2018 11:42 AM [facility] Weight 77.1 kg (170 lb) 07/07/2018 11:42 AM [facility] Height 163.8 cm (5' 4.5") 07/07/2018 11:42 AM [facility] Body Mass Index 28.73 Plan of Treatment Care Team Description Date Type Specialty Vance Araujo MD 2019 [facility] [address] [id number] 11/24/2018 Office Visit Orthopedic Surgery Health Maintenance [...] / Lot Implanted Type Area Manufactur er [id number] / / Kit Scr Intrlkng 100mm Lag 95mm Hip Joint Left: Hip LARA AND Comp Intertan - [id number] Implants NEPHEW Implanted: Qty: 1 on 03/16/2018 by Vance Knight MD TRAUMA 08/31/2027 [id number] / / [id number] Intertan 1.5 [id number] 125d Lt - IPM Left: Hip LARA & [id number] IMPLANT NEPHEW Implanted: Qty: 1 on 03/16/2018 by DEVICES Vance Saini MD [id number] / / Trigen Low Profile Screw 5.0mm X IPM Left: Hip LARA & 50mm - [id number] IMPLANT NEPHEW Implanted: Qty: 1 on 03/16/2018 by DEVICES Vance Saini MD Lens Lens Procedures Comments Procedure Name Priority Date/Time Associated Diagnosis XR FEMUR 2 VW LEFT Routine 07/07/2018 Pain 11:08 AM [facility] XR FEMUR 2 VW LEFT Routine 05/03/2018 [...] MMODE SPECTRAL 12:00 PM CDT COLOR DOPPLER (21017) ECG PRE/POST OP Routine 03/15/2018 10:08 AM [...] Femur 2 Vw Left (07/07/2018 11:08 AM [facility]) Only the most recent of 4 results [...] place which appears satisfactory. Performing Organization Address [facility] Phone Number [facility] [address] [place] [address] * XR Pelvis 1 Or 2 Vw (04/05/2018 1:57 PM CDT) Narrative Performed At [facility] X-rays AP pelvis 04/05/2018: X-ray shows bilateral internal fixation from previous trochanteric fracture most recent of the left side. Performing Organization Address [facility] Phone Number [facility] [address] [place] [address] * Hemoglobin & hematocrit (03/20/2018 12:21 PM CDT) HGB 8.2 (L) 12.0 - 16.0 g/dL [facility] DEPARTMENT OF PATHOLOGY AND GENOMIC MEDICINE HCT 26.1 (L) 37.0 - 47.0 % [facility] DEPARTMENT OF PATHOLOGY AND GENOMIC MEDICINE Specimen Blood Performing Organization Address [facility] Phone Number [address] [place] [address] PATHOLOGY AND GENOMIC MEDICINE * Estimated GFR (03/19/2018 4:35 PM CDT) Only the most recent of 5 results within the time period is included. Estimated GFR 87 mL/min/1.73 m2 [facility] DEPARTMENT OF Comment: PATHOLOGY AND [employer] GENOMIC MEDICINE rpretation G1 >=90 Normal or high G2 60-89Mildly decreased D2x22-41 Mildly to moderately decreased B4x84-35 Moderately to severely decreased G4 15-29Severely decreased G5 <15Kidney failure The eGFR was calculated using the Chronic Kidney Disease Epidemiology Collaboration (CKD-EPI) equation. Interpretation is based on recommendations of the National Kidney Foundation-Kidney Disease Outcomes Quality Initiative (NKF-KDOQI) published in 2014. Specimen Plasma specimen Performing Organization Address [facility] Phone Number [address] [place] [address] PATHOLOGY AND GENOMIC MEDICINE * Comprehensive metabolic panel (03/19/2018 4:35 PM CDT) Only the most recent of 3 results within the time period is included. Sodium 144 135 - 148 mEq/L [facility] DEPARTMENT OF PATHOLOGY AND GENOMIC MEDICINE Potassium 3.2 (L) 3.5 - 5.0 mEq/L [facility] DEPARTMENT OF PATHOLOGY AND GENOMIC MEDICINE Chloride 97 (L) 98 - 112 mEq/L [facility] DEPARTMENT OF PATHOLOGY AND GENOMIC MEDICINE CO2 38 (H) 24 - 31 mEq/L [facility] DEPARTMENT OF PATHOLOGY AND GENOMIC MEDICINE Anion gap 9@ANIO 7 - 15 mEq/L [facility] DEPARTMENT OF PATHOLOGY AND GENOMIC MEDICINE BUN 15 8 - 23 mg/dL [facility] DEPARTMENT OF PATHOLOGY AND GENOMIC MEDICINE Creatinine 0.70 0.50 - 0.90 mg/dL [facility] DEPARTMENT OF PATHOLOGY AND GENOMIC MEDICINE Glucose 144 (H) 65 - 99 mg/dL [facility] DEPARTMENT OF PATHOLOGY AND GENOMIC MEDICINE Calcium 8.6 (L) 8.8 - 10.2 mg/dL [facility] DEPARTMENT OF PATHOLOGY AND GENOMIC MEDICINE Protein 5.5 (L) 6.3 - 8.3 g/dL [facility] DEPARTMENT OF Comment: PATHOLOGY AND [place] GENOMIC MEDICINE 4.6-7.0 g/dL 1 week 4.4-7.6 g/dL 7 months-1year 5.1-7.3 g/dL 1-2 years5.6-7 .5 g/dL >3 years6.0-8 .0 g/dL 18-150 6.3-8.3 g/dL Albumin 2.6 (L) 3.5 - 5.0 g/dL [facility] DEPARTMENT OF PATHOLOGY AND GENOMIC MEDICINE A/G ratio 0.9 0.7 - 3.8 [facility] DEPARTMENT OF PATHOLOGY AND GENOMIC MEDICINE Alkaline phosphatase 55 35 - 104 U/L [facility] DEPARTMENT OF PATHOLOGY AND GENOMIC MEDICINE AST 10 10 - 35 U/L [facility] DEPARTMENT OF PATHOLOGY AND GENOMIC MEDICINE ALT 11 5 - 50 U/L [facility] DEPARTMENT OF PATHOLOGY AND GENOMIC MEDICINE Total bilirubin 0.4 0.0 - 1.2 mg/dL [facility] DEPARTMENT OF PATHOLOGY AND GENOMIC MEDICINE Specimen Plasma specimen Performing Organization Address City/State/Zipcode Phone Number [facility] [address] [place] [address] PATHOLOGY AND GENOMIC MEDICINE * CBC with platelet and differential (03/19/2018 12:10 PM CDT) Only the most recent of 5 results within the time period is included. WBC 12.67 (H) 4.50 - 11.00 k/uL [facility] DEPARTMENT OF PATHOLOGY AND GENOMIC MEDICINE RBC 2.62 (L) 4.20 - 5.50 m/uL [facility] PATHOLOGY AND GENOMIC MEDICINE HGB 7.9 (L) 12.0 - 16.0 g/dL [facility] DEPARTMENT OF PATHOLOGY AND GENOMIC MEDICINE HCT 25.5 (L) 37.0 - 47.0 % [facility] DEPARTMENT OF PATHOLOGY AND GENOMIC MEDICINE MCV 97.3 82.0 - 100.0 fL [facility] DEPARTMENT OF PATHOLOGY AND GENOMIC MEDICINE MCH 30.2 27.0 - 34.0 pg [facility] DEPARTMENT OF PATHOLOGY AND GENOMIC MEDICINE MCHC 31.0 31.0 - 37.0 g/dL [facility] DEPARTMENT OF PATHOLOGY AND GENOMIC MEDICINE RDW - SD 56.9 (H) 37.0 - 55.0 fL [facility] PATHOLOGY AND GENOMIC MEDICINE MPV 9.9 8.8 - 13.2 fL [facility] DEPARTMENT OF PATHOLOGY AND GENOMIC MEDICINE Platelet count 279 150 - 400 k/uL [facility] DEPARTMENT OF PATHOLOGY AND GENOMIC MEDICINE Nucleated RBC 0.00 /100 WBC [facility] DEPARTMENT OF PATHOLOGY AND GENOMIC MEDICINE Neutrophils 50.8 39.0 - 69.0 % [facility] DEPARTMENT OF PATHOLOGY AND GENOMIC MEDICINE Lymphocytes 31.6 25.0 - 45.0 % [facility] DEPARTMENT OF PATHOLOGY AND GENOMIC MEDICINE Monocytes 11.1 (H) 0.0 - 10.0 % [facility] DEPARTMENT OF PATHOLOGY AND GENOMIC MEDICINE Eosinophils 5.3 (H) 0.0 - 5.0 % [facility] DEPARTMENT OF PATHOLOGY AND GENOMIC MEDICINE Basophils 0.6 0.0 - 1.0 % [facility] DEPARTMENT PATHOLOGY AND GENOMIC MEDICINE Specimen Blood Performing Organization Address City/[facility]/Zipcode Phone Number [facility] [place] [address] [place] [address] PATHOLOGY AND GENOMIC MEDICINE * Type and screen (03/19/2018 12:10 PM CDT) Only the most recent of 2 results within the time period is included. ABO grouping A [facility] DEPARTMENT OF PATHOLOGY AND GENOMIC MEDICINE Rh type POS [facility] OF PATHOLOGY AND GENOMIC MEDICINE Antibody screen NEG [facility] DEPARTMENT OF PATHOLOGY AND GENOMIC MEDICINE Specimen Blood Performing Organization Address City/State/Zipcode Phone Number [address] [place] [address] PATHOLOGY AND GENOMIC MEDICINE * Basic metabolic panel (03/18/2018 5:55 AM CDT) Only the most recent of 2 results within the time period is included. Sodium 144 135 - 148 mEq/L [facility] DEPARTMENT OF PATHOLOGY AND GENOMIC MEDICINE Potassium 3.3 (L) 3.5 - 5.0 mEq/L [facility] DEPARTMENT OF PATHOLOGY AND GENOMIC MEDICINE Chloride 103 98 - 112 mEq/L [facility] OF PATHOLOGY AND GENOMIC MEDICINE CO2 34 (H) 24 - 31 mEq/L [facility] DEPARTMENT OF PATHOLOGY AND [employer] MEDICINE Anion gap 7@ANIO 7 - 15 mEq/L [facility] OF PATHOLOGY AND GENOMIC MEDICINE BUN 15 8 - 23 mg/dL [facility] DEPARTMENT OF PATHOLOGY AND [employer] MEDICINE Creatinine 0.70 0.50 - 0.90 mg/dL [facility] DEPARTMENT OF PATHOLOGY AND [employer] MEDICINE Glucose 125 (H) 65 - 99 mg/dL [facility] OF PATHOLOGY AND [employer] MEDICINE Calcium 8.4 (L) 8.8 - 10.2 mg/dL [facility] DEPARTMENT OF PATHOLOGY AND [employer] MEDICINE Specimen Plasma specimen Performing Organization Address [facility] Number [address] [place] [address] PATHOLOGY AND [employer] MEDICINE * POC glucose (03/17/2018 4:53 PM CDT) Only the most recent of 11 results within the time period is included. POC glucose 118 (H) 65 - 99 mg/dL [facility] DEPARTMENT OF Comment: PATHOLOGY AND Meter ID: [id number] GENOMIC MEDICINE Cardiopulmonary Physical Therapist: Nasir Bertrand Performing Organization Address [facility] Phone Number [address] [place] [address] PATHOLOGY AND [employer] MEDICINE * OR [place] > I Hour [...] performing the procedure. [id number] Performing Organization Address [facility] Phone Number [facility] [address] [place] [address] * XR Knee 1 Or 2 Vw Left (03/15/2018 5:48 PM CDT) Narrative Performed At EXAMINATION:XR KNEE 1 OR 2 VW LEFT [facility] CLINICAL HISTORY:Knee replacedpainquadriceps or patellar tendinopathy suspected COMPARISON:None. IMPRESSION: There is a left total knee prosthesis in place.There is no evidence of fracture or malalignment.There is soft tissue swelling strongly suggesting a distention of the bursal or joint effusion. [facility]-[id number] Procedure Note Interface, Radiology Results Incoming - [...] distention of the bursal or joint effusion. [facility]-[id number] Performing Organization Address [facility] Phone Number DONAL [address] [place] [address] * Echocardiogram complete w contrast and 3D [...] LV EF,BP 66.97 % [facility] Ryan Strawberry,d A2C 6.98 cm [facility] Ryan Strawberry,d A4C 6.38 cm [facility] Ryan Strawberry,s A2C 5.68 cm [facility] Ryan Strawberry,s A4C 5.26 cm [facility] LV SV,A2C [...] RVSP is 53 mmHg. Performing Organization Address [facility] Phone Number [facility] [address] [place] [address] * ECG Pre/Post Op (03/15/2018 10:08 AM CDT) Ventricular rate 70 [facility] Atrial rate 70 [facility] VT interval 168 [facility] QRSD interval 136 [facility] QT interval 472 [facility] QTC interval 509 [facility] P axis 1 77 [facility] QRS axis 1 43 [facility] T wave axis 31 [facility] EKG impression Normal sinus [facility] rhythm-Nonspecific intraventricular block-Abnormal ECG-No previous ECGs available- Performing Organization Address [facility] Phone Number [facility] [address] [place] [address] * Urinalysis screen and microscopy, with reflex to culture (03/15/2018 1:08 AM CDT) Specimen site Clean catch [facility] DEPARTMENT OF PATHOLOGY AND GENOMIC MEDICINE Color, UA Yellow [facility] DEPARTMENT OF PATHOLOGY AND GENOMIC MEDICINE Appearance, UA Clear [facility] DEPARTMENT OF PATHOLOGY AND GENOMIC MEDICINE Specific gravity, UA 1.024 1.001 - 1.035 [facility] DEPARTMENT OF PATHOLOGY AND GENOMIC MEDICINE pH, UA 5.0 5.0 - 8.5 [facility] DEPARTMENT OF PATHOLOGY AND GENOMIC MEDICINE Protein, UA 1+ (A) Negative [facility] DEPARTMENT OF PATHOLOGY AND GENOMIC MEDICINE Glucose, UA Negative Negative [facility] DEPARTMENT OF PATHOLOGY AND GENOMIC MEDICINE Ketones, UA Trace (A) Negative [facility] DEPARTMENT OF PATHOLOGY AND GENOMIC MEDICINE Bilirubin, UA Negative Negative [facility] DEPARTMENT OF PATHOLOGY AND GENOMIC MEDICINE Blood, UA Negative Negative [facility] DEPARTMENT OF PATHOLOGY AND GENOMIC MEDICINE Nitrite, UA Negative Negative [facility] DEPARTMENT OF PATHOLOGY AND GENOMIC MEDICINE Urobilinogen, UA 2.0 (A) <2.0 [facility] DEPARTMENT OF PATHOLOGY AND GENOMIC MEDICINE Leukocyte esterase, UA Negative Negative [facility] DEPARTMENT OF PATHOLOGY AND GENOMIC MEDICINE WBC, UA 0-5 0 - 4 /HPF [facility] DEPARTMENT OF PATHOLOGY AND GENOMIC MEDICINE RBC, UA 0-5 0 - 5 /HPF [facility] DEPARTMENT OF PATHOLOGY AND GENOMIC MEDICINE Bacteria, UA None seen None seen [facility] DEPARTMENT OF PATHOLOGY AND GENOMIC MEDICINE Yeast, UA None seen [facility] DEPARTMENT OF PATHOLOGY AND GENOMIC MEDICINE Yeast with pseudohyphae, None seen [facility] DEPARTMENT OF UA PATHOLOGY AND GENOMIC MEDICINE Calcium oxalate crystals, Few [facility] DEPARTMENT OF UA PATHOLOGY AND GENOMIC MEDICINE Specimen Urine Performing Organization Address [facility] Phone Number [address] [place] [address] PATHOLOGY AND GENOMIC MEDICINE * Urine culture (03/15/2018 1:08 AM CDT) Urine culture SEE COMMENTComment: [facility] DEPARTMENT OF Bacteriuria screen negative. PATHOLOGY AND GENOMIC MEDICINE Specimen Urine Performing Organization Address [facility] Phone Number [address] [place] [address] PATHOLOGY AND GENOMIC MEDICINE * XR Hip 2-3 View Left (03/15/2018 12:55 AM CDT) Narrative Performed At EXAMINATION:XR HIP 2-3 VIEWS LEFT [facility] CLINICAL HISTORY:fall from standing COMPARISON:Pelvic CT 03/14/2018. IMPRESSION: Acute left intertrochanteric fracture with coxa vera deformity. Surrounding soft tissue edema. Chronic right pubic fracture deformity. Fixation hardware in the visible portion of the right femur. [facility]-[id number] Procedure Note Interface, Radiology Results Incoming - 03/15/2018 1:01 AM CDT EXAMINATION: XR HIP 2-3 VIEWS LEFT CLINICAL HISTORY: fall from standing COMPARISON: Pelvic CT 03/14/2018. IMPRESSION: Acute left intertrochanteric fracture with coxa vera deformity. Surrounding soft tissue edema. Chronic right pubic fracture deformity. Fixation hardware in the visible portion of the right femur. [facility]-[id number] Performing Organization Address [facility] Phone Number [facility] [address] [place] [address] * XR Chest 1 Vw Portable (03/15/2018 12:02 AM CDT) Narrative Performed At EXAMINATION: XR CHEST 1 VW PORTABLE [facility] CLINICAL HISTORY: fall from standing COMPARISON:None. IMPRESSION: The lungs are clear. No pleural effusion or pneumothorax. Cardiac silhouette is enlarged. Aortic arch atherosclerosis. No acute osseous abnormalities. Surgical clips in the left upper quadrant. [facility]-[id number] Procedure Note Interface, Radiology Results Incoming - 03/15/2018 12:27 AM CDT EXAMINATION: XR CHEST 1 VW PORTABLE CLINICAL HISTORY: fall from standing COMPARISON: None. IMPRESSION: The lungs are clear. No pleural effusion or pneumothorax. Cardiac silhouette is enlarged. Aortic arch atherosclerosis. No acute osseous abnormalities. Surgical clips in the left upper quadrant. [facility]-[id number] Performing Organization Address [facility] Phone Number [facility] [address] [place] [address] * CT Head Wo Contrast (03/14/2018 11:08 [...] No CT evidence of acute intracranial abnormality. [id number] Procedure Note Interface, Radiology Results Incoming - [...] No CT evidence of acute intracranial abnormality. [id number] Performing Organization Address City/State/Zipcode Phone Number DONAL [address] [place] [address] * CT Cervical Spine Wo Contrast (03/14/2018 [...] C5-C6. Additional degenerative changes are detailed above. [id number] Procedure Note Interface, Radiology Results Incoming - [...] C5-C6. Additional degenerative changes are detailed above. [facility]-[id number] Performing Organization Address City/State/Zipcode Phone Number [facility] [address] [place] [address] * CT Pelvis Wo Contrast (03/14/2018 11:07 [...] hematoma adjacent to the left greater trochanter. [facility]-[id number] Procedure Note Interface, Radiology Results Incoming - [...] hematoma adjacent to the left greater trochanter. [facility]-[id number] Performing Organization Address City/State/Zipcode Phone Number [facility] [address] [place] [address] * CT Lower Extremity Wo Contrast Left (03/14/2018 11:07 PM CDT) Narrative Performed At CT PELVIS WO CONTRAST, CT LOWER EXTREMITY WO CONTRAST LEFT [facility]:fall from standingL hip [...] hematoma adjacent to the left greater trochanter. [facility]-[id number] Procedure Note Hm Interface, Radiology Results Incoming [...] hematoma adjacent to the left greater trochanter. [facility]-[id number] Performing Organization Address City/State/Zipcode Phone Number [facility] [address] [place] [address] * Troponin (03/14/2018 9:36 PM CDT) Troponin <0.300 0.000 - 0.300 ng/mL [facility] DEPARTMENT OF Comment: PATHOLOGY AND 0.30 - 1.49 GENOMIC MEDICINE ng/mlMay indicate increased risk of acute coronary syndrome. >=1.5 ng/ml Consistent with acute myocardial infarction. The diagnostic value of a single normal or non-diagnostic result is questionable.Serial samples at 2-6 hour intervals are required to rule out acute myocardial injury. Specimen Plasma specimen Performing Organization Address [facility] Phone Number [address] [place] [address] PATHOLOGY AND [facility] * Partial thromboplastin time, activated (03/14/2018 9:36 PM CDT) PTT 30.3 23.0 - 36.0 sec [facility] DEPARTMENT OF Comment: PATHOLOGY AND PTT therapeutic range for [facility] unfractionated heparin is 61.0-112.0 seconds which corresponds to Anti-Xa 0.3-0.7 U/ml. Specimen Blood Performing Organization Address [facility] Phone Number [address] [place] [address] PATHOLOGY AND [facility] * Prothrombin time with INR (03/14/2018 9:36 PM CDT) Prothrombin time 13.3 12.0 - 15.0 sec [facility] DEPARTMENT OF PATHOLOGY AND GENOMIC MEDICINE INR 1.0 [facility] DEPARTMENT OF Comment: PATHOLOGY AND The International Normalized [facility] Ratio (INR) is a therapeutic monitoring tool for patients who are stable on oral anticoagulant therapy. An INR of 2.0-3.0 is suggested for deep vein thrombosis/pulmonary embolism. Specimen Blood Performing Organization Address [facility] Phone Number [address] [place] [address] PATHOLOGY AND [facility] MEDIC[facility] * B natriuretic peptide (03/14/2018 9:36 PM CDT) BNP 95 0 - 100 pg/mL [facility] DEPARTMENT OF PATHOLOGY AND [employer] MEDICINE Specimen Blood Performing Organization Address [facility] Phone Number [address] [place] [address] PATHOLOGY AND [facility] * Creatine kinase, total (CPK) (03/14/2018 9:36 PM CDT) Creatine kinase 61 26 - 192 U/L [facility] DEPARTMENT OF PATHOLOGY AND GENOMIC MEDICINE Specimen Plasma specimen Performing Organization Address [facility] Phone Number [facility] DEPARTMENT OF [address] [place] [address] [place] [address] PATHOLOGY AND GENOMIC MEDICINE * ECG 12 lead (03/14/2018 9:34 PM CDT) Ventricular rate 77 [facility] Atrial rate 77 [facility] VT interval 170 [facility] QRSD interval 106 [facility] QT interval 420 [facility] QTC interval 475 [facility] P axis 1 77 [facility] QRS axis 1 53 [facility] T wave axis 36 [facility] EKG impression Normal sinus rhythm with sinus [facility] MUSE arrhythmia-Marked ST abnormality, possible anterior subendocardial injury-Abnormal ECG-No previous ECGs available- Performing Organization Address [facility] Phone Number [facility] [address] [place] [address] * ECG ED Preliminary Interpretation - NOT AN ORDER (03/14/2018 9:27 PM CDT) Narrative Performed At Derick Montez MD 03/15/2018 12:02 AM ECG ED Preliminary Interpretation - Not an Order Performed by: DERICK MONTEZ Authorized by: DERICK MONTEZ ECG reviewed by ED Physician in the absence of a business process analyst: yes Interpretation: Interpretation: normal Quality: Tracing quality:Limited [...] Organization Address City/State/Zipcode Phone Number [facility] [address] [place] [address] after 11/11/2017 Insurance Payer Benefit Subscriber ID Type Phone Address Plan / Group HUMANA MEDICARE HUMANA xxxxxxxxx PPO MEDICARE PPO/PFFS/E [facility] Advance Directives Patient has advance care planning documents, and code status on file. For more i nformation, please contact: Donavon Schafer [address] [place] [address] Date Inactivated Comments Code Status Date Activated 03/21/2018 10:10 PM Full Code 03/16/2018 5:14 PM Code Status decision reached by: Patient
[2018-11-12 19:48] LABS: CREATINE KINASE 49 IU/L (29-168)
[2018-11-12] MEDS: CEFEPIME 2 GM/NS 0.9% 100 ML 100 ML IV SCH (19:55)
[2018-11-12] MEDS: FAMOTIDINE 20 MG/2 ML VIAL IV SCH (19:55)
[2018-11-12 20:19] VITALS: BP 115/54
--- NOTE | 2018-11-12 20:19 | NUR ---
Received patient to room from ER at this time. Patient is A&Ox3. Breaths even and unlabored, lung sounds clear. Bowel sounds active. [address]: 22g to L hand, 20g to R forearm, 18g ro R EJ, all asymptomatic, intact, and patent. Skin warm, dry, and intact, except for a few small skin tears on both arms. Patient reports headache from being moved around, 7/10 pain. No pain meds ordered at this time. SCDs applied as patient has been dizzy and had episode of syncope at home, and requested to not get out of bed until dizziness is resolved. Patient can turn self. Non-skid footwear applied. Allergy band and fall risk band in place. Oriented to room and call light system. Bed locked in lowest position, side rails upx2, call light in reach.
[2018-11-12 20:20] VITALS: BP 115/54
[2018-11-12] MEDS: INSULIN LISPRO 100 UNIT/1 ML 3ML VIAL SQ SCH (21:00)
[2018-11-12 21:22] VITALS: BP 115/54
[2018-11-13] VITALS (10 sets, daily range): BP systolic 102–153; BP diastolic 52–67
[2018-11-13 03:59] LABS: CREATINE KINASE 35 IU/L (29-168)
[2018-11-13 05:39] LABS: BASOPHILS # (AUTO) 0.1 (0.0-0.1); BASOPHILS % 0.6 % (0.0-1.0); EOSINOPHILS # (AUTO) 0.3 (0.0-0.4); EOSINOPHILS % 2.5 % (0.0-6.0); HEMATOCRIT 28.7 % (34.2-44.1); HEMOGLOBIN 8.9 g/dL (12.0-16.0); LYMPHOCYTES # (AUTO) 3.5 (1.0-3.2); LYMPHOCYTES % 27.7 % (18.0-39.1); MEAN CORPUSCULAR HEMOGLOBIN 32.5 pg (28-32); MEAN CORPUSCULAR VOLUME 104.7 fL (81-99); MONOCYTES # (AUTO) 0.6 (0.2-0.8); MONOCYTES % 4.6 % (4.4-11.3); NEUTROPHILS % 63.6 % (38.7-80.0); PLATELET COUNT 180 x10e3/uL (140-360); RED BLOOD COUNT 2.74 x10e6/uL (3.6-5.1); RED CELL DISTRIBUTION WIDTH 15.3 % (11.7-14.4)
[2018-11-13 06:01] LABS: ALBUMIN 2.4 g/dL (3.5-5.0); ANION GAP 8.7 mmol/L (8-16); CALCIUM 8.4 mg/dL (8.4-10.2); CREATININE, SERUM 1.11 mg/dL (0.57-1.11); POTASSIUM 4.7 mmol/L (3.5-5.1)
--- NOTE | 2018-11-13 07:10 | NUR ---
received pt lying in bed with eyes closed, Resp even and unlabored. call light within reach.
[2018-11-13] MEDS: INSULIN LISPRO 100 UNIT/1 ML 3ML VIAL SQ SCH ×4 (07:30→21:00)
[2018-11-13] MEDS: FAMOTIDINE 20 MG/2 ML VIAL IV SCH ×2 (08:38→19:41)
[2018-11-13] MEDS ORDERED: GLIPIZIDE 2.5 MG TABCR PO SCH (09:00)
[2018-11-13] MEDS: LISINOPRIL 10 MG TAB PO SCH ×2 (09:27→16:58)
[2018-11-13] MEDS: GABAPENTIN 300 MG CAP PO SCH ×2 (09:27→16:58)
[2018-11-13] MEDS: FERROUS SULFATE 325 MG TAB PO SCH (09:27)
[2018-11-13] MEDS: ASPIRIN 81 MG CHEW TAB PO SCH (09:27)
[2018-11-13] MEDS: SERTRALINE HCL 100 MG TAB PO SCH (09:28)
[2018-11-13] MEDS: HYDROCODONE/APAP 10MG-325MG TAB PO PRN ×2 (09:28→19:41)
[2018-11-13] MEDS: PANTOPRAZOLE SOD 40 MG TABEC PO SCH ×2 (09:28→16:58)
[2018-11-13] MEDS: CALCIUM CARBONATE 500 MG CHEWABLE TABS PO SCH (09:28)
[2018-11-13 13:57] LABS: CREATINE KINASE 38 IU/L (29-168)
[2018-11-13] MEDS: MIDODRINE 2.5 MG TAB PO SCH (16:58)
[2018-11-13] MEDS: CEFEPIME 2 GM/NS 0.9% 100 ML 100 ML IV SCH (19:41)
[2018-11-14] VITALS (13 sets, daily range): BP systolic 90–153; BP diastolic 52–81
--- NOTE | 2018-11-14 02:15 | Consultation ---
DATE OF CONSULTATION: 11/13/2018 Neurology Consult Note HISTORY OF PRESENT ILLNESS: Ms. Rico is a 73-year-old right-hand dominant woman with an extensive past medical history, admitted to [facility] on November 12, 2018 with a probable syncopal event. According to the patient, immediately prior to admission, the patient was sitting on the toilet in her bathroom, having a bowel movement. During this time, she experienced the gradual onset of dizziness, which is further described as a vertiginous sensation, "vision going black" (tunneling), nausea, and shortness of breath. Ms. Rico endorses chest pain as well, but this occurred approximately 1 hour prior to the syncopal event and was attributed by the patient to gastroesophageal reflux disease. Within seconds of onset of the aforementioned symptoms, the patient fell to the ground unconscious. The duration of unconsciousness is unknown. However, Ms. Rico reports she could not have been unconscious for more than a minute. When she regained consciousness, the patient was oriented to person, place, and situation. She was not aware of tongue biting, bladder/bowel incontinence, diffuse myalgias or arthralgias, or bruises or abrasions over any part of her body. When she regained consciousness, the patient called to her and son to help her from the floor. However, both the patient's and son were concerned Ms. Rico may have fractured something when she fell. Therefore, emergency medical services were notified, and the patient was transported to the emergency center at [facility] for further evaluation of her symptoms. It is important to note, Ms. Rico was hypotensive upon her initial assessment by paramedics in the field. Upon arrival to the emergency center, the patient was afebrile with a blood pressure of 83/48 mmHg and a pulse of 64 beats per minute. Her neurological examination was documented as being nonfocal. Routine blood work revealed the patient to be dehydrated with acute kidney injury. The CBC with differential and platelets revealed an elevated white blood cell count of 14.93 with a mild left shift. A CT of the brain without contrast was performed, while the patient was in the emergency center. There was no evidence of recent large territorial ischemia or hemorrhage on this study. Ms. Rico was subsequently admitted to [facility] under observation status for further evaluation and treatment of her symptoms. REVIEW OF SYSTEMS: Chest pain, abdominal pain, nausea, diarrhea, joint pain (chronic), visual disturbance, and syncope. Otherwise, a 12-point review of systems is negative. PAST MEDICAL HISTORY: Hypertension, diabetes mellitus type 2, congestive heart failure, chronic obstructive pulmonary disease, pulmonary hypertension, rheumatoid arthritis, osteoarthritis, gastroesophageal reflux disease, and depression. PAST SURGICAL HISTORY: Left ankle surgery, bilateral knee replacements, additional orthopedic procedures on the hips and legs, gastric bypass, cholecystectomy, section, bilateral tubal ligation, bilateral cataract removal, and RIKI of the lumbar spine. PAST HOSPITALIZATIONS: Surgeries/procedures as listed, childbirth x3, numerous hospitalizations for infection, usually pneumonia. FAMILY MEDICAL HISTORY: The patient's paternal and maternal grandparents are . Their medical histories are unknown. The patient's father is . He had hypertension, heart disease, and macular degeneration. The patient's mother is from complications of diabetes mellitus. Ms. Rico has one brother, who is alive. He has had multiple prior strokes. She has four sisters, all of whom are alive and healthy with the exception of one, who has had a prior stroke. Ms. Rico has three children, two sons and one daughter, all of whom are living. Both sons have hypertension. The eldest son has had a stroke. The patient's daughter has a history of idiopathic intracranial hypertension, multiple prior strokes, and secondary seizure disorder. SOCIAL HISTORY: Ms. Rico is . She is retired. The patient reports prior tobacco use, but quit smoking cigarettes approximately 8 years ago. She endorses occasional alcohol use. There is no reported current or prior recreational drug use. HOME MEDICATIONS: [place], aspirin, calcium with vitamin D, diltiazem, Nexium, ferrous sulfate, Lasix, gabapentin, glipizide, levalbuterol, lisinopril, meloxicam, methotrexate, sertraline, folic acid, and vitamin D2. HOSPITAL MEDICATIONS: Aspirin, Tums, cefepime, Pepcid, ferrous sulfate, gabapentin, glipizide, [place], insulin sliding scale, lisinopril, methotrexate, midodrine, Zofran, Protonix, and sertraline. ALLERGIES: PENICILLIN AND ALBUTEROL. NO KNOWN FOOD ALLERGIES. NO KNOWN ALLERGIES TO LATEX. NO KNOWN ALLERGIES TO IODINE OR OTHER CONTRAST MATERIALS. PHYSICAL EXAMINATION: VITAL SIGNS: Height 64 inches, weight 176 pounds, BMI 30.3 kg/m2, blood pressure 150/67 mmHg, pulse 67 beats per minute, respiratory rate 19 breaths per minute, and oxygen saturation 96% on 2 L by nasal cannula. GENERAL: The patient is awake and alert, does not appear distressed. Obese. HEENT: Normocephalic and atraumatic. Pupils are surgical. Moist mucous membranes. NECK: Supple. No appreciable thyromegaly. No appreciable carotid bruits. CARDIOVASCULAR: S1, S2, regular rate and rhythm. No murmurs, rubs, or gallops. RESPIRATORY: Clear to auscultation bilaterally. No wheezes, rhonchi, or rales. EXTREMITIES: The skin is warm and dry. No clubbing, cyanosis, or edema. The posterior tibial and dorsalis pedis pulses are 1+ and symmetric. SKIN: No rashes or lesions. NEUROLOGIC: Memory/Attention: The patient is awake and alert, oriented to person, place, time, and situation. Cranial Nerves: Cranial nerve I - not tested. Cranial nerves II, III, IV, and - pupils are surgical. Extraocular movements intact. No nystagmus. Cranial nerve V - sensation to light touch and pinprick is intact in the bilateral V1 through V3 distributions. Strength in the temporalis and masseter muscles are within normal limits. Cranial nerve VII - the face is symmetric as are all facial movements. Strength is within normal limits. Cranial nerve VIII - hearing is intact to finger rub bilaterally. Cranial nerves IX, X - the soft palate elevates equally and symmetrically. Cranial nerve XI - normal strength of the bilateral sternocleidomastoid and trapezius muscles. Cranial nerve XII - the tongue protrudes midline and moves symmetrically from [id number]. Strength: Bulk is normal. Strength is 5/5 in the bilateral deltoids, biceps, triceps, wrist flexors and extensors, finger flexors and extensors, intrinsic hand muscles, hip flexors, knee flexors and extensors, ankle dorsiflexion and plantar flexion, and intrinsic foot muscles. Tone is normal. DTRs: Deep tendon reflexes are 1+ and symmetric at the triceps, biceps, brachioradialis, and patellas. Deep tendon reflexes are absent and symmetric at the Achilles. Plantar responses are flexor bilaterally. Sensation: Sensation is intact to light touch and pinprick in both arms and both legs. Cerebellar: [id number] and heel-loza movements are intact without dysmetria or other impairment. Gait: Deferred. Speech: Spontaneous speech is normal without appreciable dysarthria or aphasia. Repetition is intact. Involuntary Movements: None. Pronator Drift: None. LABORATORY DATA: The most recent comprehensive metabolic panel is significant for chloride of 110, BUN of 38, estimated GFR of 48, total protein of 4.9, and albumin of 2.4. Cardiac enzymes are negative x4. Lactic acid 10.6. B-natriuretic peptide 21.9. The CBC with differential and platelets reveals an elevated white blood cell count of 12.58 with a left shift with 63.6% neutrophils, 27.7% lymphocytes, 4.6% monocytes, 2.5% eosinophils, and 0.6% basophils. The hemoglobin and hematocrit are 8.9 and 28.7, respectively. The platelet count is 180. A coagulation profile is within normal limits. A urinalysis collected on November 12, 2018, revealed cloudy urine with trace ketones, 1+ bilirubin, many amorphous sediment, and moderate urine bacteria. Blood cultures collected on November 12, 2018, revealed no growth after 24 hours. A urine culture collected on November 12, 2018, reveals no growth after 18 to 24 hours. DIAGNOSTIC STUDIES: Electrocardiogram on 11/12/2018: Normal sinus rhythm at 61 beats per minute. Pelvis x-ray on 11/12/2018: No acute traumatic pathology by x-ray. Healed fracture deformity of the right pubic symphysis. Orthopedic hardware as described above. Chest x-ray on 11/12/2018: No acute traumatic pathology by x-ray. Stable cardiopulmonary findings. CT of the brain without contrast on 11/12/2018: On my review, there is no evidence of recent large territorial ischemia, hemorrhage, mass, or mass effect. There is mild diffuse cerebral atrophy with compensatory dilatation of the ventricles. Their findings compatible with mild chronic small-vessel ischemic disease. CT of the cervical spine on 11/12/2018: There is moderately severe degenerative disk disease at C4-C5 and C5-C6. No acute osseous abnormalities are appreciated. ASSESSMENT AND PLAN: Ms. Rico is a 73-year-old right-hand dominant woman with an extensive past medical history as detailed, admitted to [facility] on November 12, 2018, following a syncopal event. At present, the patient's neurological examination is nonfocal. Her laboratory data and other diagnostic studies have been reviewed and are documented above. In my opinion, Ms. Rico experienced a syncopal event due to volume depletion or possibly vasovagal syncope. There is a very low suspicion for an underlying neurological cause/disorder as the source of the patient's syncopal event. Thank you for this consultation. There are no recommendations from the Neurology Service at this time. Please call again with any questions or concerns. TIME SPENT: 50 minutes. Grazyna Jett MD CP/SINA /[id number] MTDCathleen
[2018-11-14] MEDS: FAMOTIDINE 20 MG/2 ML VIAL IV SCH ×2 (07:00→19:35)
[2018-11-14] MEDS: INSULIN LISPRO 100 UNIT/1 ML 3ML VIAL SQ SCH ×4 (07:30→20:37)
[2018-11-14] MEDS: PANTOPRAZOLE SOD 40 MG TABEC PO SCH ×2 (07:30→16:30)
[2018-11-14] MEDS: GLIPIZIDE 2.5 MG TABCR PO SCH (08:23)
[2018-11-14] MEDS: HYDROCODONE/APAP 10MG-325MG TAB PO PRN ×2 (08:24→14:10)
[2018-11-14] MEDS: FERROUS SULFATE 325 MG TAB PO SCH (09:01)
[2018-11-14] MEDS: ASPIRIN 81 MG CHEW TAB PO SCH (09:01)
[2018-11-14] MEDS: GABAPENTIN 300 MG CAP PO SCH ×2 (09:01→17:25)
[2018-11-14] MEDS: LISINOPRIL 10 MG TAB PO SCH ×2 (09:02→17:25)
[2018-11-14] MEDS: MIDODRINE 2.5 MG TAB PO SCH ×2 (09:02→17:25)
[2018-11-14] MEDS: SERTRALINE HCL 100 MG TAB PO SCH (09:02)
[2018-11-14] MEDS: CALCIUM CARBONATE 500 MG CHEWABLE TABS PO SCH (09:02)
--- NOTE | 2018-11-14 11:05 | NUR ---
PT FLIPPED TO IN PT IMM SIGNED FILED IN CHART AND LEFT COPY BEDSIDE WITH CARD OR ANY FURTHER QUESTIONS.
--- NOTE | 2018-11-14 11:38 | NUR ---
Spoke with Dr. Nicholas and informed of volume depletion and no focal deficits per neuro, Orthostatics done yesterday and systolic drop >20 from lying to standing. Orders per Dr. Nicholas to give albumin 25mg x1.
[2018-11-14] MEDS ORDERED: ALBUMIN 25% 25GM 100ML 0.25 GM/ML BTL IV NR (12:00)
--- NOTE | 2018-11-14 14:05 | NUR ---
Visit made by the Spiritual Care Department Pastoral Visitor, Margarita Pelletier. PV provided pastoral presence, prayer, hospitality, and supportive listening. Pastoral Visitor informed pt/family of the scope of [employer] and availability. [employer] Spiritual Care Department O: [phone] Pager: [phone] ([phone] calling from)
--- NOTE | 2018-11-14 14:28 | NUR ---
Patient OOB and ambulated about 15 feet with PT, BP standing was 111/65.
[2018-11-14] MEDS ORDERED: SODIUM CHLORIDE 0.9% 250ML 250 ML ONE (19:27)
[2018-11-14] MEDS: CEFEPIME 2 GM/NS 0.9% 100 ML 100 ML IV SCH (19:35)
[2018-11-15] VITALS (8 sets, daily range): BP systolic 91–144; BP diastolic 56–69
[2018-11-15] MEDS: HYDROCODONE/APAP 10MG-325MG TAB PO PRN ×2 (00:11→23:40)
[2018-11-15 06:04] LABS: BASOPHILS # (AUTO) 0.1 (0.0-0.1); BASOPHILS % 0.9 % (0.0-1.0); EOSINOPHILS # (AUTO) 0.4 (0.0-0.4); EOSINOPHILS % 2.9 % (0.0-6.0); HEMATOCRIT 29.8 % (34.2-44.1); HEMOGLOBIN 9.4 g/dL (12.0-16.0); LYMPHOCYTES # (AUTO) 4.1 (1.0-3.2); LYMPHOCYTES % 33.9 % (18.0-39.1); MEAN CORPUSCULAR HEMOGLOBIN 32.8 pg (28-32); MEAN CORPUSCULAR HGB CONC 31.5 g/dL (31-35); MEAN CORPUSCULAR VOLUME 103.8 fL (81-99); MONOCYTES # (AUTO) 1.2 (0.2-0.8); MONOCYTES % 9.4 % (4.4-11.3); NEUTROPHILS # (AUTO) 6.2 (2.1-6.9); NEUTROPHILS % 50.9 % (38.7-80.0); PLATELET COUNT 176 x10e3/uL (140-360); RED BLOOD COUNT 2.87 x10e6/uL (3.6-5.1); RED CELL DISTRIBUTION WIDTH 15.4 % (11.7-14.4)
[2018-11-15 06:30] LABS: ANION GAP 8.5 mmol/L (8-16); CALCIUM 9.4 mg/dL (8.4-10.2); CREATININE, SERUM 1.02 mg/dL (0.57-1.11); POTASSIUM 4.5 mmol/L (3.5-5.1)
[2018-11-15] MEDS: FAMOTIDINE 20 MG/2 ML VIAL IV SCH ×2 (07:00→19:47)
[2018-11-15] MEDS: INSULIN LISPRO 100 UNIT/1 ML 3ML VIAL SQ SCH ×4 (07:30→21:00)
[2018-11-15] MEDS: PANTOPRAZOLE SOD 40 MG TABEC PO SCH ×2 (07:30→16:30)
[2018-11-15] MEDS: GLIPIZIDE 2.5 MG TABCR PO SCH (08:00)
[2018-11-15] MEDS: FERROUS SULFATE 325 MG TAB PO SCH (09:03)
[2018-11-15] MEDS: SERTRALINE HCL 100 MG TAB PO SCH (09:03)
[2018-11-15] MEDS: MIDODRINE 2.5 MG TAB PO SCH ×2 (09:03→17:00)
[2018-11-15] MEDS: LISINOPRIL 10 MG TAB PO SCH ×2 (09:03→17:00)
[2018-11-15] MEDS: CALCIUM CARBONATE 500 MG CHEWABLE TABS PO SCH (09:03)
[2018-11-15] MEDS: GABAPENTIN 300 MG CAP PO SCH ×2 (09:03→17:00)
[2018-11-15] MEDS: ASPIRIN 81 MG CHEW TAB PO SCH (09:03)
--- NOTE | 2018-11-15 10:38 | NUR ---
Rounds by attending and orders in place for PT twice daily, PT notified. OOB and BP still drops at this time
--- NOTE | 2018-11-15 10:39 | NUR ---
PT in to work with patient and assisting OOB to chair.
[2018-11-15] MEDS: CEFEPIME 2 GM/NS 0.9% 100 ML 100 ML IV SCH (19:47)
[2018-11-16] VITALS (9 sets, daily range): BP systolic 96–123; BP diastolic 51–68
[2018-11-16 06:25] LABS: BASOPHILS # (AUTO) 0.1 (0.0-0.1); BASOPHILS % 0.9 % (0.0-1.0); EOSINOPHILS # (AUTO) 0.3 (0.0-0.4); EOSINOPHILS % 2.4 % (0.0-6.0); HEMATOCRIT 30.2 % (34.2-44.1); HEMOGLOBIN 9.7 g/dL (12.0-16.0); LYMPHOCYTES # (AUTO) 4.7 (1.0-3.2); LYMPHOCYTES % 35.9 % (18.0-39.1); MEAN CORPUSCULAR HEMOGLOBIN 33.1 pg (28-32); MEAN CORPUSCULAR HGB CONC 32.1 g/dL (31-35); MEAN CORPUSCULAR VOLUME 103.1 fL (81-99); MONOCYTES # (AUTO) 1.3 (0.2-0.8); MONOCYTES % 9.7 % (4.4-11.3); NEUTROPHILS # (AUTO) 6.4 (2.1-6.9); NEUTROPHILS % 48.9 % (38.7-80.0); PLATELET COUNT 178 x10e3/uL (140-360); RED BLOOD COUNT 2.93 x10e6/uL (3.6-5.1); RED CELL DISTRIBUTION WIDTH 15.4 % (11.7-14.4)
[2018-11-16 06:57] LABS: ANION GAP 9.2 mmol/L (8-16); BLOOD UREA NITROGEN 23 mg/dL (7-26); BUN/CREATININE RATIO 26 (6-25); CALCIUM 9.1 mg/dL (8.4-10.2); CARBON DIOXIDE 29 mmol/L (22-29); CHLORIDE 103 mmol/L (98-107); EST GLOMERULAR FILTRATION RATE > 60 ML/MIN (60-); GLUCOSE 149 mg/dL (74-118); POTASSIUM 4.2 mmol/L (3.5-5.1); SODIUM 137 mmol/L (136-145)
[2018-11-16] MEDS: FAMOTIDINE 20 MG/2 ML VIAL IV SCH ×2 (07:00→20:05)
[2018-11-16] MEDS: PANTOPRAZOLE SOD 40 MG TABEC PO SCH ×2 (07:30→17:34)
[2018-11-16] MEDS: INSULIN LISPRO 100 UNIT/1 ML 3ML VIAL SQ SCH ×4 (07:30→21:00)
[2018-11-16] MEDS: ASPIRIN 81 MG CHEW TAB PO SCH (08:46)
[2018-11-16] MEDS: GLIPIZIDE 2.5 MG TABCR PO SCH (08:46)
[2018-11-16] MEDS: FERROUS SULFATE 325 MG TAB PO SCH (08:46)
[2018-11-16] MEDS: GABAPENTIN 300 MG CAP PO SCH ×2 (08:46→17:34)
[2018-11-16] MEDS: CALCIUM CARBONATE 500 MG CHEWABLE TABS PO SCH (08:47)
[2018-11-16] MEDS: LISINOPRIL 10 MG TAB PO SCH (08:47)
[2018-11-16] MEDS: MIDODRINE 2.5 MG TAB PO SCH (08:47)
[2018-11-16] MEDS: SERTRALINE HCL 100 MG TAB PO SCH (08:47)
[2018-11-16] MEDS: HYDROCODONE/APAP 10MG-325MG TAB PO PRN ×2 (10:00→21:04)
[2018-11-16 11:54] LABS: ANISOCYTOSIS SLIGHT; EOSINOPHILS % (MANUAL) 3 % (0-7); HYPOCHROMASIA SLIGHT; LYMPHOCYTES % (MANUAL) 35 % (19-48); METAMYELOCYTES % (MANUAL) 2 % (0-0); MONOCYTES % (MANUAL) 8 % (3.4-9.0); MYELOCYTES % (MANUAL) 1 % (0-0); NEUTROPHILS % (MANUAL) 50 % (40-74); PROMYELOCYTES % (MANUAL) 1 % (0-0)
[2018-11-16 11:55] LABS: PLATELET ESTIMATE ADEQUATE; PLATELET MORPHOLOGY COMMENT NORMAL; RBC MORPHOLOGY COMMENT NORMAL
[2018-11-16] MEDS: MIDODRINE HCL 5 MG TABLET PO SCH ×2 (12:00→17:34)
[2018-11-16] MEDS ORDERED: MIDODRINE 2.5 MG TAB PO SCH (15:00)
[2018-11-16] MEDS ORDERED: LISINOPRIL 10 MG TAB PO SCH (17:00)
[2018-11-16] MEDS: LISINOPRIL 2.5 MG TAB PO SCH (17:34)
--- NOTE | 2018-11-16 19:15 | NUR ---
Rounding done and report received. Patient resting in bed. A&Ox4, respirations even & unlabored, no distress noted. Patient is c/o irritation to skin due to R EJ IV, requested if IV could be removed, informed her IV access needs to be available while in the hospital. Offered to reinforce dressing and patient was okay with it.
--- NOTE | 2018-11-16 19:45 | NUR ---
Dressing to PIV changed, patient states it feels a lot better.
[2018-11-16] MEDS: CEFEPIME 2 GM/NS 0.9% 100 ML 100 ML IV SCH (20:47)
[2018-11-17] VITALS: BP 102/53
[2018-11-17 04:00] VITALS: BP 114/57
[2018-11-17] MEDS: FAMOTIDINE 20 MG/2 ML VIAL IV SCH (07:00)
[2018-11-17] MEDS: PANTOPRAZOLE SOD 40 MG TABEC PO SCH (07:30)
[2018-11-17] MEDS: INSULIN LISPRO 100 UNIT/1 ML 3ML VIAL SQ SCH ×2 (07:30→11:30)
[2018-11-17 07:46] VITALS: BP 116/58
[2018-11-17] MEDS: HYDROCODONE/APAP 10MG-325MG TAB PO PRN (07:46)
[2018-11-17] MEDS: MIDODRINE HCL 5 MG TABLET PO SCH ×2 (08:34→12:00)
[2018-11-17] MEDS: FERROUS SULFATE 325 MG TAB PO SCH (08:34)
[2018-11-17] MEDS: ASPIRIN 81 MG CHEW TAB PO SCH (08:34)
[2018-11-17] MEDS: GLIPIZIDE 2.5 MG TABCR PO SCH (08:34)
[2018-11-17] MEDS: CALCIUM CARBONATE 500 MG CHEWABLE TABS PO SCH (08:35)
[2018-11-17] MEDS: GABAPENTIN 300 MG CAP PO SCH (08:35)
[2018-11-17] MEDS: SERTRALINE HCL 100 MG TAB PO SCH (08:35)
[2018-11-17] MEDS: LISINOPRIL 2.5 MG TAB PO SCH (08:35)
[2018-11-17] MEDS ORDERED: METHOTREXATE SOD 2.5 MG TAB PO SCH (09:00)
--- NOTE | 2018-11-17 09:59 | NUR ---
EDUCATED ABOUT IMM, SIGNED, FILED IN CHART, WITH COPY LEFT WITH FAMILY AT BEDSIDE.
[2018-11-17 11:44] VITALS: BP 127/61
[2018-11-17 12:06] VITALS: BP 127/61
== END 2018-11-17 14:55 | disposition home or self-care (01) | DRG 191 ==
LOC: ER 16:32 → ERHOLD 18:54 → MED/SURG 20:20 → OBSVTOIN 11-14 08:32
DX: J44.9 Chronic obstructive pulmonary disease, unspecified (principal); N17.9 Acute kidney failure, unspecified; K52.9 Noninfective gastroenteritis and colitis, unspecified; E86.1 Hypovolemia
CPT/HCPCS: 36415; 70450; 71045; 72125; 72170; 80048; 80053; 80061; 81001; 82550; 82553; 82948; 83605; 83735; 83880; 84484; 85025; 85610; 85730; 87040; 87086; 93005; 97139; 99285; G0378; J3370; J7030; J7050; J8610; P9047

== ENCOUNTER 2018-11-24 10:58 | Observation (INO) | payer MEDICARE ==
[~2018-11-24] VITALS: Ht 162.6 cm; Wt 77.6 kg
--- OUTSIDE RECORDS SUMMARY | 2018-11-24 11:02 | XMS REPORT | Clinical Summary ---
Author Author [facility] Organization [facility] Address Unknown Phone Unavailable Care Team Providers Care Kayaking Instructor Name Role Phone Jessi Nicholas MD PCP [...] Description Date Type Specialty Prerna Ortez MA Pain (Primary Dx) 11/23/2018 Orders Only Orthopedic Surgery Prerna Ortez MA Fracture (Primary Dx) 10/30/2018 [...] 03/14/2018 Hospital General Surgery - Encounter 03/21/2018 after 11/23/2017 Immunizations Name Dates Previously Given Next Due [...] Taken Vital Sign Reading 07/07/2018 11:42 AM [facility] Blood Pressure 133/79 07/07/2018 11:42 AM [facility] Pulse 75 03/21/2018 4:02 PM CDT Temperature 37.2 C (99 F) 03/21/2018 4:02 PM CDT Respiratory Rate 17 03/21/2018 4:02 PM CDT Oxygen Saturation 97% - Inhaled Oxygen - Concentration 07/07/2018 11:42 AM [facility] Weight 77.1 kg (170 lb) 07/07/2018 11:42 AM [facility] Height 163.8 cm (5' 4.5") 07/07/2018 11:42 AM [facility] Body Mass Index 28.73 Plan of Treatment Care Team Description Date Type Specialty Vance Araujo MD 2019 [facility] [address] [place] [address] [phone] 11/24/2018 Office Visit Orthopedic Surgery Health Maintenance [...] / Lot Implanted Type Area Manufactur er [id number] / / Kit Scr Intrlkng 100mm Lag 95mm Hip Joint Left: Hip HEART AND Comp Intertan - [id number] Implants NEPHEW Implanted: Qty: 1 on 03/16/2018 by Vance Knight MD TRAUMA 08/31/2027 [id number] / / [id number] Intertan 1.5 [id number] 125d Lt - IPM Left: Hip HEART & [id number] IMPLANT NEPHEW Implanted: Qty: 1 on 03/16/2018 by DEVICES Vance Saini MD [id number] / / Trigen Low Profile Screw 5.0mm X IPM Left: Hip HEART & 50mm - [id number] IMPLANT NEPHEW Implanted: Qty: 1 on 03/16/2018 by DEVICES MADELYN Araujo, Vance Han MD CS Lens Lens Procedures Comments Procedure Name Priority Date/Time Associated Diagnosis XR FEMUR 2 VW LEFT Routine 07/07/2018 Pain 11:08 AM [facility] XR FEMUR 2 VW LEFT Routine 05/03/2018 [...] 11:30 AM CDT intertrochanteric fracture Special Needs Alexia Intratan Nail.Jeremiah ) with Marco and Nephedy [...] MMODE SPECTRAL 12:00 PM CDT COLOR DOPPLER ([id number]) ECG PRE/POST OP Routine 03/15/2018 10:08 AM [...] PRELIMINARY Routine 03/14/2018 INTERPRETATION 9:27 PM CDT after 11/23/2017 Results * XR Femur 2 Vw Left (07/07/2018 11:08 AM RESISTOR [facility]IND[facility]) Only the most recent of 4 results within the time period is included. Specimen Narrative Performed At [facility] X-rays left femur [...] satisfactory. Performing Organization Address City/State/Zipcode Phone Number [facility] [address] [place] [address] * XR Pelvis 1 Or 2 Vw (04/05/2018 1:57 PM CDT) Specimen Narrative Performed At [facility] X-rays AP pelvis 04/05/2018: X-ray shows bilateral internal fixation from previous trochanteric fracture most recent of the left side. Performing Organization Address [facility] Phone Number [facility] [address] [place] [address] * Hemoglobin & hematocrit (03/20/2018 12:21 PM CDT) [facility] HGB 8.2 (L) 12.0 - 16.0 g/dL [facility] DEPARTMENT OF PATHOLOGY AND GENOMIC MEDICINE HCT 26.1 (L) 37.0 - 47.0 % [facility] DEPARTMENT OF PATHOLOGY AND GENOMIC MEDICINE Specimen Blood Performing Organization Address [facility] [place] Phone [place] [address] [place] [id number] PATHOLOGY AND GENOMIC MEDICINE * Estimated GFR (03/19/2018 4:35 PM CDT) Only the most recent of 5 results within the time period is included. [facility] Estimated GFR 87 mL/min/1.73 m2 [facility] Comment: DEPARTMENT OF [employer] PATHOLOGY AND rpretation GENOMIC G1 MEDICINE >=90 Normal or high G2 60-89Mildly decreased [id number] Mildly to moderately decreased [id number] Moderately to severely decreased G4 15-29Severely decreased G5 <15Kidney failure The eGFR was calculated using the Chronic Kidney Disease Epidemiology Collaboration (CKD-EPI) equation. Interpretation is based on recommendations of the National Kidney Foundation-Kidney Disease Outcomes Quality Initiative (NKF-KDOQI) published in 2014. Specimen Plasma specimen Performing Organization Address [facility] Phone Number [facility] [address] [id number] [place] [address] [address] [place] [phone] PATHOLOGY AND GENOMIC MEDICINE * Comprehensive metabolic panel (03/19/2018 4:35 PM CDT) Only the most recent of 3 results within the time period is included. [facility] Sodium 144 135 - 148 mEq/L [facility] DEPARTMENT OF PATHOLOGY AND GENOMIC MEDICINE Potassium 3.2 (L) 3.5 - 5.0 mEq/L [facility] DEPARTMENT OF PATHOLOGY AND GENOMIC MEDICINE Chloride 97 (L) 98 - 112 mEq/L [facility] DEPARTMENT OF PATHOLOGY AND GENOMIC MEDICINE CO2 38 (H) 24 - 31 mEq/L [facility] DEPARTMENT OF PATHOLOGY AND GENOMIC MEDICINE Anion gap 9@ANIO 7 - 15 mEq/L [facility] DEPARTMENT OF PATHOLOGY AND GENOMIC MEDICINE BUN 15 8 - 23 mg/dL [facility] DEPARTMENT OF PATHOLOGY AND GENOMIC MEDICINE Creatinine 0.70 0.50 - 0.90 mg/dL [facility] DEPARTMENT OF PATHOLOGY AND GENOMIC MEDICINE Glucose 144 (H) 65 - 99 mg/dL [facility] DEPARTMENT OF PATHOLOGY AND GENOMIC MEDICINE Calcium 8.6 (L) 8.8 - 10.2 mg/dL [facility] DEPARTMENT OF PATHOLOGY AND GENOMIC MEDICINE Protein 5.5 (L) 6.3 - 8.3 g/dL [facility] Comment: DEPARTMENT OF [place] PATHOLOGY AND 4.6-7.0 g/dL [address] week 4.4-7.6 g/dL 7 months-1year 5.1-7.3 g/dL 1-2 years5.6-7 .5 g/dL >3 years6.0-8 .0 g/dL 18-150 6.3-8.3 g/dL Albumin 2.6 (L) 3.5 - 5.0 g/dL [facility] DEPARTMENT OF PATHOLOGY AND GENOMIC MEDICINE A/G ratio 0.9 0.7 - 3.8 [facility] DEPARTMENT OF PATHOLOGY AND GENOMIC MEDICINE Alkaline 55 35 - 104 U/L [facility] phosphatase DEPARTMENT OF PATHOLOGY AND GENOMIC MEDICINE AST 10 10 - 35 U/L [facility] DEPARTMENT OF PATHOLOGY AND GENOMIC MEDICINE ALT 11 5 - 50 U/L [facility] DEPARTMENT OF PATHOLOGY AND GENOMIC MEDICINE Total bilirubin 0.4 0.0 - 1.2 mg/dL [facility] DEPARTMENT OF PATHOLOGY AND GENOMIC MEDICINE Specimen Plasma specimen Performing Organization Address City/State/Zipcode Phone Number [facility] [place] [address] [place] [address] PATHOLOGY AND GENOMIC MEDICINE * CBC with platelet and differential (03/19/2018 12:10 PM CDT) Only the most recent of 5 results within the time period is included. WBC 12.67 (H) 4.50 - 11.00 k/uL [facility] DEPARTMENT OF PATHOLOGY AND GENOMIC MEDICINE RBC 2.62 (L) 4.20 - 5.50 m/uL [facility] DEPARTMENT OF PATHOLOGY AND GENOMIC MEDICINE HGB 7.9 (L) 12.0 - 16.0 g/dL [facility] DEPARTMENT OF PATHOLOGY AND GENOMIC MEDICINE HCT 25.5 (L) 37.0 - 47.0 % [facility] DEPARTMENT OF PATHOLOGY AND GENOMIC MEDICINE MCV 97.3 82.0 - 100.0 fL [facility] OF PATHOLOGY AND GENOMIC MEDICINE MCH 30.2 27.0 - 34.0 pg [facility] OF PATHOLOGY AND GENOMIC MEDICINE MCHC 31.0 31.0 - 37.0 g/dL [facility] OF PATHOLOGY AND GENOMIC MEDICINE RDW - SD 56.9 (H) 37.0 - 55.0 fL [facility] OF PATHOLOGY AND GENOMIC MEDICINE MPV 9.9 8.8 - 13.2 fL [facility] OF PATHOLOGY AND GENOMIC MEDICINE Platelet count 279 150 - 400 k/uL [facility] OF PATHOLOGY AND GENOMIC MEDICINE Nucleated RBC 0.00 /100 WBC [facility] DEPARTMENT OF PATHOLOGY AND GENOMIC MEDICINE Neutrophils 50.8 39.0 - 69.0 % [facility] DEPARTMENT OF PATHOLOGY AND GENOMIC MEDICINE Lymphocytes 31.6 25.0 - 45.0 % [facility] DEPARTMENT OF PATHOLOGY AND GENOMIC MEDICINE Monocytes 11.1 (H) 0.0 - 10.0 % [facility] DEPARTMENT OF PATHOLOGY AND GENOMIC MEDICINE Eosinophils 5.3 (H) 0.0 - 5.0 % [facility] DEPARTMENT OF PATHOLOGY AND GENOMIC MEDICINE Basophils 0.6 0.0 - 1.0 % [facility] PATHOLOGY AND GENOMIC MEDICINE Specimen Blood Performing Organization Address [facility] Phone Number [address] [place] [address] PATHOLOGY AND GENOMIC MEDICINE * Type and screen (03/19/2018 12:10 PM CDT) Only the most recent of 2 results within the time period is included. ABO grouping A [facility] DEPARTMENT OF PATHOLOGY AND GENOMIC MEDICINE Rh type POS [facility] DEPARTMENT OF PATHOLOGY AND GENOMIC MEDICINE Antibody screen NEG [facility] DEPARTMENT OF PATHOLOGY AND GENOMIC MEDICINE Specimen Blood Performing Organization Address City/[facility] Phone Number [address] [place] [address] PATHOLOGY AND GENOMIC MEDICINE * Basic metabolic panel (03/18/2018 5:55 AM CDT) Only the most recent of 2 results within the time period is included. Sodium 144 135 - 148 mEq/L [facility] DEPARTMENT OF PATHOLOGY AND GENOMIC MEDICINE Potassium 3.3 (L) 3.5 - 5.0 mEq/L [facility] DEPARTMENT OF PATHOLOGY AND GENOMIC MEDICINE Chloride 103 98 - 112 mEq/L [facility] DEPARTMENT OF PATHOLOGY AND GENOMIC MEDICINE CO2 34 (H) 24 - 31 mEq/L [facility] DEPARTMENT OF PATHOLOGY AND GENOMIC MEDICINE Anion gap 7@ANIO 7 - 15 mEq/L [facility] DEPARTMENT OF PATHOLOGY AND GENOMIC MEDICINE BUN 15 8 - 23 mg/dL [facility] DEPARTMENT OF PATHOLOGY AND GENOMIC MEDICINE Creatinine 0.70 0.50 - 0.90 mg/dL [facility] DEPARTMENT OF PATHOLOGY AND GENOMIC MEDICINE Glucose 125 (H) 65 - 99 mg/dL [facility] DEPARTMENT OF PATHOLOGY AND GENOMIC MEDICINE Calcium 8.4 (L) 8.8 - 10.2 mg/dL [facility] DEPARTMENT OF PATHOLOGY AND GENOMIC MEDICINE Specimen Plasma specimen Performing Organization Address [facility] [place] Phone Number [facility] DEPARTMENT [address] [place] [address] PATHOLOGY AND GENOMIC MEDICINE * POC glucose (03/17/2018 4:53 PM CDT) Only the most recent of 11 results within the time period is included. Pathologist [facility] POC glucose 118 (H) 65 - 99 mg/dL [facility] Comment: DEPARTMENT OF Meter ID: [id number] PATHOLOGY AND Studio Operator: Nasir Bertrand GENOMIC MEDICINE Specimen Performing Organization Address [facility] Phone Number [facility] DEPARTMENT [address] [place] [address] PATHOLOGY AND GENOMIC MEDICINE * OR [place] > I Hour (03/16/2018 3:00 PM CDT) Specimen Narrative Performed At EXAMINATION:OR [place] 1 HOUR [...] performing the procedure. [id number] Performing Organization Address City/[facility] Phone Number [facility] [address] [place] [address] * XR Knee 1 Or 2 Vw Left (03/15/2018 5:48 PM CDT) Specimen Narrative Performed At EXAMINATION:XR KNEE 1 OR 2 VW LEFT [facility] CLINICAL HISTORY:Knee replacedpainquadriceps or patellar tendinopathy suspected COMPARISON:None. IMPRESSION: There is a left total knee prosthesis in place.There is no evidence of fracture or malalignment.There is soft tissue swelling strongly suggesting a distention of the bursal or joint effusion. [facility]-[id number] Procedure Note Hm Interface, Radiology Results Incoming [...] distention of the bursal or joint effusion. [id number] Performing Organization Address City/State/Zipcode Phone Number [facility] [address] [place] [address] * Echocardiogram complete w contrast and 3D if needed (03/15/2018 12:00 PM CDT) Velocity Ratio 1.07 m/s [facility] (V1/V2) IVS,d 1.06 cm [facility] EF 60.15 % [facility] LVPWD,d 1.03 cm [facility] AoV Mean PG 2.57 mmHg [facility] AV LVOT peak 5.02 mmHg [facility] gradient E/A ratio 0.65 [facility] E wave 254.35 msec [facility] decelartion time LVOT Diam,S 2.26 cm [facility] LVOT [...] 2D 1.48 [facility] LA Ao Ratio 1.08 [facility] Mmode D E excurs 0.60 [facility] E [...] LV EF,BP 66.97 % [facility] [place],d A2C 6.98 cm [facility] [place],d A4C 6.38 cm [facility] [place],s A2C 5.68 cm [facility] [place],s A4C 5.26 cm [facility] LV SV,A2C [...] MV Decel slope 2.86 m/s2 [facility] Specimen Narrative Performed At [facility] The left [...] RVSP is 53 mmHg. Performing Organization Address City/[facility] Phone Number [facility] [address] [place] [address] * ECG Pre/Post Op (03/15/2018 10:08 AM CDT) Pathologist [facility] Ventricular 70 [facility] rate Atrial rate 70 [facility] VA interval 168 [facility] QRSD interval 136 [facility] QT interval 472 [facility] QTC interval 509 [facility] P axis 1 77 [facility] QRS axis 1 43 [facility] T wave axis 31 [facility] EKG impression Normal sinus [facility] M[facility] rhythm-Nonspecific intraventricular block-Abnormal ECG-No previous ECGs available- Specimen Performing Organization Address [facility] [place] Phone Number [facility] [address] [place] [address] * Urinalysis screen and microscopy, with reflex to culture (03/15/2018 1:08 AM CDT) Specimen site Clean catch [facility] DEPARTMENT OF PATHOLOGY AND GENOMIC MEDICINE Color, UA Yellow [facility] DEPARTMENT OF PATHOLOGY AND GENOMIC MEDICINE Appearance, UA Clear [facility] DEPARTMENT OF PATHOLOGY AND GENOMIC MEDICINE Specific 1.024 1.001 - 1.035 [facility] gravity, DEPARTMENT OF PATHOLOGY AND GENOMIC MEDICINE pH, UA 5.0 5.0 - 8.5 [facility] DEPARTMENT OF PATHOLOGY AND GENOMIC MEDICINE Protein, UA 1+ (A) Negative [facility] DEPARTMENT OF PATHOLOGY AND GENOMIC MEDICINE Glucose, UA Negative Negative [facility] DEPARTMENT OF PATHOLOGY AND GENOMIC MEDICINE Ketones, UA Trace (A) Negative [facility] DEPARTMENT OF PATHOLOGY AND GENOMIC MEDICINE Bilirubin, UA Negative Negative [facility] DEPARTMENT OF PATHOLOGY AND GENOMIC MEDICINE Blood, UA Negative Negative [facility] DEPARTMENT OF PATHOLOGY AND GENOMIC MEDICINE Nitrite, UA Negative Negative [facility] DEPARTMENT OF PATHOLOGY AND GENOMIC MEDICINE Urobilinogen, 2.0 (A) <2.0 [facility] DEPARTMENT OF PATHOLOGY AND GENOMIC MEDICINE Leukocyte Negative Negative [facility] esterase, UA DEPARTMENT OF PATHOLOGY AND GENOMIC MEDICINE WBC, UA 0-5 0 - 4 /HPF [facility] DEPARTMENT OF PATHOLOGY AND GENOMIC MEDICINE RBC, UA 0-5 0 - 5 /HPF [facility] DEPARTMENT OF PATHOLOGY AND GENOMIC MEDICINE Bacteria, UA None seen None seen [facility] DEPARTMENT OF PATHOLOGY AND GENOMIC MEDICINE Yeast, UA None seen [facility] DEPARTMENT OF PATHOLOGY AND GENOMIC MEDICINE Yeast with None seen [facility] pseudohyphae, DEPARTMENT OF UA PATHOLOGY AND GENOMIC MEDICINE Calcium oxalate Few [facility] crystals, DEPARTMENT OF PATHOLOGY AND GENOMIC MEDICINE Specimen Urine Performing Organization Address City/[facility]/Zipcode Phone Number [address] [place] [address] PATHOLOGY AND GENOMIC MEDICINE * Urine culture (03/15/2018 1:08 AM CDT) Urine culture SEE COMMENTComment: [facility] Bacteriuria screen negative. DEPARTMENT OF PATHOLOGY AND GENOMIC MEDICINE Specimen Urine Performing Organization Address City/[facility] Phone Number [address] [place] [address] PATHOLOGY AND GENOMIC MEDICINE * XR Hip 2-3 View Left (03/15/2018 12:55 AM CDT) Specimen Narrative Performed At EXAMINATION:XR HIP 2-3 VIEWS LEFT [facility] CLINICAL HISTORY:fall from standing COMPARISON:Pelvic CT 03/14/2018. IMPRESSION: Acute left intertrochanteric fracture with coxa vera deformity. Surrounding soft tissue edema. Chronic right pubic fracture deformity. Fixation hardware in the visible portion of the right femur. [facility]-[id number] Procedure Note Interface, Radiology Results Incoming - 03/15/2018 1:01 AM CDT EXAMINATION: XR HIP 2-3 VIEWS LEFT CLINICAL HISTORY: fall from standing COMPARISON: Pelvic CT 03/14/2018. IMPRESSION: Acute left intertrochanteric fracture with coxa vera deformity. Surrounding soft tissue edema. Chronic right pubic fracture deformity. Fixation hardware in the visible portion of the right femur. [facility]-[id number] Performing Organization Address City/[facility]/Zipcode Phone Number [facility] [address] [place] [address] * XR Chest 1 Vw Portable (03/15/2018 12:02 AM CDT) Specimen Narrative Performed At EXAMINATION: XR CHEST 1 VW PORTABLE [facility] CLINICAL HISTORY: fall from standing COMPARISON:None. IMPRESSION: The lungs are clear. No pleural effusion or pneumothorax. Cardiac silhouette is enlarged. Aortic arch atherosclerosis. No acute osseous abnormalities. Surgical clips in the left upper quadrant. [facility]-[id number] Procedure Note Interface, Radiology Results Incoming - 03/15/2018 12:27 AM CDT EXAMINATION: XR CHEST 1 VW PORTABLE CLINICAL HISTORY: fall from standing COMPARISON: None. IMPRESSION: The lungs are clear. No pleural effusion or pneumothorax. Cardiac silhouette is enlarged. Aortic arch atherosclerosis. No acute osseous abnormalities. Surgical clips in the left upper quadrant. [facility]-[id number] Performing Organization Address City/State/Zipcode Phone Number [facility] [address] [place] [address] * CT Head Wo Contrast (03/14/2018 11:08 PM CDT) Specimen Narrative Performed At EXAMINATION:CT HEAD WO CONTRAST [...] No CT evidence of acute intracranial abnormality. [id number] Procedure Note Interface, Radiology Results Incoming - [...] No CT evidence of acute intracranial abnormality. [id number] Performing Organization Address City/State/Zipcode Phone Number [facility] [address] [place] [address] * CT Cervical Spine Wo Contrast (03/14/2018 11:07 PM CDT) Specimen Narrative Performed At EXAMINATION: CT CERVICAL SPINE [...] C5-C6. Additional degenerative changes are detailed above. [id number] Procedure Note Hm Interface, Radiology Results Incoming [...] C5-C6. Additional degenerative changes are detailed above. [id number] Performing Organization Address City/State/Zipcode Phone Number [facility] [address] [place] [address] * CT Pelvis Wo Contrast (03/14/2018 11:07 PM CDT) Specimen Narrative Performed At CT PELVIS WO CONTRAST, [...] hematoma adjacent to the left greater trochanter. [facility]-[id number] Procedure Note Interface, Radiology Results [facility] - 03/14/2018 11:[address] PELVIS [...] hematoma adjacent to the left greater trochanter. [facility]-[id number] Performing Organization Address City/State/Zipcode Phone Number [facility] [address] [place] [address] * CT Lower Extremity Wo Contrast Left (03/14/2018 11:07 PM CDT) Specimen Narrative Performed At CT PELVIS WO CONTRAST, [...] hematoma adjacent to the left greater trochanter. [facility]-[id number] Procedure Note Hm Interface, Radiology Results - 03/14/2018 11:24 PM [...] hematoma adjacent to the left greater trochanter. [facility]-[id number] Performing Organization Address City/State/Zipcode Phone Number [facility] [address] [place] [address] * Troponin (03/14/2018 9:36 PM CDT) Troponin <0.300 0.000 - 0.300 ng/mL [facility] Comment: DEPARTMENT OF 0.30 - 1.49 PATHOLOGY AND ng/mlMay GENOMIC indicate increased risk of MEDICINE acute coronary syndrome. >=1.5 ng/ml Consistent with acute myocardial infarction. The diagnostic value of a single normal or non-diagnostic result is questionable.Serial samples at 2-6 hour intervals are required to rule out acute myocardial injury. Specimen Plasma specimen Performing Organization Address [facility] [place] Phone Number [address] [place] [address] PATHOLOGY AND GENOMIC MEDICINE * Partial thromboplastin time, activated (03/14/2018 9:36 PM CDT) Pathologist [facility] PTT 30.3 23.0 - 36.0 sec [facility] Comment: DEPARTMENT OF PTT therapeutic range for PATHOLOGY AND unfractionated heparin is GENOMIC 61.0-112.0 seconds which MEDICINE corresponds to Anti-Xa 0.3-0.7 U/ml. Specimen Blood Performing Organization Address [facility] [place] Phone Number [address] [place] [address] PATHOLOGY AND GENOMIC MEDICINE * Prothrombin time with INR (03/14/2018 9:36 PM CDT) Pathologist [facility] Prothrombin 13.3 12.0 - 15.0 sec [facility] time DEPARTMENT OF PATHOLOGY AND GENOMIC MEDICINE INR 1.0 [facility] Comment: DEPARTMENT OF The International Normalized PATHOLOGY AND Ratio (INR) is a therapeutic GENOMIC monitoring tool for patients MEDICINE who are stable on oral anticoagulant therapy. An INR of 2.0-3.0 is suggested for deep vein thrombosis/pulmonary embolism. Specimen Blood Performing Organization Address [facility] Phone Number [address] [place] [address] PATHOLOGY AND GENOMIC MEDICINE * B natriuretic peptide (03/14/2018 9:36 PM CDT) Pathologist [facility] BNP 95 0 - 100 pg/mL [facility] DEPARTMENT OF PATHOLOGY AND [facility] Specimen Blood Performing Organization Address [facility] [place] Phone Number [address] [place] [address] PATHOLOGY AND [employer] MEDICINE * Creatine kinase, total (CPK) (03/14/2018 9:36 PM CDT) Pathologist [facility] Creatine kinase 61 26 - 192 U/L [facility] DEPARTMENT OF PATHOLOGY AND [employer] MEDICINE Specimen Plasma specimen Performing Organization Address City/State/Zipcode Phone Number [facility] DEPARTMENT [address] [place] [address] PATHOLOGY AND GENOMIC MEDICINE * ECG 12 lead (03/14/2018 9:34 PM CDT) Ventricular 77 [facility] rate Atrial rate 77 [facility] VA interval 170 [facility] QRSD interval 106 [facility] QT interval 420 [facility] QTC interval 475 [facility] P axis 1 77 [facility] QRS axis 1 53 [facility] T wave axis 36 [facility] EKG impression Normal sinus rhythm with sinus [facility] arrhythmia-Marked ST abnormality, possible anterior subendocardial injury-Abnormal ECG-No previous ECGs available- Specimen Performing Organization Address City/State/Zipcode Phone Number [facility] [address] [place] [address] * ECG ED Preliminary Interpretation - NOT AN ORDER (03/14/2018 9:27 PM CDT) Narrative Performed At Derick Montez MD 03/15/2018 12:02 AM ECG ED Preliminary Interpretation - Not an Order Performed by: DERICK MONTEZ Authorized by: DERICK MONTEZ ECG reviewed by ED Physician in the absence of a lead sales consultant: yes Interpretation: Interpretation: normal Quality: Tracing quality:Limited by artifact Rate: ECG rate:77 ECG rate assessment: normal Rhythm: Rhythm: sinus rhythm Ectopy: Ectopy: none QRS: QRS axis:Normal QRS intervals:Wide Conduction: Conduction: normal ST segments: ST segments:Non-specific T waves: T waves: flattening Flattening:III after 11/23/2017 Insurance Type Payer Benefit Subscriber ID Effective Phone Address Plan / Dates Group PPO HUMANA MEDICARE HUMANA xxxxxxxxx 2017-P MEDICARE resent PPO/PFFS/E [facility] Advance Directives Patient has advance care planning documents, and code status on file. For more i nformation, please contact: Donavon Schafer [address] [place] [address] Date Inactivated Comments Code Status Date Activated 03/21/2018 10:10 PM Full Code 03/16/2018 5:14 PM Code Status decision reached by: Patient
[2018-11-24 11:49] LABS: BILIRUBIN,URINE NEGATIVE (NEGATIVE); CLARITY,URINE CLEAR (CLEAR); COLOR,URINE YELLOW (YELLOW); KETONES,URINE NEGATIVE (NEGATIVE); LEUKOCYTE ESTERASE ,URINE NEGATIVE (NEGATIVE); NITRITE,URINE NEGATIVE (NEGATIVE); PROTEIN,URINE DIPSTICK NEGATIVE (NEGATIVE); URINE UROBILINOGEN 0.2 mg/dL (0.2 - 1)
[2018-11-24 12:23] LABS: EPITHELIAL CELLS,URINE RARE /LPF
[2018-11-24] MEDS ORDERED: SODIUM CHLORIDE 0.9% 500ML 500 ML ONE (12:52)
--- NOTE | 2018-11-24 12:57 | Diagnostic Imaging Report ---
Examination: Single AP view of the chest. COMPARISON: 11/12/2018 INDICATION: Shortness of breath DISCUSSION: Lungs are well-inflated and without focal airspace consolidation, pleural effusion, or pneumothorax. Stable cardiomediastinal contour with tortuous thoracic aorta and calcified mediastinal and right hilar lymph nodes. No acute osseous abnormality. Healed right rib fracture deformity is again noted. Multiple midepigastric surgical clips. IMPRESSION: 1. No acute cardiopulmonary abnormalities. Signed by: Dr. Tanner Lewis M.D. on 11/24/2018 12:53 PM
[2018-11-24 13:02] LABS: BASOPHILS # (AUTO) 0.1 (0.0-0.1); BASOPHILS % 0.7 % (0.0-1.0); EOSINOPHILS # (AUTO) 0.5 (0.0-0.4); EOSINOPHILS % 4.4 % (0.0-6.0); HEMATOCRIT 34.2 % (34.2-44.1); HEMOGLOBIN 11.1 g/dL (12.0-16.0); LYMPHOCYTES # (AUTO) 4.2 (1.0-3.2); LYMPHOCYTES % 38.4 % (18.0-39.1); MEAN CORPUSCULAR HEMOGLOBIN 33.3 pg (28-32); MEAN CORPUSCULAR HGB CONC 32.5 g/dL (31-35); MEAN CORPUSCULAR VOLUME 102.7 fL (81-99); MONOCYTES # (AUTO) 1.1 (0.2-0.8); MONOCYTES % 9.9 % (4.4-11.3); PLATELET COUNT 268 x10e3/uL (140-360); RED BLOOD COUNT 3.33 x10e6/uL (3.6-5.1); RED CELL DISTRIBUTION WIDTH 16.4 % (11.7-14.4)
[2018-11-24 13:10] LABS: INR 0.77; PROTHROMBIN TIME 11.2 seconds (11.9-14.5)
[2018-11-24 13:11] LABS: PARTIAL THROMBOPLASTIN TIME 26.7 seconds (23.8-35.5)
[2018-11-24 13:20] LABS: ALANINE AMINOTRANSFERASE 20 IU/L (0-55); ALBUMIN 3.2 g/dL (3.5-5.0); ALBUMIN/GLOBULIN RATIO 1.1 (0.8-2.0); ALKALINE PHOSPHATASE 66 IU/L (40-150); ANION GAP 12.5 mmol/L (8-16); BLOOD UREA NITROGEN 29 mg/dL (7-26); BUN/CREATININE RATIO 25 (6-25); CALCIUM 9.7 mg/dL (8.4-10.2); CARBON DIOXIDE 31 mmol/L (22-29); CHLORIDE 101 mmol/L (98-107); CREATINE KINASE 30 IU/L (29-168); CREATININE, SERUM 1.16 mg/dL (0.57-1.11); EST GLOMERULAR FILTRATION RATE 46 ML/MIN (60-); GLUCOSE 83 mg/dL (74-118); POTASSIUM 4.5 mmol/L (3.5-5.1); SODIUM 140 mmol/L (136-145)
--- NOTE | 2018-11-24 16:59 | Diagnostic Imaging Report ---
EXAMINATION: CT of the chest with contrast, PE protocol. TECHNIQUE: Spiral CT images of the chest were performed from the lung apices through the level of the adrenal glands after the IV administration of 100 cc [id number].. Thin section reconstructions were obtained with special concentration on the pulmonary arteries. COMPARISON: Chest radiograph same day, CT chest without contrast 11/02/2018 CLINICAL HISTORY:Shortness of breath, dizziness, concern for pulmonary embolus DISCUSSION: Vasculature: The main pulmonary artery, right and left pulmonary arteries, and their visualized lobar and segmental branches are patent. No filling defects. The pulmonary outflow tract is enlarged, measuring 4 cm transversely. Mild ectasia of the ascending thoracic aorta (3.9 cm) atherosclerotic calcification of the great vessel origins. Lungs: As before, diffuse bronchiectasis and ill-defined patchy groundglass opacities in the right upper and left lower lobe. . Mild background emphysematous changes. Right upper lobe calcified granuloma. 4 mm right lower lobe juxtapleural nodule is unchanged (series 3 image 57). Airways: Unchanged mild bronchiectasis and bronchial wall thickening. Pleura: <There is no evidence of pleural effusion or pneumothorax.> Heart and mediastinum: Visualized portions of the thyroid gland appear normal. Unchanged mediastinal and right hilar calcified lymph nodes. No axillary, hilar, or mediastinal lymphadenopathy. Abdomen: Evaluation of the upper abdomen is limited due to extensive beam hardening artifact from metallic surgical hardware in the upper abdomen. Unchanged subcentimeter hypoattenuating lesion in the right hepatic lobe. Bones and soft tissues: No osseous destructive lesions. Osteopenia with midthoracic anterior wedge deformity unchanged. Healed fracture deformity posterior left ninth rib. IMPRESSION: No pulmonary embolus to the level of the segmental branch pulmonary arteries. Enlarged pulmonary outflow tract suggests pulmonary hypertension. 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 Ectasia of the ascending thoracic aorta with atherosclerotic vascular disease. Signed by: Dr. Tanner Lewis M.D. on 11/24/2018 4:55 PM
[2018-11-24] MEDS ORDERED: MORPHINE SULFATE 2 MG/ML SYR 1ML IV PRN (17:45)
[2018-11-24] MEDS ORDERED: NITROGLYCERIN 0.4 MG SUBL SL PRN (17:45)
[2018-11-24] MEDS: FAMOTIDINE 20 MG TAB PO SCH (17:45)
[2018-11-24] MEDS ORDERED: ONDANSETRON HCL INJ 2MG/ML 2ML 2 MG/ML VIAL IV PRN (17:45)
[2018-11-24] MEDS ORDERED: DEXTROSE 50% SYRINGE 50 ML IV PRN (17:45)
[2018-11-24] MEDS ORDERED: MORPHINE SULFATE INJ 4 MG/ML INJ 1ML IV PRN (17:45)
--- OUTSIDE RECORDS SUMMARY | 2018-11-24 17:47 | XMS REPORT | Clinical Summary ---
Author Author [facility] Organization [facility] [employer] Address Unknown Phone Unavailable Care Team Providers Care Educational Technology Coordinator Name Role Phone Jessi Nicholas MD [...] Taken Vital Sign Reading 07/07/2018 11:42 AM SENIOR BACKUP ADMINISTRATOR Blood Pressure 133/79 07/07/2018 11:42 AM SENIOR BACKUP ADMINISTRATOR Pulse 75 03/21/2018 4:02 PM CDT Temperature 37.2 C (99 F) 03/21/2018 4:02 PM CDT Respiratory Rate 17 03/21/2018 4:02 PM CDT Oxygen Saturation 97% - Inhaled Oxygen - Concentration 07/07/2018 11:42 AM SENIOR BACKUP ADMINISTRATOR Weight 77.1 kg (170 lb) 07/07/2018 11:42 AM SENIOR BACKUP ADMINISTRATOR Height 163.8 cm (5' 4.5") 07/07/2018 11:42 AM SENIOR BACKUP ADMINISTRATOR Body Mass Index 28.73 Plan of Treatment Health Maintenance Due Date Last Done Comments BREAST CANCER SCREENING 1997 COLON CANCER SCREENING 1997 SHINGLES VACCINES (#1) 1997 65+ PNEUMOCOCCAL VACCINE 2012 05/09/2012 (2 of 2 - PPSV23) INFLUENZA VACCINE 02/01/2019 03/18/2018, 04/07/2017 PNEUMOCOCCAL Completed 05/09/2012 POLYSACCHARIDE VACCINE AGE 65 AND OVER Implants Device Identifier Shelf Expiration Date Model / Serial / Lot Implanted Type Area Manufactur er [id number] / / Kit Scr Intrlkng 100mm Lag 95mm Hip Joint Left: Hip LARA AND Comp Intertan - [id number] Implants NEPHEW Implanted: Qty: 1 on 03/16/2018 by Vance Knight MD TRAUMA 08/31/2027 [id number] / / [id number] Intertan 1.5 [id number] 125d Lt - IPM Left: Hip LARA & [id number] IMPLANT NEPHEW Implanted: Qty: 1 on 03/16/2018 by DEVICES Vance Saini MD [id number] / / Trigen Low Profile Screw 5.0mm X IPM Left: Hip LARA & 50mm - [id number] IMPLANT NEPHEW Implanted: Qty: 1 on 03/16/2018 by DEVICES Vance Saini MD CS Lens Lens Procedures Comments Procedure Name Priority Date/Time Associated Diagnosis XR FEMUR 2 VW LEFT Routine 07/07/2018 Pain 11:08 AM SENIOR BACKUP ADMINISTRATOR XR FEMUR 2 VW LEFT Routine 05/03/2018 [...] MMODE SPECTRAL 12:00 PM CDT COLOR DOPPLER (81351) ECG PRE/POST OP Routine 03/15/2018 10:08 AM [...] Femur 2 Vw Left (07/07/2018 11:08 AM SENIOR BACKUP ADMINISTRATOR) Only the most recent of 4 results [...] satisfactory. Performing Organization Address City/State/Zipcode Phone Number [facility] [address] [place] [address] * XR Pelvis 1 Or 2 Vw (04/05/2018 1:57 PM CDT) Specimen Narrative Performed At [facility] X-rays AP pelvis 04/05/2018: X-ray shows bilateral internal fixation from previous trochanteric fracture most recent of the left side. Performing Organization Address City/[facility]/Zipcode Phone Number DONAL [address] [place] [address] * Hemoglobin & hematocrit (03/20/2018 12:21 PM CDT) [facility] HGB 8.2 (L) 12.0 - 16.0 g/dL [facility] DEPARTMENT OF PATHOLOGY AND GENOMIC MEDICINE HCT 26.1 (L) 37.0 - 47.0 % [facility] DEPARTMENT OF PATHOLOGY AND GENOMIC MEDICINE Specimen Blood Performing Organization Address [facility] Phone Number [address] [place] [address] PATHOLOGY AND GENOMIC [facility] * Estimated GFR (03/19/2018 4:35 PM CDT) Only the most recent of 5 results within the time period is included. [facility] Estimated GFR 87 mL/min/1.73 m2 [facility] Comment: DEPARTMENT OF CatergoryUnitsInte PATHOLOGY AND rpretation GENOMIC MEDICINE >=90 Normal or high G2 60-89Mildly decreased B0a71-85 Mildly to moderately decreased O0t58-61 Moderately to severely decreased G4 15-29Severely decreased G5 <15Kidney failure The eGFR was calculated using the Chronic Kidney Disease Epidemiology Collaboration (CKD-EPI) equation. Interpretation is based on recommendations of the National Kidney Foundation-Kidney Disease Outcomes Quality Initiative (NKF-KDOQI) published in 2014. Specimen Plasma specimen Performing Organization Address [facility] Phone Number [address] [place] [address] PATHOLOGY AND [employer] MEDICINE * Comprehensive metabolic panel (03/19/2018 4:35 PM CDT) Only the most recent of 3 results within the time period is included. Pathologist [facility] Sodium 144 135 - 148 mEq/L [facility] DEPARTMENT OF PATHOLOGY AND GENOMIC MEDICINE Potassium 3.2 (L) 3.5 - 5.0 mEq/L [facility] DEPARTMENT OF PATHOLOGY AND GENOMIC MEDICINE Chloride 97 (L) 98 - 112 mEq/L [facility] DEPARTMENT OF PATHOLOGY AND GENOMIC MEDICINE CO2 38 (H) 24 - 31 mEq/L [facility] DEPARTMENT OF PATHOLOGY AND GENOMIC MEDICINE Anion gap 9@ANIO 7 - 15 mEq/L [facility] DEPARTMENT OF PATHOLOGY AND GENOMIC MEDICINE BUN 15 8 - 23 mg/dL [facility] DEPARTMENT OF PATHOLOGY AND GENOMIC MEDICINE Creatinine 0.70 0.50 - 0.90 mg/dL [facility] DEPARTMENT OF PATHOLOGY AND GENOMIC MEDICINE Glucose 144 (H) 65 - 99 mg/dL [facility] DEPARTMENT OF PATHOLOGY AND GENOMIC MEDICINE Calcium 8.6 (L) 8.8 - 10.2 mg/dL [facility] DEPARTMENT OF PATHOLOGY AND GENOMIC MEDICINE Protein 5.5 (L) 6.3 - 8.3 g/dL [facility] Comment: DEPARTMENT OF [place] PATHOLOGY AND 4.6-7.0 g/dL [place] [address] MEDICINE week 4.4-7.6 g/dL 7 months-1year 5.1-7.3 g/dL 1-2 years5.6-7 .5 g/dL >3 years6.0-8 .0 g/dL 18-150 6.3-8.3 g/dL Albumin 2.6 (L) 3.5 - 5.0 g/dL [facility] DEPARTMENT OF PATHOLOGY AND GENOMIC MEDICINE A/G ratio 0.9 0.7 - 3.8 [facility] DEPARTMENT OF PATHOLOGY AND GENOMIC MEDICINE Alkaline 55 35 - 104 U/L [facility] phosphatase DEPARTMENT OF PATHOLOGY AND GENOMIC MEDICINE AST 10 10 - 35 U/L [facility] DEPARTMENT OF PATHOLOGY AND GENOMIC MEDICINE ALT 11 5 - 50 U/L [facility] DEPARTMENT OF PATHOLOGY AND GENOMIC MEDICINE Total bilirubin 0.4 0.0 - 1.2 mg/dL [facility] DEPARTMENT OF PATHOLOGY AND GENOMIC MEDICINE Specimen Plasma specimen Performing Organization Address City/State/Zipcode Phone Number [facility] [place] [address] [place] [address] PATHOLOGY AND GENOMIC MEDICINE * CBC with platelet and differential (03/19/2018 12:10 PM CDT) Only the most recent of 5 results within the time period is included. WBC 12.67 (H) 4.50 - 11.00 k/uL [facility] DEPARTMENT OF PATHOLOGY AND GENOMIC MEDICINE RBC 2.62 (L) 4.20 - 5.50 m/uL [facility] DEPARTMENT OF PATHOLOGY AND GENOMIC MEDICINE HGB 7.9 (L) 12.0 - 16.0 g/dL [facility] DEPARTMENT OF PATHOLOGY AND GENOMIC MEDICINE HCT 25.5 (L) 37.0 - 47.0 % [facility] DEPARTMENT OF PATHOLOGY AND GENOMIC MEDICINE MCV 97.3 82.0 - 100.0 fL [facility] DEPARTMENT OF PATHOLOGY AND GENOMIC MEDICINE MCH 30.2 27.0 - 34.0 pg [facility] DEPARTMENT OF PATHOLOGY AND GENOMIC MEDICINE MCHC 31.0 31.0 - 37.0 g/dL [facility] DEPARTMENT OF PATHOLOGY AND GENOMIC MEDICINE RDW - SD 56.9 (H) 37.0 - 55.0 fL [facility] OF PATHOLOGY AND GENOMIC MEDICINE MPV 9.9 8.8 - 13.2 fL [facility] OF PATHOLOGY AND GENOMIC MEDICINE Platelet count 279 150 - 400 k/uL [facility] DEPARTMENT OF PATHOLOGY AND GENOMIC MEDICINE Nucleated RBC 0.00 /100 WBC [facility] DEPARTMENT OF PATHOLOGY AND GENOMIC MEDICINE Neutrophils 50.8 39.0 - 69.0 % [facility] DEPARTMENT OF PATHOLOGY AND GENOMIC MEDICINE Lymphocytes 31.6 25.0 - 45.0 % [facility] DEPARTMENT OF PATHOLOGY AND GENOMIC MEDICINE Monocytes 11.1 (H) 0.0 - 10.0 % [facility] DEPARTMENT OF PATHOLOGY AND GENOMIC MEDICINE Eosinophils 5.3 (H) 0.0 - 5.0 % [facility] DEPARTMENT OF PATHOLOGY AND GENOMIC MEDICINE Basophils 0.6 0.0 - 1.0 % [facility] OF PATHOLOGY AND GENOMIC MEDICINE Specimen Blood Performing Organization Address [facility] Phone Number [address] [place] [address] PATHOLOGY AND GENOMIC MEDICINE * Type and screen (03/19/2018 12:10 PM CDT) Only the most recent of 2 results within the time period is included. ABO grouping A [facility] OF PATHOLOGY AND GENOMIC MEDICINE Rh type POS [facility] OF PATHOLOGY AND GENOMIC MEDICINE Antibody screen NEG [facility] OF PATHOLOGY AND GENOMIC MEDICINE Specimen Blood Performing Organization Address [facility] Phone Number [facility] [place] [id number] [place] [address] [place] [address] PATHOLOGY [facility] * Basic metabolic panel (03/18/2018 5:55 AM CDT) Only the most recent of 2 results within the time period is included. Sodium 144 135 - 148 mEq/L [facility] DEPARTMENT OF PATHOLOGY AND GENOMIC MEDICINE Potassium 3.3 (L) 3.5 - 5.0 mEq/L [facility] DEPARTMENT OF PATHOLOGY AND GENOMIC MEDICINE Chloride 103 98 - 112 mEq/L [facility] DEPARTMENT OF PATHOLOGY AND GENOMIC MEDICINE CO2 34 (H) 24 - 31 mEq/L [facility] DEPARTMENT OF PATHOLOGY AND GENOMIC MEDICINE Anion gap 7@ANIO 7 - 15 mEq/L [facility] DEPARTMENT OF PATHOLOGY AND GENOMIC MEDICINE BUN 15 8 - 23 mg/dL [facility] DEPARTMENT OF PATHOLOGY AND GENOMIC MEDICINE Creatinine 0.70 0.50 - 0.90 mg/dL [facility] DEPARTMENT OF PATHOLOGY AND GENOMIC MEDICINE Glucose 125 (H) 65 - 99 mg/dL [facility] DEPARTMENT OF PATHOLOGY AND GENOMIC MEDICINE Calcium 8.4 (L) 8.8 - 10.2 mg/dL [facility] DEPARTMENT OF PATHOLOGY AND GENOMIC MEDICINE Specimen Plasma specimen Performing Organization Address [facility] Phone Number [address] [place] [address] PATHOLOGY AND GENOMIC MEDICINE * POC glucose (03/17/2018 4:53 PM CDT) Only the most recent of 11 results within the time period is included. POC glucose 118 (H) 65 - 99 mg/dL [facility] Comment: DEPARTMENT OF Meter ID: [id number] PATHOLOGY AND Cinnamon Grinder: Nasir Bertrand GENOMIC MEDICINE Specimen Performing Organization Address [facility] Phone Number [facility] DEPARTMENT [address] [place] [phone] PATHOLOGY AND GENOMIC MEDICINE * OR [place] [...] performing the procedure. [id number] Performing Organization Address City/[facility]/Zipcode Phone Number [facility] [address] [place] [address] * XR Knee 1 Or 2 Vw Left (03/15/2018 5:48 PM CDT) Specimen Narrative Performed At EXAMINATION:XR KNEE 1 OR 2 VW LEFT [facility] CLINICAL HISTORY:Knee replacedpainquadriceps or patellar tendinopathy suspected COMPARISON:None. IMPRESSION: There is a left total knee prosthesis in place.There is no evidence of fracture or malalignment.There is soft tissue swelling strongly suggesting a distention of the bursal or joint effusion. [facility]-[id number] Procedure Note Hm Interface, Radiology Results Incoming [...] distention of the bursal or joint effusion. [facility]-[id number] Performing Organization Address City/State/Zipcode Phone Number DONAL [address] [place] [address] * Echocardiogram complete w contrast and 3D [...] LV EF,BP 66.97 % [facility] Ryan Payson,d A2C 6.98 cm [facility] Ryan Payson,d A4C 6.38 cm [facility] Ryan Payson,s A2C 5.68 cm [facility] Ryan Payson,s A4C 5.26 cm [facility] LV SV,A2C [...] RVSP is 53 mmHg. Performing Organization Address City/[facility] Phone Number [facility] [address] [place] [address] * ECG Pre/Post Op (03/15/2018 10:08 AM CDT) Ventricular 70 [facility] rate Atrial rate 70 [facility] UT interval 168 [facility] QRSD interval 136 [facility] QT interval 472 [facility] QTC interval 509 [facility] P axis 1 77 [facility] QRS axis 1 43 [facility] T wave axis 31 [facility] EKG impression Normal sinus [facility] M[facility] rhythm-Nonspecific intraventricular block-Abnormal ECG-No previous ECGs available- Specimen Performing Organization Address [facility] Phone Number [facility] [address] [place] [address] * Urinalysis screen and microscopy, with reflex to culture (03/15/2018 1:08 AM CDT) Specimen site Clean catch [facility] DEPARTMENT OF PATHOLOGY AND GENOMIC MEDICINE Color, UA Yellow [facility] DEPARTMENT OF PATHOLOGY AND GENOMIC MEDICINE Appearance, UA Clear [facility] DEPARTMENT OF PATHOLOGY AND GENOMIC MEDICINE Specific 1.024 1.001 - 1.035 [facility] gravity, DEPARTMENT OF PATHOLOGY AND GENOMIC MEDICINE pH, UA 5.0 5.0 - 8.5 [facility] DEPARTMENT OF PATHOLOGY AND GENOMIC MEDICINE Protein, UA 1+ (A) Negative [facility] DEPARTMENT OF PATHOLOGY AND GENOMIC MEDICINE Glucose, UA Negative Negative [facility] DEPARTMENT OF PATHOLOGY AND GENOMIC MEDICINE Ketones, UA Trace (A) Negative [facility] DEPARTMENT OF PATHOLOGY AND GENOMIC MEDICINE Bilirubin, UA Negative Negative [facility] DEPARTMENT OF PATHOLOGY AND GENOMIC MEDICINE Blood, UA Negative Negative [facility] DEPARTMENT OF PATHOLOGY AND GENOMIC MEDICINE Nitrite, UA Negative Negative [facility] DEPARTMENT OF PATHOLOGY AND GENOMIC MEDICINE Urobilinogen, 2.0 (A) <2.0 [facility] DEPARTMENT OF PATHOLOGY AND GENOMIC MEDICINE Leukocyte Negative Negative [facility] esterase, DEPARTMENT OF PATHOLOGY AND GENOMIC MEDICINE WBC, UA 0-5 0 - 4 /HPF [facility] DEPARTMENT OF PATHOLOGY AND GENOMIC MEDICINE RBC, UA 0-5 0 - 5 /HPF [facility] DEPARTMENT OF PATHOLOGY AND GENOMIC MEDICINE Bacteria, UA None seen None seen [facility] DEPARTMENT OF PATHOLOGY AND GENOMIC MEDICINE Yeast, UA None seen [facility] DEPARTMENT OF PATHOLOGY AND GENOMIC MEDICINE Yeast with None seen [facility] pseudohyphae, DEPARTMENT OF UA PATHOLOGY AND GENOMIC MEDICINE Calcium oxalate Few [facility] crystals, DEPARTMENT OF PATHOLOGY AND GENOMIC MEDICINE Specimen Urine Performing Organization Address City/[facility] Phone Number [address] [place] [phone] PATHOLOGY AND GENOMIC MEDICINE * Urine culture (03/15/2018 1:08 AM CDT) Urine culture SEE COMMENTComment: [facility] Bacteriuria screen negative. DEPARTMENT OF PATHOLOGY AND GENOMIC MEDICINE Specimen Urine Performing Organization Address [facility] Phone Number [address] [place] [address] PATHOLOGY AND GENOMIC MEDICINE * XR Hip 2-3 View Left (03/15/2018 12:55 AM CDT) Specimen Narrative Performed At EXAMINATION:XR HIP 2-3 VIEWS LEFT [facility] CLINICAL HISTORY:fall from standing COMPARISON:Pelvic CT 03/14/2018. IMPRESSION: Acute left intertrochanteric fracture with coxa vera deformity. Surrounding soft tissue edema. Chronic right pubic fracture deformity. Fixation hardware in the visible portion of the right femur. [facility]-[id number] Procedure Note Interface, Radiology Results Incoming - 03/15/2018 1:01 AM CDT EXAMINATION: XR HIP 2-3 VIEWS LEFT CLINICAL HISTORY: fall from standing COMPARISON: Pelvic CT 03/14/2018. IMPRESSION: Acute left intertrochanteric fracture with coxa vera deformity. Surrounding soft tissue edema. Chronic right pubic fracture deformity. Fixation hardware in the visible portion of the right femur. [facility]-[id number] Performing Organization Address City/[facility]/Zipcode Phone Number [facility] [address] [place] [address] * XR Chest 1 Vw Portable (03/15/2018 12:02 AM CDT) Specimen Narrative Performed At EXAMINATION: XR CHEST 1 VW PORTABLE [facility] CLINICAL HISTORY: fall from standing COMPARISON:None. IMPRESSION: The lungs are clear. No pleural effusion or pneumothorax. Cardiac silhouette is enlarged. Aortic arch atherosclerosis. No acute osseous abnormalities. Surgical clips in the left upper quadrant. [facility]-[id number] Procedure Note Interface, Radiology Results Incoming - 03/15/2018 12:27 AM CDT EXAMINATION: XR CHEST 1 VW PORTABLE CLINICAL HISTORY: fall from standing COMPARISON: None. IMPRESSION: The lungs are clear. No pleural effusion or pneumothorax. Cardiac silhouette is enlarged. Aortic arch atherosclerosis. No acute osseous abnormalities. Surgical clips in the left upper quadrant. [facility]-[id number] Performing Organization Address City/State/Zipcode Phone Number [facility] [address] [place] [address] * CT Head Wo Contrast (03/14/2018 11:08 PM CDT) Specimen Narrative Performed At EXAMINATION:CT HEAD WO CONTRAST [facility] CLINICAL HISTORY:fall from standing COMPARISON:None. TECHNIQUE: Noncontrast [...] No CT evidence of acute intracranial abnormality. [id number] Procedure Note Interface, Radiology Results Incoming - [...] No CT evidence of acute intracranial abnormality. [id number] Performing Organization Address City/State/Zipcode Phone Number [facility] MANS[facility] [address] [place] [address] * CT Cervical Spine Wo Contrast (03/14/2018 [...] C5-C6. Additional degenerative changes are detailed above. [id number] Procedure Note Hm Interface, Radiology Results Incoming [...] C5-C6. Additional degenerative changes are detailed above. [id number] Performing Organization Address City/State/Zipcode Phone Number DONAL [address] [place] [address] * CT Pelvis Wo Contrast (03/14/2018 11:07 [...] hematoma adjacent to the left greater trochanter. [facility]-[id number] Procedure Note Interface, Radiology Results Incoming - [...] hematoma adjacent to the left greater trochanter. [facility]-[id number] Performing Organization Address City/State/Zipcode Phone Number [facility] [address] [place] [address] * CT Lower Extremity Wo Contrast Left [...] hematoma adjacent to the left greater trochanter. [facility]-[id number] Procedure Note Interface, Radiology Results Incoming - [...] hematoma adjacent to the left greater trochanter. [facility]-[id number] Performing Organization Address City/State/Zipcode Phone Number DONAL [address] [place] [address] * Troponin (03/14/2018 9:36 PM CDT) Troponin <0.300 0.000 - 0.300 ng/mL [facility] Comment: DEPARTMENT OF 0.30 - 1.49 PATHOLOGY AND ng/mlMay GENOMIC indicate increased risk of MEDICINE acute coronary syndrome. >=1.5 ng/ml Consistent with acute myocardial infarction. The diagnostic value of a single normal or non-diagnostic result is questionable.Serial samples at 2-6 hour intervals are required to rule out acute myocardial injury. Specimen Plasma specimen Performing Organization Address [facility] Phone Number [address] [place] [address] PATHOLOGY AND GENOMIC MEDICINE * Partial thromboplastin time, activated (03/14/2018 9:36 PM CDT) Pathologist [facility] PTT 30.3 23.0 - 36.0 sec [facility] Comment: DEPARTMENT OF PTT therapeutic range for PATHOLOGY AND unfractionated heparin is GENOMIC 61.0-112.0 seconds which MEDICINE corresponds to Anti-Xa 0.3-0.7 U/ml. Specimen Blood Performing Organization Address [facility] Phone Number [address] [place] [address] PATHOLOGY AND GENOMIC MEDICINE * Prothrombin time with INR (03/14/2018 9:36 PM CDT) Pathologist [facility] Prothrombin 13.3 12.0 - 15.0 sec [facility] time DEPARTMENT OF PATHOLOGY AND GENOMIC MEDICINE INR 1.0 [facility] Comment: DEPARTMENT OF The International Normalized PATHOLOGY AND Ratio (INR) is a therapeutic GENOMIC monitoring tool for patients MEDICINE who are stable on oral anticoagulant therapy. An INR of 2.0-3.0 is suggested for deep vein thrombosis/pulmonary embolism. Specimen Blood Performing Organization Address [facility] Number [address] [place] [address] PATHOLOGY AND GENOMIC MEDICINE * B natriuretic peptide (03/14/2018 9:36 PM CDT) Pathologist [facility] BNP 95 0 - 100 pg/mL [facility] DEPARTMENT OF PATHOLOGY AND GENOMIC MEDICINE Specimen Blood Performing Organization Address [facility] Phone Number [address] [place] [address] PATHOLOGY AND GENOMIC MEDICINE * Creatine kinase, total (CPK) (03/14/2018 9:36 PM CDT) Pathologist [facility] Creatine kinase 61 26 - 192 U/L [facility] DEPARTMENT OF PATHOLOGY AND GENOMIC MEDICINE Specimen Plasma specimen Performing Organization Address [facility] Phone Number [address] [place] [address] PATHOLOGY AND GENOMIC MEDICINE * ECG 12 lead (03/14/2018 9:34 PM CDT) Ventricular 77 [facility] rate Atrial rate 77 [facility] UT interval 170 [facility] QRSD interval 106 [...] Specimen Performing Organization Address City/State/Zipcode Phone Number [facility] [address] [place] [address] * ECG ED Preliminary Interpretation - NOT AN ORDER (03/14/2018 9:27 PM CDT) Narrative Performed At Derick Montez MD 03/15/2018 12:02 AM ECG ED Preliminary Interpretation - Not an Order Performed by: DERICK MONTEZ Authorized by: DERICK MONTEZ ECG reviewed by ED Physician in the absence of a elementary science teacher: yes Interpretation: Interpretation: normal Quality: Tracing quality:Limited [...] MEDICARE HUMANA xxxxxxxxx 2017-P MEDICARE resent PPO/PFFS/E [facility] Advance Directives Patient has advance care planning documents, and code status on file. For more i nformation, please contact: Donavon Schafer [address] [place] [address] Date Inactivated Comments Code Status Date Activated 03/21/2018 10:10 PM Full Code 03/16/2018 5:14 PM Code Status decision reached by: Patient
[2018-11-24 18:43] VITALS: BP 141/67
[2018-11-24 19:00] VITALS: BP 156/67
--- NOTE | 2018-11-24 19:00 | NUR ---
patient is a new admit that is resting comfortably in bed. bed is in lowest position and call tena is within reach. denies pain or discomfort. will continue to monitor patient.
[2018-11-24 20:46] LABS: CREATINE KINASE 32 IU/L (29-168)
[2018-11-24 20:52] VITALS: BP 156/67
[2018-11-24] MEDS: INSULIN LISPRO 100 UNIT/1 ML 3ML VIAL SQ SCH (21:00)
[2018-11-24] MEDS ORDERED: SODIUM CHLORIDE 0.9% 50ML 50 ML ONE (22:20)
[2018-11-24] MEDS ORDERED: IOPAMIDOL 370 MG/ML 200 ML INFUS..BTL INJ ONE (22:20)
[2018-11-24 22:42] VITALS: BP 174/72
[2018-11-25 00:29] VITALS: BP 104/52
[2018-11-25 04:33] VITALS: BP 126/60
[2018-11-25 05:46] LABS: BASOPHILS # (AUTO) 0.1 (0.0-0.1); BASOPHILS % 0.7 % (0.0-1.0); EOSINOPHILS # (AUTO) 0.4 (0.0-0.4); EOSINOPHILS % 3.6 % (0.0-6.0); HEMATOCRIT 31.9 % (34.2-44.1); HEMOGLOBIN 10.3 g/dL (12.0-16.0); LYMPHOCYTES # (AUTO) 5.1 (1.0-3.2); LYMPHOCYTES % 44.7 % (18.0-39.1); MEAN CORPUSCULAR HEMOGLOBIN 33.2 pg (28-32); MEAN CORPUSCULAR HGB CONC 32.3 g/dL (31-35); MEAN CORPUSCULAR VOLUME 102.9 fL (81-99); MONOCYTES % 9.1 % (4.4-11.3); NEUTROPHILS # (AUTO) 4.7 (2.1-6.9); NEUTROPHILS % 41.4 % (38.7-80.0); PLATELET COUNT 254 x10e3/uL (140-360); RED CELL DISTRIBUTION WIDTH 16.4 % (11.7-14.4)
[2018-11-25 06:08] LABS: ANION GAP 10.3 mmol/L (8-16); CALCIUM 9.2 mg/dL (8.4-10.2); CHOL/HDL RATIO 2.8 (3.0-3.6); CREATININE, SERUM 0.95 mg/dL (0.57-1.11); POTASSIUM 4.3 mmol/L (3.5-5.1)
[2018-11-25 06:21] LABS: CREATINE KINASE 26 IU/L (29-168)
--- NOTE | 2018-11-25 07:15 | NUR ---
report given to day nurse. patient is resting in bed. bed is in lowest position and call tena is within reach.
[2018-11-25] MEDS: INSULIN LISPRO 100 UNIT/1 ML 3ML VIAL SQ SCH ×2 (07:30→11:30)
[2018-11-25 07:46] VITALS: BP 134/67
[2018-11-25 08:25] VITALS: BP 134/67
[2018-11-25] MEDS: FAMOTIDINE 20 MG TAB PO SCH (08:44)
[2018-11-25] MEDS ORDERED: ASPIRIN 81 MG ENTERIC COATED PO SCH (09:00)
[2018-11-25 11:28] VITALS: BP 124/58
[2018-11-25] MEDS: SODIUM CHLORIDE 0.9% 1000ML 1,000 ML IV SCH ×2 (12:05→12:06)
[2018-11-25 15:56] VITALS: BP 146/63
--- NOTE | 2018-11-25 16:10 | NUR ---
patient discharged home, Alert with no distress, no prescriptions as per Dr De Jesus, patient aware about f/up appointment with Dr Uriarte on Tuesday, IVcanula removed, no ss of infiltration, at bed side giving ride, [facility]
--- NOTE | 2018-11-25 16:46 | Consultation ---
DATE OF CONSULTATION: 11/25/2018 Cardiac consultation. REASON FOR CONSULTATION: Chest tightness. HISTORY: A 73-year-old lady, who is known with multiple medical health problem namely hypertension, rheumatoid arthritis, diabetes mellitus, severe joint pain, chronic lung disease, bronchitis, ICD, and possible pulmonary hypertension. The patient is in her usual status of health. She came to this institution complaining of chest fullness and tightness in addition to dizziness and low blood pressure. The patient admitted for further management. She had three sets of cardiac enzymes are normal. Her lipid profile is very favorable with triglycerides of 96, cholesterol of 219, HDL of 77, LDL of 123. Her D-dimers were elevated at 1.19. She had CT chest showed no pulmonary embolism, chronic bronchiolitis, ICD, and interstitial lung fibrosis changes. Regardless, the patient also complained of severe shortness of breath and chest tightness like someone sitting on her chest, just doing minimal activity. She is progressively worse over the last few weeks. There is occasional cough. There is no recent travel. There is no orthopnea or paroxysmal nocturnal dyspnea. There is no syncope or presyncope. PAST MEDICAL HISTORY: 1. Hypertension. 2. Diabetes mellitus. 3. Bronchiolitis and interstitial lung fibrosis. 4. Gastric bypass surgery. 5. Bilateral knee replacement. 6. Bilateral hip replacement. 7. Left ankle surgery. 8. Several other surgeries. SOCIAL HISTORY: She is . She stopped smoking in 2010. She is non-alcohol drinker. FAMILY HISTORY: Father for myocardial infarction, but at age 33. Mother of complication of diabetes mellitus and septicemia at age 83. She had several heart disease. She does have one brother who is hypertensive and four healthy sister. She does have three children, two sons, one of her son is obese with hypertension and he had major CVA. HOME MEDICATIONS: Include: 1. Lisinopril 10 mg a day. 2. Diltiazem 120 mg a day. 3. Aspirin 81 mg a day. 4. Glipizide 2.5 mg a day. 5. Nexium 40 mg a day. 6. Zoloft 100 mg a day. 7. [place] 1 tablet a day. 8. Gabapentin 600 mg a day. 9. Calcium carbonate. 10. Iron. 11. Methotrexate. 12. Meloxicam. ALLERGIES: PENICILLIN AND ALBUTEROL CAUSED HER TO BE JITTERY. REVIEW OF SYSTEMS: CARDIAC: As per above. PULMONARY: As per above. GENERAL: No fever. No chills. HEENT: Unremarkable. GI: No hematemesis. No melena. : No hematuria. No dysuria. MUSCULOSKELETAL: Severe aches and pain, almost in every joint. She is followed by Dr. Childers for her rheumatoid arthritis. HEMATOLOGY: Easy bruising, but no bleeding. PHYSICAL EXAMINATION: VITAL SIGNS: Height of 5 feet 4 inches, weight of 171 pounds, blood pressure 120/60, heart rate of 70, respiratory rate of 18. HEENT: Pupils are reactive. NECK: No elevation of jugular venous pulsation. CHEST: Decreased lung expansion. HEART: [place] in 5th left intercostal space. No right, no left ventricular heave, possible increased intensity of 2nd heart sound. ABDOMEN: Soft with good bowel sounds. EXTREMITIES: No cyanosis, no clubbing, no edema. NEUROLOGIC: Awake, alert, oriented. No motor deficits. LABORATORY DATA: Sodium of 139, potassium of 4.3, BUN of 26, creatinine of 0.9. White blood cell count of 11.3, hemoglobin 10.3, hematocrit 31%. EKG showing normal sinus rhythm, nonspecific intraventricular conduction delay. CT scan showed bronchiolitis, ICD, and possible pulmonary hypertension. IMPRESSION AND PLAN: 1. Chest pressure, chest tightness, very plausible in this age group to be coronary artery disease since her symptoms are very typical, however, a protecting factor her level of HDL being at 77. 2. Abnormal EKG with nonspecific intraventricular conduction delay. 3. Bronchiolitis with interstitial lung fibrosis, possible contributing to her symptoms. 4. Hypertension. 5. Diabetes mellitus. 6. Severe advanced rheumatoid arthritis. 7. Hypotension cause of admission, most likely related to the KAM inhibitor and the fact the patient possibly got pulmonary hypertension, which will exacerbate her symptoms. 8. History of recent vasovagal syncope, possible also hypotension playing a role. Cardiac pablo, the patient is already ruled out with serial cardiac enzymes. Her cholesterol is favorable with HDL of 77. Her BNP is normal. Her D-dimer is elevated, but her CT scan is negative. She is one to go home because of the long holiday, which is fine, but I told her she should stop the lisinopril and continue all other medication. She needs to be seen in followup where she should have at least stress test. This stress test will be nuclear secondary to the abnormal EKG. All discussed and explained to the patient and her . She is advised to continue her Cardizem. She is advised to continue her aspirin 81 mg a day. MD MANDEEP Baltazar/SINA /[id number]
--- NOTE | 2018-11-25 16:55 | Discharge Summary ---
HOSPITAL COURSE: A 73-year-old female with past medical history positive for COPD, hypertension, diabetes, came here with chest pain. EKG is unremarkable. Troponins are negative. The patient has elected to have an adenosine Cardiolite done as an outpatient on Tuesday by Dr. Uriarte. The patient is chest pain-free right now. PHYSICAL EXAMINATION: VITAL SIGNS: Blood pressure 124/58, temperature 98.1, heart rate 72 per minute, respiratory rate 21 per minute, oxygen saturation 94%. HEART : Showed regular rhythm. Normal S1, S2 sound. LUNGS: Clear bilaterally. ABDOMEN: Soft. EXTREMITIES: Show no evidence of cyanosis, edema, or trauma. IMPRESSION: 1. Chest pain, atypical in nature. 2. Chronic obstructive pulmonary disease. 3. Obesity. 4. Uncontrolled diabetes mellitus type 2. 5. Pulmonary hypertension. PLAN OF TREATMENT: The patient is going to be discharged on the medication that I already dictated in my prior history and physical. Follow up with Dr. Uriarte on Tuesday for elective adenosine Cardiolite stress test. If the patient had any episode of chest pain, she was told to come to the hospital. MD DEBBIE Baird/SINA /[id number]
--- NOTE | 2018-11-25 20:56 | History and Physical ---
HISTORY OF PRESENT ILLNESS: A 73-year-old female. Past medical history is positive for COPD, obesity, diabetes, came here with atypical chest pain. The patient had an echocardiogram with ejection fraction of 45%. Troponins are negative. EKG is unremarkable. The patient is going to be going home. She is going to have an outpatient stress test by Dr. Uriarte on Tuesday. REVIEW OF SYSTEMS: CARDIOVASCULAR: She had an episode of chest pain, which is resolved. RESPIRATORY: No shortness of breath. GASTROINTESTINAL: No nausea. No vomiting. No diarrhea. GENITOURINARY: No frequency. No dysuria. ALLERGIES: SHE IS ALLERGIC TO PENICILLINS AND ALBUTEROL. SOCIAL HISTORY: She used to smoke, she does not smoke anymore. No alcohol. PAST MEDICAL HISTORY: COPD, pulmonary hypertension, diabetes mellitus type 2. PHYSICAL EXAMINATION: VITAL SIGNS: Blood pressure 124/58, temperature 98.1, heart rate 72 per minute, respiratory rate 21 per minute, oxygen saturation 94%. HEART: Shows regular rhythm. Normal S1, S2 sound. LUNGS: Clear bilaterally. ABDOMEN: Soft. EXTREMITIES: Show no evidence of cyanosis or hematoma. LABORATORY DATA: On the blood work, we have BMP; sodium 139, potassium 4.3, chloride 104, CO2 of 29, BUN 26, creatinine 0.95, glucose 104. CBC; white blood count 11,300, hemoglobin 10.3, hematocrit 31.9, platelet count 254,000. PT 11.2, INR 0.77, PTT 26.7. AST 15, ALT 20, total bilirubin 0.3, alkaline phosphatase 56. IMAGING DATA: EKG as I said showed normal sinus rhythm with nonspecific changes. No evidence of any ST-segment elevation or depression. Troponins are negative. IMPRESSION: 1. Chest pain. 2. Chronic obstructive pulmonary disease. 3. Obesity. 4. Uncontrolled diabetes mellitus type 2. 5. Pulmonary hypertension. PLAN OF TREATMENT: She is going to be going home on aspirin 81 mg daily. Continue with home medication also on beta-blockers. The patient will see Dr. Uriarte on Tuesday for elective stress test. Zach De Jesus MD LAS/MODL /[id number]
== END 2018-11-25 16:45 | disposition home or self-care (01) ==
LOC: ER 10:58 → ERHOLD 17:43 → IMCU 18:28
DX: R07.89 Other chest pain (principal); I95.0 Idiopathic hypotension; I11.0 Hypertensive heart disease with heart failure; I50.9 Heart failure, unspecified; E11.9 Type 2 diabetes mellitus without complications; Z87.891 Personal history of nicotine dependence; I27.20 Pulmonary hypertension, unspecified; E66.9 Obesity, unspecified; Z88.0 Allergy status to penicillin; Z88.8 Allergy status to other drugs, medicaments and biological substances; M06.9 Rheumatoid arthritis, unspecified; Z95.810 Presence of automatic (implantable) cardiac defibrillator; Z98.84 Bariatric surgery status; Z96.643 Presence of artificial hip joint, bilateral; Z96.653 Presence of artificial knee joint, bilateral; Z82.49 Family history of ischemic heart disease and other diseases of the circulatory system; Z83.3 Family history of diabetes mellitus; Z82.3 Family history of stroke; I45.89 Other specified conduction disorders; J21.9 Acute bronchiolitis, unspecified; J44.0 Chronic obstructive pulmonary disease with (acute) lower respiratory infection; Z68.29 Body mass index [BMI] 29.0-29.9, adult; Z79.82 Long term (current) use of aspirin; Z79.84 Long term (current) use of oral hypoglycemic drugs
CPT/HCPCS: 36415 ×2; 71045; 71260; 80048; 80053; 80061; 81001; 82550 ×2; 82553 ×2; 82948 ×2; 83880; 84484 ×2; 85025 ×2; 85379; 85610; 85730; 87040; 87086; 93005; 93306; 99284; G0378 ×2; J7030 ×2; J7040; Q9967

== ENCOUNTER → 2018-12-28 | Day surgery (SDC) | payer MEDICARE ==
[2018-12-27 14:36] LABS: BASOPHILS # (AUTO) 0.1 (0.0-0.1); BASOPHILS % 0.8 % (0.0-1.0); EOSINOPHILS # (AUTO) 0.3 (0.0-0.4); EOSINOPHILS % 3.2 % (0.0-6.0); HEMATOCRIT 31.4 % (34.2-44.1); HEMOGLOBIN 10.3 g/dL (12.0-16.0); LYMPHOCYTES # (AUTO) 4.3 (1.0-3.2); LYMPHOCYTES % 40.2 % (18.0-39.1); MEAN CORPUSCULAR HEMOGLOBIN 34.1 pg (28-32); MEAN CORPUSCULAR HGB CONC 32.8 g/dL (31-35); MONOCYTES # (AUTO) 1.2 (0.2-0.8); MONOCYTES % 11.5 % (4.4-11.3); NEUTROPHILS # (AUTO) 4.6 (2.1-6.9); NEUTROPHILS % 43.1 % (38.7-80.0); PLATELET COUNT 272 x10e3/uL (140-360); RED BLOOD COUNT 3.02 x10e6/uL (3.6-5.1); RED CELL DISTRIBUTION WIDTH 16.6 % (11.7-14.4)
[2018-12-27 14:46] LABS: INR 0.82; PARTIAL THROMBOPLASTIN TIME 27.2 seconds (23.8-35.5); PROTHROMBIN TIME 11.8 seconds (11.9-14.5)
--- NOTE | 2018-12-27 14:53 | Diagnostic Imaging Report ---
EXAMINATION: PA and lateral views of the chest. COMPARISON: Chest CT 11/24/2018 CLINICAL HISTORY: Preop for heart catheterization DISCUSSION: The lungs are well-inflated. Bronchiectasis and groundglass opacities described on the comparison CT chest are poorly visualized by plain radiography. Tortuous thoracic aorta with atherosclerotic calcification. Enlargement of the pulmonary outflow tract described on the comparison study is less conspicuous by plain radiography. Normal heart size. No pulmonary edema. No acute osseous abnormality. Degenerative changes of the right acromioclavicular and glenohumeral joint with high riding humeral head suggestive of chronic rotator cuff tear. Upper abdominal surgical clips. IMPRESSION: No acute cardiopulmonary abnormality. For further description of chronic pulmonary findings refer to the report for CT scan of the chest 11/24/2018. Signed by: Dr. Tanner Lewis M.D. on 12/27/2018 2:50 PM
[2018-12-27 14:54] LABS: ALBUMIN 3.4 g/dL (3.5-5.0); ALBUMIN/GLOBULIN RATIO 1.1 (0.8-2.0); ANION GAP 12.2 mmol/L (8-16); CALCIUM 9.4 mg/dL (8.4-10.2); CREATININE, SERUM 0.99 mg/dL (0.57-1.11); POTASSIUM 4.2 mmol/L (3.5-5.1)
[2018-12-27 15:13] LABS: THYROID STIMULATING HORMONE 0.901 uIU/mL (0.350-4.940)
[2018-12-27 16:31] LABS: CHOL/HDL RATIO 2.8 (3.0-3.6)
[~2018-12-28] VITALS: Ht 163.8 cm; Wt 81.6 kg
[2018-12-28] VITALS (11 sets, daily range): BP systolic 95–146; BP diastolic 63–73
[~2018-12-28] MED LIST changes: +ANORA INH; +FENTANYL CITRATE/PF 100MCG/2 ML INJ ONE; +FOLIC ACID1 MG PO; +HEPARIN SOD/SOD CHLORIDE 2,000 ML ONE; +IOPAMIDOL 370 MG/ML 200 ML INFUS..BTL INJ ONE; +LIDOCAINE HCL 2% LOCAL 20 ML VIAL ONE; +MAGNESIUM OXID400 MG PO; +MIDAZOLAM HCL 2 MG/2 ML VIAL ONE; +MIDODRINE HCL5 MG PO; +NORTRIPTYLINE H10 MG PO; +POTASSIUM CHLO10 ME1 PO; +SODIUM CHLORIDE 0.9% 1000ML 1,000 ML ONE
--- OUTSIDE RECORDS SUMMARY | 2018-12-28 07:58 | XMS REPORT | Clinical Summary ---
Author Author [facility] Address Unknown Phone Unavailable Care Team Providers Care Hem Inspector Name Role Phone Jessi Nicholas MD [...] Description Date Type Specialty Vance Araujo MD 12/22/2018 Office Visit Orthopedic Surgery Prerna Ortez MA Fracture (Primary Dx) 12/21/2018 Orders Only Orthopedic Surgery Prerna Ortez MA Pain (Primary Dx) 11/23/2018 [...] Hospital General Surgery - Encounter 03/21/2018 after 12/27/2017 Immunizations Name Dates Previously Given Next Due [...] Vital Signs Time Taken Vital Sign Reading 12/22/2018 2:49 PM CDT Blood Pressure 127/65 12/22/2018 2:49 PM CDT Pulse 75 03/21/2018 4:02 PM CDT Temperature 37.2 C (99 F) 03/21/2018 4:02 PM CDT Respiratory Rate 17 03/21/2018 4:02 PM CDT Oxygen Saturation 97% - Inhaled Oxygen - Concentration 12/22/2018 2:49 PM CDT Weight 77.1 kg (170 lb) 12/22/2018 2:49 PM CDT Height 163.8 cm (5' 4.5") 12/22/2018 2:49 PM CDT Body Mass Index 28.73 Plan of Treatment Care Team Description Date Type Specialty Vance Araujo MD [address] [facility] [address] [place] [address] [phone] 02/23/2019 Office Visit Orthopedic Surgery Vance Araujo MD [address] [facility] [address] [place] [address] [phone] 07/27/2019 Office Visit Orthopedic Surgery Health Maintenance Due Date Last Done Comments BREAST CANCER SCREENING 1997 COLONOSCOPY SCREENING 1997 SHINGLES VACCINES (#1) 1997 65+ PNEUMOCOCCAL VACCINE 2012 05/09/2012 (2 of 2 - PPSV23) INFLUENZA VACCINE 02/01/2019 03/18/2018, 04/07/2017 Implants Device Identifier Shelf Expiration Date Model / Serial / Lot Implanted Type Area Manufactur er [id number] / / Kit Scr Intrlkng 100mm Lag 95mm Hip Joint Left: Hip LARA AND Comp Intertan - [id number] Implants NEPHEW Implanted: Qty: 1 on 03/16/2018 by ORTHO Vance Araujo MD TRAUMA 08/31/2027 [id number] / / [id number] Intertan 1.5 [id number] 125d Lt - IPM Left: Hip LARA & [id number] IMPLANT NEPHEW Implanted: Qty: 1 on 03/16/2018 by DEVICES Vance Saini MD [id number] / / Trigen Low Profile Screw 5.0mm X IPM Left: Hip LARA & 50mm - [id number] IMPLANT NEPHEW Implanted: Qty: 1 on 03/16/2018 by DEVICES Vance Saini MD Lens Lens Procedures Comments Procedure Name Priority Date/Time Associated Diagnosis XR FEMUR 2 VW LEFT Routine 07/07/2018 Pain 11:08 AM STOPER XR FEMUR 2 VW LEFT Routine 05/03/2018 [...] Lara and Nephew Intratan Nail.Jeremiah ) with Lara and Nephew notified of case start at 1500.....H J03/15/18 [...] MMODE SPECTRAL 12:00 PM CDT COLOR DOPPLER (45125) ECG PRE/POST OP Routine 03/15/2018 10:08 AM [...] Routine 03/14/2018 INTERPRETATION 9:27 PM CDT after 12/27/2017 Results * XR Femur 2 Vw Left (07/07/2018 11:08 AM STOPER) Only the most recent of 4 results within the time period is included. Specimen Narrative Performed At [facility] X-rays left [...] place which appears satisfactory. Performing Organization Address City/[facility] [address]/Zipcode Phone Number [facility] [address] [place] [address] * XR Pelvis 1 Or 2 Vw (04/05/2018 1:57 PM CDT) Specimen Narrative Performed At [facility] X-rays AP pelvis 04/05/2018: X-ray shows bilateral internal fixation from previous trochanteric fracture most recent of the left side. Performing Organization Address [facility] Phone Number [facility] [address] [place] [address] * Hemoglobin & hematocrit (03/20/2018 12:21 PM CDT) [facility] HGB 8.2 (L) 12.0 - 16.0 g/dL [facility] DEPARTMENT OF PATHOLOGY AND GENOMIC MEDICINE HCT 26.1 (L) 37.0 - 47.0 % [facility] DEPARTMENT OF PATHOLOGY AND GENOMIC MEDICINE Specimen Blood Performing Organization Address [facility] Phone Number [facility] DEPARTMENT [address] [place] [address] PATHOLOGY AND GENOMIC MEDICINE * Estimated GFR (03/19/2018 4:35 PM CDT) Only the most recent of 5 results within the time period is included. [facility] Estimated GFR 87 mL/min/1.73 m2 [facility] Comment: DEPARTMENT OF [employer] PATHOLOGY AND rpretation GENOMIC G1 MEDICINE >=90 Normal or high G2 60-89Mildly decreased [id number] Mildly to moderately decreased [id number] Moderately to severely decreased G4 15-29Severely decreased G5 <15Kidney failure The eGFR was calculated using the Chronic Kidney Disease Epidemiology Collaboration (CKD-EPI) equation. Interpretation is based on recommendations of the National Kidney Foundation-Kidney Disease Outcomes Quality Initiative (NKF-KDOQI) published in 2014. Specimen Plasma specimen Performing Organization Address [facility] Phone Number [facility] DEPARTMENT [address] [place] [address] PATHOLOGY AND GENOMIC MEDICINE * Comprehensive metabolic panel (03/19/2018 4:35 PM CDT) Only the most recent of 3 results within the time period is included. Sodium 144 135 - 148 mEq/L [facility] DEPARTMENT OF PATHOLOGY AND GENOMIC MEDICINE Potassium 3.2 (L) 3.5 - 5.0 mEq/L [facility] DEPARTMENT OF PATHOLOGY AND GENOMIC MEDICINE Chloride 97 (L) 98 - 112 mEq/L [facility] DEPARTMENT OF PATHOLOGY AND GENOMIC MEDICINE CO2 38 (H) 24 - 31 mEq/L [facility] DEPARTMENT OF PATHOLOGY AND GENOMIC MEDICINE Anion gap 9@ANIO 7 - 15 mEq/L [facility] DEPARTMENT OF PATHOLOGY AND GENOMIC MEDICINE BUN 15 8 - 23 mg/dL [facility] DEPARTMENT OF PATHOLOGY AND GENOMIC MEDICINE Creatinine 0.70 0.50 - 0.90 mg/dL [facility] DEPARTMENT OF PATHOLOGY AND GENOMIC MEDICINE Glucose 144 (H) 65 - 99 mg/dL [facility] DEPARTMENT OF PATHOLOGY AND GENOMIC MEDICINE Calcium 8.6 (L) 8.8 - 10.2 mg/dL [facility] DEPARTMENT OF PATHOLOGY AND GENOMIC MEDICINE Protein 5.5 (L) 6.3 - 8.3 g/dL [facility] Comment: DEPARTMENT OF [place] PATHOLOGY AND 4.6-7.0 g/dL [address] week 4.4-7.6 g/dL 7 months-1year 5.1-7.3 g/dL 1-2 years5.6-7 .5 g/dL >3 years6.0-8 .0 g/dL 18-150 6.3-8.3 g/dL Albumin 2.6 (L) 3.5 - 5.0 g/dL [facility] DEPARTMENT OF PATHOLOGY AND GENOMIC MEDICINE A/G ratio 0.9 0.7 - 3.8 [facility] DEPARTMENT OF PATHOLOGY AND GENOMIC MEDICINE Alkaline 55 35 - 104 U/L [facility] phosphatase DEPARTMENT OF PATHOLOGY AND GENOMIC MEDICINE AST 10 10 - 35 U/L [facility] DEPARTMENT OF PATHOLOGY AND GENOMIC MEDICINE ALT 11 5 - 50 U/L [facility] DEPARTMENT OF PATHOLOGY AND GENOMIC MEDICINE Total bilirubin 0.4 0.0 - 1.2 mg/dL [facility] DEPARTMENT OF PATHOLOGY AND GENOMIC MEDICINE Specimen Plasma specimen Performing Organization Address City/State/Zipcode Phone Number [facility] DEPARTMENT [address] [place] [address] PATHOLOGY AND GENOMIC MEDICINE * CBC with platelet and differential (03/19/2018 12:10 PM CDT) Only the most recent of 5 results within the time period is included. WBC 12.67 (H) 4.50 - 11.00 k/uL [facility] DEPARTMENT OF PATHOLOGY AND GENOMIC MEDICINE RBC 2.62 (L) 4.20 - 5.50 m/uL [facility] OF PATHOLOGY AND GENOMIC MEDICINE HGB 7.9 (L) 12.0 - 16.0 g/dL [facility] DEPARTMENT OF PATHOLOGY AND GENOMIC MEDICINE HCT 25.5 (L) 37.0 - 47.0 % [facility] DEPARTMENT OF PATHOLOGY AND GENOMIC MEDICINE MCV 97.3 82.0 - 100.0 fL [facility] DEPARTMENT OF PATHOLOGY AND GENOMIC MEDICINE MCH 30.2 27.0 - 34.0 pg [facility] DEPARTMENT OF PATHOLOGY AND GENOMIC MEDICINE MCHC 31.0 31.0 - 37.0 g/dL [facility] DEPARTMENT OF PATHOLOGY AND GENOMIC MEDICINE RDW - SD 56.9 (H) 37.0 - 55.0 fL [facility] DEPARTMENT OF PATHOLOGY AND GENOMIC MEDICINE MPV 9.9 8.8 - 13.2 fL [facility] DEPARTMENT OF PATHOLOGY AND GENOMIC MEDICINE Platelet count 279 150 - 400 k/uL [facility] DEPARTMENT OF PATHOLOGY AND GENOMIC MEDICINE Nucleated RBC 0.00 /100 WBC [facility] DEPARTMENT OF PATHOLOGY AND GENOMIC MEDICINE Neutrophils 50.8 39.0 - 69.0 % [facility] DEPARTMENT OF PATHOLOGY AND GENOMIC MEDICINE Lymphocytes 31.6 25.0 - 45.0 % [facility] DEPARTMENT OF PATHOLOGY AND GENOMIC MEDICINE Monocytes 11.1 (H) 0.0 - 10.0 % [facility] DEPARTMENT OF PATHOLOGY AND GENOMIC MEDICINE Eosinophils 5.3 (H) 0.0 - 5.0 % [facility] DEPARTMENT OF PATHOLOGY AND GENOMIC MEDICINE Basophils 0.6 0.0 - 1.0 % [facility] DEPARTMENT OF PATHOLOGY AND GENOMIC MEDICINE Specimen Blood Performing Organization Address City/State/Zipcode [place] Number [facility] [place] [place] [address] [place] [address] PATHOLOGY AND GENOMIC MEDICINE * Type and screen (03/19/2018 12:10 PM CDT) Only the most recent of 2 results within the time period is included. ABO grouping A [facility] OF PATHOLOGY AND GENOMIC MEDICINE Rh type POS [facility] OF PATHOLOGY AND GENOMIC MEDICINE Antibody screen NEG [facility] DEPARTMENT OF PATHOLOGY AND GENOMIC MEDICINE Specimen Blood Performing Organization Address [facility] Phone Number [address] [place] [address] PATHOLOGY AND GENOMIC MEDICINE * Basic metabolic panel (03/18/2018 5:55 AM CDT) Only the most recent of 2 results within the time period is included. Pathologist [facility] Sodium 144 135 - 148 mEq/L [facility] DEPARTMENT OF PATHOLOGY AND GENOMIC MEDICINE Potassium 3.3 (L) 3.5 - 5.0 mEq/L [facility] DEPARTMENT OF PATHOLOGY AND GENOMIC MEDICINE Chloride 103 98 - 112 mEq/L [facility] DEPARTMENT OF PATHOLOGY AND GENOMIC MEDICINE CO2 34 (H) 24 - 31 mEq/L [facility] DEPARTMENT OF PATHOLOGY AND GENOMIC MEDICINE Anion gap 7@ANIO 7 - 15 mEq/L [facility] DEPARTMENT OF PATHOLOGY AND GENOMIC MEDICINE BUN 15 8 - 23 mg/dL [facility] DEPARTMENT OF PATHOLOGY AND GENOMIC MEDICINE Creatinine 0.70 0.50 - 0.90 mg/dL [facility] DEPARTMENT OF PATHOLOGY AND GENOMIC MEDICINE Glucose 125 (H) 65 - 99 mg/dL [facility] DEPARTMENT OF PATHOLOGY AND GENOMIC MEDICINE Calcium 8.4 (L) 8.8 - 10.2 mg/dL [facility] DEPARTMENT OF PATHOLOGY AND GENOMIC MEDICINE Specimen Plasma specimen Performing Organization Address [facility] Phone Number [address] [place] [address] PATHOLOGY AND GENOMIC MEDICINE * POC glucose (03/17/2018 4:53 PM CDT) Only the most recent of 11 results within the time period is included. [facility] POC glucose 118 (H) 65 - 99 mg/dL [facility] Comment: DEPARTMENT OF Meter ID: [id number] PATHOLOGY AND Needle Loom Tender: Nasir Bertrand GENOMIC MEDICINE Specimen Performing Organization Address [facility] Phone Number [address] [place] [address] PATHOLOGY AND GENOMIC MEDICINE * OR FL [...] performing the procedure. [id number] Performing Organization Address [facility] Phone Number [facility] [address] [place] [address] * XR Knee 1 Or 2 Vw [...] of the bursal or joint effusion. [facility]-[id number] Procedure Note Hm Interface, Radiology Results Incoming [...] distention of the bursal or joint effusion. [id number] Performing Organization Address [facility] Phone Number [facility] [address] [place] [address] * Echocardiogram complete w contrast and 3D [...] LV EF,BP 66.97 % [facility] [place],d A2C 6.98 cm [facility] [place],d A4C 6.38 cm [facility] [place],s A2C 5.68 cm [facility] [place],s A4C 5.26 cm [facility] LV SV,A2C [...] RVSP is 53 mmHg. Performing Organization Address [facility] Phone Number [facility] [address] [place] [address] * ECG Pre/Post Op (03/15/2018 10:08 AM CDT) Ventricular 70 [facility] rate Atrial rate 70 [facility] GA interval 168 [facility] QRSD interval 136 [facility] QT interval 472 [facility] QTC interval 509 [facility] P axis 1 77 [facility] QRS axis 1 43 [facility] T wave axis 31 [facility] EKG impression Normal sinus [facility] rhythm-Nonspecific intraventricular block-Abnormal ECG-No previous ECGs available- Specimen Performing Organization Address [facility] Phone Number [facility] MUSE [address] [place] [address] * Urinalysis screen and microscopy, with reflex to culture (03/15/2018 1:08 AM CDT) Specimen site Clean catch [facility] DEPARTMENT OF PATHOLOGY AND GENOMIC MEDICINE Color, UA Yellow [facility] DEPARTMENT OF PATHOLOGY AND GENOMIC MEDICINE Appearance, UA Clear [facility] DEPARTMENT OF PATHOLOGY AND GENOMIC MEDICINE Specific 1.024 1.001 - 1.035 [facility] gravity, DEPARTMENT OF PATHOLOGY AND GENOMIC MEDICINE pH, UA 5.0 5.0 - 8.5 [facility] DEPARTMENT OF PATHOLOGY AND GENOMIC MEDICINE Protein, UA 1+ (A) Negative [facility] DEPARTMENT OF PATHOLOGY AND GENOMIC MEDICINE Glucose, UA Negative Negative [facility] DEPARTMENT OF PATHOLOGY AND GENOMIC MEDICINE Ketones, UA Trace (A) Negative [facility] DEPARTMENT OF PATHOLOGY AND GENOMIC MEDICINE Bilirubin, UA Negative Negative [facility] DEPARTMENT OF PATHOLOGY AND GENOMIC MEDICINE Blood, UA Negative Negative [facility] DEPARTMENT OF PATHOLOGY AND GENOMIC MEDICINE Nitrite, UA Negative Negative [facility] DEPARTMENT OF PATHOLOGY AND GENOMIC MEDICINE Urobilinogen, 2.0 (A) <2.0 [facility] DEPARTMENT OF PATHOLOGY AND GENOMIC MEDICINE Leukocyte Negative Negative [facility] esterase, DEPARTMENT OF PATHOLOGY AND GENOMIC MEDICINE WBC, UA 0-5 0 - 4 /HPF [facility] DEPARTMENT OF PATHOLOGY AND GENOMIC MEDICINE RBC, UA 0-5 0 - 5 /HPF [facility] DEPARTMENT OF PATHOLOGY AND GENOMIC MEDICINE Bacteria, UA None seen None seen [facility] DEPARTMENT OF PATHOLOGY AND GENOMIC MEDICINE Yeast, UA None seen [facility] DEPARTMENT OF PATHOLOGY AND GENOMIC MEDICINE Yeast with None seen [facility] pseudohyphae, DEPARTMENT OF PATHOLOGY AND GENOMIC MEDICINE Calcium oxalate Few [facility] crystals, DEPARTMENT OF PATHOLOGY AND GENOMIC MEDICINE Specimen Urine Performing Organization Address City/[facility] Phone Number [address] [place] [address] PATHOLOGY AND GENOMIC MEDICINE * Urine culture (03/15/2018 1:08 AM CDT) Urine culture SEE COMMENTComment: [facility] Bacteriuria screen negative. DEPARTMENT OF PATHOLOGY AND GENOMIC MEDICINE Specimen Urine Performing Organization Address [facility] Phone Number [address] [place] [address] PATHOLOGY AND GENOMIC MEDICINE * XR Hip 2-3 View Left (03/15/2018 12:55 AM CDT) Specimen Narrative Performed At EXAMINATION:XR HIP 2-3 VIEWS LEFT [facility] CLINICAL HISTORY:fall from standing COMPARISON:Pelvic CT 03/14/2018. IMPRESSION: Acute left intertrochanteric fracture with coxa vera deformity. Surrounding soft tissue edema. Chronic right pubic fracture deformity. Fixation hardware in the visible portion of the right femur. [facility]-[id number] Procedure Note Interface, Radiology Results Incoming - 03/15/2018 1:01 AM CDT EXAMINATION: XR HIP 2-3 VIEWS LEFT CLINICAL HISTORY: fall from standing COMPARISON: Pelvic CT 03/14/2018. IMPRESSION: Acute left intertrochanteric fracture with coxa vera deformity. Surrounding soft tissue edema. Chronic right pubic fracture deformity. Fixation hardware in the visible portion of the right femur. [facility]-[id number] Performing Organization Address [facility] Phone Number [facility] [address] [place] [address] * XR Chest 1 Vw Portable (03/15/2018 12:02 AM CDT) Specimen Narrative Performed At EXAMINATION: XR CHEST 1 VW PORTABLE [facility] CLINICAL HISTORY: fall from standing COMPARISON:None. IMPRESSION: The lungs are clear. No pleural effusion or pneumothorax. Cardiac silhouette is enlarged. Aortic arch atherosclerosis. No acute osseous abnormalities. Surgical clips in the left upper quadrant. [facility]-[id number] Procedure Note Interface, Radiology Results Incoming - 03/15/2018 12:27 AM CDT EXAMINATION: XR CHEST 1 VW PORTABLE CLINICAL HISTORY: fall from standing COMPARISON: None. IMPRESSION: The lungs are clear. No pleural effusion or pneumothorax. Cardiac silhouette is enlarged. Aortic arch atherosclerosis. No acute osseous abnormalities. Surgical clips in the left upper quadrant. [facility]-[id number] Performing Organization Address [facility] Phone Number [facility] [address] [place] [address] * CT Head Wo Contrast (03/14/2018 11:08 PM CDT) Specimen Narrative Performed At EXAMINATION:[facility] from standing COMPARISON:None. TECHNIQUE: Noncontrast [...] No CT evidence of acute intracranial abnormality. [id number] Procedure Note Interface, Radiology Results Incoming - [...] No CT evidence of acute intracranial abnormality. [id number] Performing Organization Address City/State/Zipcode Phone Number [facility] [address] [place] [address] * CT Cervical Spine Wo Contrast (03/14/2018 11:07 PM CDT) Specimen Narrative Performed At EXAMINATION: CT CERVICAL SPINE WO CONTRAST [facility] CLINICAL HISTORY: fall from standing COMPARISON:None TECHNIQUE: [...] C5-C6. Additional degenerative changes are detailed above. [id number] Procedure Note Hm Interface, Radiology Results Incoming [...] C5-C6. Additional degenerative changes are detailed above. [id number] Performing Organization Address City/State/Zipcode Phone Number [facility] [address] [place] [address] * CT Pelvis Wo Contrast (03/14/2018 11:07 [...] hematoma adjacent to the left greater trochanter. [facility]-[id number] Procedure Note Interface, Radiology Results Incoming - [...] hematoma adjacent to the left greater trochanter. [facility]-[id number] Performing Organization Address City/State/Zipcode Phone Number [facility] [address] [place] [address] * CT Lower Extremity Wo Contrast Left [...] hematoma adjacent to the left greater trochanter. [facility]-[id number] Procedure Note [facility], Radiology Results - 03/14/2018 11:24 PM CDT [...] hematoma adjacent to the left greater trochanter. [facility]-[id number] Performing Organization Address City/State/Zipcode Phone Number [facility] [address] [place] [address] * Troponin (03/14/2018 9:36 PM CDT) Pathologist [facility] [place] Troponin <0.300 0.000 - 0.300 ng/mL [facility] Comment: DEPARTMENT OF 0.30 - 1.49 PATHOLOGY AND ng/mlMay GENOMIC indicate increased risk of MEDICINE acute coronary syndrome. >=1.5 ng/ml Consistent with acute myocardial infarction. The diagnostic value of a single normal or non-diagnostic result is questionable.Serial samples at 2-6 hour intervals are required to rule out acute myocardial injury. Specimen Plasma specimen Performing Organization Address [facility] Phone Number [facility] DEPARTMENT [address] [place] [address] PATHOLOGY AND [facility] * Partial thromboplastin time, activated (03/14/2018 9:36 PM CDT) [facility] PTT 30.3 23.0 - 36.0 sec [facility] Comment: DEPARTMENT OF PTT therapeutic range for PATHOLOGY AND unfractionated heparin is GENOMIC 61.0-112.0 seconds which MEDICINE corresponds to Anti-Xa 0.3-0.7 U/ml. Specimen Blood Performing Organization Address [facility] Phone Number [facility] DEPARTMENT [address] [place] [address] PATHOLOGY AND [employer] MEDICINE * Prothrombin time with INR (03/14/2018 9:36 PM CDT) Pathologist [facility] [place] Prothrombin 13.3 12.0 - 15.0 sec [facility] time DEPARTMENT OF PATHOLOGY AND GENOMIC MEDICINE INR 1.0 [facility] Comment: DEPARTMENT OF The International Normalized PATHOLOGY AND Ratio (INR) is a therapeutic GENOMIC monitoring tool for patients MEDICINE who are stable on oral anticoagulant therapy. An INR of 2.0-3.0 is suggested for deep vein thrombosis/pulmonary embolism. Specimen Blood Performing Organization Address [facility] Phone Number [address] [place] [address] PATHOLOGY AND [employer] MEDICINE * B natriuretic peptide (03/14/2018 9:36 PM CDT) Pathologist [facility] [place] BNP 95 0 - 100 pg/mL [facility] DEPARTMENT OF PATHOLOGY AND [facility] MEDICINE Specimen Blood Performing Organization Address [facility] Phone Number [facility] DEPARTMENT [address] [place] [address] PATHOLOGY AND GENOMIC MEDICINE * Creatine kinase, total (CPK) (03/14/2018 9:36 PM CDT) Creatine kinase 61 26 - 192 U/L [facility] DEPARTMENT OF PATHOLOGY AND GENOMIC MEDICINE Specimen Plasma specimen Performing Organization Address [facility] Phone Number [facility] DEPARTMENT [address] [place] [address] PATHOLOGY AND GENOMIC MEDICINE * ECG 12 lead (03/14/2018 9:34 PM CDT) Ventricular 77 [facility] rate Atrial rate 77 [facility] GA interval 170 [facility] QRSD interval 106 [facility] QT interval 420 [facility] QTC interval 475 [facility] P axis 1 77 [facility] QRS axis 1 53 [facility] T wave axis 36 [facility] EKG impression Normal sinus rhythm with sinus [facility] arrhythmia-Marked ST abnormality, possible anterior subendocardial injury-Abnormal ECG-No previous ECGs available- Specimen Performing Organization Address [facility] Phone Number [facility] M[facility] [address] [place] [address] * ECG ED Preliminary Interpretation - NOT AN ORDER (03/14/2018 9:27 PM CDT) Narrative Performed At Derick Montez MD 03/15/2018 12:02 AM ECG ED Preliminary Interpretation - Not an Order Performed by: DERICK MONTEZ Authorized by: DERICK MONTEZ ECG reviewed by ED Physician in the absence of a study lead: yes Interpretation: Interpretation: normal Quality: Tracing quality:Limited by artifact Rate: ECG rate:77 ECG rate assessment: normal Rhythm: Rhythm: sinus rhythm Ectopy: Ectopy: none QRS: QRS axis:Normal QRS intervals:Wide Conduction: Conduction: normal ST segments: ST segments:Non-specific T waves: T waves: flattening Flattening:III after 12/27/2017 Insurance Type Payer Benefit Subscriber ID Effective Phone Address Plan / Dates Group PPO HUMANA MEDICARE HUMANA xxxxxxxxx [id number] MEDICARE resent PPO/PFFS/E [facility] Advance Directives Patient has advance care planning documents, and code status on file. For more i nformation, please contact: Donavon Schafer [address] [place] [address] Date Inactivated Comments Code Status Date Activated 03/21/2018 10:10 PM Full Code 03/16/2018 5:14 PM Code Status decision reached by: Patient
--- OUTSIDE RECORDS SUMMARY | 2018-12-28 08:01 | XMS REPORT | Continuity of Care Document ---
Author Author [facility] Organization [facility] Address Unknown Phone Unavailable Care Team Providers [employer] Services Instructor Name Role Phone [facility] Unavailable Unavailable Problems Problem Status Onset Date Classification Date Reported Comments Source E86.0 DEHYDRATION 03/21/2018 Diagnosis 04/26/2018 SNF: [facility] B19.9 UNSPECIFIED VIRAL HEPATITIS WITHOUT HEPATIC COMA 03/21/2018 Diagnosis 04/26/2018 SNF: [facility] I50.9 HEART FAILURE, UNSPECIFIED 03/21/2018 Diagnosis 04/26/2018 SNF: [facility] M62.50 MUSCLE WASTING AND ATROPHY, NOT ELSEWHERE CLASSIFIED, UNSPECIFIED SITE 03/21/2018 Diagnosis 04/26/2018 SNF: [facility] W19.XXXD UNSPECIFIED FALL, SUBSEQUENT ENCOUNTER 03/21/2018 Diagnosis 04/26/2018 SNF: [facility] Z47.89 ENCOUNTER FOR OTHER ORTHOPEDIC AFTERCARE 03/21/2018 Diagnosis 04/26/2018 SNF: [facility] S72.142D DISPLACED INTERTROCHANTERIC FRACTURE OF LEFT FEMUR, SUBSEQUENT ENCOUNTER FOR CLOSED FRACTURE WITH ROUTINE HEALING 03/21/2018 Diagnosis 04/26/2018 SNF: [facility] F41.9 ANXIETY DISORDER, UNSPECIFIED 03/21/2018 Diagnosis 04/26/2018 SNF: [facility] J44.9 CHRONIC OBSTRUCTIVE PULMONARY DISEASE, UNSPECIFIED 03/21/2018 Diagnosis 04/26/2018 SNF: [facility] 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 01/12/2017 Diagnosis 04/26/2018 SNF: [facility] E66.9 OBESITY, UNSPECIFIED 01/12/2017 Diagnosis 04/26/2018 SNF: [facility] R26.81 UNSTEADINESS ON FEET 01/01/2017 Diagnosis 04/26/2018 SNF: [facility] M62.59 MUSCLE WASTING AND ATROPHY, NOT ELSEWHERE CLASSIFIED, MULTIPLE SITES 01/01/2017 Diagnosis 04/26/2018 SNF: [facility] Z91.81 HISTORY OF FALLING 01/01/2017 Diagnosis 04/26/2018 SNF: [facility] R27.8 OTHER LACK OF COORDINATION 01/01/2017 Diagnosis 04/26/2018 SNF: [facility] M25.551 PAIN IN RIGHT HIP 01/01/2017 Diagnosis 04/26/2018 SNF: [facility] Walking disability 01/01/2017 Diagnosis 04/26/2018 SNF: [facility] J44.1 CHRONIC OBSTRUCTIVE PULMONARY DISEASE WITH EXACERBATION 04/20/2016 Diagnosis 04/26/2018 SNF: [facility] E11.9 TYPE 2 DIABETES MELLITUS WITHOUT COMPLICATIONS 04/20/2016 Diagnosis 04/26/2018 SNF: [facility] I10 ESSENTIAL HYPERTENSION 04/20/2016 Diagnosis 04/26/2018 SNF: [facility] K21.9 GASTRO-ESOPHAGEAL REFLUX DISEASE WITHOUT ESOPHAGITIS 04/20/2016 Diagnosis 04/26/2018 SNF: [facility] F33.9 MAJOR DEPRESSIVE DISORDER, RECURRENT, UNSPECIFIED 04/20/2016 Diagnosis 04/26/2018 SNF: [facility] COPD Active 11/13/2014 Problem 06/19/2018 [facility] Pneumonia Active 11/13/2014 Problem 06/19/2018 [facility] COPD with acute exacerbation Active 08/01/2014 Problem 06/19/2018 [facility] COPD with exacerbation Active 08/01/2014 Problem 06/19/2018 [facility] Dyspnea and respiratory abnormality Active 08/01/2014 Problem 06/19/2018 [facility] M06.9 RHEUMATOID ARTHRITIS, UNSPECIFIED 11/23/2013 Diagnosis 04/26/2018 SNF: [facility] Compression fracture of L1 lumbar vertebra, with delayed healing, subsequent encounter Active Problem 09/29/2017 [facility] Lumbar radiculopathy Active Diagnosis 05/12/2017 [facility] Childers Lumbar compression fracture, with routine healing, subsequent encounter Active Problem 09/29/2017 [facility] Rheumatoid arthritis, involving unspecified site, unspecified rheumatoid factor presence Active Problem 09/29/2017 [facility] Childers Lumbar spinal stenosis Active Diagnosis 12/28/2016 Paul Childers Thoracic radiculopathy Active Diagnosis 11/02/2016 Paul Childers Bronchitis Active Problem 06/19/2018 [facility] Dyspnea Active Problem 06/19/2018 [facility] Lower back pain Active Problem 06/19/2018 [facility] Lumbosacral strain Active Problem 06/19/2018 [facility] Urinary tract infection Active Problem 06/19/2018 [facility] Medications Medication Details Route Status Patient Instructions Ordering Provider Order Date Source Amlodipine Besylate 5 Mg Tablet, 5 Mg Oral Daily Active 06/13/2018 [facility] Lubiprostone (Amitiza) 24 Mcg Capsule, 24 Mcg Oral Twice A Day Active 06/13/2018 [facility] Meloxicam 7.5 Mg Tablet, 15 Mg Oral Daily Active 06/13/2018 [facility] Ranitidine Hcl 300 Mg Tablet, 300 Mg Oral Daily Active 06/13/2018 [facility] Sucralfate 1 Gm Tablet, 1 Gm Oral Four Times Daily Active 06/13/2018 [facility] Heparin Sodium (Porcine) Solution 5000 UNIT/ML Inject 1 ml subcutaneously every 12 hours for DVT prophylaxis Injection Active 04/19/2018 SNF: [facility] Ativan Tablet 0.5 MG Give 0.5 tablet by mouth every 12 hours as needed for anxiety Oral Active 04/17/2018 SNF: [facility] Vancomycin HCl Solution 50 MG/ML Give 250 mg by mouth every 6 hours for diarrhea for 10 Days Oral Active 04/13/2018 SNF: [facility] Vancomycin HCl Capsule 250 MG Give 1 capsule by mouth every 6 hours for diarrhea Oral Inactive 04/13/2018 SNF: [facility] Imodium A-D Tablet 2 MG Give 2 mg by mouth every 06 hours as needed for diarrhea Oral Active 04/13/2018 SNF: [facility] Zofran Tablet 4 MG Give 1 tablet by mouth every 6 hours as needed for nausea Oral Active 04/09/2018 SNF: [facility] Questran Packet 4 GM Give 1 packet by mouth every 12 hours as needed for diarrhea Oral Active 04/09/2018 SNF: [facility] Imodium A-D Tablet 2 MG Give 2 mg by mouth every 06 hours as needed for diarrhea Oral Active 04/08/2018 SNF: [facility] Methotrexate Tablet Give 12.5 mg by mouth one time a day every 7 day(s) for cancer Oral Active 03/31/2018 SNF: [facility] Claritin Tablet 10 MG Give 1 tablet by mouth one time a day for Congestion for 3 Days Oral Active 03/30/2018 SNF: [facility] Cholestyramine Light Packet 4 GM Give 1 packet by mouth one time a day for diarrhea Mix in 8oz Liquid Oral Active 03/29/2018 SNF: [facility] Aspirin EC Tablet Delayed Release 81 MG Give 1 tablet by mouth one time a day for supplement Oral Active 03/25/2018 SNF: [facility] Ativan Tablet 0.5 MG Give 1 tablet by mouth every 8 hours as needed for anxiety Oral Active 03/25/2018 SNF: [facility] DilTIAZem HCl Tablet 120 MG Give 1 tablet by mouth at bedtime for HTN *Hold if SBP <110 or HR <60* Oral Active 03/25/2018 SNF: [facility] Lisinopril Tablet 10 MG Give 1 tablet by mouth two times a day for htn *Hold if SBP <110 or DBP <60* Oral Active 03/24/2018 SNF: [facility] Gabapentin Capsule 300 MG Give 1 capsule by mouth in the afternoon for muscle spasm Oral Active 03/23/2018 SNF: [facility] Colace Capsule 100 MG Give 1 capsule by mouth one time a day for IBS Oral Active 03/23/2018 SNF: [facility] MiraLax Powder Give 17 gram by mouth one time a day for IBS MIX IN 8 OUNCES OF WATER OR JUICE Oral Active 03/23/2018 SNF: [facility] FerrouSul Tablet 325 (65 Fe) MG Give 1 tablet by mouth two times a day for supplement Oral Active 03/23/2018 SNF: [facility] Senno Tablet Give 1 tablet by mouth one time a day for IBS Oral Active 03/23/2018 SNF: [facility] Vitamin C Tablet Give 500 mg by mouth one time a day for supplement Oral Active 03/23/2018 SNF: [facility] Levalbuterol HCl Nebulization Solution 0.63 MG/3ML 3 ml inhale orally via nebulizer every 12 hours related to CHRONIC OBSTRUCTIVE PULMONARY DISEASE WITH (ACUTE) EXACERBATION (J44.1) Inhalation Active 03/23/2018 SNF: [facility] Oscal 500/200 D-3 Tablet 500-200 MG-UNIT Give 1 tablet by mouth two times a day for supplement Oral Active 03/23/2018 SNF: [facility] Lasix Tablet 40 MG Give 1 tablet by mouth one time a day for edema Oral Inactive 03/23/2018 SNF: [facility] Ativan Tablet 0.5 MG Give 1 tablet by mouth every 8 hours as needed for anxiety Oral Active 03/23/2018 SNF: [facility] Folic Acid Tablet 1 MG Give 2 tablet by mouth at bedtime for anemia *total dose=2mg* Oral Active 03/23/2018 SNF: [facility] Gabapentin Tablet 600 MG Give 1 tablet by mouth at bedtime for neuropathy Oral Active 03/23/2018 SNF: [facility] DilTIAZem HCl Tablet 120 MG Give 1 tablet by mouth at bedtime for HTN *Hold if SBP <110 or HR <60* Oral Active 03/23/2018 SNF: [facility] Zoloft Tablet 100 MG Give 1 tablet by mouth at bedtime for depression Oral Active 03/23/2018 SNF: [facility] Zantac Tablet 300 MG Give 1 tablet by mouth at bedtime for GERD Oral Active 03/23/2018 SNF: [facility] Lactulose Solution 20 GM/30ML Give 30 ml by mouth every 24 hours as needed for IBS Oral Active 03/22/2018 SNF: [facility] Ventolin HFA Aerosol Solution 108 (90 Base) MCG/ACT 2 puff inhale orally every 6 hours as needed for shortness of breath Inhalation Active 03/22/2018 SNF: [facility] Tuberculin PPD Solution 5 UNIT/0.1ML Inject 0.1 ml intradermally one time only for TB Screen for 1 Day Document in immunization tab after administration Intradermal Active 03/22/2018 SNF: [facility] Lester Tablet 10-325 MG Give 1 tablet by mouth every 4 hours as needed for pain Oral Active 03/22/2018 SNF: [facility] Meloxicam Tablet 15 MG Give 1 tablet by mouth one time a day for inflammation Oral Active 03/22/2018 SNF: [facility] Heparin Sodium (Porcine) Solution 5000 UNIT/ML Inject 1 ml subcutaneously every 12 hours for DVT prophylaxis Injection Active 03/22/2018 SNF: [facility] NexIUM Capsule Delayed Release 40 MG Give 1 capsule by mouth two times a day for GERD Oral Active 03/22/2018 SNF: [facility] Lasix Tablet 40 MG Give 1 tablet by mouth one time a day for EDEMA Oral Active 03/22/2018 SNF: [facility] Folic Acid Tablet 1 MG Give 1 tablet by mouth one time a day for anemia Oral Active 03/22/2018 SNF: [facility] GlipiZIDE Tablet Give 2.5 mg by mouth one time a day for Type 2 DM Oral Active 03/22/2018 SNF: [facility] Carafate Tablet 1 GM Give 1 tablet by mouth four times a day for Ulcers Oral Active 03/22/2018 SNF: [facility] Lisinopril Tablet 10 MG Give 1 tablet by mouth two times a day for htn *Hold if SBP <110 or DBP <60* Oral Active 03/22/2018 SNF: [facility] Cyanocobalamin Kit 1000 MCG/ML Inject 1 ml subcutaneously one time a day every 14 day(s) for vitamin b-12 deficiency Injection Active 03/22/2018 SNF: [facility] Gabapentin Capsule 300 MG Give 1 capsule by mouth one time a day for neuropathy Oral Active 03/22/2018 SNF: [facility] Methotrexate Tablet Give 12.5 mg by mouth one time a day every 7 day(s) for cancer Oral Active 03/22/2018 SNF: [facility] Aspirin Tablet 81 MG Give 1 tablet by mouth one time a day for DVT prophylaxis Oral Active 03/22/2018 SNF: [facility] Vitamin D3 Tablet 79896 UNIT Give 1 tablet by mouth one time a day every 7 day(s) for bone health Oral Active 03/22/2018 SNF: [facility] Lubiprostone Capsule 24 MCG Give 1 capsule by mouth two times a day for IBS Oral Inactive 03/22/2018 SNF: [facility] Xopenex Nebulization Solution 0.63 MG/3ML 1 application inhale orally via nebulizer every 6 hours as needed for SOB Inhalation Active 03/22/2018 SNF: [facility] Flonase Suspension 50 MCG/ACT 2 puff in both nostrils every 24 hours as needed for allergies Nasal Active 03/22/2018 SNF: [facility] Lester Tablet 10-325 MG Give 1 tablet by mouth every 6 hours as needed for pain Oral Active 03/22/2018 SNF: [facility] Xopenex HFA Aerosol 45 MCG/ACT 2 puff inhale orally every 6 hours as needed for SOB Inhalation Active 03/22/2018 SNF: [facility] Tuberculin PPD Solution 5 UNIT/0.1ML Inject 0.1 ml intradermally one time only for TB Screen until 03/21/2018 21:00 Document in immunization tab after administration Intradermal Inactive 03/21/2018 SNF: [facility] Lorazepam 1 Mg Tablet, 1 Mg Oral Every 6 Hours as needed for Anxiety Active 01/13/2018 [facility] Methotrexate Sodium (Methotrexate) 2.5 Mg Tablet, 2.5 Mg Oral Daily Active 01/13/2018 [facility] Doxycycline Hyclate Tablet 100 MG Give 1 tablet by mouth two times a day for URI for 10 Days Oral Active 02/02/2017 SNF: [facility] Nystatin Cream 900321 UNIT/GM Apply to lower abd folds topically two times a day for rash for 2 Weeks External Active 02/02/2017 SNF: [facility] Ipratropium Bullock Solution 0.02 % 1 application inhale orally via nebulizer every 6 hours for sob Inhalation Active 02/02/2017 SNF: [facility] Xopenex Nebulization Solution 0.63 MG/3ML 3 ml inhale orally via nebulizer every 6 hours for sob while awake Inhalation Active 02/02/2017 SNF: [facility] MiraLax Packet Give 17 gram by mouth one time a day for Constipation Oral Active 01/25/2017 SNF: [facility] Colace Capsule 100 MG Give 1 capsule by mouth every 12 hours for Constipation Oral Active 01/25/2017 SNF: [facility] Lactulose Solution 20 GM/30ML Give 30 ml by mouth as needed for Constipation BID PRN Oral Active 01/20/2017 SNF: [facility] PredniSONE Tablet Give 10 mg by mouth one time a day for copd for 11 Days Oral Active 01/17/2017 SNF: [facility] Ipratropium Bullock Solution 0.02 % 1 vial inhale orally every 8 hours for COPD for 1 Week Inhalation Active 01/17/2017 SNF: [facility] Xopenex Nebulization Solution 0.63 MG/3ML 1 vial inhale orally every 8 hours for COPD for 1 Week Inhalation Active 01/17/2017 SNF: [facility] Anoro Ellipta Aerosol Powder Breath Activated 62.5-25 MCG/INH 1 puff inhale orally at bedtime related to CHRONIC OBSTRUCTIVE PULMONARY DISEASE WITH (ACUTE) EXACERBATION (J44.1) Inhalation Active 01/17/2017 SNF: [facility] PredniSONE Tablet 20 MG Give 1 tablet by mouth one time only for SOB/Wheezing for 1 Day Oral Active 01/16/2017 SNF: [facility] Fluticasone Propionate Suspension 2 spray in both nostrils as needed for Allergies TID PRN Nasal Active 01/16/2017 SNF: [facility] Omeprazole Capsule Delayed Release 40 MG Give 1 capsule by mouth two times a day for GERD Oral Inactive 01/16/2017 SNF: [facility] Protonix Tablet Delayed Release 40 MG Give 1 tablet by mouth two times a day for GERD Oral Active 01/16/2017 SNF: [facility] Tylenol Tablet Give 500 mg by mouth every 6 hours as needed for Pain Oral Active 01/16/2017 SNF: [facility] Ferrous Sulfate Tablet 325 (65 Fe) MG Give 1 tablet by mouth one time a day for supplement Oral Active 01/14/2017 SNF: [facility] Vitamin B12 Tablet Extended Release 1000 MCG Give 1 tablet by mouth one time a day for supplement Oral Active 01/14/2017 SNF: [facility] Multivital-M Tablet Give 1 tablet by mouth one time a day for supplement Oral Active 01/14/2017 SNF: [facility] Ergocalciferol Capsule 50811 UNIT Give 1 capsule by mouth one time a day every Fri related to MUSCLE WASTING AND ATROPHY, NOT ELSEWHERE CLASSIFIED, MULTIPLE SITES (M62.59) Oral Active 01/14/2017 SNF: [facility] Vitamin C Tablet Give 500 mg by mouth two times a day for supplement Oral Active 01/14/2017 SNF: [facility] DilTIAZem HCl Tablet 30 MG Give 1 tablet by mouth every 8 hours related to ESSENTIAL (PRIMARY) HYPERTENSION (I10) Oral Active 01/14/2017 SNF: [facility] Bactrim DS Tablet 800-160 MG Give 1 tablet by mouth every 12 hours for Resp infection for 16 Days Oral Active 01/14/2017 SNF: [facility] Tylenol with Codeine #4 Tablet 300-60 MG Give 1 tablet by mouth every 4 hours as needed for pain Oral Active 01/13/2017 SNF: [facility] Sertraline HCl Tablet 100 MG Give 1 tablet by mouth one time a day for depression Oral Active 01/13/2017 SNF: [facility] Esomeprazole Magnesium Packet 40 MG Give 40 mg by mouth two times a day for reflux Oral Active 01/13/2017 SNF: [facility] Gabapentin Capsule Give 300 mg by mouth three times a day for nerve pain Oral Active 01/13/2017 SNF: [facility] Lasix Tablet 40 MG Give 40 mg by mouth one time a day for diuretic Oral Active 01/13/2017 SNF: [facility] Folic Acid Tablet Give 1 tablet by mouth three times a day for supplement Oral Active 01/13/2017 SNF: [facility] Nystatin Suspension 278751 UNIT/ML Give 5 ml by mouth four times a day for mouth pain for 3 Days swish and swallow Oral Active 01/13/2017 SNF: [facility] PrednisoLONE Tablet Give 40 mg by mouth one time a day for copd for 3 Days Take with BF Oral Active 01/13/2017 SNF: [facility] Carafate Tablet 1 GM Give 1 tablet by mouth before meals and at bedtime for stomach pain Oral Active 01/13/2017 SNF: [facility] Tylenol Tablet Give 500 mg by mouth every 6 hours for PRN Oral Active 01/13/2017 SNF: [facility] Ambien Tablet 5 MG Give 1 tablet by mouth every 24 hours as needed for insomnia Oral Active 01/13/2017 SNF: [facility] Benadryl Tablet Give 25 mg by mouth every 6 hours as needed for allergy Oral Active 01/13/2017 SNF: [facility] Ipratropium Bullock Solution 0.02 % 1 application inhale orally via nebulizer every 6 hours as needed for SOB Inhalation Active 01/13/2017 SNF: [facility] HYDROmorphone HCl Tablet 2 MG Give 1 tablet by mouth every 4 hours as needed for Pain Oral Active 01/13/2017 SNF: [facility] Hydrocodone-Acetaminophen Tablet 10-325 MG Give 1 tablet by mouth every 4 hours as needed for Pain Oral Active 01/13/2017 SNF: [facility] Xopenex Nebulization Solution 0.63 MG/3ML 1 application inhale orally via nebulizer every 6 hours as needed for brochospasm Inhalation Active 01/13/2017 SNF: [facility] Acetaminophen Tablet Give 500 mg by mouth every 6 hours as needed for pain Oral Active 01/13/2017 SNF: [facility] Tylenol Tablet Give 500 mg by mouth every 6 hours as needed for pain Oral Active 01/13/2017 SNF: [facility] LORazepam Tablet 0.5 MG Give 1 tablet by mouth every 8 hours as needed for Anxiety Oral Active 01/13/2017 SNF: [facility] Multivitamin Adult Tablet Give 1 tablet by mouth one time a day related to TYPE 2 DIABETES MELLITUS WITHOUT COMPLICATIONS (E11.9);ESSENTIAL (PRIMARY) HYPERTENSION (I10);GASTRO-ESOPHAGEAL REFLUX DISEASE WITHOUT ESOPHAGITIS (K21.9) Oral Active 01/04/2017 SNF: [facility] Oscal 500/200 D-3 Tablet 500-200 MG-UNIT Give 1 tablet by mouth two times a day related to TYPE 2 DIABETES MELLITUS WITHOUT COMPLICATIONS (E11.9);ESSENTIAL (PRIMARY) HYPERTENSION (I10);GASTRO-ESOPHAGEAL REFLUX DISEASE WITHOUT ESOPHAGITIS (K21.9) Oral Active 01/04/2017 SNF: [facility] Heparin Sodium (Porcine) Solution 5000 UNIT/ML Inject 5000 unit subcutaneously every 12 hours for for DVT prophylaxis related to CHRONIC OBSTRUCTIVE PULMONARY DISEASE WITH (ACUTE) EXACERBATION (J44.1);TYPE 2 DIABETES MELLITUS WITHOUT COMPLICATIONS (E11.9);ESSENTIAL (PRIMARY) HYPERTENSION (I10) Injection Active 01/04/2017 SNF: [facility] Ipratropium-Albuterol Solution 0.5-2.5 (3) MG/3ML 3 ml inhale orally every 6 hours as needed for SOB or Wheezing via nebulizer AND 3 ml inhale orally every 6 hours for Sob wheezing Inhalation Active 01/04/2017 SNF: [facility] Percocet Tablet 5-325 MG Give 1 tablet by mouth every 6 hours as needed for pain Oral Active 01/03/2017 SNF: [facility] Protonix Tablet Delayed Release 40 MG Give 1 tablet by mouth one time a day related to GASTRO-ESOPHAGEAL REFLUX DISEASE WITHOUT ESOPHAGITIS (K21.9) Oral Active 01/02/2017 SNF: [facility] Carafate Tablet 1 GM Give 1 tablet by mouth before meals and at bedtime related to ESOPHAGEAL REFLUX (530.81) Oral Active 01/02/2017 SNF: [facility] Acetaminophen-Codeine Tablet 300-30 MG Give 1 tablet by mouth every 6 hours as needed for Mild / Moderate Pain Oral Active 01/02/2017 SNF: [facility] Lisinopril Tablet 10 MG Give 1 tablet by mouth one time a day related to UNSPECIFIED ESSENTIAL HYPERTENSION (401.9) Hold for SBP <110 DBP <55 HR <60 Oral Active 01/02/2017 SNF: [facility] Ambien Tablet 10 MG Give 1 tablet by mouth at bedtime related to INSOMNIA UNSPECIFIED (780.52) Oral Active 01/02/2017 SNF: [facility] Ipratropium-Albuterol Solution 0.5-2.5 (3) MG/3ML 3 ml inhale orally every 6 hours as needed for SOB or Wheezing via nebulizer Inhalation Active 01/02/2017 SNF: [facility] Sertraline HCl Tablet 100 MG Give 100 mg by mouth one time a day related to DEPRESSIVE DISORDER NOT ELSEWHERE CLASSIFIED (311) Oral Active 01/01/2017 SNF: [facility] Cyanocobalamin Tablet 1000 MCG Give 1 tablet by mouth one time a day for Supplement Oral Active 01/01/2017 SNF: [facility] NexIUM Capsule Delayed Release 40 MG Give 1 capsule by mouth one time a day for Acid Reflux Oral Inactive 01/01/2017 SNF: [facility] Fluticasone Propionate Suspension 50 MCG/ACT 2 spray in each nostril one time a day for Allergy Nasal Active 01/01/2017 SNF: [facility] Ergocalciferol Capsule 90703 UNIT Give 1 capsule by mouth one time a day every 7 day(s) for Supplement Give 1 cap PO Q 7 days Oral Active 01/01/2017 SNF: [facility] LevoFLOXacin Tablet 500 MG Give 1 tablet by mouth one time a day for Infection Oral Active 01/01/2017 SNF: [facility] Gabapentin Capsule 300 MG Give 1 capsule by mouth three times a day for Neuropathy Oral Active 01/01/2017 SNF: [facility] GlipiZIDE Tablet Give 2.5 mg by mouth two times a day related to DIAB W/O COMP TYPE II/UNS NOT STATED UNCNTRL (250.00) Oral Active 01/01/2017 SNF: [facility] Folic Acid Tablet 1 MG Give 1 tablet by mouth three times a day related to UNSPECIFIED ANEMIA (285.9) Oral Active 01/01/2017 SNF: [facility] AmLODIPine Besylate Tablet 5 MG Give 1 tablet by mouth one time a day related to UNSPECIFIED ESSENTIAL HYPERTENSION (401.9) Hold for SBP <110 DBP <55 HR <60 Oral Active 01/01/2017 SNF: [facility] Carafate Suspension 1 GM/10ML Give 1 gram by mouth before meals and at bedtime related to ESOPHAGEAL REFLUX (530.81) Oral Inactive 01/01/2017 SNF: [facility] Gabapentin Capsule 100 MG Give 100 mg by mouth one time a day for Neuropathy AND Give 200 mg by mouth at bedtime for Neuropathy Oral Inactive 01/01/2017 SNF: [facility] Ipratropium-Albuterol Aerosol 18-103 MCG/ACT 1 puff inhale orally every 6 hours as needed for SOB Inhalation Inactive 01/01/2017 SNF: [facility] Acetaminophen Tablet 500 MG Give 1 tablet by mouth every 6 hours as needed for Pain and Fever Oral Active 01/01/2017 SNF: [facility] Diphenhist Tablet 25 MG Give 1 tablet by mouth every 8 hours as needed for Allergy Oral Active 01/01/2017 SNF: [facility] Combivent Aerosol 18-103 MCG/ACT 2 puff inhale orally every 6 hours as needed for SOB Inhalation Inactive 01/01/2017 SNF: [facility] Acetaminophen Tablet 325 MG Give 650 mg by mouth every 4 hours as needed for Fever/Pain (Mild) Oral Active 01/01/2017 SNF: [facility] LORazepam Tablet 1 MG Give 1 tablet by mouth every 6 hours as needed for Anxiety Oral Active 01/01/2017 SNF: [facility] Lester Tablet 7.5-325 MG Give 1 tablet by mouth every 6 hours as needed for Pain Do not exceed 4000mg of APAP in 24 hours Oral Active 01/01/2017 SNF: [facility] Dilaudid 1 tablet as needed Orally Active 4 MG Orally every 4 hrs [facility] 12/27/2016 [facility] Percocet 1 tablet as needed Orally Active 10-325 MG Orally every 6 hrs [facility] 12/27/2016 [facility] Gabapentin 1 tablet Orally Active 600 MG Orally Two times a day [facility] 12/15/2016 [facility] Meloxicam 1 tablet Orally Active 15 MG Orally Once a day [facility] 12/15/2016 [facility] Cyclobenzaprine Hcl 10 Mg Tablet, 10 Mg Oral Daily Active 04/12/2016 [facility] Esomeprazole Magnesium (Nexium) 40 Mg Capsule.dr, 40 Mg Oral Twice A Day Active 04/12/2016 [facility] Gabapentin (Neurontin) 100 Mg Capsule, 100 Mg Oral Active 04/12/2016 [facility] Lubiprostone (Amitiza) 24 Mcg Capsule, 24 Mcg Oral Twice A Day Active 04/12/2016 [facility] Orencia Inf , Monthly Active 04/12/2016 [facility] Vitamin D 50,000 Units , 13169 U Oral Daily Active 04/12/2016 [facility] Zolpidem Tartrate 10 Mg Tablet, 10 Mg Oral Bedtime Active 04/12/2016 [facility] Azithromycin (Z-Gabriele) 250 Mg Tablet, 250 Mg Oral Daily Active 11/24/2014 [facility] Methotrexate Sodium (Methotrexate) 2.5 Mg Tablet, 2.5 Mg Oral 5/Wkly Active 11/24/2014 [facility] Prednisone 20 Mg Tab, 10 Mg Oral Daily Active [facility] 11/24/2014 [facility] Roflumilast (Daliresp) 500 Mcg Tablet, 500 Mcg Daily Active 11/24/2014 [facility] Alendronate Sodium (Fosamax) 70 Mg Tablet, 70 Mg Wkly Active 08/08/2013 [facility] Albuterol/Ipratropium (Combivent) 14.7 Gm Aero, Active 08/11/2012 [facility] Cyanocobalamin 1,000 Mcg Tablet, 1000 Mcg Intramusc Active 08/11/2012 [facility] Ergocalciferol (Vitamin D) 50,000 Unit Capsule, 63359 U Oral Daily Active 08/11/2012 [facility] Folic Acid 1 Mg Tablet, 1 Mg Oral Twice A Day Active 08/11/2012 [facility] Lactobacillus Rhamnosus Gg (Probiotic) 1 Each Capsule, Active 08/11/2012 [facility] Lubiprostone (Amitiza) 8 Mcg Capsule, 24 Mcg Oral Twice A Day Active 08/11/2012 [facility] Methotrexate , Active 08/11/2012 [facility] Ramipril 2.5 Mg Capsule, 2.5 Mg Oral Daily Active 08/11/2012 [facility] Sucralfate , 2 Gm Oral Twice A Day Active 08/11/2012 [facility] Zolpidem Tartrate (Ambien Cr) 6.25 Mg Tab.mphase, 6.25 Mg Oral Bedtime Active 08/11/2012 [facility] Zyrtec , 1 Tab Oral Daily Active 08/11/2012 [facility] Zolpidem Tartrate 1 tablet at bedtime as needed Orally Active 10 MG Orally Once a day [facility] PredniSONE 1 tablet Orally Active 10 MG Orally TID [facility] Gabapentin as directed Orally Active 100 MG Orally [facility] Robaxin-750 1 tablet Orally Active 750 MG Orally PRN [facility] Dilaudid 1 tablet as needed Orally Active 4 MG Orally every 4 hrs [facility] Esomeprazole Magnesium 1 capsule Orally Active 40 MG Orally Once a day [facility] Lawrence[facility] Sertraline HCl 1 tablet Orally Active 100 MG Orally Once a day [facility] Amlodipine Besylate 1 tablet Orally Active 5 MG Orally Once a day [facility] Childers Lester 1 tablet as needed Orally Active 10-325 MG Orally every 6 hrs [facility] Childers Lorazepam 1 tablet at bedtime as needed Orally Active 1 MG Orally Once a day [facility] Childers Lisinopril 1 tablet Orally Active 10 MG Orally Once a day [facility] Childers Methotrexate 5 tablet Orally Active 2.5mg Orally Once a week [facility] Childers Macrobid 1 capsule with food Orally Active 100 MG Orally every 12 hrs [facility] Folic Acid 1 tablet Orally Active 1 MG Orally Once a day [facility] Ranitidine HCl 1 tablet at bedtime Orally Active 300 MG Orally Once a day [facility] Childers movantik one tab oral Active 25mg oral daily [facility] Child[facility] Combivent not defined NA Active [facility] Acetaminophen/Hydrocodone Bitart (Lester 10MG-325MG*) 1 Ea Tab Every 6 Hours as needed for Pain Active [facility] Aspirin (Aspir 81) 81 Mg Tablet. Daily Active [facility] Calcium Carbonate/Vitamin D3 (Calcium 500+D Tablet Chew) 1 Each Tab.chew Daily Active [facility] Diltiazem Hcl (Diltiazem Er) 60 Mg Cap.er.12h Daily Active [facility] Esomeprazole Magnesium (Nexium) 40 Mg Capsule. Twice A Day Active PROTONIX THERAPEUTIC SUBSTITUTE FOR NEXIUM PER [facility] Ferrous Sulfate 325 Mg Tablet Daily Active [facility] Folic Acid Three Times A Day Active [facility] Furosemide 40 Mg Tablet Daily Active [facility] Gabapentin 300 Mg Capsule Twice A Day Active [facility] Glipizide (Glucotrol Xl*) 2.5 Mg Tab.er.[address] [facility] Levalbuterol Hcl 0.63 Mg/3 Ml Vial.neb As Needed Active [facility] Lisinopril 10 Mg Tablet Twice A Day Active [facility] Meloxicam 7.5 Mg Tablet Daily Active [facility] Methotrexate Sodium (Methotrexate) 2.5 Mg Tablet .qweekly Active [facility] Prednisone 10 Mg Tab Daily Active [facility] Sertraline Hcl 100 Mg Tablet Daily Active [facility] Vit D2 Every [address] [facility] Allergies, Adverse Reactions, Alerts Substance Category Reaction Severity Reaction type Status Date Reported Comments Source Cymbalta 11/23/2013 SNF: [facility] Lyrica 11/23/2013 SNF: [facility] Penicillin RASH Unknown Allergy to Substance Active 10/12/2016 [facility] penicillin Adverse Reaction hypotension Adverse Reaction Active 12/15/2016 [facility] Albuterol RAPID HEART BEAT Intermediate Allergy to Substance Active 01/13/2018 [facility] Immunizations Immunization Date Given Site Status Last Updated Comments Source tuberculin skin test; purified protein derivative solution, intradermal 03/23/2018 completed SNF: [facility] Influenza 08/14/2014 Not Given SNF: [facility] Pneumovax Dose 1 08/14/2014 Not Given SNF: [facility] Results Order Name Results Value Reference Range Date Interpretation Comments Source Blood leukocytes automated count (number/volume) 14.87 4.8 - 10.8 06/19/2018 [facility] Blood erythrocytes automated count (number/volume) 3.89 3.6 - 5.1 06/19/2018 [facility] Blood hemoglobin measurement (moles/volume) 11.8 12.0 - 16.0 06/19/2018 [facility] Automated blood hematocrit (volume fraction) 37.8 34.2 - 44.1 06/19/2018 [facility] Automated erythrocyte mean corpuscular volume 97.2 81 - 99 06/19/2018 [facility] Automated erythrocyte mean corpuscular hemoglobin (mass per erythrocyte) 30.3 28 - 32 06/19/2018 [facility] Automated erythrocyte mean corpuscular hemoglobin concentration measurement (mass/volume) 31.2 31 - 35 06/19/2018 [facility] RDW BldCo-Rto 17.7 11.7 - 14.4 06/19/2018 [facility] Automated blood platelet count (count/volume) 290 140 - 360 06/19/2018 [facility] Automated blood segmented neutrophil count as percentage of total leukocytes 34.4 38.7 - 80.0 06/19/2018 [facility] Automated blood lymphocyte count as percentage ot total leukocytes 51.6 18.0 - 39.1 06/19/2018 [facility] Automated blood monocyte count as percentage of total leukocytes 10.5 4.4 - 11.3 06/19/2018 [facility] Automated blood eosinophil count as percentage of total leukocytes 2.5 0.0 - 6.0 06/19/2018 [facility] Automated blood basophil count as percentage of total leukocytes 0.3 0.0 - 1.0 06/19/2018 [facility] IM GRANULOCYTES % 0.7 0.0 - 1.0 06/19/2018 [facility] Automated blood neutrophil count 5.1 2.1 - 6.9 06/19/2018 [facility] Blood lymphocytes count (number/volume) 7.7 1.0 - 3.2 06/19/2018 [facility] Blood monocytes automated count (number/volume) 1.6 0.2 - 0.8 06/19/2018 [facility] Automated blood eosinophil count 0.4 0.0 - 0.4 06/19/2018 [facility] Automated blood basophil count (count/volume) 0.0 0.0 - 0.1 06/19/2018 [facility] Absolute Immature Granulocyte (auto 0.10 0 - 0.1 06/19/2018 [facility] Serum or plasma sodium measurement (moles/volume) 142 136 - 145 06/19/2018 [facility] Serum or plasma potassium measurement (moles/volume) 4.7 3.5 - 5.1 06/19/2018 [facility] Serum or plasma chloride measurement (moles/volume) 97 98 - 107 06/19/2018 [facility] Serum or plasma carbon dioxide, total measurement (moles/volume) 39 22 - 29 06/19/2018 [facility] Serum or plasma anion gap 10.7 8 - 16 06/19/2018 [facility] Serum or plasma urea nitrogen measurement (mass/volume) 24 7 - 26 06/19/2018 [facility] Serum or plasma creatinine measurement (mass/volume) 0.72 0.57 - 1.11 06/19/2018 [facility] Serum or plasma urea nitrogen/creatinine mass ratio 33 6 - 25 06/19/2018 [facility] Estimated glomerular filtration rate (GFR) determination > 60 60 06/19/2018 [facility] Glucose measurement 97 74 - 118 06/19/2018 [facility] Serum or plasma calcium measurement (mass/volume) 8.4 8.4 - 10.2 06/19/2018 [facility] Capillary blood glucose measurement by glucometer (mass/volume) 136 70 - 120 06/16/2018 [facility] Serum or plasma creatine kinase measurement (enzymatic activity/volume) 48 29 - 168 06/14/2018 [facility] Serum or plasma creatine kinase MB measurement (mass/volume) 2.70 0 - 5.0 06/14/2018 [facility] Troponin I measurement by highly sensitive enzyme immunoassay < 0.001 0 - 0.300 06/14/2018 [facility] Arterial blood pH measurement 7.31 7.31 - 7.41 06/14/2018 [facility] pCO2 BldA 60 41 - 51 06/14/2018 [facility] pCO2 BldA 189 80 - 105 06/14/2018 [facility] Arterial blood bicarbonate measurement (moles/volume) 30 23 - 28 06/14/2018 [facility] Arterial blood base excess by calculation 4.0 -2 - 3 - 2 06/14/2018 [facility] Arterial blood oxygen saturation measurement 100.0 95 - 98 06/14/2018 [facility] FiO2 40 06/14/2018 [facility] Urine color determination YELLOW YELLOW 06/13/2018 [facility] Urine clarity CLEAR CLEAR 06/13/2018 [facility] Specific gravity of Urine by Test strip 1.025 1.010 - 1.025 06/13/2018 [facility] Urine pH measurement by automated test strip 6 5 - 7 06/13/2018 [facility] Urine leukocyte esterase detection by dipstick NEGATIVE NEGATIVE 06/13/2018 [facility] Urine nitrite detection NEGATIVE NEGATIVE 06/13/2018 [facility] Urine protein measurement by test strip (mass/volume) 1+ NEGATIVE 06/13/2018 [facility] Urine glucose detection NEGATIVE NEGATIVE 06/13/2018 [facility] Urine ketones detection by automated test strip 1+ NEGATIVE 06/13/2018 [facility] Urine urobilinogen measurement by test strip (mass/volume) 0.2 0.2 - 1 06/13/2018 [facility] Urine total bilirubin measurement (mass/volume) NEGATIVE NEGATIVE 06/13/2018 [facility] Urine erythrocytes detection 2+ NEGATIVE 06/13/2018 [facility] Automated urine sediment leukocyte count by microscopy (number/high power field) 0-5 0 - 5 06/13/2018 [facility] Erythrocytes detection in urine sediment by light microscopy 0-5 0 - 5 06/13/2018 [facility] Bacteria detection in urine sediment by light microscopy FEW NONE 06/13/2018 [facility] Epithelial cells detection in urine sediment by light microscopy FEW NONE 06/13/2018 [facility] Prothrombin time (PT) in platelet poor plasma by coagulation assay 13.1 11.9 - 14.5 06/13/2018 [facility] INR in Platelet poor plasma by Coagulation assay 0.91 06/13/2018 [facility] Activated partial thromboplastin time (aPTT) in platelet poor plasma bycoagulation assay 30.5 23.8 - 35.5 06/13/2018 [facility] Lactic Acid Level 11.4 4.5 - 19.8 06/13/2018 [facility] Serum or plasma magnesium measurement (mass/volume) 2.2 1.3 - 2.1 06/13/2018 [facility] Serum or plasma total bilirubin measurement (mass/volume) 0.3 0.2 - 1.2 06/13/2018 [facility] Aspartate Amino Transf (AST/SGOT) 16 5 - 34 06/13/2018 [facility] Serum or plasma alanine aminotransferase measurement (enzymatic activity/volume) 20 0 - 55 06/13/2018 [facility] Serum or plasma protein measurement (mass/volume) 7.1 6.5 - 8.1 06/13/2018 [facility] Serum or plasma albumin measurement (mass/volume) 3.0 3.5 - 5.0 06/13/2018 [facility] Plasma globulin measurement (mass/volume) 4.1 2.3 - 3.5 06/13/2018 [facility] Serum or plasma albumin/globulin mass ratio 0.7 0.8 - 2.0 06/13/2018 [facility] Serum or plasma alkaline phosphatase measurement (enzymatic activity/volume) 88 40 - 150 06/13/2018 [facility] BNP Bld-mCnc 149.5 0 - 100 06/13/2018 [facility] Blood culture NO GROWTH AFTER 5 DAYS, FINAL REPORT 06/13/2018 [facility] Influenza virus A and B antigen identification by immunofluorescence NEGATIVE NEGATIVE 06/13/2018 [facility] Blood sugar Blood sugar 103 mmol/L 04/25/2018 SNF: [facility] Blood sugar Blood sugar 112 mmol/L 04/25/2018 SNF: [facility] Blood sugar Blood sugar 134 mmol/L 04/24/2018 SNF: [facility] Blood sugar Blood sugar 124 mmol/L 04/23/2018 SNF: [facility] Blood sugar Blood sugar 90 mmol/L 04/23/2018 SNF: [facility] Blood sugar Blood sugar 101 mmol/L 04/23/2018 SNF: [facility] Blood sugar Blood sugar 94 mmol/L 04/22/2018 SNF: [facility] Blood sugar Blood sugar 108 mmol/L 04/21/2018 SNF: [facility] Blood sugar Blood sugar 98 mmol/L 04/21/2018 SNF: [facility] Blood sugar Blood sugar 93 mmol/L 04/20/2018 SNF: [facility] Blood sugar Blood sugar 100 mmol/L 04/20/2018 SNF: [facility] Blood sugar Blood sugar 91 mmol/L 04/19/2018 SNF: [facility] Blood sugar Blood sugar 108 mmol/L 04/19/2018 SNF: [facility] Blood sugar Blood sugar 89 mmol/L 04/19/2018 SNF: [facility] Blood sugar Blood sugar 118 mmol/L 04/18/2018 SNF: [facility] Blood sugar Blood sugar 109 mmol/L 04/17/2018 SNF: [facility] Blood sugar Blood sugar 122 mmol/L 04/17/2018 SNF: [facility] Blood sugar Blood sugar 122 mmol/L 04/16/2018 SNF: [facility] Blood sugar Blood sugar 101 mmol/L 04/16/2018 SNF: [facility] RESULTS RESULTS 94 mmol/L 02/11/2017 SNF: [facility] RESULTS RESULTS 114 mmol/L 02/11/2017 SNF: [facility] RESULTS RESULTS 89 mmol/L 02/10/2017 SNF: [facility] RESULTS RESULTS 134 mmol/L 02/10/2017 SNF: [facility] RESULTS RESULTS 92 mmol/L 02/09/2017 SNF: [facility] RESULTS RESULTS 157 mmol/L 02/09/2017 SNF: [facility] RESULTS RESULTS 128 mmol/L 02/08/2017 SNF: [facility] RESULTS RESULTS 125 mmol/L 02/08/2017 SNF: [facility] RESULTS RESULTS 97 mmol/L 02/07/2017 SNF: [facility] RESULTS RESULTS 129 mmol/L 02/07/2017 SNF: [facility] RESULTS RESULTS 104 mmol/L 02/06/2017 SNF: [facility] RESULTS RESULTS 145 mmol/L 02/06/2017 SNF: [facility] RESULTS RESULTS 92 mmol/L 02/05/2017 SNF: [facility] RESULTS RESULTS 124 mmol/L 02/05/2017 SNF: [facility] RESULTS RESULTS 99 mmol/L 02/04/2017 SNF: [facility] RESULTS RESULTS 121 mmol/L 02/04/2017 SNF: [facility] RESULTS RESULTS 90 mmol/L 02/03/2017 SNF: [facility] RESULTS RESULTS 131 mmol/L 02/03/2017 SNF: [facility] RESULTS RESULTS 89 mmol/L 02/02/2017 SNF: [facility] RESULTS RESULTS 114 mmol/L 02/02/2017 SNF: [facility] RESULTS RESULTS 100 mmol/L 02/01/2017 SNF: [facility] RESULTS RESULTS 152 mmol/L 02/01/2017 SNF: [facility] RESULTS RESULTS 92 mmol/L 01/31/2017 SNF: [facility] RESULTS RESULTS 134 mmol/L 01/31/2017 SNF: [facility] RESULTS RESULTS 84 mmol/L 01/30/2017 SNF: [facility] RESULTS RESULTS 101 mmol/L 01/30/2017 SNF: [facility] RESULTS RESULTS 87 mmol/L 01/29/2017 SNF: [facility] RESULTS RESULTS 96 mmol/L 01/29/2017 SNF: [facility] RESULTS RESULTS 94 mmol/L 01/28/2017 SNF: [facility] RESULTS RESULTS 124 mmol/L 01/28/2017 SNF: [facility] RESULTS RESULTS 90 mmol/L 01/27/2017 SN[facility]: [facility] RESULTS RESULTS 158 mmol/L 01/27/2017 SN[facility]: [facility] RESULTS RESULTS 80 mmol/L 01/26/2017 SN[facility]: [facility] RESULTS RESULTS 111 mmol/L 01/26/2017 SN[facility]: [facility] RESULTS RESULTS 107 mmol/L 01/25/2017 SN[facility]: [facility] RESULTS RESULTS 103 mmol/L 01/25/2017 SN[facility]: [facility] RESULTS RESULTS 93 mmol/L 01/24/2017 SNF: [facility] RESULTS RESULTS 99 mmol/L 01/24/2017 SNF: [facility] RESULTS RESULTS 82 mmol/L 01/23/2017 SNF: [facility] RESULTS RESULTS 140 mmol/L 01/23/2017 SNF: [facility] RESULTS RESULTS 123 mmol/L 01/22/2017 SNF: [facility] RESULTS RESULTS 131 mmol/L 01/22/2017 SNF: [facility] RESULTS RESULTS 92 mmol/L 01/21/2017 SNF: [facility] RESULTS RESULTS 108 mmol/L 01/21/2017 SNF: [facility] RESULTS RESULTS 92 mmol/L 01/20/2017 SNF: [facility] RESULTS RESULTS 96 mmol/L 01/20/2017 SNF: [facility] RESULTS RESULTS 120 mmol/L 01/19/2017 SNF: [facility] RESULTS RESULTS 123 mmol/L 01/19/2017 SNF: [facility] RESULTS RESULTS 99 mmol/L 01/18/2017 SNF: [facility] RESULTS RESULTS 137 mmol/L 01/18/2017 SNF: [facility] RESULTS RESULTS 150 mmol/L 01/17/2017 SNF: [facility] RESULTS RESULTS 144 mmol/L 01/17/2017 SNF: [facility] RESULTS RESULTS 80 mmol/L 01/16/2017 SNF: [facility] RESULTS RESULTS 103 mmol/L 01/16/2017 SNF: [facility] RESULTS RESULTS 109 mmol/L 01/15/2017 SNF: [facility] RESULTS RESULTS 127 mmol/L 01/15/2017 SNF: [facility] RESULTS RESULTS 109 mmol/L 01/14/2017 SNF: [facility] RESULTS RESULTS 123 mmol/L 01/04/2017 SNF: [facility] RESULTS RESULTS 224 mmol/L 01/03/2017 SN[facility]: [facility] RESULTS RESULTS 79 mmol/L 01/02/2017 SN[facility]: [facility] RESULTS RESULTS 71 mmol/L 01/01/2017 SNF: [facility] Pathology Reports Diagnostic Reports Consultation Notes Discharge Summaries History and Physicals Vital Signs Vital Sign Value Date Comments Source Temperature Oral (F) 97.9 F 04/25/2018 SNF: [facility] Respitory Rate 18 04/25/2018 SN[facility]: [facility] Systolic (mm Hg) 139 04/25/2018 SN[facility]: [facility] Diastolic (mm Hg) 81 04/25/2018 SN[facility]: [facility] Heart Rate 84 {beats}/min 04/25/2018 SN[facility]: [facility] Heart Rate 80 {beats}/min 04/25/2018 SN[facility]: [facility] Respitory Rate 18 04/25/2018 SN[facility]: [facility] Temperature Oral (F) 97.9 F 04/25/2018 SN[facility]: [facility] Systolic (mm Hg) 150 04/25/2018 SN[facility]: [facility] Diastolic (mm Hg) 86 04/25/2018 SN[facility]: [facility] Systolic (mm Hg) 150 04/24/2018 SN[facility]: [facility] Diastolic (mm Hg) 86 04/24/2018 [facility]: [facility] Heart Rate 80 {beats}/min 04/24/2018 SN[facility]: [facility] Systolic (mm Hg) 155 04/24/2018 SN[facility]: [facility] Diastolic (mm Hg) 89 04/24/2018 [facility]: [facility] Heart Rate 82 {beats}/min 04/24/2018 [facility]: [facility] Respitory Rate 18 04/24/2018 SN[facility]: [facility] Systolic (mm Hg) 148 04/24/2018 [facility]: [facility] Diastolic (mm Hg) 81 04/24/2018 [facility]: [facility] Temperature Oral (F) 97.9 F 04/24/2018 SN[facility]: [facility] Heart Rate 79 {beats}/min 04/24/2018 SN[facility]: [facility] Systolic (mm Hg) 136 04/23/2018 SN[facility]: [facility] Diastolic (mm Hg) 76 04/23/2018 [facility]: [facility] Heart Rate 86 {beats}/min 04/23/2018 SN[facility]: [facility] Systolic (mm Hg) 143 04/23/2018 SN[facility]: [facility] Diastolic (mm Hg) 82 04/23/2018 [facility]: [facility] Temperature Oral (F) 97.6 F 04/23/2018 SN[facility]: [facility] Heart Rate 69 {beats}/min 04/23/2018 [facility]: [facility] Temperature Oral (F) 97.7 F 04/23/2018 SN[facility]: [facility] Systolic (mm Hg) 124 04/23/2018 [facility]: [facility] Diastolic (mm Hg) 74 04/23/2018 SN[facility]: [facility] Heart Rate 80 {beats}/min 04/23/2018 SN[facility]: [facility] Systolic (mm Hg) 150 04/22/2018 SN[facility]: [facility] Diastolic (mm Hg) 91 04/22/2018 [facility]: [facility] Heart Rate 88 {beats}/min 04/22/2018 SN[facility]: [facility] Systolic (mm Hg) 140 04/22/2018 SN[facility]: [facility] Diastolic (mm Hg) 89 04/22/2018 [facility]: [facility] Temperature Oral (F) 97.6 F 04/22/2018 [facility]: [facility] Heart Rate 85 {beats}/min 04/22/2018 [facility]: [facility] Respitory Rate 18 04/22/2018 SN[facility]: [facility] Systolic (mm Hg) 151 04/22/2018 SN[facility]: [facility] Diastolic (mm Hg) 85 04/22/2018 [facility]: [facility] Temperature Oral (F) 100.3 F 04/22/2018 SN[facility]: [facility] Heart Rate 85 {beats}/min 04/22/2018 SN[facility]: [facility] Systolic (mm Hg) 140 04/22/2018 SN[facility]: [facility] Diastolic (mm Hg) 70 04/22/2018 [facility]: [facility] Heart Rate 81 {beats}/min 04/22/2018 [facility]: [facility] Heart Rate 65 {beats}/min 04/21/2018 SN[facility]: [facility] Respitory Rate 16 04/21/2018 [facility]: [facility] Temperature Oral (F) 97.9 F 04/21/2018 SN[facility]: [facility] Systolic (mm Hg) 130 04/21/2018 SN[facility]: [facility] Diastolic (mm Hg) 71 04/21/2018 [facility]: [facility] Systolic (mm Hg) 118 04/21/2018 [facility]: [facility] Diastolic (mm Hg) 76 04/21/2018 [facility]: [facility] Heart Rate 67 {beats}/min 04/21/2018 [facility]: [facility] Heart Rate 70 {beats}/min 04/21/2018 [facility]: [facility] Respitory Rate 16 04/21/2018 SN[facility]: [facility] Systolic (mm Hg) 159 04/21/2018 [facility] Diastolic (mm Hg) 86 04/21/2018 [facility] Respitory Rate 18 04/21/2018 [facility]: [facility] Systolic (mm Hg) 148 04/21/2018 [facility] Diastolic (mm Hg) 86 04/21/2018 [facility]: [facility] Temperature Oral (F) 97.8 F 04/21/2018 [facility]: [facility] Heart Rate 70 {beats}/min 04/21/2018 [facility]: [facility] Systolic (mm Hg) 139 04/21/2018 [facility] Diastolic (mm Hg) 81 04/21/2018 [facility] Heart Rate 74 {beats}/min 04/21/2018 [facility] Respitory Rate 19 04/20/2018 SN[facility]: [facility] Systolic (mm Hg) 138 04/20/2018 [facility]: [facility] Diastolic (mm Hg) 56 04/20/2018 [facility]: [facility] Temperature Oral (F) 97.6 F 04/20/2018 [facility]: [facility] Heart Rate 79 {beats}/min 04/20/2018 [facility]: [facility] Systolic (mm Hg) 138 04/20/2018 [facility]: [facility] Diastolic (mm Hg) 73 04/20/2018 [facility]: [facility] Heart Rate 74 {beats}/min 04/20/2018 SN[facility]: [facility] Heart Rate 74 {beats}/min 04/20/2018 [facility]: [facility] Temperature Oral (F) 99 F 04/20/2018 SN[facility]: [facility] Systolic (mm Hg) 192 04/20/2018 [facility]: [facility] Diastolic (mm Hg) 95 04/20/2018 [facility]: [facility] Systolic (mm Hg) 152 04/20/2018 SN[facility]: [facility] Diastolic (mm Hg) 85 04/20/2018 [facility]: [facility] Heart Rate 85 {beats}/min 04/20/2018 [facility]: [facility] Respitory Rate 17 04/19/2018 SN[facility]: [facility] Systolic (mm Hg) 124 04/19/2018 [facility]: [facility] Diastolic (mm Hg) 79 04/19/2018 [facility]: [facility] Temperature Oral (F) 97.8 F 04/19/2018 [facility]: [facility] Heart Rate 71 {beats}/min 04/19/2018 [facility]: [facility] Systolic (mm Hg) 132 04/19/2018 [facility]: [facility] Diastolic (mm Hg) 79 04/19/2018 [facility] Heart Rate 82 {beats}/min 04/19/2018 [facility]: [facility] Weight 177.8 04/19/2018 SN[facility]: [facility] Systolic (mm Hg) 157 04/19/2018 [facility]: [facility] Diastolic (mm Hg) 83 04/19/2018 [facility]: [facility] Heart Rate 74 {beats}/min 04/19/2018 [facility]: [facility] Respitory Rate 18 04/19/2018 [facility] Systolic (mm Hg) 135 04/19/2018 [facility] Diastolic (mm Hg) 80 04/19/2018 [facility]: [facility] Temperature Oral (F) 98.6 F 04/19/2018 [facility]: [facility] Heart Rate 73 {beats}/min 04/19/2018 [facility]: [facility] Systolic (mm Hg) 140 04/19/2018 [facility]: [facility] Diastolic (mm Hg) 80 04/19/2018 [facility]: [facility] Heart Rate 77 {beats}/min 04/19/2018 [facility]: [facility] Systolic (mm Hg) 152 04/18/2018 [facility] Diastolic (mm Hg) 85 04/18/2018 [facility]: [facility] Heart Rate 76 {beats}/min 04/18/2018 [facility]: [facility] Heart Rate 78 {beats}/min 04/18/2018 [facility] Respitory Rate 18 04/18/2018 [facility] Temperature Oral (F) 99.1 F 04/18/2018 [facility]: [facility] Systolic (mm Hg) 148 04/18/2018 [facility] Diastolic (mm Hg) 88 04/18/2018 [facility] Temperature Oral (F) 97.9 F 04/18/2018 [facility]: [facility] Systolic (mm Hg) 148 04/18/2018 [facility] Diastolic (mm Hg) 80 04/18/2018 [facility] Heart Rate 79 {beats}/min 04/18/2018 [facility] Respitory Rate 18 04/18/2018 [facility] Systolic (mm Hg) 151 04/18/2018 [facility] Diastolic (mm Hg) 76 04/18/2018 [facility] Temperature Oral (F) 98.1 F 04/18/2018 [facility]: [facility] Heart Rate 73 {beats}/min 04/18/2018 [facility]: [facility] Systolic (mm Hg) 145 04/18/2018 [facility] Diastolic (mm Hg) 83 04/18/2018 [facility] Heart Rate 71 {beats}/min 04/18/2018 [facility]: [facility] Heart Rate 71 {beats}/min 04/17/2018 [facility] Respitory Rate 18 04/17/2018 [facility]: [facility] Temperature Oral (F) 98.3 F 04/17/2018 SN[facility]: [facility] Systolic (mm Hg) 135 04/17/2018 [facility] Diastolic (mm Hg) 67 04/17/2018 [facility] Systolic (mm Hg) 129 04/17/2018 [facility] Diastolic (mm Hg) 78 04/17/2018 [facility] Heart Rate 66 {beats}/min 04/17/2018 [facility]: [facility] Respitory Rate 18 04/17/2018 [facility]: [facility] Systolic (mm Hg) 117 04/17/2018 [facility] Diastolic (mm Hg) 72 04/17/2018 [facility]: [facility] Temperature Oral (F) 97.6 F 04/17/2018 [facility] Heart Rate 73 {beats}/min 04/17/2018 [facility] Systolic (mm Hg) 138 04/17/2018 [facility] Diastolic (mm Hg) 80 04/17/2018 [facility] Heart Rate 81 {beats}/min 04/17/2018 [facility] Systolic (mm Hg) 154 04/16/2018 [facility] Diastolic (mm Hg) 81 04/16/2018 [facility] Heart Rate 79 {beats}/min 04/16/2018 [facility] Heart Rate 62 {beats}/min 04/16/2018 [facility] Respitory Rate 20 04/16/2018 [facility] Temperature Oral (F) 98.1 F 04/16/2018 [facility]: [facility] Systolic (mm Hg) 111 04/16/2018 [facility] Diastolic (mm Hg) 60 04/16/2018 [facility] Respitory Rate 18 04/16/2018 SN[facility] Systolic (mm Hg) 111 04/16/2018 [facility] Diastolic (mm Hg) 60 04/16/2018 [facility] Temperature Oral (F) 98 F 04/16/2018 [facility] Heart Rate 62 {beats}/min 04/16/2018 [facility] Systolic (mm Hg) 134 04/16/2018 [facility] Diastolic (mm Hg) 84 04/16/2018 [facility] Heart Rate 83 {beats}/min 04/16/2018 [facility] Respitory Rate 18 04/15/2018 [facility] Systolic (mm Hg) 148 04/15/2018 [facility] Diastolic (mm Hg) 77 04/15/2018 [facility] Temperature Oral (F) 98.8 F 04/15/2018 [facility] Heart Rate 77 {beats}/min 04/15/2018 [facility] Systolic (mm Hg) 145 04/15/2018 [facility] Diastolic (mm Hg) 83 04/15/2018 [facility] Heart Rate 99 {beats}/min 04/15/2018 [facility] Systolic (mm Hg) 148 04/15/2018 [facility] Diastolic (mm Hg) 77 04/15/2018 [facility] Heart Rate 77 {beats}/min 04/15/2018 [facility] Systolic (mm Hg) 156 04/15/2018 [facility] Diastolic (mm Hg) 79 04/15/2018 [facility] Heart Rate 79 {beats}/min 04/15/2018 [facility] Systolic (mm Hg) 132 04/14/2018 [facility] Diastolic (mm Hg) 73 04/14/2018 [facility] Heart Rate 75 {beats}/min 04/14/2018 [facility] Respitory Rate 18 04/14/2018 [facility] Systolic (mm Hg) 127 04/14/2018 [facility] Diastolic (mm Hg) 67 04/14/2018 [facility] Temperature Oral (F) 101 F 04/14/2018 [facility] Heart Rate 91 {beats}/min 04/14/2018 [facility] Systolic (mm Hg) 136 04/14/2018 [facility] Diastolic (mm Hg) 76 04/14/2018 [facility] Heart Rate 80 {beats}/min 04/14/2018 [facility] Heart Rate 79 {beats}/min 04/14/2018 [facility] Respitory Rate 22 04/14/2018 [facility] Temperature Oral (F) 95 F 04/14/2018 [facility] Systolic (mm Hg) 124 04/14/2018 [facility] Diastolic (mm Hg) 62 04/14/2018 [facility] Systolic (mm Hg) 128 04/13/2018 [facility] Diastolic (mm Hg) 79 04/13/2018 [facility] Heart Rate 63 {beats}/min 04/13/2018 [facility] Systolic (mm Hg) 125 04/13/2018 [facility] Diastolic (mm Hg) 71 04/13/2018 [facility] Heart Rate 71 {beats}/min 04/13/2018 [facility] Heart Rate 69 {beats}/min 04/13/2018 [facility] Respitory Rate 17 04/13/2018 [facility] Systolic (mm Hg) 140 04/13/2018 [facility] Diastolic (mm Hg) 75 04/13/2018 [facility] Respitory Rate 18 04/13/2018 [facility] Systolic (mm Hg) 140 04/13/2018 [facility] Diastolic (mm Hg) 75 04/13/2018 [facility] Temperature Oral (F) 97.9 F 04/13/2018 [facility] Heart Rate 69 {beats}/min 04/13/2018 [facility] Respitory Rate 17 04/13/2018 [facility] Systolic (mm Hg) 115 04/13/2018 [facility] Diastolic (mm Hg) 72 04/13/2018 [facility] Temperature Oral (F) 98.6 F 04/13/2018 [facility] Heart Rate 69 {beats}/min 04/13/2018 [facility] Systolic (mm Hg) 133 04/13/2018 [facility] Diastolic (mm Hg) 65 04/13/2018 [facility] Heart Rate 79 {beats}/min 04/13/2018 [facility] Heart Rate 75 {beats}/min 04/12/2018 [facility] Respitory Rate 13 04/12/2018 [facility] Temperature Oral (F) 98.2 F 04/12/2018 [facility] Systolic (mm Hg) 148 04/12/2018 [facility] Diastolic (mm Hg) 81 04/12/2018 [facility] Systolic (mm Hg) 129 04/12/2018 [facility] Diastolic (mm Hg) 77 04/12/2018 [facility] Heart Rate 73 {beats}/min 04/12/2018 [facility] Systolic (mm Hg) 145 04/12/2018 [facility] Diastolic (mm Hg) 74 04/12/2018 [facility] Heart Rate 71 {beats}/min 04/12/2018 [facility] Respitory Rate 18 04/12/2018 [facility] Systolic (mm Hg) 123 04/12/2018 [facility] Diastolic (mm Hg) 78 04/12/2018 [facility] Temperature Oral (F) 97.8 F 04/12/2018 [facility] Heart Rate 71 {beats}/min 04/12/2018 [facility] Systolic (mm Hg) 144 04/12/2018 [facility] Diastolic (mm Hg) 69 04/12/2018 [facility] Heart Rate 74 {beats}/min 04/12/2018 [facility] Systolic (mm Hg) 149 04/11/2018 [facility] Diastolic (mm Hg) 85 04/11/2018 [facility] Heart Rate 75 {beats}/min 04/11/2018 [facility] Systolic (mm Hg) 136 04/11/2018 [facility] Diastolic (mm Hg) 77 04/11/2018 [facility] Heart Rate 80 {beats}/min 04/11/2018 [facility] Systolic (mm Hg) 138 04/11/2018 [facility] Diastolic (mm Hg) 75 04/11/2018 [facility] Heart Rate 77 {beats}/min 04/11/2018 [facility] Respitory Rate 19 04/10/2018 [facility] Systolic (mm Hg) 129 04/10/2018 [facility] Diastolic (mm Hg) 80 04/10/2018 [facility] Temperature Oral (F) 97.4 F 04/10/2018 [facility] Heart Rate 72 {beats}/min 04/10/2018 [facility] Systolic (mm Hg) 131 04/10/2018 [facility] Diastolic (mm Hg) 73 04/10/2018 [facility] Heart Rate 79 {beats}/min 04/10/2018 [facility] Weight 177.4 04/10/2018 [facility] Systolic (mm Hg) 150 04/10/2018 [facility] Diastolic (mm Hg) 85 04/10/2018 [facility] Heart Rate 80 {beats}/min 04/10/2018 [facility] Respitory Rate 18 04/10/2018 [facility] Systolic (mm Hg) 161 04/10/2018 [facility] Diastolic (mm Hg) 73 04/10/2018 [facility] Temperature Oral (F) 97.7 F 04/10/2018 [facility] Heart Rate 76 {beats}/min 04/10/2018 [facility] Systolic (mm Hg) 150 04/09/2018 [facility] Diastolic (mm Hg) 72 04/09/2018 [facility] Heart Rate 73 {beats}/min 04/09/2018 [facility] Systolic (mm Hg) 132 04/09/2018 [facility] Diastolic (mm Hg) 77 04/09/2018 [facility] Heart Rate 81 {beats}/min 04/09/2018 [facility] Temperature Oral (F) 97.8 F 04/09/2018 [facility] Respitory Rate 18 04/09/2018 [facility] Systolic (mm Hg) 106 04/09/2018 [facility] Diastolic (mm Hg) 68 04/09/2018 [facility] Temperature Oral (F) 97.7 F 04/09/2018 [facility] Heart Rate 64 {beats}/min 04/09/2018 [facility] Systolic (mm Hg) 145 04/09/2018 [facility] Diastolic (mm Hg) 69 04/09/2018 [facility] Heart Rate 82 {beats}/min 04/09/2018 [facility] Systolic (mm Hg) 146 04/08/2018 [facility] Diastolic (mm Hg) 72 04/08/2018 [facility] Heart Rate 80 {beats}/min 04/08/2018 [facility] Heart Rate 75 {beats}/min 04/08/2018 [facility] Respitory Rate 16 04/08/2018 [facility] Systolic (mm Hg) 118 04/08/2018 [facility] Diastolic (mm Hg) 70 04/08/2018 [facility] Respitory Rate 17 04/08/2018 [facility] Systolic (mm Hg) 118 04/08/2018 [facility] Diastolic (mm Hg) 70 04/08/2018 [facility] Temperature Oral (F) 97.8 F 04/08/2018 [facility] Heart Rate 75 {beats}/min 04/08/2018 [facility] Respitory Rate 17 04/08/2018 [facility] Systolic (mm Hg) 120 04/07/2018 [facility] Diastolic (mm Hg) 74 04/07/2018 [facility] Heart Rate 70 {beats}/min 04/07/2018 [facility] Temperature Oral (F) 97.9 F 04/07/2018 [facility] Systolic (mm Hg) 115 04/07/2018 [facility] Diastolic (mm Hg) 62 04/07/2018 [facility] Heart Rate 73 {beats}/min 04/07/2018 [facility] Heart Rate 83 {beats}/min 04/07/2018 [facility] Respitory Rate 18 04/07/2018 [facility] Systolic (mm Hg) 136 04/07/2018 [facility] Diastolic (mm Hg) 74 04/07/2018 [facility] Systolic (mm Hg) 122 04/07/2018 [facility] Diastolic (mm Hg) 66 04/07/2018 [facility] Heart Rate 80 {beats}/min 04/07/2018 [facility] Systolic (mm Hg) 129 04/06/2018 [facility] Diastolic (mm Hg) 76 04/06/2018 [facility] Heart Rate 78 {beats}/min 04/06/2018 [facility] Respitory Rate 17 04/06/2018 [facility] Systolic (mm Hg) 143 04/06/2018 [facility] Diastolic (mm Hg) 68 04/06/2018 [facility] Temperature Oral (F) 98 F 04/06/2018 [facility] Heart Rate 70 {beats}/min 04/06/2018 [facility] Heart Rate 70 {beats}/min 04/06/2018 [facility] [facility] Systolic (mm Hg) 143 04/06/2018 [facility] Diastolic (mm Hg) 68 04/06/2018 [facility] Systolic (mm Hg) 135 04/06/2018 [facility]: [facility] Diastolic (mm Hg) 81 04/06/2018 [facility] Heart Rate 76 {beats}/min 04/06/2018 [facility]: [facility] Heart Rate 76 {beats}/min 04/06/2018 [facility]: [facility] Respitory Rate 16 04/06/2018 [facility]: [facility] Temperature Oral (F) 98.1 F 04/06/2018 SN[facility]: [facility] Systolic (mm Hg) 119 04/06/2018 [facility]: [facility] Diastolic (mm Hg) 76 04/06/2018 [facility]: [facility] Respitory Rate 18 04/06/2018 [facility]: [facility] Temperature Oral (F) 97.2 F 04/06/2018 [facility]: [facility] Systolic (mm Hg) 118 04/06/2018 [facility]: [facility] Diastolic (mm Hg) 65 04/06/2018 [facility]: [facility] Heart Rate 74 {beats}/min 04/06/2018 [facility]: [facility] Systolic (mm Hg) 119 04/05/2018 [facility]: [facility] Diastolic (mm Hg) 76 04/05/2018 [facility]: [facility] Heart Rate 76 {beats}/min 04/05/2018 [facility]: [facility] Systolic (mm Hg) 128 04/05/2018 [facility]: [facility] Diastolic (mm Hg) 74 04/05/2018 [facility]: [facility] Heart Rate 72 {beats}/min 04/05/2018 [facility]: [facility] Respitory Rate 18 04/05/2018 [facility]: [facility] Systolic (mm Hg) 128 04/05/2018 [facility]: [facility] Diastolic (mm Hg) 65 04/05/2018 [facility]: [facility] Temperature Oral (F) 97.8 F 04/05/2018 [facility]: [facility] Heart Rate 62 {beats}/min 04/05/2018 [facility]: [facility] Respitory Rate 18 04/05/2018 [facility]: [facility] Temperature Oral (F) 98.2 F 04/05/2018 [facility]: [facility] Systolic (mm Hg) 119 04/05/2018 [facility]: [facility] Diastolic (mm Hg) 63 04/05/2018 [facility]: [facility] Heart Rate 75 {beats}/min 04/05/2018 [facility]: [facility] Systolic (mm Hg) 119 04/04/2018 [facility]: [facility] Diastolic (mm Hg) 64 04/04/2018 [facility]: [facility] Heart Rate 72 {beats}/min 04/04/2018 [facility]: [facility] Respitory Rate 19 04/04/2018 [facility]: [facility] Systolic (mm Hg) 122 04/04/2018 [facility]: [facility] Diastolic (mm Hg) 61 04/04/2018 [facility]: [facility] Temperature Oral (F) 98 F 04/04/2018 [facility]: [facility] Heart Rate 66 {beats}/min 04/04/2018 [facility]: [facility] Systolic (mm Hg) 122 04/04/2018 [facility]: [facility] Diastolic (mm Hg) 70 04/04/2018 [facility]: [facility] Heart Rate 72 {beats}/min 04/04/2018 [facility]: [facility] Systolic (mm Hg) 147 04/04/2018 [facility]: [facility] Diastolic (mm Hg) 81 04/04/2018 [facility]: [facility] Heart Rate 82 {beats}/min 04/04/2018 [facility]: [facility] Systolic (mm Hg) 120 04/03/2018 [facility]: [facility] Diastolic (mm Hg) 70 04/03/2018 [facility]: [facility] Heart Rate 75 {beats}/min 04/03/2018 [facility]: [facility] Weight 176 04/03/2018 [facility]: [facility] Respitory Rate 18 04/03/2018 [facility]: [facility] Temperature Oral (F) 98.4 F 04/03/2018 [facility]: [facility] Systolic (mm Hg) 154 04/03/2018 [facility]: [facility] Diastolic (mm Hg) 85 04/03/2018 [facility]: [facility] Heart Rate 77 {beats}/min 04/03/2018 [facility]: [facility] Heart Rate 77 {beats}/min 04/03/2018 [facility]: [facility] Respitory Rate 20 04/03/2018 [facility]: [facility] Temperature Oral (F) 97.5 F 04/03/2018 [facility]: [facility] Systolic (mm Hg) 151 04/03/2018 [facility]: [facility] Diastolic (mm Hg) 72 04/03/2018 [facility]: [facility] Systolic (mm Hg) 133 04/02/2018 [facility]: [facility] Diastolic (mm Hg) 88 04/02/2018 [facility]: [facility] Heart Rate 77 {beats}/min 04/02/2018 [facility]: [facility] Respitory Rate 18 04/02/2018 [facility]: [facility] Systolic (mm Hg) 138 04/02/2018 [facility]: [facility] Diastolic (mm Hg) 83 04/02/2018 [facility]: [facility] Temperature Oral (F) 97.6 F 04/02/2018 [facility]: [facility] Heart Rate 79 {beats}/min 04/02/2018 [facility]: [facility] Systolic (mm Hg) 138 04/02/2018 [facility]: [facility] Diastolic (mm Hg) 83 04/02/2018 [facility]: [facility] Heart Rate 79 {beats}/min 04/02/2018 [facility]: [facility] Respitory Rate 18 04/02/2018 [facility]: [facility] Temperature Oral (F) 97.8 F 04/02/2018 [facility]: [facility] Systolic (mm Hg) 135 04/02/2018 [facility]: [facility] Diastolic (mm Hg) 57 04/02/2018 [facility]: [facility] Heart Rate 70 {beats}/min 04/02/2018 [facility]: [facility] Systolic (mm Hg) 141 04/01/2018 [facility]: [facility] Diastolic (mm Hg) 90 04/01/2018 [facility]: [facility] Heart Rate 81 {beats}/min 04/01/2018 [facility]: [facility] Heart Rate 76 {beats}/min 04/01/2018 [facility]: [facility] Respitory Rate 20 04/01/2018 [facility]: [facility] Temperature Oral (F) 97.5 F 04/01/2018 [facility]: [facility] Systolic (mm Hg) 123 04/01/2018 [facility]: [facility] Diastolic (mm Hg) 70 04/01/2018 [facility]: [facility] Respitory Rate 18 04/01/2018 [facility]: [facility] Systolic (mm Hg) 123 04/01/2018 [facility]: [facility] Diastolic (mm Hg) 70 04/01/2018 [facility]: [facility] Temperature Oral (F) 97.5 F 04/01/2018 [facility]: [facility] Heart Rate 76 {beats}/min 04/01/2018 [facility]: [facility] Systolic (mm Hg) 144 04/01/2018 [facility]: [facility] Diastolic (mm Hg) 75 04/01/2018 [facility] Heart Rate 73 {beats}/min 04/01/2018 [facility]: [facility] Systolic (mm Hg) 126 04/01/2018 [facility] Diastolic (mm Hg) 72 04/01/2018 [facility]: [facility] Temperature Oral (F) 97.8 F 04/01/2018 [facility]: [facility] Respitory Rate 18 04/01/2018 [facility] Heart Rate 82 {beats}/min 04/01/2018 [facility]: [facility] Temperature Oral (F) 97.3 F 04/01/2018 [facility]: [facility] Systolic (mm Hg) 130 04/01/2018 [facility] Diastolic (mm Hg) 76 04/01/2018 [facility]: [facility] Heart Rate 86 {beats}/min 04/01/2018 [facility]: [facility] Respitory Rate 18 03/31/2018 [facility]: [facility] Temperature Oral (F) 96.9 F 03/31/2018 [facility]: [facility] Heart Rate 81 {beats}/min 03/31/2018 [facility]: [facility] Systolic (mm Hg) 123 03/31/2018 [facility]: [facility] Diastolic (mm Hg) 69 03/31/2018 [facility] Heart Rate 83 {beats}/min 03/31/2018 [facility]: [facility] Systolic (mm Hg) 120 03/31/2018 [facility] Diastolic (mm Hg) 66 03/31/2018 [facility] Heart Rate 83 {beats}/min 03/31/2018 [facility]: [facility] Respitory Rate 20 03/31/2018 [facility]: [facility] Systolic (mm Hg) 140 03/31/2018 [facility]: [facility] Diastolic (mm Hg) 61 03/31/2018 [facility] Temperature Oral (F) 99.3 F 03/31/2018 [facility]: [facility] Heart Rate 86 {beats}/min 03/31/2018 [facility]: [facility] Respitory Rate 18 03/30/2018 [facility]: [facility] Systolic (mm Hg) 137 03/30/2018 [facility]: [facility] Diastolic (mm Hg) 65 03/30/2018 [facility]: [facility] Temperature Oral (F) 98 F 03/30/2018 [facility]: [facility] Heart Rate 90 {beats}/min 03/30/2018 [facility]: [facility] Systolic (mm Hg) 123 03/30/2018 [facility] Diastolic (mm Hg) 76 03/30/2018 [facility] Heart Rate 78 {beats}/min 03/30/2018 [facility]: [facility] Systolic (mm Hg) 126 03/30/2018 [facility] Diastolic (mm Hg) 70 03/30/2018 [facility] Heart Rate 80 {beats}/min 03/30/2018 [facility]: [facility] Systolic (mm Hg) 122 03/29/2018 [facility]: [facility] Diastolic (mm Hg) 72 03/29/2018 [facility] Heart Rate 75 {beats}/min 03/29/2018 [facility]: [facility] Heart Rate 76 {beats}/min 03/29/2018 [facility]: [facility] Respitory Rate 18 03/29/2018 [facility]: [facility] Temperature Oral (F) 97.9 F 03/29/2018 [facility]: [facility] Systolic (mm Hg) 125 03/29/2018 [facility]: [facility] Diastolic (mm Hg) 70 03/29/2018 [facility]: [facility] Weight 177 03/29/2018 [facility]: [facility] Systolic (mm Hg) 117 03/29/2018 [facility] Diastolic (mm Hg) 55 03/29/2018 [facility]: [facility] Heart Rate 70 {beats}/min 03/29/2018 [facility]: [facility] Respitory Rate 18 03/29/2018 [facility]: [facility] Systolic (mm Hg) 162 03/29/2018 [facility]: [facility] Diastolic (mm Hg) 54 03/29/2018 [facility]: [facility] Temperature Oral (F) 98.2 F 03/29/2018 [facility]: [facility] Heart Rate 76 {beats}/min 03/29/2018 [facility]: [facility] Respitory Rate 18 03/29/2018 [facility]: [facility] Systolic (mm Hg) 130 03/29/2018 [facility]: [facility] Diastolic (mm Hg) 71 03/29/2018 [facility]: [facility] Temperature Oral (F) 98.1 F 03/29/2018 [facility] Heart Rate 82 {beats}/min 03/29/2018 [facility]: [facility] Systolic (mm Hg) 136 03/28/2018 [facility]: [facility] Diastolic (mm Hg) 83 03/28/2018 [facility] Heart Rate 78 {beats}/min 03/28/2018 [facility]: [facility] Height 65 03/28/2018 [facility]: [facility] Systolic (mm Hg) 123 03/28/2018 [facility]: [facility] Diastolic (mm Hg) 57 03/28/2018 [facility] Heart Rate 69 {beats}/min 03/28/2018 [facility]: [facility] Systolic (mm Hg) 131 03/28/2018 [facility]: [facility] Diastolic (mm Hg) 70 03/28/2018 [facility] Heart Rate 67 {beats}/min 03/28/2018 [facility]: [facility] Respitory Rate 18 03/27/2018 [facility]: [facility] Temperature Oral (F) 97.9 F 03/27/2018 [facility]: [facility] Systolic (mm Hg) 115 03/27/2018 [facility] Diastolic (mm Hg) 77 03/27/2018 [facility] Heart Rate 68 {beats}/min 03/27/2018 [facility]: [facility] Systolic (mm Hg) 113 03/27/2018 [facility] Diastolic (mm Hg) 52 03/27/2018 [facility] Heart Rate 69 {beats}/min 03/27/2018 [facility]: [facility] Systolic (mm Hg) 128 03/27/2018 [facility] Diastolic (mm Hg) 65 03/27/2018 [facility] Heart Rate 89 {beats}/min 03/27/2018 [facility]: [facility] Respitory Rate 17 03/27/2018 [facility]: [facility] Systolic (mm Hg) 127 03/27/2018 [facility] Diastolic (mm Hg) 70 03/27/2018 [facility]: [facility] Temperature Oral (F) 97.5 F 03/27/2018 [facility]: [facility] Heart Rate 91 {beats}/min 03/27/2018 [facility]: [facility] Heart Rate 76 {beats}/min 03/26/2018 [facility]: [facility] Respitory Rate 18 03/26/2018 [facility]: [facility] Temperature Oral (F) 97.7 F 03/26/2018 [facility]: [facility] Systolic (mm Hg) 114 03/26/2018 [facility] Diastolic (mm Hg) 54 03/26/2018 [facility] Respitory Rate 18 03/26/2018 [facility]: [facility] Temperature Oral (F) 99.1 F 03/26/2018 [facility]: [facility] Systolic (mm Hg) 116 03/26/2018 [facility] Diastolic (mm Hg) 64 03/26/2018 [facility] Heart Rate 76 {beats}/min 03/26/2018 [facility]: [facility] Respitory Rate 18 03/26/2018 [facility]: [facility] Systolic (mm Hg) 140 03/26/2018 [facility] Diastolic (mm Hg) 75 03/26/2018 [facility] Temperature Oral (F) 97.8 F 03/26/2018 [facility]: [facility] Heart Rate 89 {beats}/min 03/26/2018 [facility]: [facility] Systolic (mm Hg) 131 03/26/2018 [facility]: [facility] Diastolic (mm Hg) 78 03/26/2018 [facility]: [facility] Heart Rate 86 {beats}/min 03/26/2018 [facility] Respitory Rate 18 03/25/2018 [facility]: [facility] Temperature Oral (F) 97.9 F 03/25/2018 [facility]: [facility] Systolic (mm Hg) 134 03/25/2018 [facility] Diastolic (mm Hg) 73 03/25/2018 [facility] Heart Rate 78 {beats}/min 03/25/2018 [facility]: [facility] Respitory Rate 18 03/25/2018 [facility] Systolic (mm Hg) 110 03/25/2018 [facility] Diastolic (mm Hg) 60 03/25/2018 [facility] Temperature Oral (F) 98.7 F 03/25/2018 [facility]: [facility] Heart Rate 89 {beats}/min 03/25/2018 [facility]: [facility] Systolic (mm Hg) 110 03/25/2018 [facility] Diastolic (mm Hg) 60 03/25/2018 [facility] Heart Rate 89 {beats}/min 03/25/2018 [facility] Systolic (mm Hg) 130 03/24/2018 [facility]: [facility] Diastolic (mm Hg) 75 03/24/2018 [facility]: [facility] Heart Rate 72 {beats}/min 03/24/2018 [facility]: [facility] Respitory Rate 18 03/24/2018 [facility]: [facility] Systolic (mm Hg) 93 03/24/2018 [facility]: [facility] Diastolic (mm Hg) 62 03/24/2018 [facility] Temperature Oral (F) 98.5 F 03/24/2018 [facility]: [facility] Heart Rate 73 {beats}/min 03/24/2018 [facility]: [facility] Systolic (mm Hg) 99 03/24/2018 [facility]: [facility] Diastolic (mm Hg) 57 03/24/2018 [facility]: [facility] Temperature Oral (F) 98.2 F 03/24/2018 [facility]: [facility] Heart Rate 71 {beats}/min 03/24/2018 [facility]: [facility] Respitory Rate 98.6 03/24/2018 [facility]: [facility] Temperature Oral (F) 18 F 03/24/2018 [facility]: [facility] Systolic (mm Hg) 139 03/24/2018 [facility]: [facility] Diastolic (mm Hg) 66 03/24/2018 [facility] Systolic (mm Hg) 139 03/23/2018 [facility] Diastolic (mm Hg) 66 03/23/2018 [facility]: [facility] Respitory Rate 18 03/23/2018 [facility] Systolic (mm Hg) 139 03/23/2018 [facility]: [facility] Diastolic (mm Hg) 93 03/23/2018 [facility]: [facility] Temperature Oral (F) 98.6 F 03/23/2018 [facility]: [facility] Heart Rate 71 {beats}/min 03/23/2018 [facility]: [facility] Systolic (mm Hg) 139 03/23/2018 [facility] Diastolic (mm Hg) 93 03/23/2018 [facility] Respitory Rate 18 03/23/2018 [facility]: [facility] Systolic (mm Hg) 117 03/23/2018 [facility]: [facility] Diastolic (mm Hg) 68 03/23/2018 [facility]: [facility] Temperature Oral (F) 98.2 F 03/23/2018 [facility]: [facility] Heart Rate 82 {beats}/min 03/23/2018 [facility]: [facility] Heart Rate 68 {beats}/min 03/23/2018 [facility]: [facility] Respitory Rate 17 03/23/2018 [facility]: [facility] Temperature Oral (F) 97.9 F 03/23/2018 [facility]: [facility] Systolic (mm Hg) 146 03/23/2018 [facility]: [facility] Diastolic (mm Hg) 77 03/23/2018 [facility] Heart Rate 91 {beats}/min 03/22/2018 [facility]: [facility] Respitory Rate 20 03/22/2018 [facility]: [facility] Temperature Oral (F) 99.2 F 03/22/2018 [facility]: [facility] Systolic (mm Hg) 131 03/22/2018 [facility]: [facility] Diastolic (mm Hg) 104 03/22/2018 [facility] Systolic (mm Hg) 129 03/22/2018 [facility] Diastolic (mm Hg) 78 03/22/2018 [facility] Respitory Rate 22 03/22/2018 [facility]: [facility] Systolic (mm Hg) 132 03/22/2018 [facility]: [facility] Diastolic (mm Hg) 70 03/22/2018 [facility]: [facility] Temperature Oral (F) 99.2 F 03/22/2018 [facility]: [facility] Heart Rate 84 {beats}/min 03/22/2018 [facility]: [facility] Heart Rate 72 {beats}/min 02/11/2017 [facility]: [facility] Respitory Rate 13 02/11/2017 [facility]: [facility] Systolic (mm Hg) 144 02/11/2017 [facility]: [facility] Diastolic (mm Hg) 78 02/11/2017 [facility]: [facility] Systolic (mm Hg) 144 02/11/2017 [facility]: [facility] Diastolic (mm Hg) 78 02/11/2017 [facility]: [facility] Heart Rate 72 {beats}/min 02/11/2017 [facility]: [facility] Heart Rate 73 {beats}/min 02/11/2017 [facility]: [facility] Systolic (mm Hg) 108 02/11/2017 [facility]: [facility] Diastolic (mm Hg) 69 02/11/2017 [facility]: [facility] Systolic (mm Hg) 177 02/10/2017 [facility]: [facility] Diastolic (mm Hg) 104 02/10/2017 [facility]: [facility] Heart Rate 76 {beats}/min 02/10/2017 [facility]: [facility] Heart Rate 70 {beats}/min 02/10/2017 [facility]: [facility] Respitory Rate 12 02/10/2017 [facility]: [facility] Systolic (mm Hg) 158 02/10/2017 [facility]: [facility] Diastolic (mm Hg) 81 02/10/2017 [facility]: [facility] Heart Rate 69 {beats}/min 02/10/2017 [facility]: [facility] Systolic (mm Hg) 138 02/10/2017 [facility]: [facility] Diastolic (mm Hg) 72 02/10/2017 [facility]: [facility] Heart Rate 79 {beats}/min 02/10/2017 [facility]: [facility] Systolic (mm Hg) 138 02/10/2017 [facility]: [facility] Diastolic (mm Hg) 72 02/10/2017 [facility]: [facility] Heart Rate 79 {beats}/min 02/10/2017 [facility]: [facility] Heart Rate 80 {beats}/min 02/10/2017 [facility]: [facility] Respitory Rate 17 02/10/2017 [facility]: [facility] Temperature Oral (F) 99.1 F 02/10/2017 [facility]: [facility] Systolic (mm Hg) 128 02/10/2017 [facility]: [facility] Diastolic (mm Hg) 66 02/10/2017 [facility]: [facility] Systolic (mm Hg) 151 02/09/2017 [facility]: [facility] Diastolic (mm Hg) 96 02/09/2017 [facility]: [facility] Heart Rate 80 {beats}/min 02/09/2017 [facility]: [facility] Systolic (mm Hg) 171 02/09/2017 [facility]: [facility] Diastolic (mm Hg) 93 02/09/2017 [facility]: [facility] Heart Rate 80 {beats}/min 02/09/2017 [facility]: [facility] Systolic (mm Hg) 116 02/09/2017 [facility]: [facility] Diastolic (mm Hg) 68 02/09/2017 [facility]: [facility] Heart Rate 84 {beats}/min 02/09/2017 [facility]: [facility] Heart Rate 79 {beats}/min 02/09/2017 [facility]: [facility] Respitory Rate 24 02/09/2017 [facility]: [facility] Temperature Oral (F) 98.6 F 02/09/2017 [facility]: [facility] Systolic (mm Hg) 143 02/09/2017 [facility]: [facility] Diastolic (mm Hg) 80 02/09/2017 [facility]: [facility] Systolic (mm Hg) 110 02/08/2017 [facility]: [facility] Diastolic (mm Hg) 60 02/08/2017 [facility]: [facility] Heart Rate 92 {beats}/min 02/08/2017 [facility]: [facility] Weight 212 02/08/2017 [facility]: [facility] Systolic (mm Hg) 131 02/08/2017 [facility]: [facility] Diastolic (mm Hg) 75 02/08/2017 [facility]: [facility] Heart Rate 75 {beats}/min 02/08/2017 [facility]: [facility] Heart Rate 75 {beats}/min 02/08/2017 [facility]: [facility] Respitory Rate 20 02/08/2017 [facility]: [facility] Temperature Oral (F) 98.7 F 02/08/2017 [facility]: [facility] Systolic (mm Hg) 131 02/08/2017 [facility]: [facility] Diastolic (mm Hg) 75 02/08/2017 [facility]: [facility] Systolic (mm Hg) 128 02/08/2017 [facility]: [facility] Diastolic (mm Hg) 78 02/08/2017 [facility]: [facility] Heart Rate 79 {beats}/min 02/08/2017 [facility]: [facility] Systolic (mm Hg) 128 02/08/2017 [facility]: [facility] Diastolic (mm Hg) 78 02/08/2017 [facility]: [facility] Heart Rate 79 {beats}/min 02/08/2017 [facility]: [facility] Heart Rate 73 {beats}/min 02/07/2017 [facility]: [facility] Respitory Rate 18 02/07/2017 [facility]: [facility] Temperature Oral (F) 98.4 F 02/07/2017 SN[facility]: [facility] Systolic (mm Hg) 145 02/07/2017 [facility]: [facility] Diastolic (mm Hg) 87 02/07/2017 [facility]: [facility] Systolic (mm Hg) 118 02/07/2017 [facility]: [facility] Diastolic (mm Hg) 66 02/07/2017 [facility]: [facility] Heart Rate 75 {beats}/min 02/07/2017 [facility]: [facility] Systolic (mm Hg) 133 02/07/2017 [facility]: [facility] Diastolic (mm Hg) 81 02/07/2017 [facility]: [facility] Heart Rate 74 {beats}/min 02/07/2017 [facility]: [facility] Systolic (mm Hg) 124 02/07/2017 [facility]: [facility] Diastolic (mm Hg) 76 02/07/2017 [facility] Heart Rate 80 {beats}/min 02/07/2017 [facility]: [facility] Heart Rate 80 {beats}/min 02/07/2017 [facility]: [facility] Respitory Rate 17 02/07/2017 [facility]: [facility] Temperature Oral (F) 98.8 F 02/07/2017 [facility]: [facility] Systolic (mm Hg) 128 02/07/2017 [facility]: [facility] Diastolic (mm Hg) 66 02/07/2017 [facility]: [facility] Systolic (mm Hg) 128 02/06/2017 [facility]: [facility] Diastolic (mm Hg) 66 02/06/2017 [facility]: [facility] Heart Rate 80 {beats}/min 02/06/2017 [facility]: [facility] Systolic (mm Hg) 120 02/06/2017 [facility]: [facility] Diastolic (mm Hg) 73 02/06/2017 [facility]: [facility] Heart Rate 84 {beats}/min 02/06/2017 [facility]: [facility] Heart Rate 89 {beats}/min 02/06/2017 [facility]: [facility] Respitory Rate 26 02/06/2017 [facility]: [facility] Temperature Oral (F) 98.4 F 02/06/2017 [facility]: [facility] Systolic (mm Hg) 149 02/06/2017 [facility]: [facility] Diastolic (mm Hg) 83 02/06/2017 [facility]: [facility] Heart Rate 70 {beats}/min 02/06/2017 [facility]: [facility] Respitory Rate 18 02/06/2017 [facility]: [facility] Temperature Oral (F) 98.2 F 02/06/2017 [facility] [facility] Systolic (mm Hg) 149 02/06/2017 [facility]: [facility] Diastolic (mm Hg) 74 02/06/2017 SN[facility]: [facility] Systolic (mm Hg) 138 02/05/2017 SN[facility]: [facility] Diastolic (mm Hg) 77 02/05/2017 SN[facility]: [facility] Heart Rate 78 {beats}/min 02/05/2017 SNF: [facility] Systolic (mm Hg) 120 02/05/2017 SN[facility]: [facility] Diastolic (mm Hg) 72 02/05/2017 SN[facility]: [facility] Heart Rate 72 {beats}/min 02/05/2017 SN[facility]: [facility] Heart Rate 70 {beats}/min 02/05/2017 SN[facility]: [facility] Respitory Rate 19 02/05/2017 SN[facility]: [facility] Temperature Oral (F) 98.6 F 02/05/2017 SNF: [facility] Systolic (mm Hg) 137 02/05/2017 SN[facility]: [facility] Diastolic (mm Hg) 60 02/05/2017 SN[facility]: [facility] Systolic (mm Hg) 140 02/04/2017 SN[facility]: [facility] Diastolic (mm Hg) 65 02/04/2017 SN[facility]: [facility] Heart Rate 99 {beats}/min 02/04/2017 SN[facility]: [facility] Systolic (mm Hg) 144 02/04/2017 SN[facility]: [facility] Diastolic (mm Hg) 77 02/04/2017 SN[facility]: [facility] Heart Rate 80 {beats}/min 02/04/2017 SN[facility]: [facility] Systolic (mm Hg) 126 02/04/2017 SN[facility]: [facility] Diastolic (mm Hg) 66 02/04/2017 SN[facility]: [facility] Heart Rate 85 {beats}/min 02/04/2017 SN[facility]: [facility] Systolic (mm Hg) 126 02/04/2017 SN[facility]: [facility] Diastolic (mm Hg) 66 02/04/2017 SN[facility]: [facility] Heart Rate 85 {beats}/min 02/04/2017 SN[facility]: [facility] Systolic (mm Hg) 104 02/03/2017 SN[facility]: [facility] Diastolic (mm Hg) 73 02/03/2017 SN[facility]: [facility] Heart Rate 82 {beats}/min 02/03/2017 SN[facility]: [facility] Systolic (mm Hg) 119 02/03/2017 SN[facility]: [facility] Diastolic (mm Hg) 66 02/03/2017 SN[facility]: [facility] Heart Rate 80 {beats}/min 02/03/2017 SN[facility]: [facility] Systolic (mm Hg) 112 02/03/2017 SN[facility]: [facility] Diastolic (mm Hg) 70 02/03/2017 SN[facility]: [facility] Temperature Oral (F) 96.8 F 02/03/2017 SN[facility]: [facility] Respitory Rate 22 02/03/2017 SN[facility]: [facility] Heart Rate 82 {beats}/min 02/03/2017 SN[facility]: [facility] Systolic (mm Hg) 105 02/02/2017 SN[facility]: [facility] Diastolic (mm Hg) 64 02/02/2017 SN[facility]: [facility] Heart Rate 87 {beats}/min 02/02/2017 SN[facility]: [facility] Heart Rate 81 {beats}/min 02/02/2017 SN[facility]: [facility] Respitory Rate 16 02/02/2017 SN[facility]: [facility] Temperature Oral (F) 98 F 02/02/2017 SN[facility]: [facility] Systolic (mm Hg) 105 02/02/2017 SN[facility]: [facility] Diastolic (mm Hg) 56 02/02/2017 SN[facility]: [facility] Heart Rate 77 {beats}/min 02/02/2017 SN[facility]: [facility] Respitory Rate 20 02/02/2017 SN[facility]: [facility] Systolic (mm Hg) 147 02/02/2017 SN[facility]: [facility] Diastolic (mm Hg) 84 02/02/2017 SN[facility]: [facility] Systolic (mm Hg) 147 02/02/2017 SN[facility]: [facility] Diastolic (mm Hg) 84 02/02/2017 SN[facility]: [facility] Heart Rate 77 {beats}/min 02/02/2017 SN[facility]: [facility] Systolic (mm Hg) 134 02/02/2017 [facility]: [facility] Diastolic (mm Hg) 84 02/02/2017 SN[facility]: [facility] Heart Rate 95 {beats}/min 02/02/2017 SN[facility]: [facility] Systolic (mm Hg) 134 02/02/2017 [facility]: [facility] Diastolic (mm Hg) 84 02/02/2017 [facility]: [facility] Heart Rate 75 {beats}/min 02/02/2017 [facility]: [facility] Heart Rate 77 {beats}/min 02/02/2017 [facility]: [facility] Respitory Rate 18 02/02/2017 [facility]: [facility] Temperature Oral (F) 98.7 F 02/02/2017 SN[facility]: [facility] Systolic (mm Hg) 121 02/02/2017 SN[facility]: [facility] Diastolic (mm Hg) 57 02/02/2017 SN[facility]: [facility] Systolic (mm Hg) 121 02/01/2017 [facility]: [facility] Diastolic (mm Hg) 57 02/01/2017 SN[facility]: [facility] Heart Rate 77 {beats}/min 02/01/2017 [facility]: [facility] Heart Rate 77 {beats}/min 02/01/2017 SN[facility]: [facility] Respitory Rate 20 02/01/2017 SN[facility]: [facility] Systolic (mm Hg) 149 02/01/2017 SN[facility]: [facility] Diastolic (mm Hg) 85 02/01/2017 SN[facility]: [facility] Systolic (mm Hg) 149 02/01/2017 [facility]: [facility] Diastolic (mm Hg) 85 02/01/2017 [facility]: [facility] Heart Rate 77 {beats}/min 02/01/2017 [facility]: [facility] Weight 212 02/01/2017 SN[facility]: [facility] Systolic (mm Hg) 112 02/01/2017 [facility]: [facility] Diastolic (mm Hg) 66 02/01/2017 SN[facility]: [facility] Heart Rate 81 {beats}/min 02/01/2017 [facility]: [facility] Heart Rate 77 {beats}/min 02/01/2017 [facility]: [facility] Respitory Rate 18 02/01/2017 [facility]: [facility] Temperature Oral (F) 98.2 F 02/01/2017 SN[facility]: [facility] Systolic (mm Hg) 142 02/01/2017 SN[facility]: [facility] Diastolic (mm Hg) 54 02/01/2017 [facility]: [facility] Systolic (mm Hg) 142 01/31/2017 SN[facility]: [facility] Diastolic (mm Hg) 54 01/31/2017 SN[facility]: [facility] Heart Rate 77 {beats}/min 01/31/2017 [facility]: [facility] Systolic (mm Hg) 146 01/31/2017 [facility]: [facility] Diastolic (mm Hg) 79 01/31/2017 [facility]: [facility] Heart Rate 70 {beats}/min 01/31/2017 SN[facility]: [facility] Systolic (mm Hg) 114 01/31/2017 SN[facility]: [facility] Diastolic (mm Hg) 72 01/31/2017 [facility] Temperature Oral (F) 97.9 F 01/31/2017 SN[facility] Respitory Rate 20 01/31/2017 [facility]: [facility] Heart Rate 79 {beats}/min 01/31/2017 SN[facility]: [facility] Heart Rate 82 {beats}/min 01/31/2017 [facility]: [facility] Respitory Rate 19 01/31/2017 [facility]: [facility] Temperature Oral (F) 98 F 01/31/2017 SN[facility]: [facility] Systolic (mm Hg) 156 01/31/2017 SN[facility]: [facility] Diastolic (mm Hg) 79 01/31/2017 SN[facility]: [facility] Systolic (mm Hg) 113 01/30/2017 SN[facility]: [facility] Diastolic (mm Hg) 57 01/30/2017 [facility]: [facility] Heart Rate 79 {beats}/min 01/30/2017 SN[facility]: [facility] Systolic (mm Hg) 134 01/30/2017 SN[facility]: [facility] Diastolic (mm Hg) 86 01/30/2017 [facility]: [facility] Heart Rate 85 {beats}/min 01/30/2017 [facility]: [facility] Heart Rate 73 {beats}/min 01/30/2017 [facility]: [facility] Respitory Rate 22 01/30/2017 [facility]: [facility] Temperature Oral (F) 98.3 F 01/30/2017 SN[facility]: [facility] Systolic (mm Hg) 131 01/30/2017 SN[facility]: [facility] Diastolic (mm Hg) 74 01/30/2017 [facility]: [facility] Systolic (mm Hg) 118 01/30/2017 SN[facility] Diastolic (mm Hg) 76 01/30/2017 [facility]: [facility] Systolic (mm Hg) 118 01/29/2017 [facility]: [facility] Diastolic (mm Hg) 76 01/29/2017 [facility]: [facility] Heart Rate 78 {beats}/min 01/29/2017 [facility]: [facility] Systolic (mm Hg) 141 01/29/2017 [facility]: [facility] Diastolic (mm Hg) 77 01/29/2017 [facility]: [facility] Heart Rate 72 {beats}/min 01/29/2017 [facility]: [facility] Heart Rate 81 {beats}/min 01/29/2017 [facility]: [facility] Respitory Rate 17 01/29/2017 [facility]: [facility] Temperature Oral (F) 97.5 F 01/29/2017 SN[facility]: [facility] Systolic (mm Hg) 117 01/29/2017 [facility]: [facility] Diastolic (mm Hg) 71 01/29/2017 [facility]: [facility] Systolic (mm Hg) 105 01/28/2017 SN[facility]: [facility] Diastolic (mm Hg) 59 01/28/2017 [facility]: [facility] Heart Rate 84 {beats}/min 01/28/2017 [facility]: [facility] Systolic (mm Hg) 129 01/28/2017 [facility]: [facility] Diastolic (mm Hg) 64 01/28/2017 [facility]: [facility] Heart Rate 73 {beats}/min 01/28/2017 [facility]: [facility] Systolic (mm Hg) 130 01/28/2017 [facility]: [facility] Diastolic (mm Hg) 76 01/28/2017 [facility]: [facility] Heart Rate 84 {beats}/min 01/28/2017 [facility]: [facility] Systolic (mm Hg) 130 01/28/2017 [facility]: [facility] Diastolic (mm Hg) 76 01/28/2017 [facility]: [facility] Heart Rate 84 {beats}/min 01/28/2017 [facility]: [facility] Systolic (mm Hg) 105 01/27/2017 [facility]: [facility] Diastolic (mm Hg) 66 01/27/2017 [facility]: [facility] Heart Rate 76 {beats}/min 01/27/2017 [facility]: [facility] Heart Rate 76 {beats}/min 01/27/2017 [facility] Respitory Rate 18 01/27/2017 [facility]: [facility] Temperature Oral (F) 99.7 F 01/27/2017 [facility]: [facility] Systolic (mm Hg) 150 01/27/2017 [facility] Diastolic (mm Hg) 87 01/27/2017 [facility]: [facility] Systolic (mm Hg) 150 01/27/2017 [facility] Diastolic (mm Hg) 87 01/27/2017 [facility]: [facility] Heart Rate 76 {beats}/min 01/27/2017 [facility]: [facility] Systolic (mm Hg) 138 01/27/2017 [facility] Diastolic (mm Hg) 82 01/27/2017 [facility]: [facility] Heart Rate 75 {beats}/min 01/27/2017 [facility]: [facility] Heart Rate 85 {beats}/min 01/27/2017 [facility]: [facility] Respitory Rate 16 01/27/2017 [facility]: [facility] Temperature Oral (F) 100.6 F 01/27/2017 SN[facility]: [facility] Systolic (mm Hg) 138 01/27/2017 [facility]: [facility] Diastolic (mm Hg) 70 01/27/2017 [facility]: [facility] Systolic (mm Hg) 138 01/26/2017 [facility] Diastolic (mm Hg) 70 01/26/2017 [facility]: [facility] Heart Rate 85 {beats}/min 01/26/2017 [facility]: [facility] Systolic (mm Hg) 131 01/26/2017 [facility] Diastolic (mm Hg) 77 01/26/2017 [facility]: [facility] Heart Rate 70 {beats}/min 01/26/2017 [facility]: [facility] Systolic (mm Hg) 130 01/26/2017 [facility] Diastolic (mm Hg) 72 01/26/2017 [facility] Heart Rate 75 {beats}/min 01/26/2017 [facility]: [facility] Systolic (mm Hg) 139 01/25/2017 [facility] Diastolic (mm Hg) 65 01/25/2017 [facility] Heart Rate 73 {beats}/min 01/25/2017 [facility]: [facility] Systolic (mm Hg) 142 01/25/2017 [facility] Diastolic (mm Hg) 72 01/25/2017 [facility] Heart Rate 61 {beats}/min 01/25/2017 [facility]: [facility] Systolic (mm Hg) 142 01/25/2017 [facility] Diastolic (mm Hg) 82 01/25/2017 [facility] Heart Rate 82 {beats}/min 01/25/2017 [facility]: [facility] Systolic (mm Hg) 142 01/24/2017 [facility] Diastolic (mm Hg) 96 01/24/2017 [facility]: [facility] Heart Rate 91 {beats}/min 01/24/2017 [facility]: [facility] Weight 212 01/24/2017 [facility]: [facility] Systolic (mm Hg) 92 01/24/2017 [facility]: [facility] Diastolic (mm Hg) 51 01/24/2017 [facility]: [facility] Heart Rate 87 {beats}/min 01/24/2017 [facility]: [facility] Systolic (mm Hg) 122 01/24/2017 [facility]: [facility] Diastolic (mm Hg) 72 01/24/2017 [facility]: [facility] Heart Rate 70 {beats}/min 01/24/2017 [facility]: [facility] Respitory Rate 17 01/24/2017 [facility]: [facility] Temperature Oral (F) 98.2 F 01/24/2017 [facility]: [facility] Systolic (mm Hg) 118 01/24/2017 [facility]: [facility] Diastolic (mm Hg) 76 01/24/2017 [facility] Systolic (mm Hg) 122 01/23/2017 [facility] Diastolic (mm Hg) 64 01/23/2017 [facility]: [facility] Heart Rate 90 {beats}/min 01/23/2017 [facility]: [facility] Heart Rate 77 {beats}/min 01/23/2017 [facility]: [facility] Respitory Rate 18 01/23/2017 [facility]: [facility] Systolic (mm Hg) 117 01/23/2017 [facility]: [facility] Diastolic (mm Hg) 60 01/23/2017 [facility]: [facility] Systolic (mm Hg) 117 01/23/2017 [facility] Diastolic (mm Hg) 60 01/23/2017 [facility]: [facility] Heart Rate 77 {beats}/min 01/23/2017 [facility]: [facility] Systolic (mm Hg) 128 01/23/2017 [facility] Diastolic (mm Hg) 72 01/23/2017 [facility]: [facility] Heart Rate 72 {beats}/min 01/23/2017 [facility]: [facility] Respitory Rate 18 01/23/2017 [facility]: [facility] Temperature Oral (F) 98.5 F 01/23/2017 SN[facility]: [facility] Systolic (mm Hg) 116 01/23/2017 [facility]: [facility] Diastolic (mm Hg) 72 01/23/2017 [facility]: [facility] Heart Rate 97 {beats}/min 01/23/2017 [facility]: [facility] Respitory Rate 20 01/23/2017 [facility]: [facility] Systolic (mm Hg) 144 01/23/2017 [facility]: [facility] Diastolic (mm Hg) 95 01/23/2017 [facility]: [facility] Systolic (mm Hg) 138 01/22/2017 SN[facility]: [facility] Diastolic (mm Hg) 78 01/22/2017 [facility]: [facility] Heart Rate 77 {beats}/min 01/22/2017 [facility]: [facility] Systolic (mm Hg) 128 01/22/2017 [facility] Diastolic (mm Hg) 74 01/22/2017 [facility]: [facility] Heart Rate 74 {beats}/min 01/22/2017 [facility]: [facility] Systolic (mm Hg) 132 01/22/2017 [facility]: [facility] Diastolic (mm Hg) 71 01/22/2017 [facility]: [facility] Heart Rate 86 {beats}/min 01/22/2017 [facility]: [facility] Systolic (mm Hg) 131 01/21/2017 [facility]: [facility] Diastolic (mm Hg) 72 01/21/2017 [facility]: [facility] Heart Rate 97 {beats}/min 01/21/2017 [facility]: [facility] Systolic (mm Hg) 134 01/21/2017 [facility]: [facility] Diastolic (mm Hg) 76 01/21/2017 [facility]: [facility] Heart Rate 87 {beats}/min 01/21/2017 [facility]: [facility] Systolic (mm Hg) 126 01/21/2017 [facility]: [facility] Diastolic (mm Hg) 74 01/21/2017 [facility]: [facility] Heart Rate 82 {beats}/min 01/21/2017 [facility]: [facility] Heart Rate 90 {beats}/min 01/21/2017 [facility]: [facility] Systolic (mm Hg) 128 01/21/2017 [facility]: [facility] Diastolic (mm Hg) 68 01/21/2017 [facility]: [facility] Heart Rate 77 {beats}/min 01/20/2017 [facility]: [facility] Respitory Rate 18 01/20/2017 [facility]: [facility] Temperature Oral (F) 99.4 F 01/20/2017 SN[facility]: [facility] Systolic (mm Hg) 124 01/20/2017 [facility]: [facility] Diastolic (mm Hg) 66 01/20/2017 [facility]: [facility] Weight 209 01/20/2017 [facility]: [facility] Systolic (mm Hg) 134 01/20/2017 [facility]: [facility] Diastolic (mm Hg) 75 01/20/2017 [facility]: [facility] Heart Rate 75 {beats}/min 01/20/2017 [facility]: [facility] Systolic (mm Hg) 118 01/20/2017 [facility]: [facility] Diastolic (mm Hg) 90 01/20/2017 [facility]: [facility] Heart Rate 83 {beats}/min 01/20/2017 [facility]: [facility] Heart Rate 76 {beats}/min 01/19/2017 [facility]: [facility] Respitory Rate 18 01/19/2017 [facility]: [facility] Temperature Oral (F) 97.6 F 01/19/2017 [facility]: [facility] Systolic (mm Hg) 118 01/19/2017 [facility]: [facility] Diastolic (mm Hg) 68 01/19/2017 [facility]: [facility] Systolic (mm Hg) 118 01/19/2017 [facility] Diastolic (mm Hg) 68 01/19/2017 [facility]: [facility] Heart Rate 76 {beats}/min 01/19/2017 [facility]: [facility] Heart Rate 79 {beats}/min 01/19/2017 [facility]: [facility] Respitory Rate 18 01/19/2017 [facility]: [facility] Temperature Oral (F) 99.2 F 01/19/2017 [facility]: [facility] Systolic (mm Hg) 119 01/19/2017 [facility]: [facility] Diastolic (mm Hg) 57 01/19/2017 [facility]: [facility] Heart Rate 78 {beats}/min 01/18/2017 [facility]: [facility] Respitory Rate 18 01/18/2017 [facility]: [facility] Temperature Oral (F) 97.8 F 01/18/2017 [facility]: [facility] Systolic (mm Hg) 118 01/18/2017 [facility]: [facility] Diastolic (mm Hg) 69 01/18/2017 [facility]: [facility] Systolic (mm Hg) 118 01/18/2017 [facility] Diastolic (mm Hg) 69 01/18/2017 [facility]: [facility] Heart Rate 78 {beats}/min 01/18/2017 [facility]: [facility] Heart Rate 80 {beats}/min 01/18/2017 [facility]: [facility] Respitory Rate 18 01/18/2017 [facility]: [facility] Systolic (mm Hg) 123 01/18/2017 [facility]: [facility] Diastolic (mm Hg) 71 01/18/2017 [facility]: [facility] Systolic (mm Hg) 122 01/17/2017 [facility]: [facility] Diastolic (mm Hg) 84 01/17/2017 [facility]: [facility] Heart Rate 71 {beats}/min 01/17/2017 [facility]: [facility] Heart Rate 86 {beats}/min 01/16/2017 [facility]: [facility] Respitory Rate 18 01/16/2017 [facility]: [facility] Systolic (mm Hg) 103 01/16/2017 [facility]: [facility] Diastolic (mm Hg) 58 01/16/2017 [facility] Respitory Rate 18 01/16/2017 [facility]: [facility] Heart Rate 69 {beats}/min 01/16/2017 [facility]: [facility] Systolic (mm Hg) 116 01/16/2017 [facility]: [facility] Diastolic (mm Hg) 68 01/16/2017 [facility]: [facility] Heart Rate 72 {beats}/min 01/16/2017 [facility]: [facility] Heart Rate 76 {beats}/min 01/15/2017 [facility]: [facility] Respitory Rate 20 01/15/2017 [facility]: [facility] Temperature Oral (F) 98.5 F 01/15/2017 SN[facility]: [facility] Systolic (mm Hg) 127 01/15/2017 [facility]: [facility] Diastolic (mm Hg) 64 01/15/2017 [facility]: [facility] Heart Rate 78 {beats}/min 01/15/2017 [facility]: [facility] Respitory Rate 18 01/15/2017 [facility]: [facility] Temperature Oral (F) 98 F 01/15/2017 SN[facility]: [facility] Systolic (mm Hg) 116 01/15/2017 [facility]: [facility] Diastolic (mm Hg) 72 01/15/2017 [facility] Respitory Rate 18 01/15/2017 [facility]: [facility] Heart Rate 76 {beats}/min 01/15/2017 [facility]: [facility] Heart Rate 79 {beats}/min 01/15/2017 [facility]: [facility] Respitory Rate 18 01/15/2017 [facility]: [facility] Temperature Oral (F) 98.6 F 01/15/2017 [facility]: [facility] Systolic (mm Hg) 118 01/15/2017 [facility]: [facility] Diastolic (mm Hg) 70 01/15/2017 [facility]: [facility] Heart Rate 76 {beats}/min 01/14/2017 SN[facility]: [facility] Respitory Rate 18 01/14/2017 [facility]: [facility] Temperature Oral (F) 98.4 F 01/14/2017 SN[facility]: [facility] Systolic (mm Hg) 116 01/14/2017 [facility]: [facility] Diastolic (mm Hg) 70 01/14/2017 [facility]: [facility] Respitory Rate 19 01/14/2017 [facility]: [facility] Heart Rate 88 {beats}/min 01/14/2017 SN[facility]: [facility] Systolic (mm Hg) 102 01/14/2017 [facility]: [facility] Diastolic (mm Hg) 60 01/14/2017 [facility]: [facility] Heart Rate 82 {beats}/min 01/14/2017 [facility]: [facility] Systolic (mm Hg) 116 01/14/2017 [facility]: [facility] Diastolic (mm Hg) 66 01/14/2017 [facility]: [facility] Temperature Oral (F) 98 F 01/14/2017 SN[facility]: [facility] Respitory Rate 22 01/14/2017 SN[facility]: [facility] Heart Rate 76 {beats}/min 01/14/2017 [facility]: [facility] Heart Rate 87 {beats}/min 01/14/2017 [facility]: [facility] Respitory Rate 18 01/14/2017 [facility]: [facility] Temperature Oral (F) 98.3 F 01/14/2017 SN[facility]: [facility] Systolic (mm Hg) 120 01/14/2017 [facility]: [facility] Diastolic (mm Hg) 70 01/14/2017 [facility] Weight 206.2 01/13/2017 SNF: [facility] Systolic (mm Hg) 128 01/13/2017 SN[facility]: [facility] Diastolic (mm Hg) 76 01/13/2017 [facility]: [facility] Temperature Oral (F) 97.8 F 01/13/2017 SN[facility]: [facility] Respitory Rate 20 01/13/2017 SN[facility]: [facility] Heart Rate 81 {beats}/min 01/13/2017 SN[facility]: [facility] Systolic (mm Hg) 132 01/13/2017 [facility]: [facility] Diastolic (mm Hg) 68 01/13/2017 [facility]: [facility] Heart Rate 78 {beats}/min 01/13/2017 SN[facility]: [facility] Systolic (mm Hg) 139 01/05/2017 SN[facility]: [facility] Diastolic (mm Hg) 69 01/05/2017 SN[facility]: [facility] Heart Rate 84 {beats}/min 01/05/2017 SN[facility]: [facility] Heart Rate 57 {beats}/min 01/04/2017 SN[facility]: [facility] Respitory Rate 1 01/04/2017 SN[facility]: [facility] Temperature Oral (F) 98.7 F 01/04/2017 SN[facility]: [facility] Systolic (mm Hg) 110 01/04/2017 SN[facility]: [facility] Diastolic (mm Hg) 64 01/04/2017 SN[facility]: [facility] Systolic (mm Hg) 126 01/04/2017 SN[facility]: [facility] Diastolic (mm Hg) 72 01/04/2017 [facility]: [facility] Heart Rate 84 {beats}/min 01/04/2017 [facility]: [facility] Systolic (mm Hg) 118 01/04/2017 [facility]: [facility] Diastolic (mm Hg) 64 01/04/2017 [facility]: [facility] Heart Rate 98 {beats}/min 01/04/2017 SN[facility]: [facility] Heart Rate 97 {beats}/min 01/03/2017 [facility]: [facility] Respitory Rate 18 01/03/2017 [facility] Temperature Oral (F) 98 F 01/03/2017 SN[facility]: [facility] Systolic (mm Hg) 111 01/03/2017 SN[facility]: [facility] Diastolic (mm Hg) 64 01/03/2017 [facility] Systolic (mm Hg) 140 01/03/2017 SN[facility]: [facility] Diastolic (mm Hg) 72 01/03/2017 [facility] Heart Rate 94 {beats}/min 01/03/2017 [facility]: [facility] Heart Rate 105 {beats}/min 01/03/2017 SN[facility]: [facility] Respitory Rate 18 01/03/2017 [facility] Systolic (mm Hg) 132 01/03/2017 SNF: [facility] Diastolic (mm Hg) 80 01/03/2017 SNF: [facility] Systolic (mm Hg) 133 01/03/2017 SN[facility]: [facility] Diastolic (mm Hg) 78 01/03/2017 SN[facility]: [facility] Heart Rate 70 {beats}/min 01/03/2017 SNF: [facility] Heart Rate 95 {beats}/min 01/02/2017 SNF: [facility] Respitory Rate 18 01/02/2017 SNF: [facility] Temperature Oral (F) 99.9 F 01/02/2017 SNF: [facility] Systolic (mm Hg) 111 01/02/2017 SNF: [facility] Diastolic (mm Hg) 56 01/02/2017 SN[facility]: [facility] Heart Rate 92 {beats}/min 01/02/2017 SNF: [facility] Respitory Rate 20 01/02/2017 SNF: [facility] Systolic (mm Hg) 118 01/02/2017 SNF: [facility] Diastolic (mm Hg) 71 01/02/2017 SN[facility]: [facility] Systolic (mm Hg) 123 01/02/2017 SN[facility]: [facility] Diastolic (mm Hg) 78 01/02/2017 SN[facility]: [facility] Heart Rate 78 {beats}/min 01/02/2017 SN[facility]: [facility] Heart Rate 93 {beats}/min 01/02/2017 SNF: [facility] Respitory Rate 20 01/02/2017 SNF: [facility] Systolic (mm Hg) 111 01/02/2017 SN[facility]: [facility] Diastolic (mm Hg) 67 01/02/2017 SNF: [facility] Systolic (mm Hg) 106 01/02/2017 SN[facility]: [facility] Diastolic (mm Hg) 62 01/02/2017 SN[facility]: [facility] Heart Rate 84 {beats}/min 01/02/2017 SNF: [facility] Heart Rate 80 {beats}/min 01/01/2017 SNF: [facility] Respitory Rate 18 01/01/2017 SNF: [facility] Temperature Oral (F) 97.6 F 01/01/2017 SNF: [facility] Systolic (mm Hg) 126 01/01/2017 [facility]: [facility] Diastolic (mm Hg) 76 01/01/2017 SN[facility]: [facility] Systolic (mm Hg) 126 01/01/2017 SN[facility]: [facility] Diastolic (mm Hg) 74 01/01/2017 SN[facility]: [facility] Heart Rate 84 {beats}/min 01/01/2017 SN[facility]: [facility] Heart Rate 68 {beats}/min 01/01/2017 SNF: [facility] Respitory Rate 20 01/01/2017 SNF: [facility] Systolic (mm Hg) 132 01/01/2017 SNF: [facility] Diastolic (mm Hg) 68 01/01/2017 SNF: [facility] Temperature Oral (F) 98.1 F 01/01/2017 SNF: [facility] Weight 207.0 12/15/2016 Paul Childers [...] Date Status Source Registered [facility] [id number] JOIE HARRY MD 01/17/2018 [facility] Discharged Inpatient [id number] ENEDINA HARRY MD 06/13/2018 06/19/2018 [facility] Procedures Procedure Code Date Perfomer Comments Source X-ray of chest, two views [id number] 06/19/2018 [facility] Computed tomography of chest without contrast [id number] 06/16/[address] [facility] EGD BIOPSY SINGLE/MULTIPLE [id number] 01/17/2018 [facility] DILATE ESOPHAGUS 1/MULT PASS [id number] 01/17/2018 [facility] Colorectal scrn; hi risk ind [id number] 01/17/2018 [facility] Plan of Care Plan of Care Date Source Discharge Date 06/19/18 11:55am Disposition HOME, SELF-CARE Instructions/Education Provided Bronchitis (Acute) - Adult Prescriptions See Medication Section Additional Instructions/Education follow up pcp in 1 week 06/19/2018 [facility] Social History Social History Date Source Social History Problem Response Recorded Date/Time Onset Date Status Hx Psychiatric Problems No 04/13/2016 6:57pm Not Applicable Not Applicable Hx Eating Disorder No 04/13/2016 6:57pm Not Applicable Not Applicable Hx Substance Use Disorder No 04/13/2016 6:57pm Not Applicable Not Applicable Hx Depression Yes 04/13/2016 6:57pm Not Applicable Not Applicable Hx Alcohol Use No 04/13/2016 6:57pm Not Applicable Not Applicable Hx Substance Use Treatment No 04/13/2016 6:57pm Not Applicable Not Applicable Hx Physical Abuse No 04/13/2016 6:57pm Not Applicable Not Applicable Smoking Status Start Date Stop Date Never Smoker 06/19/2018 [facility] Smoking StatusStart DateEnd Date Unknown if ever smoked 04/25/2018 20:51:18 04/03/2018 SNF: [facility] Family History Advance Directives Order Name Results Value Date Source Advance Directives Advance Directives Directive Response Recorded Date/Time Does the patient have an advance directive? No 06/14/18 4:40pm If yes, is advance directive on file with [facility]? No 06/14/18 4:40pm If not on file with [facility] will patient provide a copy? Yes 06/14/18 4:40pm Do you have a Directive to Physician? Yes 06/13/18 8:00pm Do you have a Medical Power of Car Rental Manager? Yes 06/13/18 8:00pm Do you have an out of hospital Do Not Resuscitate Order? Yes 06/13/18 8:00pm Do you have any special needs we should be aware of? Yes 06/13/18 8:00pm Do you have a support person here with you today? Yes 06/13/18 8:00pm Did patient receive Notice of Privacy Practices? Yes 06/13/18 8:00pm Did patient receive patient rights and responsibilities? Yes 06/13/18 8:00pm 06/19/2018 [facility] Functional Status
--- OUTSIDE RECORDS SUMMARY | 2018-12-28 08:03 | XMS REPORT ---
Author Author Moe Valladares Organization [employer] Address Unknown Phone Unavailable Care Team Providers Care Precision Layout Worker Name Role Phone Moe Valladares CP Unavailable Allergies No Known Allergies Problems Problem Type Condition Code Onset Dates Condition Status Problem Compression fracture of L1 lumbar vertebra, with delayed healing, subsequent encounter S32.010G Active Problem Lumbar compression fracture, with routine healing, subsequent encounter S32.000D Active Medications No Known Medications Results No Known Results Summary Purpose [employer] Submission
--- OUTSIDE RECORDS SUMMARY | 2018-12-28 08:03 | XMS REPORT ---
Author Author Moe Valladares Organization [employer] Address Unknown Phone Unavailable Care Team Providers Care Avionics Electrical Engineer Name Role Phone Moe Valladares CP Unavailable [...]
--- OUTSIDE RECORDS SUMMARY | 2018-12-28 08:03 | XMS REPORT ---
Author Author Moe Valladares Organization [employer] Address Unknown Phone Unavailable Care Team Providers Care Business Info Consultant Name Role Phone Moe Valladares CP Unavailable Allergies No Known Allergies Problems No Known Problems Medications No Known Medications Results No Known Results Summary Purpose [employer] Submission
--- OUTSIDE RECORDS SUMMARY | 2018-12-28 08:03 | XMS REPORT ---
Author Author Moe Valladares Organization [employer] Address Unknown Phone Unavailable Care Team Providers Care Employee Wellness/Fitness Coordinator Name Role Phone Moe Valladares CP Unavailable Allergies No Known Allergies Problems No Known Problems Medications No Known Medications Results No Known Results Summary Purpose [employer] Submission
--- OUTSIDE RECORDS SUMMARY | 2018-12-28 08:03 | XMS REPORT ---
Author Author Moe Valladares Organization [employer] Address Unknown Phone Unavailable Care Team Providers Care Environmental Designer Name Role Phone Moe Valladares Unavailable Allergies, Adverse Reactions, Alerts Substance Reaction Event Type penicillin hypotension Drug Allergy Lyrica edema Drug Allergy Problems Problem Type Condition Code Onset Dates Condition Status Assessment Thoracic radiculopathy M54.14 Active Assessment Lumbar radiculopathy M54.16 Active Medications Medication Code System Code Instructions Start Date End Date Status Dosage Amlodipine Besylate [facility] [address]-37 5 MG Orally Once a day Active [address] [facility] [address]-33 100 MG Orally Active as directed Combivent NDC 0 Active not defined Ranitidine HCl [facility] [address]-35 300 MG Orally Once a day Active 1 tablet at bedtime Macrobid [facility] [address]-60 100 MG Orally every 12 hrs Active 1 capsule with food Sertraline HCl [facility] [address]-17 100 MG Orally Once a day Active [address] [place] [facility] [address]-48 10-325 MG Orally every 6 hrs Active 1 tablet as needed Esomeprazole Magnesium [facility] [address]-05 40 MG Orally Once a day Active [address] [facility] [address]-80 10 MG Orally Once a day Active 1 tablet at bedtime as needed Lisinopril [facility] [address]-98 10 MG Orally Once a day Active [address] [facility] [address]-00 1 MG Orally Once a day Active 1 tablet at bedtime as needed movantik NDC 0 25mg oral daily Active one tab Robaxin-750 [facility] [address]-87 750 MG Orally every 4 hrs Active 1 tablet Methotrexate NDC 0 2.5mg Orally Once a week Active as directed Folic Acid [facility] [address]-33 1 MG Orally Once a day Active [address] [facility] [address]-82 10 MG Orally Once a day Active 1 tablet Vital Signs Date/Time: October 21, 2016 Blood Pressure Systolic 100 mm Hg Weight unable lbs Height unable in Temperature 98.2 F Cardiac Monitoring Heart Rate 80 /min Blood Pressure Diastolic 62 mm Hg Results No Known Results Summary Purpose [employer] Submission
--- OUTSIDE RECORDS SUMMARY | 2018-12-28 08:03 | XMS REPORT ---
Author Author Moe Valladares Organization [employer] Address Unknown Phone Unavailable Care Team Providers Care Sports Writer Name Role Phone Moe Valladares CP Unavailable Allergies No Known Allergies Problems No Known Problems Medications No Known Medications Results No Known Results Summary Purpose [employer] Submission
--- NOTE | 2018-12-28 09:27 | Pre Op History & Physical ---
CHIEF COMPLAINT: The patient is presenting for right and left cardiac catheterization with possible intervention. HISTORY: This is a 73-year-old lady, who is now with longstanding history of hypertension, diabetes mellitus, bronchiolitis and interstitial lung disease, and severe rheumatoid arthritis. The patient was at [facility] recently with chest pain and negative cardiac enzymes. This was over the weekend. The patient has declined to continue her workup and follow up as an outpatient. She came to our office. She does have class III shortness of breath on exertion, early class IV. Very vague chest pain. Her workup revealed fixed defect on her adenosine nuclear stress test on 12/12/2018. Her echocardiogram showed preserved left ventricular systolic function and not good TR jet to calculate pulmonary artery pressure. PA pressure measured only at 41 mmHg. The patient came for followup on 12/20/2018. We discussed the findings, I believe most of her symptoms are pulmonary in nature, mainly with her history of interstitial lung disease, bronchiolitis, or possible secondary to component of connective tissue disease with rheumatoid arthritis. However, the patient is quite miserable, having a lot of symptoms. She is definitely diabetic and she is in the right age to have coronary artery disease. After discussing pros and cons, the patient wanted to have cardiac catheterization, which will be right and left cardiac catheterization in view of the fact that she does have a chronic lung disease and bronchiolitis to measure right-sided pressure at the same time. The patient understands her choice, understands pros and cons, and understands benefit and risk. In summary, the patient's symptoms are severe shortness of breath on exertion, class III to early class IV with chest pressure and chest tightness. CURRENT MEDICATIONS: Aspirin 81 mg a day, Lasix 40 mg a day, diltiazem ER 120 mg daily, glipizide 2.5 mg a day, Nexium 40 mg daily, methotrexate 12.5 mg weekly, Xopenex inhaler, Zoloft 100 mg, Anoro Ellipta 62.5/25 inhaler. ALLERGIES: PENICILLIN AND ALBUTEROL. THE PATIENT CANNOT TOLERATE THAT TO CAUSE HER TO HAVE SEVERE TACHYCARDIA. PAST MEDICAL HISTORY: 1. Hypertension. 2. Diabetes mellitus. 3. Interstitial lung disease with bronchiolitis. 4. Rheumatoid arthritis. 5. GERD. 6. Depression. 7. Gastric bypass. 8. Cholecystectomy. 9. Bilateral knee replacement. 10. Left ankle. 11. Lumbar spine problem. 12. Bilateral cataracts. SOCIAL HISTORY: Stopped smoking in 2010. She is a social alcohol drinker. She is a retired intermediate accountant. FAMILY HISTORY: Father at age 93 of old age. Mother at age 83 with diabetes complication. Five siblings. One sister with strokes. Three children. One daughter with seizure. REVIEW OF SYSTEMS: GENERAL: Poor exercise tolerance, limited activity. HEENT: Remarkable for congestion and chronic sinus stuffiness. CARDIAC AND PULMONARY: As per acute illness. GI: Remarkable for GERD, but no nausea, no vomiting, no hematemesis, no melena. : No hematuria, no dysuria. MUSCULOSKELETAL: Back pain, knee pain, all joint stiffness, and rheumatoid arthritis symptoms. NEUROLOGIC: The patient uses walker to walk. She does have weakness, but no localized deficit. PHYSICAL EXAMINATION: VITAL SIGNS: Height of 5 feet 4 inches, weight of 170 pounds. Blood pressure 140/80, heart rate of 70, respiratory rate of 18. HEENT: Pupils are reactive. NECK: No elevation of jugular venous pulsation. CHEST: Decreased air entry bilaterally with decreased lung expansion. HEART: Decreased intensity of second heart sound. ABDOMEN: Soft. Bowel sounds are excellent. NEUROLOGIC: Very abnormal gait, using a walker. IMPRESSION AND PLAN: 1. Advanced lung disease. Interstitial lung disease versus bronchiolitis. 2. Diabetes mellitus. 3. Hypertension. 4. Severe shortness of breath on exertion. 5. Chest pain. 6. Abnormal EKG. 7. Abnormal nuclear stress test with mainly fixed area. Because of the patient's symptomatology and symptoms, she will be presenting for cardiac catheterization with possible intervention at the same time, right cardiac cath to be done. She understands her procedure. She understands her choice. MD MANDEEP Baltazar/CHICHIL /[id number]
--- NOTE | 2018-12-28 10:16 | NUR ---
1016 Received pt in Rm #[id number] Identiferx2 LHC/RHC rt femoral art and vein approach with manual pull and down for 4hrs bed per Dr Negro Knox. Rt Groin site remain w/o hematoma or oozing.Back to baseline orientation Ox4. Respiration shallow and regular 98% RA. Abdomen soft and non tender. Denies necessity to defecate or urinate. iv infusing at 70cchr No s/s infiltration Denies CP or SOB No gross issues pain pallor pressure or dysrhythmia. Bilateral PPx4 PT/DP. Carmelina daughter .Family at bedside discussed POC Aware must keep rt leg straight. Assisted with po intake tolerated well. ds/rn
--- NOTE | 2018-12-28 11:19 | NUR ---
1119pm Place in [facility] received rm #[id number] ok to transfer for same day dc 2pm with tele monitoring remains outpt status per Dr nikolas Uriarte. stuart/rn
--- NOTE | 2018-12-28 12:45 | NUR ---
1245 will hold patient in dental laboratory technician recovery till dc time at 2pm, Pt stable no gross issues pain,pallor,pressure or dysrhythmia. Rt groin site w/o hematoma or oozing. Pt stable and aware Notified tele-tacker personal and floor nurse as well as family of pt remaining in dental laboratory technician recovery till dc. stuart/rn
--- NOTE | 2018-12-28 14:48 | Operative Report ---
DATE OF PROCEDURE: 12/28/2018 SURGEON: Joselyn Uriarte MD TITLE OF PROCEDURE: Left and right cardiac catheterization. INDICATION: Severe shortness of breath on minimal exertion, diabetes mellitus, hypertension, rheumatoid arthritis, interstitial lung disease, abnormal nuclear stress test with fixed inferior defect, PA pressure by echo only of approximately 50 mm. In view of all above and in view of the patient continues to have a lot of symptoms out of proportion to her cardiac and PA pressure measured by echo and after pulmonary evaluation, the plan was to proceed with left cardiac catheterization, if no coronary artery disease was found to have right heart catheterization, but regardless to be done if possible because to measure the PA pressure and evaluate her pulmonary hypertension, etc. Pros and cons of this procedure and differential diagnosis are discussed at length with the patient, discussed at length with her insurance, appeared to review also. The patient is scheduled for her procedure. TECHNICAL DETAILS: After the usual sterile preparation and draping procedure, intravenous Versed and fentanyl given for sedation, local Xylocaine for anesthesia, a 4-Thai sheath established in place, 6-Thai sheath established in the right common femoral vein. Monique left 4 and 3DRC catheter to engage the coronary, pigtail for hemodynamic measurement and left ventriculogram. For the right heart, Linton-Vicente is used, pressure measurement in all chambers as well as thermodilution cardiac output and Dajuan formula cardiac output were carried out. At the end of the procedure, sheath was removed, hemostasis achieved manually, no blood loss and no complication. RESULTS: A. Coronary angiogram: 1. Left main: Free of disease. 2. LAD: Large LAD wrapping around the apex with minimal plaquing. 3. Circumflex coronary artery: Dominant circumflex, giving two obtuse marginal and the PDA. 4. Right coronary artery: Small, nondominant. B. Hemodynamic: Aorta pressure 160/70, LV pressure 160/21. C. Left ventriculogram in the right anterior oblique view showed left ventricular ejection fraction of 60% to 65%. Right cardiac catheterization, pressure, right atrium 14/12 with mean of 12, RV 45/12, PA 47/22 with mean of 30, oxygen saturation in the pulmonary artery of 64%. LV pressure 160/21. Aorta pressure 160/70. Aorta saturation of 93%. Cardiac output by thermal is 5.75 L/minute with cardiac index of 3.01 L/minute per sq m. IMPRESSION: 1. Minimal plaquing of the coronary arteries. 2. Preserved left ventricular systolic function. 3. Preserved cardiac output at rest. 4. PA pressure max at 50 systolic with mean of only 30. IMPRESSION: Normal coronary artery with mild pulmonary hypertension. COMPLICATION: None. BLOOD LOSS: None. RECOMMENDATION: Re-evaluate in clinic and the patient needs to follow with Pulmonary service. MD MANDEEP Baltazar/MODL /[id number]
== END | disposition home or self-care (01) ==
LOC: CATH LAB 07:27
PROVIDERS: ATTEND Internal Medicine Cardiovascular Disease
DX: I25.10 Atherosclerotic heart disease of native coronary artery without angina pectoris (principal); R07.2 Precordial pain; I27.20 Pulmonary hypertension, unspecified; R94.39 Abnormal result of other cardiovascular function study; J21.9 Acute bronchiolitis, unspecified; I10 Essential (primary) hypertension; E78.00 Pure hypercholesterolemia, unspecified; E11.8 Type 2 diabetes mellitus with unspecified complications; M06.9 Rheumatoid arthritis, unspecified; K21.9 Gastro-esophageal reflux disease without esophagitis; F32.9 Major depressive disorder, single episode, unspecified; Z01.812 Encounter for preprocedural laboratory examination; Z01.818 Encounter for other preprocedural examination; Z79.82 Long term (current) use of aspirin; Z79.84 Long term (current) use of oral hypoglycemic drugs; Z96.653 Presence of artificial knee joint, bilateral; Z87.891 Personal history of nicotine dependence; Z98.84 Bariatric surgery status; Z90.49 Acquired absence of other specified parts of digestive tract; Z82.3 Family history of stroke
CPT/HCPCS: 36415; 71046; 80053; 80061; 84443; 85025; 85610; 85730; 93460; C1766; J2001; J2250; J7030; Q9967; C1751; C1769; J3010